=== PATIENT | male | born 1940 | race African-American/Black ===

== ENCOUNTER 2020-06-30 09:35 | Day surgery (SDC) | payer MEDICARE, OTHER, SELFPAY ==
[2020-06-30] VITALS (7 sets, daily range): BP systolic 107–125; BP diastolic 62–73; PULSE 72–76; RESP 12–20; TEMP 36.2–36.9; O2SAT 96–99; BMI 28.2
--- NOTE | 2020-06-30 | FL_ITS ---
PROCEDURE: FLUOROSCOPY-GUIDED LUMBAR PUNCTURE CLINICAL INFORMATION: Rule out encephalitis. COMPARISON: None TECHNIQUE: Procedure and risks and benefits including bleeding, infection and headache were discussed with the patient and informed consent was obtained. The patient was positioned in the prone/slight PEREIRA position. The left lower back was prepped and draped in the usual sterile fashion. The skin and soft tissues were anesthetized with 1% lidocaine plain. Using fluoroscopic guidance and a 22-gauge spinal needle, left interlaminar access to the spinal canal at the L4-L5 level was obtained. 8 mL of CSF fluid was removed. Fluid was initially slightly blood tinged. 1 PA and 2 lateral images were saved. Fluoroscopy time was 0.9 minutes. FINDINGS: Images demonstrate needle placement at the left interlaminar L4-L5 level. There is severe multilevel facet arthritis and degenerative disc disease. IMPRESSION: Fluoroscopy-guided lumbar puncture.
[2020-06-30 10:30] LABS: MANUAL DIFF FLAG NO
[2020-06-30 10:33] LABS: Basophils Absolute Auto 0.1 X10*3/uL (0.0-0.2); Basophils Percent Auto 1.4 % (0-2); Eosinophils Absolute Auto 0.1 X10*3/uL (0.0-0.4); Eosinophils Percent Auto 1.6 % (0-4); Hematocrit 38.5 % (42-52); Hemoglobin 12.7 g/dl (14.0-18.0); Imm Gran Abs Auto 0.01 X10*3/uL (0.00-0.03); Imm Gran Pct Auto 0.2 % (0.0-0.4); Lymphocytes Absolute Auto 1.3 X10*3/uL (1.2-4.9); Lymphocytes Percent Auto 24.4 % (20-40); Mean Corpuscular Hemoglobin 33.2 pg (27.0-33.0); Mean Corpuscular Volume 100.5 fL (80-98); Mean Platelet Volume 11.1 fL (9.4-12.4); Monocytes Absolute Auto 0.6 X10*3/uL (0.1-1.2); Monocytes Percent Auto 11.1 % (2-11); Neutrophils Absolute Auto 3.2 X10*3/uL (2.0-8.3); Neutrophils Percent Auto 61.3 % (45-73); Platelet Count 222 X10*3/uL (160-400); Red Blood Count 3.83 X10*6/uL (4.60-5.80); Red Cell Distribution Width 12.1 % (11.0-16.0); White Blood Count 5.1 X10*3/uL (4.8-10.8)
[2020-06-30 10:40] LABS: INTERNATIONAL NORM RATIO 1.1 (0.9-1.1); Prothrombin Time 13.3 SEC (10.8-13.0)
[2020-06-30 10:42] LABS: Partial Thromboplastin Time 26.4 SEC (24.1-38.0)
[2020-06-30 14:25] LABS: CSF Tube # 2
[2020-06-30 14:26] LABS: CSF Tube # 2
[2020-06-30 14:28] LABS: Glucose CSF 52 mg/dL
[2020-06-30 14:30] LABS: Appearance CSF BLOODY
[2020-06-30 14:31] LABS: Appearance CSF BLOODY
[2020-06-30 14:36] LABS: Appearance CSF HAZY; CSF Tube # 4
[2020-06-30 14:37] LABS: CSF Monos 0 %; CSF Other Cells % 0 %; Color CSF PINK; Lymphocytes CSF 100 %; Neutrophils CSF 0 %; Red Blood Cell CSF 1320 MM*3; White Blood Cell CSF 1 MM*3
== END 2020-06-30 23:59 | disposition home or self-care (01) ==
PROVIDERS: Radiology Diagnostic Radiology; PCP Internal Medicine; Visit Provider Psychiatry & Neurology Neurology
PROC: 009U3ZZ Drainage of Spinal Canal, Percutaneous Approach (ICD-10-PCS; CPT 62270; principal; 2020-06-30 11:00)
DX: G04.90 Encephalitis and encephalomyelitis, unspecified (principal)
CPT/HCPCS: 62328; 36415; 82945; 84157; 84166; 85025; 85610; 85730; 87015; 87070; 87205; 89051

== ENCOUNTER 2020-07-08 09:46 | Outpatient (REF) | payer MEDICARE, OTHER, SELFPAY ==
--- NOTE | 2020-07-08 09:52 | MR_ITS ---
EXAMINATION: MR BRAIN WITHOUT AND WITH CONTRAST CLINICAL INFORMATION: Encephalitis. COMPARISON: None available. TECHNIQUE: MRI of the brain was obtained using routine sequences without and with contrast following the administration of 10 mL of Gadavist intravenous contrast. FINDINGS: Exam is partially motion degraded. There is moderate expansile cortical edema involving centered on the right limbic system with extension into the anterior temporal lobe in the right insula. No associated restricted diffusion or susceptibility artifact. There is mild associated gyriform left meningeal enhancement in this distribution. Potential minimal faintly T2 FLAIR hyperintensity within the contralateral limbic and insular cortices. Otherwise, the contralateral side is relatively spared. Potential minimal symmetric T2 FLAIR hyperintensity within the posterior aspects of the bilateral occipital lobes. No focal restricted diffusion is demonstrated to suggest acute or subacute cerebral ischemia. No evidence of acute or chronic hemorrhagic products on heme-sensitive imaging. Mild scattered periventricular and deep white matter T2 FLAIR hyperintensities throughout suggestive of mild underlying microangiopathy. The ventricles are normal in morphology and size. No abnormal mass effect. No midline shift. Normal appearance of the pituitary gland. No abnormalities of the posterior fossa with normal appearance of the brainstem and cerebellum. Normal arterial and venous vascular flow voids are present. Normal, homogeneous marrow signal. No signal abnormalities within the paranasal sinuses or mastoids. IMPRESSION: Moderate parenchymal edema centered on the right limbic system with extension throughout the anterior right temporal lobe and into the right insula. There is no associated restricted diffusion or evidence of hemorrhagic transformation on this exam. There does appear to be mild associated leptomeningeal enhancement in this region. To a much lesser degree, there may be minimal parenchymal within the contralateral left lung apex system. There appears to be mild symmetric edema within the posterior occipital lobes. 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 Postictal changes or sequelae of a nonspecific vasculitis could have a similar appearance in the appropriate clinical settings.
== END 2020-07-08 09:47 | disposition home or self-care (01) ==
LOC: HO.MRI 09:46
PROVIDERS: Visit Provider Psychiatry & Neurology Neurology
DX: G04.90 Encephalitis and encephalomyelitis, unspecified (principal)
CPT/HCPCS: 70553

== ENCOUNTER 2021-06-12 13:46 | Outpatient (REF) | payer MEDICARE, OTHER, SELFPAY ==
[2021-06-12 14:50] LABS: Blood Urea Nitrogen 13 mg/dL (9-16); Estimated Glomerular Filt Rate > 60
== END 2021-06-12 13:47 | disposition home or self-care (01) ==
LOC: HO.LAB 13:46
PROVIDERS: PCP Physician Assistant Medical; Visit Provider Psychiatry & Neurology Neurology
DX: G04.90 Encephalitis and encephalomyelitis, unspecified (principal)
CPT/HCPCS: 36415; 82565; 84520

== ENCOUNTER 2021-06-26 09:51 | Outpatient (REF) | payer MEDICARE, OTHER, SELFPAY ==
--- NOTE | ~2021-06-26 | MR_ITS ---
MR BRAIN WITHOUT AND WITH CONTRAST CLINICAL INFORMATION: Encephalitis. Temporal lobe lesion. COMPARISON: Brain MRI 07/08/2020. TECHNIQUE: Multiplanar, multisequence MRI of the brain was obtained before and after the intravenous administration of 10 mL Gadavist. FINDINGS: T2 signal changes within the anterior right temporal pole and the right uncus associated with volume loss, most likely gliosis and encephalomalacia. There is right hippocampal atrophy with associated exvacuodilatation of the right temporal horn. No new parenchymal signal abnormality and no pathologic enhancement. There is no hydrocephalus, extra-axial surface collection, or herniation. The major flow voids at the skull base are preserved. There is no acute infarct on diffusion-weighted imaging. There is no intracranial hemorrhage on the gradient recalled echo acquisition. The midline structures are normal. The cerebellar tonsils are normally positioned. The cerebellum and brainstem are normal. The craniocervical junction is normal. Osseous marrow signal intensity is homogenous. The visualized soft tissues are unremarkable. MR/MR head/brain wo/w con IMPRESSION: T2 signal changes within the anterior right temporal pole and the right uncus associated with volume loss, most likely gliosis and encephalomalacia. There is right hippocampal atrophy with associated exvacuodilatation of the right temporal horn. No new parenchymal signal abnormality and no pathologic enhancement.
== END 2021-06-26 09:52 | disposition home or self-care (01) ==
LOC: HO.MRI 09:51
PROVIDERS: Visit Provider Psychiatry & Neurology Neurology
DX: Z13.89 Encounter for screening for other disorder (principal)
CPT/HCPCS: 70553; A9585

== ENCOUNTER 2021-06-26 11:15 | Inpatient (IN) | payer MEDICARE, OTHER, SELFPAY ==
[2021-06-26] VITALS (8 sets, daily range): BP systolic 103–121; BP diastolic 50–73; PULSE 59–76; RESP 15–18; TEMP 36.5–36.8; O2SAT 95–100; BMI 28.0; BMI 29.3
--- NOTE | ~2021-06-26 | XR_ITS ---
EXAMINATION: XR CHEST CLINICAL INFORMATION: Failure to try COMPARISON: 07/20/2008 chest x-ray. TECHNIQUE: Frontal view of the chest was obtained. FINDINGS: The lungs are hypoexpanded with elevated left hemidiaphragm. There is left lower lobe atelectasis or scarring. Rest lungs are clear. Heart size and pulmonary vascularity is normal. There is mild spondylosis dorsal spine. No lytic process. XR/XR chest 1V IMPRESSION: Hypoexpanded lungs with elevated left hemidiaphragm new since 2007. There is patchy opacity left lung base likely atelectasis or infiltrate.
--- NOTE | ~2021-06-26 | US_ITS ---
EXAMINATION: US EXTRACRANIAL CAROTID DUPLEX, BILATERAL CLINICAL INFORMATION: Dizziness COMPARISON: None TECHNIQUE: Real-time ultrasound and Doppler techniques (integrating B-mode 2-D vascular images, Doppler spectral analysis and color-flow Doppler imaging) were utilized to interrogate the extracranial carotid arteries, the vertebral arteries and proximal subclavian arteries bilaterally. The degree of stenosis is determined by criteria similar to NASCET. FINDINGS: Right Side: 1. There is mild/moderate heterogeneous atherosclerotic plaque seen in the bifurcation/proximal ICA region. 2. The common carotid artery PSV proximally is 103 cm/s and distally 109 cm/s. 3. The proximal internal carotid artery velocities are 84 cm/s systolic and 15.9 cm/s diastolic. 4. The proximal external carotid artery PSV is 84.5 cm/s. 5. The vertebral artery shows antegrade flow. 6. The subclavian artery waveforms are normal. Left Side: 1. There is [id number] heterogeneous atherosclerotic plaque seen in the bifurcation/proximal ICA region. 2. The common carotid artery PSV proximally is 1:30 cm/s and distally 76.8 cm/s. 3. The proximal internal carotid artery velocities are 62.8 cm/s systolic and 17.6 cm/s diastolic. 4. The proximal external carotid artery PSV is 87.3 cm/s. 5. The vertebral artery shows antegrade flow. 6. The subclavian artery waveforms are normal. Of note, on Doppler evaluation there is some irregularity of the heart rate. US/US carotid duplex BI IMPRESSION: 1. RIGHT: Minimal, non-hemodynamically significant stenosis of the proximal right internal carotid artery corresponding to a 0-49% stenosis by velocity criteria. 2. LEFT: Minimal, non-hemodynamically significant stenosis of the proximal left internal carotid artery corresponding to a 0-49% stenosis by velocity criteria. 3. Irregular heart rate. Correlate for arrhythmia.
--- NOTE | ~2021-06-26 | CT_ITS ---
EXAMINATION: CT HEAD WITHOUT CONTRAST CLINICAL INFORMATION: Memory deficit and failure to thrive COMPARISON: Previous brain MRI from earlier the same day TECHNIQUE: Contiguous axial imaging was performed from the skull base to vertex without intravenous administration of contrast. This CT examination was performed using dose optimization techniques as appropriate, variously including the following: *Automated exposure control *Adjustment of mA and/or kV according to patient size (this includes techniques or standardized protocols for targeted exams where dose is matched to indication/reason for exam; i.e. extremities or head) *Use of iterative reconstruction technique DLP: 675 mGy-cm FINDINGS: There is no evidence of an extra-axial collection. There is no evidence of intra or extra-axial hemorrhage. There is low-attenuation anterior left temporal lobe area there may be mild ex vacuo dilatation of the adjacent temporal horn of the right lateral ventricle. Ventricles and extra-axial CSF spaces are slightly prominent suggestive of mild generalized atrophy. There is mild nonspecific periventricular white matter disease and there is mild atherosclerotic disease. No skull fracture or bone lesion is seen. Visualized paranasal, mastoid air cells and middle ears are clear. CT/CT head/brain wo con IMPRESSION: Low-attenuation in the anterior right temporal lobe and adjacent mild ex vacuo dilatation of the temporal horn of the right lateral ventricle. This is better delineated on MRI performed earlier the same day. Mild generalized atrophy and nonspecific periventricular white matter disease.
--- NOTE | 2021-06-26 11:39 | ECG_ITS ---
Test Reason : ALTERED MENTAL Blood Pressure : / mmHG Vent. Rate : 068 BPM Atrial Rate : 055 BPM P-R Int : 000 ms QRS Dur : 096 ms QT Int : 428 ms P-R-T Axes : 000 -39 096 degrees QTc Int : 455 ms Normal sinus rhythm with 1st degree A-V block with Premature atrial complexes Left axis deviation Nonspecific T wave abnormality Abnormal ECG No previous ECGs available Referred By: Kaye Ross Electronically Signed By:WALTER BARTON
--- NOTE | 2021-06-26 11:40 | ED_ITS ---
HPI - Neuro Symptoms/Deficit General Chief Complaint: Neuro Symptoms/Deficit Stated Complaint: WEAKNESS Time Seen by Provider: 06/26/21 11:38 Source: patient and family (Sister) Mode of arrival: ambulatory Limitations: no limitations History of Present Illness HPI Narrative: 81-year-old male came in for evaluation of failure to thrive. Brought in with his sister for evaluation of failure to thrive, and increase his generalized weakness, worsening of forgetfulness, patient over the last year been having progressive memory loss, patient has been evaluated by neurologist who ordered MRI (was done today reamings none available). Sister brought him to the emergency department after having the MRI of the brain because concern of caring for himself at home patient lives home with his and patient is refusing help from others. Patient has been complaining of dizziness on and off for the past few months. Patient declined fever, chills, headache, chest pain, abdominal pain, nausea, or vomiting. Related Data Allergies Allergy/AdvReac Type Severity Reaction Status Date / Time sulfamethoxazole Allergy Unknown Verified 06/30/20 10:49 [From Bactrim] trimethoprim [From Bactrim] Allergy Unknown Verified 06/30/20 10:49 Review of Systems Review of Systems: All other systems are reviewed and are negative Constitutional: Reports as per HPI and Reports no additional constitutional complaints Eyes: Reports as per HPI and Reports no additional eye complaints Reports system reviewed and no additional complaints, except as documented Cardiovascular: Reports as per HPI and Reports no additional cardiovascular complaints Respiratory: Reports as per HPI and Reports no additional respiratory complaints Gastrointestinal: Reports as per HPI and Reports no additional gastrointestinal complaints Genitourinary: Reports no additional female genitourinary complaints Musculoskeletal: Reports no additional musculoskeletal complaints Skin/Breast: Reports system reviewed and no additional complaints, except as docu Psychiatric: Reports no additional psychiatric complaints Endocrine: Reports no additional endocrine complaints Hematologic/Lymphatic: Reports no additional hematologic/lymphatic complaints Allergic/Immunologic: Reports no additional allergic/immunologic complaints Reports system reviewed and no additional complaints, except as documented and Reports Abnormal speech present [facility] Past Medical History Medical History Arthritis Encephalitis Glaucoma Social History Social History Advance Directives: Yes Advance Directives Information Provided: No Advance Directives on File: No Advance Directives Date on File: 07/08/20 Physical Exam Vital Signs: Vital Signs: Last Vital Signs Temp 97.7 F 06/26/21 15:46 Pulse 59 06/26/21 15:46 Resp 16 06/26/21 15:46 BP 109/56 L 06/26/21 15:46 Pulse Ox 95 06/26/21 15:46 Body Mass Index 28.0 Vital signs have been reviewed as appeared to be correct. Blood pressure normal. Heart rate normal. Respiration rate normal. Temperature normal. O xygen saturation normal. Appearance: Alert. Oriented X1 (person), acute di stress. Head: Normal external exam. Normocephalic. Atraumatic. No Benton signs noted. No raccoon eyes noted Eyes: PERRLA. EOMI. Conjunctiva and sclera normal. Eyelids normal. ENT: TM's Normal. Pharynx normal. Uvula midline. Moist mucous membranes. No trismus noted. No drooling noted. No muffled voice noted. Neck: Normal inspection. Neck supple. FROM. No adenopathy. Thyroid Normal. No meningeal signs. No neck mass noted. CVS: Normal heart rate and rhythm. Heart sound normal. No murmurs noted. Pulses normal throughout. Respiratory: No respiratory distress. Painless inspiration. Breath sounds normal. No wheezes/rales/rhonchi noted. Chest nontender. No accessory muscle usage noted or decreased air movement noted. Abdomen: Soft and nontender. Bowel sounds normal in all 4 quadrants. No distention noted. No organomegaly noted. No visible injury noted. Back: No CVA tenderness. Full range of motion noted. Skin: Skin warm and dry. Normal skin color. Normal skin turgor. No chikis hes/lesions/lacerations noted. Extremities: No lower extremity edema. Extremities exhibit normal range of motion. Extremities nontender. Neuro: Oriented X 1. Cranial nerve exam: II-XII are grossly intact No motor deficit. No sensory deficit. Reflexes normal. Course Course Course Narrative: Assessment and plan. 81-year-old male came in for evaluation of memory loss and workup for dementia, patient also been complaining of dizziness and generalized weakness, patient found to have pneumonia but not meeting criteria for SIRS, elevated troponin. Start the patient on antibiotic, case discussed with cardiology Dr. Molina who recommended to admit the patient for further cardiac follow-up in the morning. MDM - Neuro Symptoms/Deficit Medical Records Attestation: I reviewed the patient's medical records. Lab Data Attestation: I reviewed the patient's lab results. Result diagrams: 06/26/21 12:19 06/26/21 12:19 Labs: Lab Results 06/26/21 06/26/21 06/26/21 Range/Units 12:19 12:19 12:19 WBC 6.5 (4.8-10.8) X10*3/uL RBC 4.56 L (4.60-5.80) X10*6/uL Hgb 14.9 (14.0-18.0) g/dl Hct 44.9 (42-52) % MCV 98.5 H (80-98) fL MCH 32.7 (27.0-33.0) pg MCHC 33.2 (31.0-36.0) g/dl RDW 11.9 (11.0-16.0) % Plt Count 184 (160-400) X10*3/uL MPV 11.2 (9.4-12.4) fL Immature Gran % (Auto) 0.6 H (0.0-0.4) % Neut % (Auto) 77.9 H (45-73) % Lymph % (Auto) 11.9 L (20-40) % [place] % (Auto) 8.8 (2-11) % Eos % (Auto) 0.3 (0-4) % Baso % (Auto) 0.5 (0-2) % Lymph # (Auto) 0.8 L (1.2-4.9) X10*3/uL [place] # (Auto) 0.6 (0.1-1.2) X10*3/uL Eos # (Auto) 0.0 (0.0-0.4) X10*3/uL Baso # (Auto) 0.0 (0.0-0.2) X10*3/uL Abs Immat Gran (auto) 0.04 H (0.00-0.03) X10*3/uL Absolute Neuts (auto) 5.0 (2.0-8.3) X10*3/uL Absolute Nucleated RBC 0.000 (0.0-0.012) X10*3/uL Nucleated RBC % (auto) 0.0 (0.0-0.2) /100WBC Sodium 140 (135-145) mmol/L Potassium 3.8 (3.3-5.1) mmol/L Chloride 104 (96-108) mmol/L Carbon Dioxide 26 (22-29) mmol/L Anion Gap 14 (12-20) BUN 12 (9-16) mg/dL Creatinine 0.87 (0.5-1.4) mg/dL Estim Creat Clear Calc 85.1 Estimated GFR > 60 Random Glucose 112 (60-115) mg/dL Calcium 9.3 (8.4-10.2) mg/dL Total Bilirubin 0.8 (0.0-1.0) mg/dL Direct Bilirubin 0.3 (0.0-0.5) mg/dL AST 13 (5-37) U/L ALT 21 (0-40) U/L Alkaline Phosphatase 96 (39-117) U/L Troponin I High Sens 66.4 H* (<3.5-35.0) ng/L B-Natriuretic Peptide 67 (<100) pg/mL Total Protein 8.1 H (6.5-8.0) g/dL Albumin 3.2 L (3.5-5.0) g/dL Lipase 16 (8-78) U/L Urine Color Urine Appearance Urine pH (5.0-8.0) Ur Specific [place] (1.005-1.025) Urine Protein (NEG-TRACE) MG/DL Urine Glucose (UA) (NEG) MG/DL Urine Ketones (NEG) MG/DL Urine Blood (NEG) Urine Nitrite (NEG) Ur Leukocyte Esterase (NEG) COVID-19 (ASHISH) (Negative) COVID-19 Clin Com 06/26/21 06/26/21 06/26/21 Range/Units 12:19 12:34 16:02 WBC (4.8-10.8) X10*3/uL RBC (4.60-5.80) X10*6/uL Hgb (14.0-18.0) g/dl Hct (42-52) % MCV (80-98) fL MCH (27.0-33.0) pg MCHC (31.0-36.0) g/dl RDW (11.0-16.0) % Plt Count (160-400) X10*3/uL MPV (9.4-12.4) fL Immature Gran % (Auto) (0.0-0.4) % Neut % (Auto) (45-73) % Lymph % (Auto) (20-40) % [place] % (Auto) (2-11) % Eos % (Auto) (0-4) % Baso % (Auto) (0-2) % Lymph # (Auto) (1.2-4.9) X10*3/uL [place] # (Auto) (0.1-1.2) X10*3/uL Eos # (Auto) (0.0-0.4) X10*3/uL Baso # (Auto) (0.0-0.2) X10*3/uL Abs Immat Gran (auto) (0.00-0.03) X10*3/uL Absolute Neuts (auto) (2.0-8.3) X10*3/uL Absolute Nucleated RBC (0.0-0.012) X10*3/uL Nucleated RBC % (auto) (0.0-0.2) /100WBC Sodium (135-145) mmol/L Potassium (3.3-5.1) mmol/L Chloride (96-108) mmol/L Carbon Dioxide (22-29) mmol/L Anion Gap (12-20) BUN (9-16) mg/dL Creatinine (0.5-1.4) mg/dL Estim Creat Clear Calc Estimated GFR Random Glucose (60-115) mg/dL Calcium (8.4-10.2) mg/dL Total Bilirubin (0.0-1.0) mg/dL Direct Bilirubin (0.0-0.5) mg/dL AST (5-37) U/L ALT (0-40) U/L Alkaline Phosphatase (39-117) U/L Troponin I High Sens 74.0 H* (<3.5-35.0) ng/L B-Natriuretic Peptide (<100) pg/mL Total Protein (6.5-8.0) g/dL Albumin (3.5-5.0) g/dL Lipase (8-78) U/L Urine Color YELLOW Urine Appearance HAZY Urine pH 5.5 (5.0-8.0) Ur Specific [place] >= 1.030 H (1.005-1.025) Urine Protein TRACE (NEG-TRACE) MG/DL Urine Glucose (UA) NEG (NEG) MG/DL Urine Ketones NEG (NEG) MG/DL Urine Blood NEG (NEG) Urine Nitrite NEG (NEG) Ur Leukocyte Esterase NEG (NEG) COVID-19 (ASHISH) Negative (Negative) COVID-19 Clin Com See Note Imaging Data MRI of the brain: Radiologist's impression: T2 signal changes within the anterior right temporal pole and the right uncus associated with volume loss, most likely gliosis and encephalomalacia. There is right hippocampal atrophy with associated exvacuodilatation of the right temporal horn. No new parenchymal signal abnormality and no pathologic enhancement. Chest x-ray: Radiologist's impression: Hypoexpanded lungs with elevated left hemidiap hragm new since 2007. There is patchy opacity left lung base likely atelectasis or infiltrate. CT scan - head: Radiologist's impression: Low-attenuation in the anterior right temporal lobe and adjacent mild ex vacuo dilatation of the temporal horn of the right lateral ventricle. This is better delineated on MRI performed earlier the same day. Mild generalized atrophy and nonspecific periventricular white matter disease. ECG Data Interpretation: Atrial fibrillation at 69 beats per minutes, left axis deviation, otherwise unremarkable intervals, diffuse nonspecific ST-T changes. Discharge Plan Discharge Clinical Impression: Pneumonia, Elevated troponin Patient Disposition: Admitted As Inpatient
[2021-06-26 12:24] LABS: MANUAL DIFF FLAG NO
[2021-06-26 12:30] LABS: Basophils Percent Auto 0.5 % (0-2); Eosinophils Percent Auto 0.3 % (0-4); Hematocrit 44.9 % (42-52); Hemoglobin 14.9 g/dl (14.0-18.0); Imm Gran Abs Auto 0.04 X10*3/uL (0.00-0.03); Imm Gran Pct Auto 0.6 % (0.0-0.4); Lymphocytes Absolute Auto 0.8 X10*3/uL (1.2-4.9); Lymphocytes Percent Auto 11.9 % (20-40); Mean Corpuscular HGB Conc 33.2 g/dl (31.0-36.0); Mean Corpuscular Hemoglobin 32.7 pg (27.0-33.0); Mean Corpuscular Volume 98.5 fL (80-98); Mean Platelet Volume 11.2 fL (9.4-12.4); Monocytes Absolute Auto 0.6 X10*3/uL (0.1-1.2); Monocytes Percent Auto 8.8 % (2-11); Neutrophils Percent Auto 77.9 % (45-73); Platelet Count 184 X10*3/uL (160-400); Red Blood Count 4.56 X10*6/uL (4.60-5.80); Red Cell Distribution Width 11.9 % (11.0-16.0); White Blood Count 6.5 X10*3/uL (4.8-10.8)
[2021-06-26 12:43] LABS: Appearance Urine HAZY; Color Urine YELLOW; Glucose Urine UA NEG (NEG); Leukocyte Esterase Urine NEG (NEG); Nitrite Urine NEG (NEG); PH 5.5 (5.0-8.0); Specific Gravity - Urine >= 1.030 (1.005-1.025); Urine Blood NEG (NEG); Urine Ketones NEG (NEG); Urine Protein TRACE MG/DL (NEG-TRACE)
[2021-06-26 12:45] LABS: Alanine Aminotransferase 21 U/L (0-40); Albumin Level 3.2 g/dL (3.5-5.0); Alkaline Phosphatase 96 U/L (39-117); Anion Gap 14 (12-20); Aspartate Amino Transferase 13 U/L (5-37); Bilirubin Direct 0.3 mg/dL (0.0-0.5); Bilirubin Total 0.8 mg/dL (0.0-1.0); Blood Urea Nitrogen 12 mg/dL (9-16); Calcium 9.3 mg/dL (8.4-10.2); Carbon Dioxide 26 mmol/L (22-29); Chloride 104 mmol/L (96-108); Creatinine Clr Calc Pharmacy 85.1; Estimated Glomerular Filt Rate > 60; Glucose Random 112 mg/dL (60-115); Lipase 16 U/L (8-78); Potassium 3.8 mmol/L (3.3-5.1); Sodium 140 mmol/L (135-145); Total Protein 8.1 g/dL (6.5-8.0)
[2021-06-26 12:49] LABS: COVID-19 Test Negative (Negative); IDNOW Serial# 08D9AD1C
[2021-06-26 12:56] LABS: B Type Natriuretic Peptide 67 pg/mL (<100); Troponin-I High Sensitivity 66.4 ng/L (<3.5-35.0)
--- NOTE | 2021-06-26 18:16 | MHC.CM.PN ---
CM met with admitted patient, with bed assignment pending, and his sister. Sister, Nikki Louis speaking for family and requested I speak with her and not pt. Gently explained that I would like to speak with patient, and then I could speak with her if pt agreeable. Pt is alert, but confused. Knows he is in the hospital, but thinks he was working recently for [employer] and that his is 44. Pt unsure of his age. Pt states he can care for himself and wants to go home. Pt unable to answer Covid vaccines questions. Pt lives with his , uses no DME or services. Pt states he doesn't need help. Pt does not want to go to STR. PT recommends Home PT with front wheeled walker at d/c. HCP reviewed, completed, and signed. HCP/ Gwen Louis ([phone]) and alternate HCP/sister Nikki Louis ([phone]). Uploaded into [employer] and [employer]. Nikki states pt's cannot care for him. Cannot shower him. States pt has MS and a fx leg, uses a walker and cannot help or care for him. CM spoke with Gwen, pt , who states she cannot care for him at home right now. Both want STR. Explained that PT recommends Home PT with Walker. Pt and sister unsure of Vet status, just saying pt was in the service.Pt cannot answer vet questions regarding VA pharmacy use, Medicare part B, or if vet connected. Will need to review VET status in am with VA Coordinator. Pt has Medicare and . Per pt , pt is fully vaccinated with Pfizer. CM to follow for d/c needs.
--- NOTE | 2021-06-26 19:00 | PC.NURSE ---
PT WAITING ON BED ASSIGNMENT, LABS, MEDS GIVEN ORDERED, MEDS GIVEN ORDERED. TOLERATING PO
--- NOTE | 2021-06-26 19:08 | PC.NURSE ---
RN assumed care at 1900. Pt alert but confused, oriented to self only. Pt calm and cooperative. Pt asking repeated questions and unsure why he came here. pt reoriented and reassured multiple times. Pt denies pain, chest pain, SOB, N/V. IV intact.Vitals stable. Pt remains on tele monitor, NSR. Pt resting in stretcher calmly, will continue to monitor.
[2021-06-26] MEDS: Azithromycin 500 MG in 0.9 % Sodium Chloride 250 ML 125 MG IV (19:13)
--- NOTE | 2021-06-26 19:22 | PM.IMHP ---
History of Present Illness Date of Service: 06/26/21 Chief Complaint: Dizziness 81-year-old male with a past medical history of forgetfulness, glaucoma, history of encephalitis presented to the hospital with a chief complaint of dizziness. Patient is a poor historian To the patient's healthcare proxy Gwen soni Reported that patient has been complaining of dizziness for the past 3 days and also mentioned that he has decreased appetite and not eating good. Denies any falls or loss of consciousness. Denies any cough or sputum production. Denies any urinary symptoms. Denies any nausea vomiting. Denies having any numbness tingling or focal weakness. Baseline patient is usually independent. Gwen also mentioned that he has history of encephalitis and since then he has been more forgetful and has been following with Dr godwin in the neurology clinic as outpatient and takes donepezil, prednisone, sertraline; and red trauma Steve for his glaucoma. Mentioned that had a follow-up visit last week with Dr. Godwin, and had an MRI of the brain done today. Review of all other systems is negative except mentioned above ER course: Per ER team patient exam was nonfocal; labs were essentially benign; on on chest x-ray noted to have possible pneumonia; given antibiotics. Also noted to elevated troponin, follow-up troponin almost flat reviewed. Discussed with Cardiology Dr Molina who suggested admission to [facility], did not heparin drip at this time. [facility] [place] Medical History Arthritis Encephalitis Glaucoma Pertinent family history: Mother had heart disease Father had cancer Social History Household Members: Spouse Housing: Unknown / Unable to assess Do you presently have visiting nurse or other home services: No (unable to assess) Alcohol intake: never Patient Tobacco Use Status: Never used Tobacco Use of substances other than those prescribed or required for medical reasons: No Have you been hit, kicked, punched, or otherwise hurt by someone within the past year? If so, by whom?: No Do you feel safe in your current relationship?: Yes Is there a partner from a previous relationship who is making you feel unsafe now?: No Are you made to feel afraid or neglected: No Advance Directives: Yes Advance Directives Information Provided: No Advance Directives on File: No Advance Directives Date on File: 06/26/21 Do you have thoughts of harming others: None Do you have a plan to hurt others: No Plan Recently lost weight without trying: No Nutrition Risks: No Nutritional Risk Poor oral hygiene: No service: Yes Current occupational status: retired Meds Allergies Allergy/AdvReac Type Severity Reaction Status Date / Time sulfamethoxazole Allergy Unknown Verified 06/30/20 10:49 [From Bactrim] trimethoprim [From Bactrim] Allergy Unknown Verified 06/30/20 10:49 Home Medications Medication Instructions Recorded Confirmed Last Taken Type donepezil 10 mg tablet 1 tab PO BEDTIME 06/26/21 06/26/21 06/25/21 History omeprazole 20 mg capsule,delayed 1 cap PO QAM 06/26/21 06/26/21 06/25/21 History release prednisone 10 mg tablet 1 tab PO DAILY 06/26/21 06/26/21 06/25/21 History sertraline 100 mg tablet 1 tab PO DAILY 06/26/21 06/26/21 06/25/21 History travoprost 0.004 % eye drops 1 drp OPHTHALMIC (EYE) BEDTIME 06/26/21 06/26/21 06/25/21 History (Travatan Z) Physical Exam Vital Signs and Narrative: Vital Signs: Last Vital Signs Temp 98.2 F 06/26/21 19:04 Pulse 63 06/26/21 19:04 Resp 18 06/26/21 19:04 BP 103/50 L 06/26/21 19:04 Pulse Ox 100 06/26/21 19:04 Body Mass Index 28.0 Gen: Appears be in no acute distress HEENT: NCAT, Moist mucosa. Pulmonary: Vesicular breath sounds, fair air entry CVS: Normal S1-S2 Abdomen: BS+, Soft, Nontender Extremities: Warm well perfused Neuro: Alert and awake. Grossly nonfocal Results Labs CBC and Chem 7: 06/26/21 12:19 06/26/21 12:19 Labs: Laboratory Results - last 24 hr 06/26/21 06/26/21 06/26/21 12:19 12:19 12:19 MCV 98.5 H MCH 32.7 MCHC 33.2 RDW 11.9 Plt Count 184 MPV 11.2 Immature Gran % (Auto) 0.6 H Neut % (Auto) 77.9 H Lymph % (Auto) 11.9 L [place] % (Auto) 8.8 Eos % (Auto) 0.3 Baso % (Auto) 0.5 Lymph # (Auto) 0.8 L [place] # (Auto) 0.6 Eos # (Auto) 0.0 Baso # (Auto) 0.0 Abs Immat Gran (auto) 0.04 H Absolute Neuts (auto) 5.0 Absolute Nucleated RBC 0.000 Nucleated RBC % (auto) 0.0 Anion Gap 14 Estim Creat Clear Calc 85.1 Estimated GFR > 60 Random Glucose 112 Lactic Acid Calcium 9.3 Total Bilirubin 0.8 Direct Bilirubin 0.3 AST 13 ALT 21 Alkaline Phosphatase 96 Troponin I High Sens 66.4 H* B-Natriuretic Peptide 67 Total Protein 8.1 H Albumin 3.2 L Lipase 16 Urine Color Urine Appearance Urine pH Ur Specific [place] Urine Protein Urine Glucose (UA) Urine Ketones Urine Blood Urine Nitrite Ur Leukocyte Esterase COVID-19 (ASHISH) COVID-ZUCHEM 06/26/21 06/26/21 06/26/21 12:19 12:34 16:02 MCV MCH MCHC RDW Plt Count MPV Immature Gran % (Auto) Neut % (Auto) Lymph % (Auto) [place] % (Auto) Eos % (Auto) Baso % (Auto) Lymph # (Auto) [place] # (Auto) Eos # (Auto) Baso # (Auto) Abs Immat Gran (auto) Absolute Neuts (auto) Absolute Nucleated RBC Nucleated RBC % (auto) Anion Gap Estim Creat Clear Calc Estimated GFR Random Glucose Lactic Acid Calcium Total Bilirubin Direct Bilirubin AST ALT Alkaline Phosphatase Troponin I High Sens 74.0 H* B-Natriuretic Peptide Total Protein Albumin Lipase Urine Color YELLOW Urine Appearance HAZY Urine pH 5.5 Ur Specific [place] >= 1.030 H Urine Protein TRACE Urine Glucose (UA) NEG Urine Ketones NEG Urine Blood NEG Urine Nitrite NEG Ur Leukocyte Esterase NEG COVID-19 (ASHISH) Negative COVID-[employer] Com See Note 06/26/21 17:38 MCV MCH MCHC RDW Plt Count MPV Immature Gran % (Auto) Neut % (Auto) Lymph % (Auto) [place] % (Auto) Eos % (Auto) Baso % (Auto) Lymph # (Auto) [place] # (Auto) Eos # (Auto) Baso # (Auto) Abs Immat Gran (auto) Absolute Neuts (auto) Absolute Nucleated RBC Nucleated RBC % (auto) Anion Gap Estim Creat Clear Calc Estimated GFR Random Glucose Lactic Acid 3.0 H* Calcium Total Bilirubin Direct Bilirubin AST ALT Alkaline Phosphatase Troponin I High Sens B-Natriuretic Peptide Total Protein Albumin Lipase Urine Color Urine Appearance Urine pH Ur Specific [place] Urine Protein Urine Glucose (UA) Urine Ketones Urine Blood Urine Nitrite Ur Leukocyte Esterase COVID-19 (ASHISH) COVID-19 Clin Com Imaging Radiologist's Impressions: Impressions Chest X-Ray 06/26/21 11:39 IMPRESSION: Hypoexpanded lungs with elevated left hemidiaphragm new since 2007. There is patchy opacity left lung base likely atelectasis or infiltrate. Head CT 06/26/21 11:39 IMPRESSION: Low-attenuation in the anterior right temporal lobe and adjacent mild ex vacuo dilatation of the temporal horn of the right lateral ventricle. This is better delineated on MRI performed earlier the same day. Mild generalized atrophy and nonspecific periventricular white matter disease. Assessment and Plan (1) Pneumonia: Qualifiers: Laterality: left Pneumonia type: due to unspecified organism Status: Acute (2) Dizziness: Status: Acute (3) Elevated troponin: Status: Acute 81-year-old male with a past medical history of forgetfulness, glaucoma, history of encephalitis presented to the hospital with a chief complaint of dizziness. Dizziness: Denies any falls or loss of consciousness. Exam grossly nonfocal. CT head showed no acute findings Fall precautions PT/OT Carotid duplex Pneumonia: Patient continued on ceftriaxone azithromycin empirically. Lactic acidosis: Gentle IV fluids open home Elevated troponins: Patient denies any chest pain; EKG nonischemic. Cardiology aware. Echocardiogram. had NSVT: s/w Lopressor 12.5mg; monitor electrolytes; History of encephalitis: Patient follow-up MRI done today. Which showed T2 signal changes within the anterior to have right temporal lobe/right uncus associated volume/mild gliosis/encephalomalacia. Will consult patient neurologist Dr godwin Patient chronically on prednisone History of glaucoma: Continue home trauma Steve History of forgetfulness: Continue home donepezil and sertraline GERD: Omeprazole DVT prophylaxis: Lovenox Code status: Full code Quality Stroke Does the patient have a stroke diagnosis?: No VTE Prior VTE?: No VTE Risk Level:: Medical - moderate - high VTE Device Contraindication: Treatment Not Indicated VTE Drug Contraindication: N/A - Med Ordered
[2021-06-26 19:41] LABS: Reflex Lactate? Lactic Acid Added
--- NOTE | 2021-06-26 20:06 | PHA.MEDREC ---
Pharmacy Consult ? Medication Reconciliation Pharmacy has completed the medication reconciliation. There are no remarkable issues for provider's attention. Verified medications with Gwen. Bee Chong, MunaD
--- NOTE | 2021-06-26 20:43 | PC.NURSE ---
call for report x1.
[2021-06-26 20:58] LABS: ~Lactic Acid-LAB USE ONLY 3.4 mmol/L (0.5-2.0)
[2021-06-26] MEDS: Donepezil HCl 10 MG TABLET PO (21:27)
[2021-06-26] MEDS: Enoxaparin Sodium 40 MG/0.4 ML SYRINGE SUBCUT (21:27)
[2021-06-26] MEDS: Dextrose 5 % and 0.45 % NaCl 1,000 ML 50 ML IVCONT (21:47)
[2021-06-26] MEDS: cefTRIAXone sodium 1 GM in 0.9 % Sodium Chloride 50 ML IV (21:47)
[2021-06-26] MEDS: Latanoprost 0.005 % Ophth Sol 2.5 ML DROPS 1 DROP EYE-BOTH (21:50)
[2021-06-26 22:37] LABS: Reflex Lactate? 2 Y
[2021-06-27] VITALS (9 sets, daily range): BP systolic 104–134; BP diastolic 60–72; PULSE 50–67; RESP 18–20; TEMP 36.1–36.6; O2SAT 90–99
[2021-06-27 00:05] LABS: ~Lactic Acid-LAB USE ONLY 2.3 mmol/L (0.5-2.0)
[2021-06-27] MEDS: Metoprolol Tartrate 12.5 MG HALFTAB PO ×3 (01:04→20:08)
[2021-06-27] MEDS: Omeprazole 20 MG CAPSULE.DR PO (05:41)
[2021-06-27 06:45] LABS: MANUAL DIFF FLAG NO
[2021-06-27 06:52] LABS: Basophils Absolute Auto 0.1 X10*3/uL (0.0-0.2); Basophils Percent Auto 0.7 % (0-2); Eosinophils Absolute Auto 0.1 X10*3/uL (0.0-0.4); Eosinophils Percent Auto 1.3 % (0-4); Hematocrit 41.6 % (42-52); Hemoglobin 13.4 g/dl (14.0-18.0); Imm Gran Abs Auto 0.05 X10*3/uL (0.00-0.03); Imm Gran Pct Auto 0.6 % (0.0-0.4); Lymphocytes Absolute Auto 2.1 X10*3/uL (1.2-4.9); Lymphocytes Percent Auto 24.7 % (20-40); Mean Corpuscular HGB Conc 32.2 g/dl (31.0-36.0); Mean Corpuscular Volume 99.3 fL (80-98); Mean Platelet Volume 12.4 fL (9.4-12.4); Monocytes Percent Auto 11.7 % (2-11); Neutrophils Absolute Auto 5.1 X10*3/uL (2.0-8.3); Platelet Count 191 X10*3/uL (160-400); Red Blood Count 4.19 X10*6/uL (4.60-5.80); Red Cell Distribution Width 11.9 % (11.0-16.0); White Blood Count 8.3 X10*3/uL (4.8-10.8)
[2021-06-27 07:22] LABS: Magnesium 1.8 mg/dL (1.6-2.6)
[2021-06-27 07:24] LABS: Anion Gap 11 (12-20); Blood Urea Nitrogen 13 mg/dL (9-16); Calcium 8.6 mg/dL (8.4-10.2); Carbon Dioxide 27 mmol/L (22-29); Chloride 105 mmol/L (96-108); Estimated Glomerular Filt Rate > 60; Glucose Random 97 mg/dL (60-115); Potassium 3.3 mmol/L (3.3-5.1); Sodium 140 mmol/L (135-145)
[2021-06-27 08:33] LABS: Troponin-I High Sensitivity 89.7 ng/L (<3.5-35.0)
--- NOTE | 2021-06-27 09:00 | CA_ITS ---
Transthoracic Echocardiogram Patient (Last, First, Middle): Mckayla Louis, Gender: Male Date of : 1940 Age: 81 Procedure Date: 06/27/2021 Procedure Type: Transthoracic Echocardiogram Location: [facility] [place] Height: 187.96 cm Weight: 84.82 kg BSA: 2.11 m2 Heart Rate: bpm BP: 106 / 61 mmHg Asset Management Analyst: Referring MD: Tee Couch MD Symptoms: elevated troponin Study Quality: Good ECG Rhythm: Sinus with PACs Conclusions: - The left ventricular systolic function is normal. The calculated ejection fraction is 66% by biplane method. - There is severely increased left ventricular wall thickness. - The basal inferior and mid inferolateral segments are akinetic. - No obvious valvular pathology seen on this study. Findings Left Ventricle Normal left ventricular cavity size. There is severely increased left ventricular wall thickness. The left ventricular systolic function is normal. The calculated ejection fraction is 66% by biplane method. There is no evidence of regional wall motion abnormalities. E/E prime ratio is >15, consistent with elevated filling pressures. Evidence suggests grade II (moderate) diastolic dysfunction. Wall Motion Rest Echo Findings The basal inferior and mid inferolateral segments are akinetic. Right Ventricle Normal right ventricular cavity size and systolic function. Atria The left atrium is mildly dilated. The right atrium is normal in size. Aortic Valve There is a normal trileaflet aortic valve. There is no aortic valve stenosis. There is no aortic valve regurgitation. Mitral Valve The mitral valve appears normal. There is trace mitral valve regurgitation. There is no mitral valve stenosis. Pulmonic Valve The pulmonic valve was not well visualized. There is mild pulmonic valve regurgitation. Tricuspid Valve Normal tricuspid valve structure. There is no tricuspid valve regurgitation. The pulmonary artery systolic pressure is normal. Great Vessels The asc aorta is normal in size. Venous The inferior vena cava is normal in size and collapses greater than 50% with inspiration. Pericardium/Pleural There is no evidence of pericardial effusion. Prior Study Comparison No prior study available for comparison. Recommendations, Care & Conclusions No obvious valvular pathology seen on this study. Measurements 2D Linear Measurements IVSd: 1.86 0.6-0.9/0.6-1.0 cm LVIDd: 4.31 3.9-5.3/4.2-5.9 cm LVIDd Index: 2.04 2.4-3.2/2.2-3.1 cm/m2 LVIDs: 3.12 2.0-3.6 cm LVPWd: 1.59 0.7-1.1 cm Ao Root: 3.70 2.1-3.5 cm LA Diam: 3.90 2.7-3.8/3.0-4.0 cm LAIDs Index: 1.85 1.5-2.3 cm/m2 LV Mass: 402.71 67-162/88-224 g LV Mass Index: 190.86 43-95/49-115 g/m2 LVOT Diam: 2.30 3.0+(-)1.3 cm 2D Systolic Function EF 4C: 66.00 >55% EF 2C: 65.90 >55% EF BiP: 66.10 >55% Mitral Valve MV Pk E: 0.72 MV PK A: 0.52 MV Decel Time: 208.00 E/A: 1.40 E'Lateral: 5.98 E'Medial: 3.81 E/E' Med: 19.00 E/E' Lat: 12.10 PHT: 61.00 MVA PHT: 3.61 Decel [place]: 3.48 Aortic Valve AoV Pk Travis: 1.06 AoV Mn Travis: 0.77 AoV VTI: 0.27 AoV Pk Grad: 4.00 Aov Mn Grad: 3.00 TWILA Cont.VTI: 3.31 LVOT LVOT Pk Travis: 0.93 LVOT Mn Travis: 0.57 LVOT VTI: 0.22 LVOT Pk Grad: 3.00 LVOT Mn Grad: 2.00 LVOT Diam: 2.30 LVOT Area: 4.15 Diastolic Function MV Pk E: 0.72 MV Pk A: 0.52 E/A: 1.40 E'Medial: 3.81 E/E' Med: 19.00 E' Laterial: 5.98 E/E' Lat: 12.10 Right Ventricle TAPSE (mm): 18.00 Tricuspid Valve TR Pk Travis: 1.61 TR Pk Grad: 10.00 Great Vessels Aorta Ao Root-2D: 3.70 2.0-3.7 cm Ao Asc: 3.20 2.1-3.4 cm Pulmonary Valve PV Pk Travis: 0.76 Peak PV Grad: 2.00 Updated in Other Vendor System with Status of Final Kamran Molina MD electronically signed on 06/27/2021 3:53:56 PM with status of Final
--- NOTE | 2021-06-27 09:08 | MHC.CM.PN ---
pt now recommends str spoke with referral;d made pt is vaccinated with pfitzer last dose in november pt is service connected
[2021-06-27] MEDS: Sertraline HCL 100 MG TABLET PO (09:31)
[2021-06-27] MEDS: predniSONE 10 MG TABLET PO (09:31)
--- NOTE | 2021-06-27 09:41 | P.CONCA_ITS ---
History of Present Illness History of Present Illness Date of Service: 06/27/21 Chief complaint: pneumonia Narrative: This is a cardiology consultation regarding elevated troponins. Patient does not have any known cardiac issues according to him. Denies any history of coronary disease or myocardial infarction or cardiomyopathy or in fact anything else cardiac related. He also does not know why he is here. Per H and P, it seems that he is admitted for complaints of dizziness. There is also been a mention of decreased appetite and not eating well. Otherwise, patient denies any complaints like anginal type symptoms or or shortness of breath or in fact anything else cardiac related. Elevated troponins were noted since arrival and hence we have been asked to see him. There is also mention of NSVT in the H&P. Review of Systems Review of Systems: Yes all other systems are reviewed and are negative Cardiovascular: Cardiovascular: Reports as per HPI, Reports no additional cardiovascular complaints, Denies acrocyanosis, Denies cool extremities, Denies painful fingertips, Denies chest pain, Denies chest pain at rest, Denies diaphoresis, Denies syncope, Denies irregular heart rhythm, Denies claudication, Denies leg edema, Denies lightheadedness, Denies palpitations and Denies dyspnea Respiratory: Respiratory: Denies dyspnea Neurologic: Denies syncope Endocrine: Endocrine: Denies palpitations PMFSH Past Medical History Medical History Arthritis Encephalitis Glaucoma Family History Pertinent family history: Patient unable to give this information. Social History Social History Household Members: Spouse Housing: Unknown / Unable to assess Do you presently have visiting nurse or other home services: No (unable to assess) Alcohol intake: never Patient Tobacco Use Status: Never used Tobacco Use of substances other than those prescribed or required for medical reasons: No Currently Displaying Signs/Symptoms of Drug Intoxication Withdrawal: No Have you been hit, kicked, punched, or otherwise hurt by someone within the past year? If so, by whom?: No Do you feel safe in your current relationship?: Yes Is there a partner from a previous relationship who is making you feel unsafe now?: No Are you made to feel afraid or neglected: No Advance Directives: Yes Advance Directives Information Provided: No Advance Directives on File: No Advance Directives Date on File: 06/26/21 Do you have thoughts of harming others: None Do you have a plan to hurt others: No Plan Recently lost weight without trying: No Nutrition Risks: No Nutritional Risk Poor oral hygiene: No service: Yes Current occupational status: retired Meds Allergies Allergy/AdvReac Type Severity Reaction Status Date / Time sulfamethoxazole Allergy Unknown Verified 06/30/20 10:49 [From Bactrim] trimethoprim [From Bactrim] Allergy Unknown Verified 06/30/20 10:49 Active Medications: Current Medications Acetaminophen (Acetaminophen 325 Mg Tablet) 650 mg PO Q6H PRN PRN Reason: Pain, Mild (Pain Scale 1-3) Azithromycin (Azithromycin 500 Mg Tablet) 500 mg PO Q24H [facility] Donepezil HCl (Donepezil Hcl 10 Mg Tablet) 10 mg PO BEDTIME [facility] Last Admin: 06/26/21 21:27 Dose: 10 mg Documented by: Enoxaparin Sodium (Enoxaparin Sodium 40 Mg/0.4 Ml Syringe) 40 mg SUBCUT Q24H [facility] Last Admin: 06/26/21 21:27 Dose: 40 mg Documented by: Dextrose/Sodium Chloride (D51/2ns) 1,000 mls @ 50 mls/hr IVCONT .Q20H [facility] Last Admin: 06/26/21 21:47 Dose: 50 mls/hr Documented by: Ceftriaxone Sodium 1 gm/ (Sodium Chloride) 50 mls @ 100 mls/hr IV Q24H [facility] Last Infusion: 06/26/21 22:18 Dose: Infused Documented by: Latanoprost (Latanoprost 0.005 % Ophth [place] 2.5 Ml Drops) 1 drop EYE-BOTH BEDTIME [facility] Last Admin: 06/26/21 21:50 Dose: 1 drop Documented by: Melatonin (Melatonin 3 Mg Tablet) 6 mg PO BEDTIME PRN PRN Reason: Insomnia Metoprolol Tartrate (Metoprolol Tartrate 12.5 Mg Halftab) 12.5 mg PO BID [facility]; Protocol Last Admin: 06/27/21 09:31 Dose: 12.5 mg Documented by: Omeprazole (Omeprazole 20 Mg Capsule.) 20 mg PO DAILY@0630 [facility] Last Admin: 06/27/21 05:41 Dose: 20 mg Documented by: Pharmacy Consult (Consult Rx Perform Med Rec) 1 each MISCELLANE ONCE PRN PRN Reason: Consult order Prednisone (Prednisone 10 Mg Tablet) 10 mg PO DAILY [facility] Last Admin: 06/27/21 09:31 Dose: 10 mg Documented by: Senna (Sennosides 8.6 Mg Tablet) 17.2 mg PO BEDTIME PRN PRN Reason: Constipation Sertraline HCl (Sertraline Hcl 100 Mg Tablet) 100 mg PO DAILY [facility] Last Admin: 06/27/21 09:31 Dose: 100 mg Documented by: Sodium Chloride (0.9 % Sodium Chloride Flush 3 Ml Syringe) 3 ml IVFLUSH QSHIFT [facility] Last Admin: 06/27/21 00:02 Dose: Not Given Documented by: Home Medications Medication Instructions Recorded Confirmed Last Taken Type donepezil 10 mg tablet 1 tab PO BEDTIME 06/26/21 06/26/21 06/25/21 History omeprazole 20 mg capsule,delayed 1 cap PO QAM 06/26/21 06/26/21 06/25/21 History release prednisone 10 mg tablet 1 tab PO DAILY 06/26/21 06/26/21 06/25/21 History sertraline 100 mg tablet 1 tab PO DAILY 06/26/21 06/26/21 06/25/21 History travoprost 0.004 % eye drops 1 drp OPHTHALMIC (EYE) BEDTIME 06/26/21 06/26/21 06/25/21 History (Travatan Z) Physical Exam Vital Signs: Vital Signs: Last Vital Signs Temp 97.9 F 06/27/21 07:08 Pulse 50 06/27/21 09:31 Resp 18 06/27/21 07:08 BP 106/61 06/27/21 09:31 Pulse Ox 99 06/27/21 07:59 Body Mass Index 29.3 Const: General: cooperative and no acute distress HENMT: Other: Unremarkable Neck: Neck: Yes normal visual inspection Chest: Chest palpation & inspection: normal inspection of the chest Resp: Auscultation: clear to auscultation bilaterally, no crackles and no wheezes Cardio: Jugular venous distension: no JVD Palpation: normal PMI Heart sounds: S1 normal heart sound present, S2 normal heart sound present, no gallops, no murmurs and no rubs GI: Palpation (GI): Soft to palpation Back/Spine/Pelvis: Other: unremarkable Skin: General skin exam: no rashes or lesions noted Neuro: Cranial nerves: Yes Other cranial nerve findings present Extrem: General: Yes no clubbing, cyanosis or edema Psych: Mental Status: other Results Labs and Meds Result diagrams: 06/27/21 05:39 06/27/21 05:39 Lab results: Laboratory Results - last 24 hr 06/26/21 06/26/21 06/26/21 12:19 12:19 12:19 WBC 6.5 RBC 4.56 L Hgb 14.9 Hct 44.9 MCV 98.5 H MCH 32.7 MCHC 33.2 RDW 11.9 Plt Count 184 MPV 11.2 Immature Gran % (Auto) 0.6 H Neut % (Auto) 77.9 H Lymph % (Auto) 11.9 L [place] % (Auto) 8.8 Eos % (Auto) 0.3 Baso % (Auto) 0.5 Lymph # (Auto) 0.8 L [place] # (Auto) 0.6 Eos # (Auto) 0.0 Baso # (Auto) 0.0 Abs Immat Gran (auto) 0.04 H Absolute Neuts (auto) 5.0 Absolute Nucleated RBC 0.000 Nucleated RBC % (auto) 0.0 Sodium 140 Potassium 3.8 Chloride 104 Carbon Dioxide 26 Anion Gap 14 BUN 12 Creatinine 0.87 Estim Creat Clear Calc 85.1 Estimated GFR > 60 Random Glucose 112 Lactic Acid Lactic Acid Fup @ 2Hr Lactic Acid Fup @ 4Hr Calcium 9.3 Magnesium Total Bilirubin 0.8 Direct Bilirubin 0.3 AST 13 ALT 21 Alkaline Phosphatase 96 Troponin I High Sens 66.4 H* B-Natriuretic Peptide 67 Total Protein 8.1 H Albumin 3.2 L Lipase 16 Urine Color Urine Appearance Urine pH Ur Specific [place] Urine Protein Urine Glucose (UA) Urine Ketones Urine Blood Urine Nitrite Ur Leukocyte Esterase COVID-19 (ASHISH) COVID-19 Clin Com 06/26/21 06/26/21 06/26/21 12:19 12:34 16:02 WBC RBC Hgb Hct MCV MCH MCHC RDW Plt Count MPV Immature Gran % (Auto) Neut % (Auto) Lymph % (Auto) [place] % (Auto) Eos % (Auto) Baso % (Auto) Lymph # (Auto) [place] # (Auto) Eos # (Auto) Baso # (Auto) Abs Immat Gran (auto) Absolute Neuts (auto) Absolute Nucleated RBC Nucleated RBC % (auto) Sodium Potassium Chloride Carbon Dioxide Anion Gap BUN Creatinine Estim Creat Clear Calc Estimated GFR Random Glucose Lactic Acid Lactic Acid Fup @ 2Hr Lactic Acid Fup @ 4Hr Calcium Magnesium Total Bilirubin Direct Bilirubin AST ALT Alkaline Phosphatase Troponin I High Sens 74.0 H* B-Natriuretic Peptide Total Protein Albumin Lipase Urine Color YELLOW Urine Appearance HAZY Urine pH 5.5 Ur Specific [place] >= 1.030 H Urine Protein TRACE Urine Glucose (UA) NEG Urine Ketones NEG Urine Blood NEG Urine Nitrite NEG Ur Leukocyte Esterase NEG COVID-19 (ASHISH) Negative COVID-19 Clin Com See Note 06/26/21 06/26/21 06/26/21 17:38 20:31 23:41 WBC RBC Hgb Hct MCV MCH MCHC RDW Plt Count MPV Immature Gran % (Auto) Neut % (Auto) Lymph % (Auto) [place] % (Auto) Eos % (Auto) Baso % (Auto) Lymph # (Auto) [place] # (Auto) Eos # (Auto) Baso # (Auto) Abs Immat Gran (auto) Absolute Neuts (auto) Absolute Nucleated RBC Nucleated RBC % (auto) Sodium Potassium Chloride Carbon Dioxide Anion Gap BUN Creatinine Estim Creat Clear Calc Estimated GFR Random Glucose Lactic Acid 3.0 H* Lactic Acid Fup @ 2Hr 3.4 H* Lactic Acid Fup @ 4Hr 2.3 H* Calcium Magnesium Total Bilirubin Direct Bilirubin AST ALT Alkaline Phosphatase Troponin I High Sens B-Natriuretic Peptide Total Protein Albumin Lipase Urine Color Urine Appearance Urine pH Ur Specific [place] Urine Protein Urine Glucose (UA) Urine Ketones Urine Blood Urine Nitrite Ur Leukocyte Esterase COVID-19 (ASHISH) COVID-19 Clin Com 06/27/21 06/27/21 06/27/21 05:39 05:39 05:39 WBC 8.3 RBC 4.19 L Hgb 13.4 L Hct 41.6 L MCV 99.3 H MCH 32.0 MCHC 32.2 RDW 11.9 Plt Count 191 MPV 12.4 Immature Gran % (Auto) 0.6 H Neut % (Auto) 61.0 Lymph % (Auto) 24.7 [place] % (Auto) 11.7 H Eos % (Auto) 1.3 Baso % (Auto) 0.7 Lymph # (Auto) 2.1 [place] # (Auto) 1.0 Eos # (Auto) 0.1 Baso # (Auto) 0.1 Abs Immat Gran (auto) 0.05 H Absolute Neuts (auto) 5.1 Absolute Nucleated RBC 0.000 Nucleated RBC % (auto) 0.0 Sodium 140 Potassium 3.3 Chloride 105 Carbon Dioxide 27 Anion Gap 11 L BUN 13 Creatinine 0.84 Estim Creat Clear Calc 90.0 Estimated GFR > 60 Random Glucose 97 Lactic Acid Lactic Acid Fup @ 2Hr Lactic Acid Fup @ 4Hr Calcium 8.6 D Magnesium 1.8 Total Bilirubin Direct Bilirubin AST ALT Alkaline Phosphatase Troponin I High Sens B-Natriuretic Peptide Total Protein Albumin Lipase Urine Color Urine Appearance Urine pH Ur Specific [place] Urine Protein Urine Glucose (UA) Urine Ketones Urine Blood Urine Nitrite Ur Leukocyte Esterase COVID-19 (ASHISH) COVID-19 [place]inn[place] 06/27/21 05:39 WBC RBC Hgb Hct MCV MCH MCHC RDW Plt Count MPV Immature Gran % (Auto) Neut % (Auto) Lymph % (Auto) [place] % (Auto) Eos % (Auto) Baso % (Auto) Lymph # (Auto) [place] # (Auto) Eos # (Auto) Baso # (Auto) Abs Immat Gran (auto) Absolute Neuts (auto) Absolute Nucleated RBC Nucleated RBC % (auto) Sodium Potassium Chloride Carbon Dioxide Anion Gap BUN Creatinine Estim Creat Clear Calc Estimated GFR Random Glucose Lactic Acid Lactic Acid Fup @ 2Hr Lactic Acid Fup @ 4Hr Calcium Magnesium Total Bilirubin Direct Bilirubin AST ALT Alkaline Phosphatase Troponin I High Sens 89.7 H* B-Natriuretic Peptide Total Protein Albumin Lipase Urine Color Urine Appearance Urine pH Ur Specific [place] Urine Protein Urine Glucose (UA) Urine Ketones Urine Blood Urine Nitrite Ur Leukocyte Esterase COVID-19 (ASHISH) COVID-19 Clin Com ECG Interpretation: EKG with sinus rhythm at 68/Min; CO prolongation noted- about 240-250ms; PACs. Nonspecific ST-T changes. Imaging Radiologist's impression: Impressions Chest X-Ray 06/26/21 11:39 IMPRESSION: Hypoexpanded lungs with elevated left hemidiaphragm new since 2007. There is patchy opacity left lung base likely atelectasis or infiltrate. Head CT 06/26/21 11:39 IMPRESSION: Low-attenuation in the anterior right temporal lobe and adjacent mild ex vacuo dilatation of the temporal horn of the right lateral ventricle. This is better delineated on MRI performed earlier the same day. Mild generalized atrophy and nonspecific periventricular white matter disease. Assessment and Plan (1) Elevated troponin: Status: Acute (2) PVC (premature ventricular contraction): Status: Acute (3) NSVT (nonsustained ventricular tachycardia): Status: Acute Pertinent data reviewed. High sensitive troponins are 66, 74 and 89. Creatinine is 0.84. Cardiac BNP 67. Hemoglobin 13.4. EKG without any clear ischemic changes. Telemetry shows sinus rhythm, PVCs and 1 short 5 beat run of NSVT, monomorphic. Clinically, he has no symptoms. At his age, probable u nderlying CAD but he is not a good candidate for ischemia workup. We can start with an echocardiogram for cardiac function assessment and wall motion assessment. We will follow up with you. Procedures Date of Service Date of Service: 06/27/21
--- NOTE | 2021-06-27 10:22 | HO.PM.IMPN ---
Subjective Subjective Date of Service: 06/27/21 Interval History: No acute issues overnight. Tele demonstrates sinus rhythm. When questioned patient does not recall why he is admitted. Review of Systems Denies chest pain Denies shortness of breath Denies nausea vomiting Physical Exam Vital Signs: Vital Signs: Last Vital Signs Temp 97.9 F 06/27/21 07:08 Pulse 50 06/27/21 09:31 Resp 18 06/27/21 07:08 BP 106/61 06/27/21 09:31 Pulse Ox 99 06/27/21 07:59 Body Mass Index 29.3 Const: Other: Mildly confused but easily reoriented General: no acute distress HENMT: Other: Membranes moist; oropharynx clear Neck: Other: No JVD/bruits Resp: Auscultation: clear to auscultation bilaterally, no rales, no rhonchi and no wheezes Cardio: Rate: regular rate Rhythm: regular rhythm Heart sounds: S1 normal heart sound present, S2 normal heart sound present and no murmurs GI: Other: Soft nontender nondistended with normoactive bowel sounds. No peritoneal signs Neuro: Other: Cranial nerves 2-12 grossly intact as tested. Motor is 5 out 5 all extremities sensation intact. Mild confusion easily reoriented Extrem: General: Yes normal to inspection Objective Data Active Medications Acetaminophen (Acetaminophen 325 Mg Tablet) 650 mg PO Q6H PRN PRN Reason: Pain, Mild (Pain Scale 1-3) Azithromycin (Azithromycin 500 Mg Tablet) 500 mg PO Q24H [facility] Donepezil HCl (Donepezil Hcl 10 Mg Tablet) 10 mg PO BEDTIME [facility] Last Admin: 06/26/21 21:27 Dose: 10 mg Documented by: JONATHAN Enoxaparin Sodium (Enoxaparin Sodium 40 Mg/0.4 Ml Syringe) 40 mg SUBCUT Q24H [facility] Last Admin: 06/26/21 21:27 Dose: 40 mg Documented by: JONATHAN Dextrose/Sodium Chloride (D51/2ns) 1,000 mls @ 50 mls/hr IVCONT .Q20H [facility] Last Admin: 06/26/21 21:47 Dose: 50 mls/hr Documented by: JONATHAN Ceftriaxone Sodium 1 gm/ (Sodium Chloride) 50 mls @ 100 mls/hr IV Q24H [facility] Last Infusion: 06/26/21 22:18 Dose: 0 mls/hr Documented by: JONATHAN Latanoprost (Latanoprost 0.005 % Ophth [place] 2.5 Ml Drops) 1 drop EYE-BOTH BEDTIME [facility] Last Admin: 06/26/21 21:50 Dose: 1 drop Documented by: JONATHAN Melatonin (Melatonin 3 Mg Tablet) 6 mg PO BEDTIME PRN PRN Reason: Insomnia Metoprolol Tartrate (Metoprolol Tartrate 12.5 Mg Halftab) 12.5 mg PO BID [facility]; Protocol Last Admin: 06/27/21 09:31 Dose: 12.5 mg Documented by: LUKAS Omeprazole (Omeprazole 20 Mg Capsule.Dr) 20 mg PO DAILY@0630 [facility] Last Admin: 06/27/21 05:41 Dose: 20 mg Documented by: JONATHAN Pharmacy Consult (Consult Rx Perform Med Rec) 1 each MISCELLANE ONCE PRN PRN Reason: Consult order Prednisone (Prednisone 10 Mg Tablet) 10 mg PO DAILY [facility] Last Admin: 06/27/21 09:31 Dose: 10 mg Documented by: LUKAS Senna (Sennosides 8.6 Mg Tablet) 17.2 mg PO BEDTIME PRN PRN Reason: Constipation Sertraline HCl (Sertraline Hcl 100 Mg Tablet) 100 mg PO DAILY [facility] Last Admin: 06/27/21 09:31 Dose: 100 mg Documented by: LUKAS Sodium Chloride (0.9 % Sodium Chloride Flush 3 Ml Syringe) 3 ml IVFLUSH QSHIFT [facility] Last Admin: 06/27/21 09:36 Dose: Not Given Documented by: LUKAS Non-Admin Reason: IV Running Labs CBC & Chem 7: 06/27/21 05:39 06/27/21 05:39 Labs: Laboratory Results - last 24 hr 06/26/21 06/26/21 06/26/21 12:19 12:19 12:19 MCV 98.5 H MCH 32.7 MCHC 33.2 RDW 11.9 Plt Count 184 MPV 11.2 Immature Gran % (Auto) 0.6 H Neut % (Auto) 77.9 H Lymph % (Auto) 11.9 L [place] % (Auto) 8.8 Eos % (Auto) 0.3 Baso % (Auto) 0.5 Lymph # (Auto) 0.8 L [place] # (Auto) 0.6 Eos # (Auto) 0.0 Baso # (Auto) 0.0 Abs Immat Gran (auto) 0.04 H Absolute Neuts (auto) 5.0 Absolute Nucleated RBC 0.000 Nucleated RBC % (auto) 0.0 Anion Gap 14 Estim Creat Clear Calc 85.1 Estimated GFR > 60 Random Glucose 112 Lactic Acid Lactic Acid Fup @ 2Hr Lactic Acid Fup @ 4Hr Calcium 9.3 Magnesium Total Bilirubin 0.8 Direct Bilirubin 0.3 AST 13 ALT 21 Alkaline Phosphatase 96 Troponin I High Sens 66.4 H* B-Natriuretic Peptide 67 Total Protein 8.1 H Albumin 3.2 L Lipase 16 Urine Color Urine Appearance Urine pH Ur Specific [place] Urine Protein Urine Glucose (UA) Urine Ketones Urine Blood Urine Nitrite Ur Leukocyte Esterase COVID-19 (ASHISH) COVID-91 [employer] 06/26/21 06/26/21 06/26/21 12:19 12:34 16:02 MCV MCH MCHC RDW Plt Count MPV Immature Gran % (Auto) Neut % (Auto) Lymph % (Auto) [place] % (Auto) Eos % (Auto) Baso % (Auto) Lymph # (Auto) [place] # (Auto) Eos # (Auto) Baso # (Auto) Abs Immat Gran (auto) Absolute Neuts (auto) Absolute Nucleated RBC Nucleated RBC % (auto) Anion Gap Estim Creat Clear Calc Estimated GFR Random Glucose Lactic Acid Lactic Acid Fup @ 2Hr Lactic Acid Fup @ 4Hr Calcium Magnesium Total Bilirubin Direct Bilirubin AST ALT Alkaline Phosphatase Troponin I High Sens 74.0 H* B-Natriuretic Peptide Total Protein Albumin Lipase Urine Color YELLOW Urine Appearance HAZY Urine pH 5.5 Ur Specific [place] >= 1.030 H Urine Protein TRACE Urine Glucose (UA) NEG Urine Ketones NEG Urine Blood NEG Urine Nitrite NEG Ur Leukocyte Esterase NEG COVID-19 (ASHISH) Negative COVID-[place] Com See Note 06/26/21 06/26/21 06/26/21 17:38 20:31 23:41 MCV MCH MCHC RDW Plt Count MPV Immature Gran % (Auto) Neut % (Auto) Lymph % (Auto) [place] % (Auto) Eos % (Auto) Baso % (Auto) Lymph # (Auto) [place] # (Auto) Eos # (Auto) Baso # (Auto) Abs Immat Gran (auto) Absolute Neuts (auto) Absolute Nucleated RBC Nucleated RBC % (auto) Anion Gap Estim Creat Clear Calc Estimated GFR Random Glucose Lactic Acid 3.0 H* Lactic Acid Fup @ 2Hr 3.4 H* Lactic Acid Fup @ 4Hr 2.3 H* Calcium Magnesium Total Bilirubin Direct Bilirubin AST ALT Alkaline Phosphatase Troponin I High Sens B-Natriuretic Peptide Total Protein Albumin Lipase Urine Color Urine Appearance Urine pH Ur Specific [place] Urine Protein Urine Glucose (UA) Urine Ketones Urine Blood Urine Nitrite Ur Leukocyte Esterase COVID-19 (ASHISH) COVID-19 [employer] 06/27/21 06/27/21 06/27/21 05:39 05:39 05:39 MCV 99.3 H MCH 32.0 MCHC 32.2 RDW 11.9 Plt Count 191 MPV 12.4 Immature Gran % (Auto) 0.6 H Neut % (Auto) 61.0 Lymph % (Auto) 24.7 [place] % (Auto) 11.7 H Eos % (Auto) 1.3 Baso % (Auto) 0.7 Lymph # (Auto) 2.1 [place] # (Auto) 1.0 Eos # (Auto) 0.1 Baso # (Auto) 0.1 Abs Immat Gran (auto) 0.05 H Absolute Neuts (auto) 5.1 Absolute Nucleated RBC 0.000 Nucleated RBC % (auto) 0.0 Anion Gap 11 L Estim Creat Clear Calc 90.0 Estimated GFR > 60 Random Glucose 97 Lactic Acid Lactic Acid Fup @ 2Hr Lactic Acid Fup @ 4Hr Calcium 8.6 D Magnesium 1.8 Total Bilirubin Direct Bilirubin AST ALT Alkaline Phosphatase Troponin I High Sens B-Natriuretic Peptide Total Protein Albumin Lipase Urine Color Urine Appearance Urine pH Ur Specific [place] Urine Protein Urine Glucose (UA) Urine Ketones Urine Blood Urine Nitrite Ur Leukocyte Esterase COVID-19 (ASHISH) COVID-19 [employer] 06/27/21 05:39 MCV MCH MCHC RDW Plt Count MPV Immature Gran % (Auto) Neut % (Auto) Lymph % (Auto) [place] % (Auto) Eos % (Auto) Baso % (Auto) Lymph # (Auto) [place] # (Auto) Eos # (Auto) Baso # (Auto) Abs Immat Gran (auto) Absolute Neuts (auto) Absolute Nucleated RBC Nucleated RBC % (auto) Anion Gap Estim Creat Clear Calc Estimated GFR Random Glucose Lactic Acid Lactic Acid Fup @ 2Hr Lactic Acid Fup @ 4Hr Calcium Magnesium Total Bilirubin Direct Bilirubin AST ALT Alkaline Phosphatase Troponin I High Sens 89.7 H* B-Natriuretic Peptide Total Protein Albumin Lipase Urine Color Urine Appearance Urine pH Ur Specific [place] Urine Protein Urine Glucose (UA) Urine Ketones Urine Blood Urine Nitrite Ur Leukocyte Esterase COVID-19 (ASHISH) COVID-19 Clin Com Assessment and Plan (1) Left lower lobe pulmonary infiltrate: Status: Acute (2) Dizziness: Status: Acute (3) Elevated troponin: Status: Acute Assessment and Plan: 81-year-old male with history of mild dementia history of encephalitis presents today with worsening confusion and dizziness. This a.m., his no focal complaints; still mildly confused but reoriented 1. Left lower lobe infiltrate Question cause of confusion and dizziness; continue IV ceftriaxone and p.o. azithromycin. Sats stable. Follow clinically 2. Elevated high sensitivity troponin Mild increased since admission. Appreciate Cardiology input. Will continue to monitor and await echo. No need to fully anticoagulate based on troponins per car 3. Dizziness Bilateral carotid ultrasound done demonstrating non hemodynamically significant lesions bilaterally. Monitor remains sinus rhythm with short burst of nonsustained VT. Will continue to monitor and await echo. Question event monitor as outpatient Disposition PT recommends short-term rehab. Quality Stroke Does the patient have a stroke diagnosis?: No VTE Prior VTE?: No VTE Risk Level:: Medical - moderate - high VTE Device Contraindication: Treatment Not Indicated VTE Drug Contraindication: N/A - Med Ordered
--- NOTE | 2021-06-27 10:30 | PC.NURSE ---
Patient's troponin trending up 66.4, 74.6 this am 89.7 cardiology aware, no new orders
--- NOTE | 2021-06-27 11:48 | MHC.CLN ---
RE: CONSULT RECOMMEND ADDING ENSURE BID R/T POOR PO
[2021-06-27] MEDS: Magnesium Sulfate/H2O 2 GM/50 ML PIGGYBACK IV (11:53)
[2021-06-27] MEDS: Potassium Chloride Packet 20 MEQ PACKET 40 MEQ PO (11:53)
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
[2021-06-27 15:19] LABS: Alanine Aminotransferase 18 U/L (0-40); Albumin Level 3.2 g/dL (3.5-5.0); Alkaline Phosphatase 91 U/L (39-117); Anion Gap 13 (12-20); Aspartate Amino Transferase 15 U/L (5-37); Bilirubin Total 0.6 mg/dL (0.0-1.0); Blood Urea Nitrogen 12 mg/dL (9-16); Carbon Dioxide 25 mmol/L (22-29); Chloride 106 mmol/L (96-108); Creatinine Clr Calc Pharmacy 82.2; Estimated Glomerular Filt Rate > 60; Glucose Fasting 137 mg/dL (60-99); Magnesium 2.2 mg/dL (1.6-2.6); Potassium 4.1 mmol/L (3.3-5.1); Sodium 140 mmol/L (135-145); Total Protein 7.8 g/dL (6.5-8.0)
[2021-06-27 15:39] LABS: Troponin-I High Sensitivity 83.6 ng/L (<3.5-35.0)
[2021-06-27] MEDS: Dextrose 5 % and 0.45 % NaCl 1,000 ML 50 ML IVCONT (17:49)
[2021-06-27] MEDS: cefTRIAXone sodium 1 GM in 0.9 % Sodium Chloride 50 ML IV (20:07)
[2021-06-27] MEDS: Enoxaparin Sodium 40 MG/0.4 ML SYRINGE SUBCUT (20:07)
[2021-06-27] MEDS: Donepezil HCl 10 MG TABLET PO (20:08)
[2021-06-27] MEDS: Latanoprost 0.005 % Ophth Sol 2.5 ML DROPS 1 DROP EYE-BOTH (20:13)
[2021-06-28] VITALS (7 sets, daily range): BP systolic 108–153; BP diastolic 57–75; PULSE 53–58; RESP 16–20; TEMP 36.4–36.8; O2SAT 95–100
[2021-06-28 06:04] LABS: MANUAL DIFF FLAG NO
[2021-06-28 06:13] LABS: Basophils Absolute Auto 0.1 X10*3/uL (0.0-0.2); Basophils Percent Auto 0.6 % (0-2); Eosinophils Absolute Auto 0.1 X10*3/uL (0.0-0.4); Eosinophils Percent Auto 1.5 % (0-4); Hematocrit 37.7 % (42-52); Hemoglobin 12.2 g/dl (14.0-18.0); Imm Gran Abs Auto 0.06 X10*3/uL (0.00-0.03); Imm Gran Pct Auto 0.7 % (0.0-0.4); Lymphocytes Absolute Auto 2.3 X10*3/uL (1.2-4.9); Mean Corpuscular HGB Conc 32.4 g/dl (31.0-36.0); Mean Corpuscular Hemoglobin 32.8 pg (27.0-33.0); Mean Corpuscular Volume 101.3 fL (80-98); Mean Platelet Volume 11.5 fL (9.4-12.4); Monocytes Percent Auto 11.3 % (2-11); Neutrophils Absolute Auto 5.3 X10*3/uL (2.0-8.3); Neutrophils Percent Auto 59.9 % (45-73); Platelet Count 181 X10*3/uL (160-400); Red Blood Count 3.72 X10*6/uL (4.60-5.80); White Blood Count 8.9 X10*3/uL (4.8-10.8)
[2021-06-28] MEDS: Omeprazole 20 MG CAPSULE.DR PO (06:16)
[2021-06-28] MEDS: predniSONE 10 MG TABLET PO (07:57)
[2021-06-28] MEDS: Metoprolol Tartrate 12.5 MG HALFTAB PO ×2 (07:57→20:02)
[2021-06-28] MEDS: Sertraline HCL 100 MG TABLET PO (07:57)
--- NOTE | 2021-06-28 09:30 | P.CDIC_ITS ---
CDI Concurrent Query Documentation Clarification: PHYSICIAN'S DOCUMENTATION REQUEST Date of Query: 06/28/21929 Patient Name: Mckayla Louis Admit Date: 06/26/21 Dear Doctor, A review of the medical record indicates additional documentation may be needed. Please review below and update the documentation accordingly. Risk Factors/Clinical Indicators/Treatments Mild Dementia, worsening confusion and dizziness. FTT Progressive memory loss, worsening forgetfulness over last year. 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 If possible, please further clarify type of Alzheimer's and any associated manifestations: Dementia Associated Manifestations: * Dementia without behavioral disturbance * Dementia with confusion Dementia, vascular, fronto-temporal, senile or other etc. * No associated manifestations * Other ? please specify * Unable to determine Use of terms such as suspected, likely, concern for, or probable (associated with a specific diagnosis that is being evaluated, monitored, or treated as if it exists) are acceptable and can be coded in the inpatient setting, when documented at the time of discharge. Thank you, Eva Rivera [facility], CDIS Extension: [phone] Please use your independent medical judgment in providing your response. THIS QUERY IS PART OF THE PERMANENT MEDICAL RECORD Provider Response: Other Other Diagnosis: Dementia without behavioral disturbance
--- NOTE | 2021-06-28 10:29 | PM.PNCARD ---
Subjective Subjective Date of Service: 06/28/21 Interval history: Feels ok. Does not know why he is here. Review of Systems Review of Systems Yes all other systems are reviewed and are negative Cardiovascular: Reports as per HPI, Reports no additional cardiovascular complaints, Denies acrocyanosis, Denies cool extremities, Denies painful fingertips, Denies chest pain, Denies chest pain at rest, Denies diaphoresis, Denies syncope, Denies irregular heart rhythm, Denies claudication, Denies leg edema, Denies lightheadedness, Denies palpitations and Denies dyspnea Respiratory: Denies dyspnea Denies syncope Endocrine: Denies palpitations Physical Exam Vital Signs: Last Vital Signs Temp 97.7 F 06/28/21 07:29 Pulse 54 06/28/21 09:50 Resp 20 06/28/21 07:29 BP 143/63 H 06/28/21 09:50 Pulse Ox 97 06/28/21 09:50 Body Mass Index 29.3 Const General: cooperative and no acute distress [facility] Other: Unremarkable Neck Neck: Yes normal visual inspection Chest Chest palpation & inspection: normal inspection of the chest Resp Auscultation: clear to auscultation bilaterally, no crackles and no wheezes Cardio Jugular venous distension: no JVD Palpation: normal PMI Heart sounds: S1 normal heart sound present, S2 normal heart sound present, no gallops, no murmurs and no rubs GI Palpation (GI): Soft to palpation Back/Spine/Pelvis Other: unremarkable Skin General skin exam: no rashes or lesions noted Neuro Cranial nerves: Yes Other cranial nerve findings present Extrem General: Yes no clubbing, cyanosis or edema Psych Mental Status: other Results Labs and Meds Result diagrams: 06/28/21 05:45 06/27/21 14:42 Lab results: Laboratory Results - last 24 hr 06/27/21 06/27/21 06/28/21 14:42 14:42 05:45 WBC 8.9 RBC 3.72 L Hgb 12.2 L Hct 37.7 L MCV 101.3 H MCH 32.8 MCHC 32.4 RDW 12.0 Plt Count 181 MPV 11.5 Immature Gran % (Auto) 0.7 H Neut % (Auto) 59.9 Lymph % (Auto) 26.0 [place] % (Auto) 11.3 H Eos % (Auto) 1.5 Baso % (Auto) 0.6 Lymph # (Auto) 2.3 [place] # (Auto) 1.0 Eos # (Auto) 0.1 Baso # (Auto) 0.1 Abs Immat Gran (auto) 0.06 H Absolute Neuts (auto) 5.3 Absolute Nucleated RBC 0.000 Nucleated RBC % (auto) 0.0 Sodium 140 Potassium 4.1 D Chloride 106 Carbon Dioxide 25 Anion Gap 13 BUN 12 Creatinine 0.92 Estim Creat Clear Calc 82.2 Estimated GFR > 60 Fasting Glucose 137 H Calcium 9.0 Magnesium 2.2 Total Bilirubin 0.6 AST 15 ALT 18 Alkaline Phosphatase 91 Troponin I High Sens 83.6 H* Total Protein 7.8 Albumin 3.2 L Progress Note: A&P Assessment and plan (1) Elevated troponin: Status: Acute (2) PVC (premature ventricular contraction): Status: Acute (3) NSVT (nonsustained ventricular tachycardia): Status: Acute Assessment and Plan: Pertinent data reviewed. High sensitive troponins are 66, 74 and 89. Creatinine is 0.84. Cardiac BNP 67. Hemoglobin 13.4. EKG without any clear ischemic changes. Telemetry shows sinus rhythm, PVCs and 21 beat monomorphic NSVT. Echocardiogram with preserved LVEF at 66%; severe left ventricular hypertrophy and inferior/ inferolateral wall motion abnormality. At his age, probable underlying CAD. With encephalitis history/forgetfulness, not a good candidate for ischemia work up, but can pursue if family wish the same. In that case, will require outpatient stress testing. For now, OK for beta blockers. Fall Risk Details Current Medications: Current Medications Acetaminophen (Acetaminophen 325 Mg Tablet) 650 mg PO Q6H PRN PRN Reason: Pain, Mild (Pain Scale 1-3) Donepezil HCl (Donepezil Hcl 10 Mg Tablet) 10 mg PO BEDTIME FIONA Last Admin: 06/27/21 20:08 Dose: 10 mg Documented by: Enoxaparin Sodium (Enoxaparin Sodium 40 Mg/0.4 Ml Syringe) 40 mg SUBCUT Q24H FIONA Last Admin: 06/27/21 20:07 Dose: 40 mg Documented by: Dextrose/Sodium Chloride (D51/2ns) 1,000 mls @ 50 mls/hr IVCONT .Q20H FIONA Last Admin: 06/27/21 17:49 Dose: 50 mls/hr Documented by: Ceftriaxone Sodium 1 gm/ (Sodium Chloride) 50 mls @ 100 mls/hr IV Q24H [facility] Last Infusion: 06/27/21 20:42 Dose: Infused Documented by: Latanoprost (Latanoprost 0.005 % Ophth [place] 2.5 Ml Drops) 1 drop EYE-BOTH BEDTIME [facility] Last Admin: 06/27/21 20:13 Dose: 1 drop Documented by: Melatonin (Melatonin 3 Mg Tablet) 6 mg PO BEDTIME PRN PRN Reason: Insomnia Metoprolol Tartrate (Metoprolol Tartrate 12.5 Mg Halftab) 12.5 mg PO BID [facility]; Protocol Last Admin: 06/28/21 07:57 Dose: 12.5 mg Documented by: Omeprazole (Omeprazole 20 Mg Capsule.Dr) 20 mg PO DAILY@0630 [facility] Last Admin: 06/28/21 06:16 Dose: 20 mg Documented by: Pharmacy Consult (Consult Rx Perform Med Rec) 1 each MISCELLANE ONCE PRN PRN Reason: Consult order Prednisone (Prednisone 10 Mg Tablet) 10 mg PO DAILY [facility] Last Admin: 06/28/21 07:57 Dose: 10 mg Documented by: Senna (Sennosides 8.6 Mg Tablet) 17.2 mg PO BEDTIME PRN PRN Reason: Constipation Sertraline HCl (Sertraline Hcl 100 Mg Tablet) 100 mg PO DAILY [facility] Last Admin: 06/28/21 07:57 Dose: 100 mg Documented by: Sodium Chloride (0.9 % Sodium Chloride Flush 3 Ml Syringe) 3 ml IVFLUSH QSHIFT [facility] Last Admin: 06/28/21 07:57 Dose: Not Given Documented by: Time Spent With Patient Time: Total time spent is greater than 50% in coordination of care (as documented) at patient's floor/unit and/or counseling patient: Time with patient: less than 15 minutes Progress Note: Quality Stroke Does the patient have a stroke diagnosis?: No Procedures Date of Service Date of Service: 06/28/21
--- NOTE | 2021-06-28 11:37 | MHC.CM.PN ---
spoke with possible dc today pt has a bed at [facility] waiting md dc order
[2021-06-28] MEDS: Dextrose 5 % and 0.45 % NaCl 1,000 ML 50 ML IVCONT (13:11)
--- NOTE | 2021-06-28 15:04 | MHC.CM.PN ---
met with requesting to [facility] ..did explin to the that [facility] bed is in a [facility] unit which is approbriate for pt s needs
[2021-06-28] MEDS: Latanoprost 0.005 % Ophth Sol 2.5 ML DROPS 1 DROP EYE-BOTH (20:03)
[2021-06-28] MEDS: Donepezil HCl 10 MG TABLET PO (20:03)
[2021-06-28] MEDS: Enoxaparin Sodium 40 MG/0.4 ML SYRINGE SUBCUT (20:03)
[2021-06-28] MEDS: cefTRIAXone sodium 1 GM in 0.9 % Sodium Chloride 50 ML IV (20:03)
[2021-06-28] MEDS: 0.9 % Sodium Chloride Flush 3 ML SYRINGE IVFLUSH (23:48)
[2021-06-29 03:12] VITALS: BP 103/60; PULSE 58; RESP 18; TEMP 36.6; O2SAT 98
[2021-06-29] MEDS: Omeprazole 20 MG CAPSULE.DR PO (05:40)
[2021-06-29 07:31] VITALS: BP 120/62; PULSE 67; RESP 19; TEMP 36.1; O2SAT 96
[2021-06-29] MEDS: Dextrose 5 % and 0.45 % NaCl 1,000 ML 50 ML IVCONT (09:50)
[2021-06-29 09:53] VITALS: PULSE 72
[2021-06-29] MEDS: Sertraline HCL 100 MG TABLET PO (09:53)
[2021-06-29] MEDS: Metoprolol Tartrate 12.5 MG HALFTAB PO (09:53)
[2021-06-29] MEDS: predniSONE 10 MG TABLET PO (09:54)
[2021-06-29 11:33] VITALS: BP 118/58; PULSE 58; RESP 17; TEMP 36.8; O2SAT 96
--- NOTE | 2021-06-29 12:02 | P.DS_ITS ---
DS: Providers Provider Date of Service: 06/29/21 Date of admission: 06/26/21 19:17 Primary care physician: KP Lopez Consults: 06/26/21 19:21 Consult to Cardiology Routine Consulting Provider: Kamran Molina Reason for consultation: elevTED troponins 06/26/21 20:37 Consult to Neurology Routine Consulting Provider: [facility] Reason for consultation: dizziness DS: Diagnosis Discharge Diagnosis (1) Elevated troponin: Status: Acute (2) PVC (premature ventricular contraction): Status: Acute (3) NSVT (nonsustained ventricular tachycardia): Status: Acute DS: Summary Hospital Course Hospital Course: Chief Complaint: Dizziness 81-year-old male with a past medical history of forgetfulness, glaucoma, history of encephalitis? presented to the hospital with a chief complaint of dizziness. Patient is a poor historian To the patient's healthcare proxy Gwen gilliamEros Reported that patient has been complaining of dizziness for the past 3 days and also mentioned that he has decreased appetite and not eating good. Denies any falls or loss of consciousness. Denies any cough or sputum production. Denies any urinary symptoms. Denies any nausea vomiting. Denies having any numbness tingling or focal weakness. Baseline patient is usually independent. Gwen also mentioned that he has history of encephalitis and since then he has been more forgetful and has been following with Dr godwin in the neurology clinic as outpatient and takes donepezil, prednisone, sertraline; and red trauma [place] for his glaucoma. Mentioned that had a follow-up visit last week with Dr. Godwin, and had an MRI of the brain done today. Review of all other systems is negative except mentioned above ER course: Per ER team patient exam was nonfocal; labs were essentially benign; on on chest x-ray noted to have possible pneumonia; given antibiotics. Also noted to elevated troponin, follow-up troponin almost flat reviewed.? Discussed with Cardiology Dr Molina who suggested admission to [facility], did not heparin drip at this time. Hospital course: 1. Left lower lobe infiltrate--Treated with Azithromycin and Cefrtiaxone , has no fever, normal WBC and no hypxoxia. Will change to oral Ceftin for 5 more days. 2. Confusion on top of dementia possible metabolic encephalopathy from pneumonia, he remains confused but appears to be at baseline 2. Elevated high sensitivity troponin--Mild increase, Echo shows LVH, EF is 65%-- presently without symptoms, cardiology will look into further outpatient work up ? ? ? Dizziness: ? Bilateral carotid ultrasound done demonstrating non hemodynamically significant lesions bilaterally.? Monitor remains sinus rhythm with short burst of nonsustained VT, given Metoprolol for control ventricular arrythmia Time Spent with Patient Time attestation: Total time spent providing and/or coordinating discharge services: Discharge coordination time: Greater than 30 minutes Quality: Stroke Does the patient have a stroke diagnosis?: No Physical Exam Vital Signs: Vital Signs: Last Vital Signs Temp 98.2 F 06/29/21 11:33 Pulse 58 06/29/21 11:33 Resp 17 06/29/21 11:33 BP 118/58 L 06/29/21 11:33 Pulse Ox 96 06/29/21 11:33 Body Mass Index 29.3 General: AO X 2, no acute distress Resp: CTA bilateral CVS: S1,S2,RRR GI: +BS, NT, no distention Skin: No rash Neuro: motor grossly intact Psych: appropriate affect DS: Data Data Completed and Pending Labs on day of discharge: Preliminary micro results at discharge 06/26/21 18:27 Blood Culture - Preliminary Blood - Venous No growth after 48 hours. 06/26/21 17:38 Blood Culture - Preliminary Blood - Venous No growth after 48 hours. Discharge Plan Discharge Anticipated Discharge Date/Time: 06/29/21 11:34 Patient Disposition: Xfer SNF Discharge Diagnosis: Pneumonia, abnormal troponin Referrals: Hosea Sky PA [Primary Care Provider] - 1 Week Discharge Medications: New metoprolol tartrate 25 mg tablet 12.5 mg PO BID Qty: 30 RF: 0 cefuroxime axetil 500 mg tablet 500 mg PO BID 7 Days Qty: 10 RF: 0 aspirin 81 mg capsule 81 mg PO DAILY Qty: 30 RF: 0 Continued prednisone 10 mg tablet 1 tab PO DAILY RF: 0 donepezil 10 mg tablet 1 tab PO BEDTIME RF: 0 sertraline 100 mg tablet 1 tab PO DAILY RF: 0 omeprazole 20 mg capsule,delayed release(DR/EC) 1 cap PO QAM RF: 0 travoprost [Travatan Z] 0.004 % drops 1 drp ophthalmic (eye) BEDTIME RF: 0 Discharge Orders: Discharge Order (Routine); Ordered 06/29/21 Ordered By: Jordin Mahmood Diet: advance to usual diet Activity on Discharge: As tolerated Stand Alone Forms: Patient Portal Discharge page Care Plan Goals: full recovery from pneumonia and furter work up into heard disease Health Concerns: Pneumonia, possible heart disease Plan of Treatment: As above Assessment: As above Discharge Date/Time: 06/29/21 17:02
[2021-06-29 12:41] LABS: COVID-19 Test Negative (Negative)
[2021-06-29] MEDS: Acetaminophen 325 MG TABLET 650 MG PO (15:13)
== END 2021-06-29 17:02 | disposition skilled nursing facility (03) | DRG 193 ==
LOC: HO.ED 18:28 → HO.EDOVER 19:29 → HO.IMC 19:35
PROVIDERS: Hospitalist; Admitting Provider Hospitalist; Emergency Provider Emergency Medicine; PCP Physician Assistant Medical; Visit Provider Internal Medicine
DX: J18.9 Pneumonia, unspecified organism (principal); G93.41 Metabolic encephalopathy; I47.1 Supraventricular tachycardia; F03.90 Unspecified dementia, unspecified severity, without behavioral disturbance, psychotic disturbance, mood disturbance, and anxiety; I49.3 Ventricular premature depolarization; R79.89 Other specified abnormal findings of blood chemistry; I48.91 Unspecified atrial fibrillation; K21.9 Gastro-esophageal reflux disease without esophagitis; Z20.822 Contact with and (suspected) exposure to COVID-19; Z88.2 Allergy status to sulfonamides; Z79.82 Long term (current) use of aspirin; Z79.52 Long term (current) use of systemic steroids; Z79.899 Other long term (current) drug therapy
CPT/HCPCS: 36415; 70450; 70553; 71045; 80048; 80053; 80076; 81003; 83605; 83690; 83735; 83880; 84484; 85025; 87040; 87635; 93005; 93306; 93880; 97110; 97116; 97162; 99285; A9585; J0456; J0696; J1650; J3475

== ENCOUNTER 2022-11-02 18:43 | Observation (INO) | payer MEDICARE, OTHER, SELFPAY ==
--- NOTE | ~2022-11-02 | XR_ITS ---
EXAMINATION: XR CHEST, 2 VIEWS CLINICAL INFORMATION: Hypotension. COMPARISON: 06/26/2021 TECHNIQUE: PA and lateral views of the chest were obtained. FINDINGS: Chronic elevation of the left hemidiaphragm is unchanged. There is associated airspace opacity in the posterior basilar segments of the left lower lobe which may correspond atelectasis or pleural parenchymal scarring. Chronic consolidation is possible. Right lung is clear. Pulmonary vasculature is normal. Cardiac silhouette is at the upper limits of normal in size. No pneumothorax. No effusion. No acute osseous findings. XR/XR chest 2V IMPRESSION: Chronic elevation of the left hemidiaphragm with associated airspace opacity in the posterior basilar segments of the left lower lobe. This may correspond to atelectasis, pleural parenchymal scarring, or chronic consolidation.
--- NOTE | ~2022-11-02 | CT_ITS ---
EXAMINATION: CT CHEST WITHOUT CONTRAST CLINICAL INFORMATION: Cough. Post Covid. COMPARISON: Chest x-ray 11/02/2022, 06/26/2021 TECHNIQUE: Multidetector volumetric CT imaging of the chest was done. Axial MIP volume rendering provided. Sagittal and coronal reformatted images were obtained. This CT examination was performed using dose optimization techniques as appropriate, variously including the following: *Automated exposure control *Adjustment of mA and/or kV according to patient size (this includes techniques or standardized protocols for targeted exams where dose is matched to indication/reason for exam; i.e. extremities or head) *Use of iterative reconstruction technique DLP: 417 mGy-cm FINDINGS: LUNGS: Dense consolidation at the posterior left lower lobe. Right lung is normally aerated. MEDIASTINUM: No mediastinal mass or significant lymphadenopathy. Vascular calcification of aorta without aneurysm. Heart size is normal. No pericardial effusion. Thyroid unremarkable. CORONARY ARTERY CALCIFICATION: Small volume of coronary calcification. PLEURA: There is a moderate volume left pleural effusion. No right pleural effusion. AXILLA: No lymphadenopathy. UPPER ABDOMEN: Small hepatic cyst. Degenerative glands are normal. OSSEOUS STRUCTURES: Unremarkable. CT/CT chest wo IV con IMPRESSION: 1. Dense consolidation at the posterior left lower lobe. 2. Moderate volume left pleural effusion. Fleischner guidelines were followed.
--- NOTE | 2022-11-02 18:49 | ECG_ITS ---
Test Reason : Hypotension Blood Pressure : / mmHG Vent. Rate : 049 BPM Atrial Rate : 000 BPM P-R Int : 000 ms QRS Dur : 102 ms QT Int : 480 ms P-R-T Axes : 000 -40 085 degrees QTc Int : 433 ms Junctional rhythm alternating with sinus bradycardia Left axis deviation Abnormal ECG When compared with ECG of 26-JUN-2021 12:04, Juntional rhythm present Referred By: Leatha Neville Electronically Signed By:Hector Jnuior
[2022-11-02 18:50] VITALS: BP 110/52; BP 118/58; PULSE 52; PULSE 67; RESP 18; TEMP 36.6; O2SAT 100; O2SAT 94; BMI 25.7
--- NOTE | 2022-11-02 18:58 | ED_ITS ---
HPI - General Adult General Chief complaint: General Medical Stated complaint: hypotensive Time Seen by Provider: 11/02/22 18:58 Source: EMS Mode of arrival: EMS Limitations: altered mental status History of Present Illness HPI narrative: Patient 82 years old with history of encephalitis dementia came by EMS for low blood pressure 80/50 noticed by the [facility] on arrival patient's blood pressure was 118/58 pulse rate of 67 patient had COVID in 10/12/22 since then he has been coughing. No fever no chills patient alert oriented x2 per patient has been coughing a lot Related Data Home Medications Medication Instructions Recorded Confirmed donepezil 10 mg tablet 1 tab PO BEDTIME 06/26/21 06/26/21 omeprazole 20 mg capsule,delayed 1 cap PO QAM 06/26/21 06/26/21 release prednisone 10 mg tablet 1 tab PO DAILY 06/26/21 06/26/21 sertraline 100 mg tablet 1 tab PO DAILY 06/26/21 06/26/21 travoprost 0.004 % eye drops 1 drp ophthalmic (eye) BEDTIME 06/26/21 06/26/21 (Travatan Z) Previous Rx's Medication Instructions Recorded aspirin 81 mg capsule 81 mg PO DAILY #30 caps 06/29/21 cefuroxime axetil 500 mg tablet 500 mg PO BID 7 days #10 tabs 06/29/21 metoprolol tartrate 25 mg tablet 12.5 mg PO BID #30 tabs 06/29/21 Allergies Allergy/AdvReac Type Severity Reaction Status Date / Time sulfamethoxazole Allergy Unknown Verified 06/30/20 10:49 [From Bactrim] trimethoprim [From Bactrim] Allergy Unknown Verified 06/30/20 10:49 Review of Systems Review of Systems: Yes all other systems are reviewed and are negative [facility] Past Medical History Medical History Arthritis Dementia Encephalitis Glaucoma Social History Social History Household Members: Spouse Housing: Unknown / Unable to assess Do you presently have visiting nurse or other home services: No (unable to assess) Alcohol intake: never Patient Tobacco Use Status: Never used Tobacco Advance Directives: No Advance Directives Information Provided: No Advance Directives Date on File: 06/26/21 service: Yes Current occupational status: retired Physical Exam ED Vital Signs: Vital Signs - 24 hr 11/02/22 18:50 11/02/22 20:17 11/02/22 23:24 Temperature 97.9 F 97.8 F 98.6 F Pulse Rate 67 47 L 50 Respiratory Rate 18 21 H 15 Blood Pressure 118/58 L 99/42 L 110/59 L Pulse Oximetry 94 95 97 Oxygen Delivery Method Room Air Room Air Room Air BMI result Body Mass Index 25.7 Appearance: Alert. Oriented X2. No acute distress. Eyes: PERRLA, No Nystagmus ENT: Pharynx normal. Oral Mucosa moist Neck: Normal inspection. Neck supple. CVS: Bradycardia with PACs no murmur rub or gallop Pulses normal. Respiratory: No respiratory distress. Equal air entry bilateral, no wheezing/rales/rhonchi Abdomen: Soft and nontender. Bowel sounds are present, no mass palpable, no CVA tenderness Skin: Skin warm and dry. Normal skin color. Normal skin turgor. Extremities: No lower extremity edema. No calf tenderness Neuro: Oriented X 2. No motor deficit. No sensory deficit.No cerebellar signs , Medications Administered Discontinued Medications Generic Name Dose Route Start Last Admin Trade Name Freq PRN Reason Stop Dose Admin Piperacillin Sod/Tazobactam 50 mls @ 100 mls/hr 11/02/22 23:35 11/03/22 00:03 Sod 3.375 gm/ Sodium Chloride IV 11/03/22 00:04 100 mls/hr ONCE ONE Administration Medical Decision Making Medical Decision Making [facility] Narrative: Patient with transient hypertension COVID positive workup showed left lower lobe consolidation with pleural effusion patient WBC counts are normal saturating 97% at room air blood pressure been stable will check for lactic acid and do the blood cultures meanwhile will give IV Zosyn patient with high while morbidity with pneumonia COVID and bradycardia pleural effusion will admit patient for IV antibiotics Consult Healthcare Provider Management of the patient was discussed with: Hospitalist Lab Data [facility] Lab Attestation statement: I reviewed the patient's lab results. 11/02/22 19:22 11/02/22 19:22 Labs: Lab Results 11/02/22 11/02/22 11/02/22 Range/Units 19:22 19:22 19:22 WBC 4.3 L (4.8-10.8) X10*3/uL RBC 3.68 L (4.60-5.80) X10*6/uL Hgb 11.9 L (14.0-18.0) g/dl Hct 37.2 L (42.0-52.0) % MCV 101.1 H (80.0-98.0) fL MCH 32.3 (27.0-33.0) pg MCHC 32.0 (31.0-36.0) g/dl RDW 11.9 (11.0-16.0) % Plt Count 186 (160-400) X10*3/uL MPV 11.4 (9.4-12.4) fL Immature Gran % (Auto) 0.5 H (0.0-0.4) % Neut % (Auto) 52.7 (45-73) % Lymph % (Auto) 27.1 (20-40) % [place] % (Auto) 14.5 H (2-11) % Eos % (Auto) 4.0 (0-4) % Baso % (Auto) 1.2 (0-2) % Lymph # (Auto) 1.2 (1.2-4.9) X10*3/uL [place] # (Auto) 0.6 (0.1-1.2) X10*3/uL Eos # (Auto) 0.2 (0.0-0.4) X10*3/uL Baso # (Auto) 0.1 (0.0-0.2) X10*3/uL Abs Immat Gran (auto) 0.02 (0.00-0.03) X10*3/uL Absolute Neuts (auto) 2.3 (2.0-8.3) x10*3/uL Absolute Nucleated RBC 0.000 (0.0-0.012) X10*3/uL Nucleated RBC % (auto) 0.0 (0.0-0.2) /100WBC PT (10.0-13.1) SEC INR (0.9-1.1) APTT (26.0-36.4) SEC Sodium 139 (135-145) mmol/L Potassium 4.1 (3.3-5.1) mmol/L Chloride 103 (96-108) mmol/L Carbon Dioxide 24 (22-29) mmol/L Anion Gap 16 (12-20) BUN 12 (9-16) mg/dL Creatinine 0.97 (0.5-1.4) mg/dL Estim Creat Clear Calc 69.4 Estimated GFR > 60 Random Glucose 91 (60-115) mg/dL Lactic Acid (0.5-2.0) mmol/L Calcium 9.0 (8.4-10.2) mg/dL Magnesium 2.1 (1.6-2.6) mg/dL Total Bilirubin 0.8 (0.0-1.0) mg/dL AST 12 (5-37) U/L ALT 8 (0-40) U/L Alkaline Phosphatase 117 (39-117) U/L Troponin I High Sens (<3.5-35.0) ng/L Total Protein 7.8 (6.5-8.0) g/dL Albumin 3.2 L (3.5-5.0) g/dL Influenza Type A (PCR) NEGATIVE (Negative) Influenza Type B (PCR) NEGATIVE (Negative) RSV RNA Qual (PCR) NEGATIVE (Negative) SARS-CoV-2 RNA (RT-PCR) POSITIVE A (Negative) 11/02/22 11/02/22 11/03/22 Range/Units 21:04 21:04 00:02 WBC (4.8-10.8) X10*3/uL RBC (4.60-5.80) X10*6/uL Hgb (14.0-18.0) g/dl Hct (42.0-52.0) % MCV (80.0-98.0) fL MCH (27.0-33.0) pg MCHC (31.0-36.0) g/dl RDW (11.0-16.0) % Plt Count (160-400) X10*3/uL MPV (9.4-12.4) fL Immature Gran % (Auto) (0.0-0.4) % Neut % (Auto) (45-73) % Lymph % (Auto) (20-40) % [place] % (Auto) (2-11) % Eos % (Auto) (0-4) % Baso % (Auto) (0-2) % Lymph # (Auto) (1.2-4.9) X10*3/uL [place] # (Auto) (0.1-1.2) X10*3/uL Eos # (Auto) (0.0-0.4) X10*3/uL Baso # (Auto) (0.0-0.2) X10*3/uL Abs Immat Gran (auto) (0.00-0.03) X10*3/uL Absolute Neuts (auto) (2.0-8.3) x10*3/uL Absolute Nucleated RBC (0.0-0.012) X10*3/uL Nucleated RBC % (auto) (0.0-0.2) /100WBC PT 13.8 H (10.0-13.1) SEC INR 1.2 H (0.9-1.1) APTT 33.3 (26.0-36.4) SEC Sodium (135-145) mmol/L Potassium (3.3-5.1) mmol/L Chloride (96-108) mmol/L Carbon Dioxide (22-29) mmol/L Anion Gap (12-20) BUN (9-16) mg/dL Creatinine (0.5-1.4) mg/dL Estim Creat Clear Calc Estimated GFR Random Glucose (60-115) mg/dL Lactic Acid 0.9 (0.5-2.0) mmol/L Calcium (8.4-10.2) mg/dL Magnesium (1.6-2.6) mg/dL Total Bilirubin (0.0-1.0) mg/dL AST (5-37) U/L ALT (0-40) U/L Alkaline Phosphatase (39-117) U/L Troponin I High Sens 26.6 (<3.5-35.0) ng/L Total Protein (6.5-8.0) g/dL Albumin (3.5-5.0) g/dL Influenza Type A (PCR) (Negative) Influenza Type B (PCR) (Negative) RSV RNA Qual (PCR) (Negative) SARS-CoV-2 RNA (RT-PCR) (Negative) Independent Interpretation I performed an independent interpretation of an: EKG Interpretation: Junctional rhythm with ventricular rate of [address]-T changes no acute ischemia Discharge Plan Discharge Clinical Impression: COVID-19, Pneumonia Patient Disposition: Admitted As Inpatient
--- NOTE | 2022-11-02 19:28 | PC.NURSE ---
Pt ao to self. Breaths even and unlabored. Reports no pain or concerns at this time. Labs drawn. 20G IV on L FA. Pt tolerated well. Pending EKG, lab results, and CXR. at bedside.
[2022-11-02 19:29] LABS: MANUAL DIFF FLAG NO
[2022-11-02 19:30] LABS: Basophils Absolute Auto 0.1 X10*3/uL (0.0-0.2); Basophils Percent Auto 1.2 % (0-2); Eosinophils Absolute Auto 0.2 X10*3/uL (0.0-0.4); Hematocrit 37.2 % (42.0-52.0); Hemoglobin 11.9 g/dl (14.0-18.0); Imm Gran Abs Auto 0.02 X10*3/uL (0.00-0.03); Imm Gran Pct Auto 0.5 % (0.0-0.4); Lymphocytes Absolute Auto 1.2 X10*3/uL (1.2-4.9); Lymphocytes Percent Auto 27.1 % (20-40); Mean Corpuscular Hemoglobin 32.3 pg (27.0-33.0); Mean Corpuscular Volume 101.1 fL (80.0-98.0); Mean Platelet Volume 11.4 fL (9.4-12.4); Monocytes Absolute Auto 0.6 X10*3/uL (0.1-1.2); Monocytes Percent Auto 14.5 % (2-11); Neutrophils Absolute Auto 2.3 x10*3/uL (2.0-8.3); Neutrophils Percent Auto 52.7 % (45-73); Platelet Count 186 X10*3/uL (160-400); Red Blood Count 3.68 X10*6/uL (4.60-5.80); Red Cell Distribution Width 11.9 % (11.0-16.0); White Blood Count 4.3 X10*3/uL (4.8-10.8)
[2022-11-02 20:06] LABS: Alanine Aminotransferase 8 U/L (0-40); Albumin Level 3.2 g/dL (3.5-5.0); Alkaline Phosphatase 117 U/L (39-117); Anion Gap 16 (12-20); Aspartate Amino Transferase 12 U/L (5-37); Bilirubin Total 0.8 mg/dL (0.0-1.0); Blood Urea Nitrogen 12 mg/dL (9-16); Carbon Dioxide 24 mmol/L (22-29); Chloride 103 mmol/L (96-108); Creatinine Clr Calc Pharmacy 69.4; Estimated Glomerular Filt Rate > 60; Glucose Random 91 mg/dL (60-115); Influenza A PCR NEGATIVE (Negative); Influenza B PCR NEGATIVE (Negative); Magnesium 2.1 mg/dL (1.6-2.6); Potassium 4.1 mmol/L (3.3-5.1); Resp Syncy Virus RNA Qual PCR NEGATIVE (Negative); SARS COV2 PCR INHOUSE POSITIVE (Negative); Sodium 139 mmol/L (135-145); Total Protein 7.8 g/dL (6.5-8.0)
[2022-11-02 20:17] VITALS: BP 99/42; PULSE 47; RESP 21; TEMP 36.6; O2SAT 95
--- OUTSIDE RECORDS SUMMARY | 2022-11-02 21:10 | XMS_ITS | Encounter Summary ---
:1940 Author Organization [facility] rs Address [address] [place] [id number] Support Name Relationship Address Phone PURNIMA CANNON Unavailable [address] [place] [address] PURNIMA CANNON Unavailable [address] [place] [address] Insurance Providers: All historical and current Section Date Range: From patient's date of to the date document was created.This section includes the names of all active insurance providers for the patient. Insurance Type of Plan Start of End of Group Member Insurance Policy P atient's Provider Coverage Name Policy Policy Number ID Provider's Augustine's Relationship Coverage Coverage Telephone Name to Policy Number Augustine [facility] [place] Nov 28, [id number] [phone] AMIE CANNON [employer] [facility] RE 2018 [id number] [place] OPTIONS EXPRESS PRESCRIPT [facility] Mar 30, [id number] AMIE PINEDA SPOUSE SCRIPTS ION 2017 30 7 [place] ([id number]) MEDICARE MEDICARE PART Jul 31, PART B [id number] [place], [place] PATIENT (WNR) (M) B 2015 DE02 4 [place]MOND MEDICARE MEDICARE PART Apr 30, PART A [id number] [phone] [place] PATIENT (WNR) (M) A 2005 [id number] 4 [place] [facility] [place] Mar 30, [id number] [phone] AMIE CANNON SPOUSE EXPENSE RE 2010 [id number] [place] (OPT/PROF STATE ) IND Selected Encounter This section includes the information on record at [place] for the Encounter. Date/Time Encounter Type Encounter Reason Provider Source Description May 29, 2022 ADM [id number] PRIMARY ICD-10-CM Z23 INOCENTE ROWELL 01:45 PM 50MCG/0.25MLBST CARE/MEDICINE Encounter for HELLE immunization with Provider Comments: Encounter for Immunization IHE Encounter Template Text not used by [place] Assessments - Encounter Diagnoses This section includes the primary and secondary diagnoses documented for the Encounter. Date/Time Primary/Secondary Diagnosis Name Provider Source Diagnosis May 29, 2022 PRIMARY Encounter for LACY ROWELL 02:24 PM immunization COCO Plan of Treatment: Future Appointments (+ 6 months) and Future Tests (+/- 45 days) The Plan of Treatment section includes future care activities for the patient from all [place] treatmentfacilities. This section includes future appointments and future orders which are active, pending orscheduled.Future Appointments This section includes appointments that were scheduled to occur 6 months from the date of the Encounter, up to a maximum of 20 appointments. The data comes from all [place] treatment facilities. Appointment Date/Time Appointment Type Appointment Facili ty Name Sep 19, 2022 03:15 PM [facility] Nov 05, 2022 02:00 PM [facility] Nov 06, 2022 01:30 PM [facility] Immunizations: All administered on the encounter date This section contains immunizations associated to the Encounter. Immunization Series Date Issued Reaction Comments COVID-19 (MODERNA), MRNA, 3 May 29, 2022 MO D; [id number]; 08/10/2022 LNP-S, PF, 100 MCG/0.5ML DOSE OR 50 MCG/0.25ML DOSE Encounter Notes: All associated encounter notes This section contains the clinical notes associated to the Encounter. Date/Time Encounter Note(s) Provider Source May 29, 2022 02:23 PM PREVENTIVE MEDICINE NURSING NOTE: LOREN VILA LOCAL TITLE: CLINICAL REMINDERS/NURSING STANDARD TITLE: PREVENTIVE MEDICINE NURSING NOTE DATE OF NOTE: MAY 29, 2022@14:23 ENTRY DATE: MAY 29, 2022@14:23:25 AUTHOR: LOREN ROWELL EXP COSIGNER: URGENCY: STATUS: COMPLETED COVID-19 Immunization: The patient was given the vaccine information f act sheet for this vaccine which lists the benefits and side effects of th e vaccine and which reviews the risks of the vaccine. The fact sheet was re viewed with the patient and they were given an opportunity to ask questions . The patient denied any prior severe reaction to this vaccine or its co mponents or a severe allergic reaction such as anaphylaxis to any va ccine or to any injectable therapy. The patient gave verbal consent to rec eive the vaccine. Booster Dose (half-dose): The patient received Moderna COVID-19 Vaccine 0 .25 ml IM. Series: Series 3 MVX (Manuf); Lot#; Exp Date: MOD; [id number]; 07/31 Administration Anatomic site: Left Deltoid Vaccine administered without complications. The patient was advised to remain in the facility for 15 minutes post vacc ination. The patient was given a completed COVID-19 vaccination record c jeremiah, a copy of the [facility] Side Effects and Adverse Events Reporting Fact Sheet and instructed on how to report any adverse reactions. /yarely/ LOREN ROWELL RN REGISTERED NURSE Signed: 05/29/2022 14:24
--- OUTSIDE RECORDS SUMMARY | 2022-11-02 21:10 | XMS_ITS | Continuity of Care Document ---
:1940 Author Organization [facility] Care Team Providers Name Role Phone DOD-MO Unavailable Unavailable Problems Combined list of problems from Department of Defense and Veterans Affairs facilities. It does not include entries that were removed or entered in error. 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 Medications provided include 1) outpatient medications from the last 15 months, and 2) patient-reported medications. Medication Details Route Status Patient Prescription Prescription Last Ordering Order Source Instructions Expires Number Dispense Provider Date Date CEPHALEXIN Active [id number] , 03/20/ P harmac (CEPHALEXIN 2 2021 y Data MONOHYDRATE Transac ), 500MG, tion CAPSULE, Service ORAL, TEVA Facilit USA, 500 y ea. BOTTLE CICLOPIROX Active [id number] WEN, 04/01/ P harmac (CICLOPIROX 2 2021 y Data OLAMINE), Transac 0.77%, tion CREAM (G), Service TOPICAL, G Facilit & W LABS., y 15 g TUBE DONEPEZIL Active [id number] ADOLFO,KELVIN 12/30 / Pharmac HCL 2 IFER 2021 y Data (DONEPEZIL Transac HCL), 10 tion MG, TABLET, Service ORAL, Tego, [employer] 1000 y ea. BOTTLE DONEPEZIL Active [id number] ADOLFO,KELVIN 05/08 / Pharmac HCL 2 IFER 2021 y Data (DONEPEZIL Transac HCL), 10 tion MG, TABLET, Service ORAL, GSMS, [employer] 1000 y ea. BOTTLE FLUTICASONE Active [id number] STAROPOLI / Pharmac PROPIONATE 2 , 2021 y Data (FLUTICASON Transac E tion PROPIONATE) Service , 50MCG, Facilit SPRAY SUSP, y NASAL, APOTEX RAJAN, 16 g AER W/ADAP FUROSEMIDE Active [id number] TANYA, 03/01 / Pharmac (FUROSEMIDE 2 2021 y Data ), 20MG, Transac TABLET, tion ORAL, Service IRAM [employer] 1000 y ea. BOTTLE LORAZEPAM Active [id number] VALANIA, 04/21/ Pharmac (lorazepam) 2 2021 y Data , 0.5 MG, Transac TABLET, tion ORAL, TEVA Prosetta, 500 Facilit ea. BOTTLE y METOPROLOL Active [id number] ADOLFO,KELVIN 2/ Pharmac TARTRATE 2 IF2021 y Data (metoprolol Transac tartrate), tion 25 MG, Service TABLET, Facilit ORAL, GSMS, y INC., 1000 ea. BOTTLE MIRTAZAPINE Active [id number] STAROPOLI / Pharmac (MIRTAZAPIN 1 , 2020 y Data E), 15 MG, Transac TABLET, tion ORAL, Service AUROBINDO Facilit PHARM, 30 y ea. BOTTLE MIRTAZAPINE Active [id number] STAROPOLI / Pharmac (MIRTAZAPIN 2 , 2021 y Data E), 15 MG, Transac TABLET, tion ORAL, Service AUROBINDO Facilit PHARM, 30 y ea. BOTTLE MIRTAZAPINE Active [id number] ADOLFO,KELVIN / Pharmac (mirtazapin 2 IFER 2021 y Data e), 15 MG, Transac TABLET, tion ORAL, GSMS, Service INC., 1000 Facilit ea. BOTTLE y MIRTAZAPINE Active [id number] ADOLFO,KELVIN / Pharmac (mirtazapin 2 IF2021 y Data e), 15 MG, Transac TABLET, tion ORAL, Tego, [employer] 1000 Facilit ea. BOTTLE y OMEPRAZOLE Active [id number] HAZRATJI, 03/01 Pharmac (omeprazole 2 MOHAMMAD 2021 y Riki a ), 20 MG, Transac CAPSULE , tion ORAL, Tego, [employer] 1000 Facilit ea. BOTTLE y OMEPRAZOLE Active [id number] HAZRATJI, 05/03 Pharmac (omeprazole 2 MOHAMMAD 2021 y Riki a ), 20 MG, Transac CAPSULE , tion ORAL, Tego, [employer] 1000 Facilit ea. BOTTLE y SERTRALINE Active [id number] ADOLFO,KELVIN 2/ Pharmac HCL 2 IF2021 y Data (SERTRALINE Transac HCL), 100 tion MG, TABLET, Service ORAL, Facilit EXELAN y PHARMACE, 500 ea. BOTTLE SERTRALINE Active [id number] ADOLFO,KELVIN 12/29 6/ Pharmac HCL 2 IF2021 y Data (SERTRALINE Transac HCL), 100 tion MG, TABLET, Service ORAL, Facilit EXELAN y PHARMACE, 500 ea. BOTTLE SERTRALINE Active [id number] ADOLFO,KELVIN 07 6/ Pharmac HCL 2 IF2021 y Data (sertraline Transac HCl), 100 tion MG, TABLET, Service ORAL, Facilit EXELAN y PHARMACE, 90 ea. BOTTLE TRAVOPROST Active [id number] HULSEBERG 07/0 4/ Pharmac (travoprost 2 ,GINNA 2021 y Data ), 0.004 %, Transac DROPS, tion OPHTHALMIC, Service APOTEX Facilit RAJAN, 2.5 y ml DROP BTL TRAVOPROST Active [id number] HULSEBERG 07/0 2/ Pharmac (travoprost 2 ,GINNA 2021 y Data ), 0.004 %, Transac DROPS, tion OPHTHALMIC, Service APOTEX Facilit RAJAN, 2.5 y ml DROP BTL TRAVOPROST Active [id number] HULSEBERG 03/0 5/ Pharmac (travoprost 2 , 2021 y Data ), 0.004 %, Transac DROPS, tion OPHTHALMIC, Service SANDOZ, 2.5 Facilit ml DROP BTL y TRAVOPROST Active [id number] HULSEBERG 03/0 6/ Pharmac (travoprost 2 , 2021 y Data ), 0.004 %, Transac DROPS, tion OPHTHALMIC, Service SANDOZ, 2.5 Facilit ml DROP BTL y VYNDAMAX Active [id number] VALANIA,G 05/02/ Pharmac (tafamidis) 2 REGORY 2021 y Data , 61 MG, Transac CAPSULE, tion ORAL, Service PFIZER US Facilit PHARM, 30 y ea. BLIST PACK VYNDAMAX Active [id number] VALANIA,G 05/23/ Pharmac (tafamidis) 2 REGORY 2021 y Data , 61 MG, Transac CAPSULE, tion ORAL, Service PFIZER US Facilit PHARM, 30 y ea. BLIST PACK Allergies, Adverse Reactions, Alerts Combined list of allergies from Department of Defense and Veterans Affairs facilities. It does not include entries that were removed or entered in error. Substance Category Reaction Severity Reaction Status Date Comments S ource type Reported BACTRIM Propensity active [facility] to adverse 2 [facility] reactions [place] [facility] (finding) SULFA Propensity active [facility] DRUGS to adverse 2 [facility] reactions [place] to drug [facility] (finding) Immunizations Combined list of available immunizations from the Department of Defense and Veterans Affairs facilities. 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 INFLUENZA 09/19/ JENNIE HOWELL [id number] comple t [place] VACCINE, 2021 A H DELTO ed IELD QUADRIVALENT, ID ADJUVANTED COVID-19 3 complet MOD; SP RINGF (MODERNA), 2021 ed [id number]; IELD MRNA, LNP-S, 02 PF, 100 2 MCG/0.5ML DOSE OR 50 MCG/0.25ML DOSE COVID-19 3 complet MOD; SP RINGF (MODERNA), 2021 ed [id number]; IELD MRNA, LNP-S, 02 PF, 100 2 MCG/0.5ML DOSE OR 50 MCG/0.25ML DOSE COVID-19 2 complet [facility] (PFIZER), 2020 ed CNTR L MRNA, LNP-S, W STRN PF, 30 [place] MCG/0.3 ML SET S DOSE HCS COVID-19 1 complet [facility] (PFIZER), 2020 ed CNTR L MRNA, LNP-S, W STRN PF, 30 [place] MCG/0.3 ML SET S DOSE HCS influenza 1 07/23/ Unknown, 16 () complet infl uenza DoD virus 1999 Provider ed virus vaccine, vaccine, whole virus whole virus tuberculin 1 , [id number] [place] compl et tuberculi DoD skin test; 1999 Provider (CON) ed n skin purified test; protein purified derivative protein solution, derivativ intradermal e solution, intraderm al typhoid 1 , [id number] [place] complet ty phoid DoD vaccine, 1999 Provider (CON) ed vaccine, parenteral, parenter a other than l, other acetone-kille than d, dried acetone-k illed, dried TYPHOID, complet JLV [facility] VICPS 1999 ed [facility] [place] [facility] tuberculin 1 , [id number] [place] compl et tuberculi DoD skin test; 1999 Provider (CON) ed n skin purified test; protein purified derivative protein solution, derivativ intradermal e solution, intraderm al influenza 1 , [id number] 16 [facility] plet influenza DoD virus 1998 Provider (WAL) ed virus vaccine, vaccine, whole virus whole virus tuberculin 1 , 2496-11 96 Sanofi complet tuberculi DoD skin test; 1998 Provider Pasteur (PMC) ed n skin purified test; protein purified derivative protein solution, derivativ intradermal e solution, intraderm al measles, 1 , 22757 03 Ledezma (AB) complet measles, DoD mumps and 1997 Provider ed mumps a nd rubella virus rubell a vaccine virus vaccine MMR complet JLV [facility] 1997 ed [facility] [place] [facility] influenza 1 , [id number] 16 [place] comple t influenza DoD virus 1997 Provider (CON) ed virus vaccine, vaccine, whole virus whole virus tuberculin 1 03/05/ Unknown, 2455-11 96 [place] compl et tuberculi DoD skin test; 1997 Provider (CON) ed n skin purified test; protein purified derivative protein solution, derivativ intradermal e solution, intraderm al tuberculin 1 Unknown, 2455-11 96 [place] compl et tuberculi DoD skin test; 1997 Provider (CON) ed n skin purified test; protein purified derivative protein solution, derivativ intradermal e solution, intraderm al meningococcal 1 , [id number] 32 [place] co mplet meningoco DoD polysaccharid 1997 Provider (BRITTANI) ed cca l e vaccine polysacch (MPSV4) aride vaccine (MPSV4) typhoid 2 , [id number] 53 Wyeth-Ayerst compl et typhoid DoD vaccine, 1997 Provider (MATTY) ed vaccine, parenteral, parenter a acetone-diallo l d, dried acetone-k (U.S. illed, ) dried (U.S. ) hepatitis A 2 , [id number] 52 Merck (MSD) comp let hepatitis DoD vaccine, 1997 Provider ed A adult dosage vaccine , adult dosage HEP A, ADULT 2 complet [facility] 1997 ed [facility] [place] [facility] MENINGOCOCCAL complet JLV VA POLYSACCHARID 1997 ed CNTRL E VACCINE [facility]STR N (HISTORICAL) [facility] [place] hepatitis A 1 , [id number] [facility] plet hepatitis DoD vaccine, 1996 Provider 6 (SKTrevin) ed A adult dosage vaccine , adult dosage HEP A, ADULT 1 complet [facility] 1996 ed [facility] [place] [facility] tuberculin 1 , 2451-11 96 [place] compl et tuberculi DoD skin test; 1996 Provider (CON) ed n skin purified test; protein purified derivative protein solution, derivativ intradermal e solution, intraderm al influenza 1 , [id number] 16 [place] comple t influenza DoD virus 1996 Provider (CON) ed virus vaccine, vaccine, whole virus whole virus influenza 1 07/24/ Unknown, 16 () complet infl uenza DoD virus 1995 Provider ed virus vaccine, vaccine, whole virus whole virus typhoid 1 12/29/ Unknown, [id number] 53 Merck (MSD) complet typhoid DoD vaccine, 1994 Provider ed vaccine, parenteral, parenter a acetone-tristen gonzalez, dried acetone-k (U.S. illed, ) dried (U.S. ) yellow fever 1 11/28/ Unknown, [id number] 37 [place] com plet yellow DoD vaccine 1992 Provider (CON) ed fever vaccine tetanus and 1 11/28/ Unknown, 09 () complet te tanus DoD diphtheria 1992 Provider ed and toxoids, diphtheri adsorbed, a preservative toxoids , free, for adsorbed, adult use (2 preserv at Lf of tetanus ivonne fr ee, toxoid and 2 for holly lt Lf of use (2 Lf diphtheria of toxoid) tetanus toxoid and 2 Lf of diphtheri a toxoid) trivalent 1 05/31/ Unknown, 02 () complet triv alent DoD poliovirus 1983 Provider ed poliov iru vaccine, s live, oral vaccine, live, oral cholera 1 10/02/ Unknown, [id number] [place] complet cholera DoD vaccine, 1982 Provider (CON) ed vaccine, unspecified unspecif i formulation ed formulati on Encounters Combined list of: 1) Encounters from 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 Location Location Encounter Encounter Reason Attending ADM CA Stat Disposition Source Details Type Number For Provider Date Date Visit Outpatient [id number] 11/14 [place] Encounter [id number] [facility] OFFICE O/P [id number] Diagnos CORNELIO DEAN 12/12 [facility] EST [id number] is: IELD MINIMAL 99 ICD-10- PROB CM Z23 Encount er for immuniz ation<b r/>with Provide r Comment s: Encount er for Immuniz ation Outpatient [id number] 03/29 [place] Encounter [id number] [facility] ADM [id number] Diagnos LELIA, 05/29 SP RINGF SARSCOV2 [id number] is: LOREN /2021 IEL D 50MCG/0.25 31 ICD-10- MLBST CM Z23 Encount er for immuniz ation<b r/>with Provide r Comment s: Encount er for Immuniz ation Outpatient [id number] 08/08 [id number] [facility] [place] [address] [facility] Outpatient [id number] 08/16 [facility] [id number] [place] [facility] [place] [place] [facility] Outpatient [id number] 08/24 [facility] En[facility] [id number] /[address] [place] [facility] OFFICE O/P [id number] Diagnos LYNDA,L 09/19 [place] EST [id number] is: DOLLY H IELD MINIMAL 06 ICD-10- PROB CM Z23 Encount er for immuniz ation<b r/>with Provide r Comment s: Encount er for Immuniz ation Social History Combined list of available smoking, tobacco, and other social history from Department of Defense 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 Social History Type Response Date Comment Source Tobacco smoking MO-TOBACCO NEVER USED 08/24/2022 [place] [facility] W[facility] status [facility] This section is an [facility] empty social history section. Plan of Care List of future care activities from Department of Veterans Affairs facilities. Additional future care activities may be listed in the Assessment and Plan section. Date/Time Care Activity Care Activity Detail Facility 11/05/2022 AMBULATORY - MEDICINE [facility] [place] [facility]
--- OUTSIDE RECORDS SUMMARY | 2022-11-02 21:10 | XMS_ITS | Encounter Summary ---
:1940 Author Organization [facility] rs Address [address] [place] [address] Support Name Relationship Address Phone GWEN CANNON Unavailable [address] [place] [address] GWEN CANNON Unavailable [address] [place] [address] Insurance Providers: All historical and current Section [...] Augustine BEACON MENTAL [place] Nov [birth year], EH65 [id number] [phone] AMIE CANNON [facility] RE 2018 [id number] 8 [place] OPTIONS EXPRESS PRESCRIPT GI Mar 30, [id number] [phone] AMIE PINEDA SPOUSE SCRIPTS ION 2017 30 7 [place] ([id number]) MEDICARE MEDICARE PART Jul 31, PART B [id number] [place] PATIENT (WNR) (M) B 2015 DE02 4 [place] MEDICARE MEDICARE PART Apr 30, PART A [id number] [phone] [place] PATIENT (WNR) (M) A 2005 DE02 4 [place] [facility] MEDICAL [place] Mar 30, [id number] [phone] AMIE CANNON SPOUSE EXPENSE RE 2011 [id number] [place] (OPT/PROF STATE ) IND Selected Encounter This section includes the information on record at [place] for the Encounter. Date/Time Encounter Type Encounter Description Reason Provider Source Mar 29, 2022 01:42 Outpatient Encounter TELEPHONE TRIAGE PM IHE Encounter Template Text not used by [place] Plan of Treatment: Future Appointments (+ 6 months) and Future Tests (+/- 45 days) The Plan of Treatment section includes future care activities for the patient from all [place] treatmentfacilities. This section includes future appointments and future orders which are active, pending orscheduled.Future Appointments This section includes appointments that were scheduled to occur 6 months from the date of the Encounter, up to a maximum of 20 appointments. The data comes from all [place] treatment facilities. Appointment Date/Time Appointment Type Appointment Facili ty Name May 29, 2022 01:45 PM [facility] [place] [facility] Sep 19, 2022 03:15 PM [facility] Encounter Notes: All associated encounter notes This section contains the clinical notes associated to the Encounter. Date/Time Encounter Note(s) Provider Source Mar 29, 2022 01:42 PM TELEPHONE ENCOUNTER NOTE: RUPALI LEDESMA [facility] LOCAL TITLE: VISN 1 CCC ACTION REQUIRED [facility] STANDARD TITLE: TELEPHONE ENCOUNTER NOTE DATE OF NOTE: MAR 29, 2022@13:42:30 ENTRY DATE: MAR 29, 2022@13:44:34 AUTHOR: RUPALI LEDESMA EXP COSIGNER: URGENCY: STATUS: COMPLETED VISN 1 CCC ACTION REQUIRED Has ADDENDA SPOUSE called in for KASSANDRAGAEFFIE ([id number]) . The following identifiers were used to verify th is patient: . SSN. Contact Type of call: SCHEDULING. Caller Response: ADM CALL RESOLVED Caller Area: [facility] PCMM Provider Info: No Local PACT assigned, however a remote assignm ent may exist. Please contact local PCMM Coordinator to review. Author: RUPALI LEDESMA Comments: CallerGwen vets , , requests to schedule vet a #2 booster vaccine. Please assist. Evaluation/Management Code: HC PRO PHONE CALL 5- 10 MIN ([phone]). Starting at: 03/29/2022 @ 1:42:30 PM Ending at: 03/29/2022 @ 1:43:41 PM Length: 1 minutes. Chief Complaint: Not applicable to call. Class Code: Other specified counseling. Patient's Email Address: /yarely/ RUPALI LEDESMA ADVANCED ELECTRONICS MECHANIC APPRENTICE Signed: 03/29/2022 13:44 Receipt Acknowledged By: 03/30/2022 16:34 /yarely/ DOE BRIGGS ADVANCED ELECTRONICS MECHANIC APPRENTICE 03/30/2022 ADDENDUM STATUS: COMPLETED booked appt for 05/29/2022 at 145pm letter mailed /mariel BRIGGS ADVANCED ELECTRONICS MECHANIC APPRENTICE Signed: 03/30/2022 16:34
--- OUTSIDE RECORDS SUMMARY | 2022-11-02 21:10 | XMS_ITS | Encounter Summary ---
:1940 Author Organization [facility] rs Address [address] [place] [address] Support Name Relationship Address Phone PURNIMA CANNON Unavailable [address] [place] [address] PURNIMA CANNON Unavailable [address] [place] [address] Insurance Providers: All historical and current Section [...] Augustine BEACON MENTAL [place] Nov 28, EH65 [id number] [phone] AMIE CANNON [facility] HE[facility] HEALTH RE 2018 3830 8 [place] OPTIONS EXPRESS PRESCRIPT GI Mar 30, [id number] [phone] AMIE PINEDA SPOUSE SCRIPTS ION 2017 30 7 [place] ([id number]) MEDICARE MEDICARE PART Jul 31, PART B [id number] [place] PATIENT (WNR) (M) B 2015 DE02 4 [place] MEDICARE MEDICARE PART Apr 30, PART A [id number] [id number] [place] PATIENT (WNR) (M) A 2005 DE02 4 [place] [facility] MEDICAL [place] Mar 30, [id number] [phone] AMIE CANNON SPOUSE EXPENSE RE 2010 201 [id number] [phone] [place] (OPT/PROF STATE ) IND Selected Encounter This section includes the information on [place] at [place] for the Encounter. Date/Time Encounter Type Encounter Description Reason Provider Source Nov 14, 2021 02:49 Outpatient Encounter TELEPHONE TRIAGE PM IHE Encounter Template Text not used by [facility] Plan of Treatment: Future Appointments (+ 6 months) and Future Tests (+/- 45 days) The Plan of Treatment section includes future care activities for the patient from all [place] treatmentfacilities. This section includes future appointments and future orders which are active, pending orscheduled.Future Appointments This section includes appointments that were scheduled to occur 6 months from the date of the Encounter, up to a maximum of 20 appointments. The data comes from all [place] treatment facilities. Appointment Date/Time Appointment Type Appointment Facili ty Name Dec 12, 2021 01:30 PM [facility] Encounter Notes: All associated encounter notes This section contains the clinical notes associated to the Encounter. Date/Time Encounter Note(s) Provider Source Nov 14, 2021 02:49 PM TELEPHONE ENCOUNTER NOTE: [facility]ES [facility] TITLE: VISN 1 CCC ACTION REQUIRED [facility] STANDARD TITLE: TELEPHONE ENCOUNTER NOTE DATE OF NOTE: NOV 14, 2021@14:49:27 ENTRY DATE: NOV 14, 2021@14:53:26 AUTHOR: RACHEL CACERES EXP COSIGNER: URGENCY: STATUS: COMPLETED VISN 1 CCC ACTION REQUIRED Has ADDENDA The patient, JACLYN CANNON ([id number]) Phone: called the call center. Contact Type of call: ADMINISTRATIVE. Caller Response: ADM CALL RESOLVED Caller Area: [facility] PCMM Provider Info: No Local PACT assigned, however a remote assignm ent may exist. Please contact local PCMM Coordinator to review. Author: RACHEL CACERES Comments: Veterans (no comm auth) calls in response t o a letter she received from the [place]. He does have care in the community. She wants him to get a covid booster. Evaluation/Management Code: HC PRO PHONE CALL 5- 10 MIN ([phone]). Starting at: 11/14/2021 @ 2:49:27 PM Ending at: 11/14/2021 @ 2:51:51 PM Length: 2 minutes. Chief Complaint: Not applicable to call. Class Code: Other specified counseling. Patient's Email Address: /yarely/ RACHEL CACERES Signed: 11/14/2021 14:53 Receipt Acknowledged By: 11/14/2021 15:14 /yarely/ VINH LANDIS DOCUMENT CONTROL CLERK 4TH GRADE TEACHER * AWAITING SIGNATURE * DARLING DENIS * AWAITING SIGNATURE * COLE OBRIEN 11/14/2021 ADDENDUM STATUS: COMPLETED AMSA please call to schedule COVID BOOSTER at th e [place] /yarely/ VINH LANDIS DOCUMENT CONTROL CLERK 4TH GRADE TEACHER Signed: 11/14/2021 15:15 Receipt Acknowledged By: * AWAITING SIGNATURE * JEREMIAH MELGOZA
--- OUTSIDE RECORDS SUMMARY | 2022-11-02 21:10 | XMS_ITS ---
:1940 Author Organization [facility] Address [address] [place] [address] Support Name Relationship Address Phone GWEN CANNON Unavailable [address] [place] [address] GWEN CANNON Unavailable [address] [place] [address] Insurance Providers: All historical and current Section [...] Augustine BEACON MENT[facility] [place] Nov [birth year], [id number] [phone] AMIE CANNON [facility] HEALTH RE 2018 [id number] [place] OPTIONS EXPRESS PRESCRIPT [facility] Mar 30, [id number] [phone] AMIE PINEDA SPOUSE SCRIPTS ION 2018 30 7 [place] ([id number]) MEDICARE MEDICARE PART Jul 31, PART B [id number] [place] PATIENT (WNR) (M) B 2015 DE02 4 OND MEDICARE MEDICARE PART Apr 30, PART A [id number] [phone] [place] PATIENT (WNR) (M) A 2005 DE02 4 OND [facility] [place] Mar 30, [id number] [phone] AMIE CANNON SPOUSE EXPENSE RE 2010 [id number] [place] (OPT/PROF STATE ) IND Selected Encounter This section includes the information on record at [place] for the Encounter. Date/Time Encounter Type Encounter Description Reason Provider Source Aug 08, 2022 11:33 Outpatient Encounter ADMIN PAT ACTIVTIES (MASNONCT) E Encounter Template Text not used by [place] Plan of Treatment: Future Appointments (+ 6 months) and Future Tests (+/- 45 days) The Plan of Treatment section includes future care activities for the patient from all [place] treatmentfacilities. This section includes future appointments and future orders which are active, pending orscheduled.Future Appointments This section includes appointments that were scheduled to occur 6 months from the date of the Encounter, up to a maximum of 20 appointments. The data comes from all [place] treatment facilities. Appointment Date/Time Appointment Type Appointment Facili ty Name Sep 19, 2022 03:15 PM AMBULATORY - [place]ICINE [place] [facility] [place] [facility] Nov 05, 2022 02:00 PM AMBULATORY MEDICINE [place] [facility] [place] [facility] Nov 06, 2022 01:30 [facility] Encounter Notes: All associated encounter notes This section contains the clinical notes associated to the Encounter. Date/Time Encounter Note(s) Provider Source Aug 08, 2022 11:33 AM ADMINISTRATIVE NOTE: FRIDA SULLIVAN [facility] LOCAL TITLE: CCC: SCHEDULING ADMINISTRATION [facility] STANDARD TITLE: ADMINISTRATIVE NOTE DATE OF NOTE: AUG 08, 2022@11:33:45 ENTRY DATE: AUG 08, 2022@11:36:40 AUTHOR: FRIDA SULLIVAN EXP COSIGNER: URGENCY: STATUS: COMPLETED CCC: SCHEDULING ADMINISTRATION Has ADDENDA Type of call: SCHEDULING. PCMM Provider Info: No Local PACT assigned, however a remote assignm ent may exist. Please contact local PCMM Coordinator to review. SPOUSE called in for JACLYN CANNON ([phone]) . The following identifiers were used to verify th is patient: . SSN. Contact Caller Response: ADM CALL RESOLVED Caller Area: [facility] Comments: CallerGwen vets , , request s to schedule vet a booster, flu and Shingrix vaccine. Author: FRIDA SULLIVAN Evaluation/Management Code: HC PRO PHONE CALL 5- 10 MIN ([phone]). Starting at: 08/08/2022 @ 11:33:45 AM Ending at: 08/08/2022 @ 11:36:23 AM Length: 2 minutes. Chief Complaint: Not applicable to call. Class Code: Other specified counseling. /es/ FRIDA SULLIVAN ADVANCED TITLE INSURANCE EXAMINER Signed: 08/08/2022 11:36 Receipt Acknowledged By: 08/09/2022 15:00 /yarely/ LOREN ROWELL RN REGISTERED NURSE 08/09/2022 16:14 /es/ DOE BRIGGS ADVANCED TITLE INSURANCE EXAMINER 08/09/2022 ADDENDUM STATUS: COMPLETED patient called again. he would like a call back /es/ SWATI KIRK 1 [facility] AMSA Signed: 08/09/2022 14:23 Receipt Acknowledged By: 08/09/2022 15:00 /yarely/ LOREN ROWELL RN REGISTERED NURSE 08/09/2022 16:14 /yarely/ DOE BRIGGS ADVANCED TITLE INSURANCE EXAMINER 08/09/2022 ADDENDUM STATUS: COMPLETED Adding Supervisors for the AMSAs. 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 He is not enrolled at this time. /yarely/ DOE BRIGGS ADVANCED TITLE INSURANCE EXAMINER Signed: 08/09/2022 16:14 08/22/2022 ADDENDUM STATUS: COMPLETED F: Update D: Vet is an 8G and so needs his case reviewed t o determine if he is eligible for care at the [place] /es/ RADHA MANCERA MSN Ed., BSN RESEARCH NURSE PRACTITIONER NURSE Signed: 08/22/2022 17:04 Receipt Acknowledged By: * AWAITING SIGNATURE * ALEJANDRO ESCOBAR * AWAITING SIGNATURE * VINH LANDIS
--- OUTSIDE RECORDS SUMMARY | 2022-11-02 21:10 | XMS_ITS | Encounter Summary ---
:1940 Author Organization [facility] Address [address] [place] [address] Support Name Relationship Address Phone PURNIMA CANNON Unavailable [address] [place] [address] PURNIMA CANNON Unavailable [address] [place] [phone] Insurance Providers: All historical and current Section [...] Augustine BEACON MENTAL [place] Nov [birth year], EH65 [id number] [phone] AMIE CANNON SPOUSE HEALTH HEALTH RE 2018 [id number] 8 [place] OPTIONS EXPRESS PRESCRIPT [facility] Mar 30, [id number] [phone] AMIE PINEDA SPOUSE SCRIPTS ION 2017 30 7 [place] ([id number]) MEDICARE MEDICARE PART Jul 31, PART B [id number] [place] PATIENT (WNR) (M) B 2015 DE02 4 [place] MEDICARE MEDICARE PART Apr 30, PART A [id number] [phone] [place] PATIENT (WNR) (M) A 2005 DE02 4 [place] [facility]ICAL [place] Mar 30, [id number] [phone] AMIE CANNON SPOUSE EXPENSE RE 2010 [id number] [place] (OPT/PROF STATE ) IND Selected Encounter This section includes the information on record at [place] for the Encounter. Date/Time Encounter Type Encounter Reason Provider Source Description Dec 12, 2021 OFFICE O/P EST PRIMARY ICD-10-CM Z23 CORNELIO DEAN 01:30 PM MINIMAL PROB CARE/MEDICINE Encounter for immunization with Provider Comments: Encounter for Immunization IHE Encounter Template Text not used by [facility] Assessments - Encounter Diagnoses This section includes the primary and secondary diagnoses documented for the Encounter. Date/Time Primary/Secondary Diagnosis Name Provider Source Diagnosis Dec 12, 2021 PRIMARY Encounter for DIANNECORNELIO RIDDLE 02:54 PM immunization Plan of Treatment: Future Appointments (+ 6 months) and Future Tests (+/- 45 days) The Plan of Treatment section includes future care activities for the patient from all [place] treatmentfacilities. This section includes future appointments and future orders which are active, pending orscheduled.Future Appointments This section includes appointments that were scheduled to occur 6 months from the date of the Encounter, up to a maximum of 20 appointments. The data comes from all [place] treatment facilities. Appointment Date/Time Appointment Type Appointment Facili ty Name May 29, 2022 01:45 PM AMBULATORY - MEDICINE [place] [facility] Immunizations: All administered on the encounter date This section contains immunizations associated to the Encounter. Immunization Series Date Issued Reaction Comments COVID-19 (MODERNA), MRNA, 3 Dec 12, 2021 MO D; [id number]; 04/03/2022 LNP-S, PF, 100 MCG/0.5ML DOSE OR 50 MCG/0.25ML DOSE Encounter Notes: All associated encounter notes This section contains the clinical notes associated to the Encounter. Date/Time Encounter Note(s) Provider Source Dec 12, 2021 02:52 PM PREVENTIVE MEDICINE NURSING NOTE: KP DEAN VENKATESH LOCAL TITLE: CLINICAL REMINDERS/NURSING STANDARD TITLE: PREVENTIVE MEDICINE NURSING NOTE DATE OF NOTE: DEC 12, 2021@14:52 ENTRY DATE: DEC 12, 2021@14:52:29 AUTHOR: CORNELIO DEAN EXP COSIGNER: URGENCY: STATUS: COMPLETED COVID-19 Immunization: [...] 3 MVX (Manuf); Lot#; Exp Date: MOD; [id number]; 01/2022 Administration Anatomic site: Left Deltoid Vaccine administered without complications. The patient was advised to remain in the facility for 15 minutes post vacc ination. The patient was given a completed COVID-19 vaccination record c jeremiah, a copy of the [facility] Side Effects and Adverse Events Reporting Fact Sheet and instructed on how to report any adverse reactions. Pfizer COVID-19 Vaccine given previously Patient received a prior dose of the Interactive TKO COV ID-19 Vaccine. Date: November 11, 2020 Location: Outside Healthcare Provider Patient received a prior dose of the Pfizer COV ID-19 Vaccine. Date: December 02, 2020 Location: Outside Healthcare Provider /yarely/ CORNELIO DEAN RN REGISTERED NURSE Signed: 12/12/2021 14:54
--- OUTSIDE RECORDS SUMMARY | 2022-11-02 21:11 | XMS_ITS | Encounter Summary ---
:1940 Author Organization [facility] Address [address] [place] [address] Support Name Relationship Address Phone PURNIMA CANNON Unavailable [address] [place] [address] PURNIMA CANNON Unavailable [address] [place] [address] Insurance Providers: All historical and current Section [...] Augustine BEACON MENTAL [place] Nov [birth year], EH65 [id number] [phone] AMIE CANNON SPOUSE HEALTH HEALTH RE 2018 [id number] 8 [place] OPTIONS EXPRESS PRESCRIPT GI Mar 30, [id number] [phone] AMIE PINEDA SPOUSE SCRIPTS ION 2017 30 7 [place] ([id number]) MEDICARE MEDICARE PART Jul 31, PART B [id number] [phone] [place] PATIENT (WNR) (M) B 2015 DE02 4 [place] MEDICARE MEDICARE PART Apr 30, PART A [id number] [phone] [place] PATIENT (WNR) (M) A 2005 DE02 4 [place] [facility] [place] Mar 30, [id number] [phone] AMIE CANNON SPOUSE EXPENSE RE 2010 201 [id number] [place] (OPT/PROF STATE ) IND Selected Encounter This section includes the information on record at [place] for the Encounter. Date/Time Encounter Type Encounter Description Reason Provider Source Aug 24, 2022 06:18 Outpatient Encounter PRIMARY CARE/MEDICINE PM IHE Encounter Template Text not used by [place] Plan of Treatment: Future Appointments (+ 6 months) and Future Tests (+/- 45 days) The Plan of Treatment section includes future care activities for the patient from all [place] [facility]. This section includes future appointments and future orders which are active, pending orscheduled.Future Appointments This section includes appointments that were scheduled to occur 6 months from the date of the Encounter, up to a maximum of 20 appointments. The data comes from all [place] treatment facilities. Appointment Date/Time Appointment Type Appointment Facili ty Name Sep 19, 2022 03:15 PM [facility] [place] [facility] Nov 05, 2022 02:00 PM [facility] Nov 06, 2022 01:30 PM [facility]BULATORY MEDICINE [facility] Social History: Smoking Status (Most current) and Tobacco Use (All prior to encounter date) This section includes the most current, and the historical, smoking and tobacco-related health factors from the [place] facility where the Encounter took place.Current Smoking Status This section includes the most current smoking, or tobacco-related health factor, from the [place] facility where the Encounter took place. Date/Time Current Smoking Status Comment Facility Aug 24, 2022 06:18 PM VA-TOBACCO NEVER USED [facility] Encounter Notes: All associated encounter notes This section contains the clinical notes associated to the Encounter. Date/Time Encounter Note(s) Provider Source Aug 24, 2022 07:10 NURSING IMMUNIZATION NOTE: RADHA MANCERA [facility] LOCAL TITLE: IMMUNIZATION OUTPATIENT [facility] STANDARD TITLE: NURSING IMMUNIZATION NOTE DATE OF NOTE: AUG 24, 2022@19:10 ENTRY DATE: AUG 24, 2022@19:10:17 AUTHOR: RADHA MANCERA EXP COSIGNER: URGENCY: STATUS: COMPLETED O: 82 y.o. MALE referred to Nurse Clinic The patient has the following allergies: SULFA DRUGS, BACTRIM Reason for referral: MENINGOCOCCAL POLYSACCHARIDE VACCINE: Patient indicated Meningococcal Polysaccharide Vaccine was received at another facility. Date: January 29, 1998 Location: Outside Healthcare Provider Comment: JLV MMR VACCINE: Patient indicated MMR vaccine was received at a [facility] facility. Date: August 23, 1998 Location: Outside Healthcare Provider Comment: JLV TYPHOID VACCINE: Patient indicated Typhoid Vaccine was received at another facility. Date: March 23, 2000 Location: Outside Healthcare Provider Comment: JLV /yarely/ RADHA MANCERA MSN Ed., BSN YOUTH AGENT NURSE Signed: 08/24/2022 19:14 Aug 24, 2022 07:08 NURSING IMMUNIZATION NOTE: RADHA MANCERA CNTL [facility] PM LOCAL TITLE: IMMUNIZATION OUTPATIENT [facility] STANDARD TITLE: NURSING IMMUNIZATION NOTE DATE OF NOTE: AUG 24, 2022@19:08 ENTRY DATE: AUG 24, 2022@19:08:11 AUTHOR: RADHA MANCERA EXP COSIGNER: URGENCY: STATUS: COMPLETED O: 82 y.o. MALE referred to Nurse Clinic The patient has the following allergies: SULFA DRUGS, BACTRIM Reason for referral: HEPATITIS VACCINE: Hepatitis A Vaccine Hepatitis A vaccine dose #1 Date: August 21, 1997 Location: Outside Healthcare Provider Hepatitis A vaccine dose #2 Date: January 29, 1998 Location: Outside Healthcare Provider /yraely/ RADHA MANCERA MSN Ed., BSN YOUTH AGENT NURSE Signed: 08/24/2022 19:10 Aug 24, 2022 06:21 LETTERS: RADHA MANCERA [place] [facility] [place] TRN PM LOCAL TITLE: PATIENT LETTER (B) [facility] STANDARD TITLE: LETTERS DATE OF NOTE: AUG 24, 2022@18:21 ENTRY DATE: AUG 24, 2022@18:21:32 AUTHOR: RADHA MANCERA EXP COSIGNER: URGENCY: STATUS: COMPLETED PATIENT LETTER (B) Has ADDENDA == [place] [address] [phone] * [phone] * Fax [phone] == Date: 08/24/22 Dear [place]: Jaclyn Thank you for choosing [facility] [place]. Please be a few claudia toribio early to this appt- about 15 mins. We would like to update your demographic information. To schedule or if you would like more informatio n regarding [place] health care benefits, please call toll free at [phone]), visit the [place] website at [email or web address], or contact your local [place] Medical Center. Welcome to patient aligned care team (Pact Team 9) with (Dr. Hernandez). Prior to meeting you at your new patient appointment we are requesting some of your past medical history so that we may provide you with the exceptional care you deserve. Please note that it is very helpful to have thes e documents prior to your appointment date as the more information we have the better we will be able to meet your needs: * Last History & Physical * Immunization records * Medication list * Diagnosis list * Most recent labs * Diagnostic screens (Colonoscopy, Abdominal Aor tic Aneurysm screen, Mammograms, PAPS, etc.) We have scheduled the following appt with you to see your new PCP: Your appt is scheduled for (10/23/22@1400)- This appt will be about an hour long appt which will give you and your Provid er a chance to get to know each other. We have noticed that you are due to receive the following Immunizations: 1. Zoster vaccine- 2 shot series 2. TD/TDAP immunization 3. Covid 19 vaccine 4. Pneumococcal PCR 15, & 20 5. Influenza Vaccine You may either bring your records with you to yo ur scheduled appointment, or drop them off ahead of your appointment or you may have them faxed to [phone] ATTN: CWM/SO/[id number] If you have any questions, please do not hesitate to contact the Department of 's Affairs call center at Ext [phone]. Sincerely. [facility] [address] [place] [address] Phone: Ext [phone] Upcoming Appointments: 10/23/22@1400- CWM/SO/QUZF-4-LhkapgbfMary Mancera MSN Ed., BSN, RN [facility] [address] [facility] [address] [place] [address] [place] [address] - Ext [phone] [facility] [place] [facility] [address] [place] [address] [phone] [place] [address] 08/27/2022 ADDENDUM STATUS: COMPLETED New pt appt scheduled for 10/23/22@1400- CWM/SO/P ACT-9 New pt packet mailed /es/ VINH LANDIS INSPECTOR WIRE [employer]ODUCTS EXECUTIVE ADMINISTRATIVE ASST Signed: 08/27/2022 12:05 Receipt Acknowledged By: * AWAITING SIGNATURE * DIANA HERNANDEZ * AWAITING SIGNATURE * DOE BRIGGS * AWAITING SIGNATURE * CINDA CHRIS 08/27/2022 12:06 /es/ OMID SALAZAR,RN-B C REGISTERED NURSE (RN) Aug 24, 2022 06:18 PREVENTIVE MEDICINE NURSING NOTE: CHADD MANCERA [place] [facility] PM LOCAL TITLE: CLINICAL REMINDERS/NURSING [place] [facility] STANDARD TITLE: PREVENTIVE MEDICINE NURSING NOTE DATE OF NOTE: AUG 24, 2022@18:18 ENTRY DATE: AUG 24, 2022@18:18:48 AUTHOR: RADHA MANCERA EXP COSIGNER: URGENCY: STATUS: COMPLETED Advance Directive Screen: Patient does not have an Advance Directive comp leted and is requesting more information. The patient received education about Advance Di rectives and written notification of his/her rights. Vet was sent an advanced directive and asked to fill out and bring in for PCP appt. Depression Screening: Perform PHQ-2 A PHQ-2 screen was performed. The score was 0 w hich is a negative screen for depression. Over the past two weeks, how often have you bee n bothered by the following problems? 1. Little interest or pleasure in doing things Not at all 2. Feeling down, depressed, or hopeless Not at all Suicide Screen: C-SSRS Screening [place] Suicide Severity Rating Scale (C-SSRS) screener 1. Over the past month, have you wished you wer e or wished you could go to sleep and not wake up? No 2. Over the past month, have you had any actual thoughts of killing yourself? No 3. Over the past month, have you been thinking about how you might do this? Response not required due to responses to other questions. 4. Over the past month, have you had these thou ghts and had some intention of acting on them? Response not required due to responses to other questions. 5. Over the past month, have you started to wor k out or worked out the details of how to kill yourself? Response not required due to responses to other questions. 6. If yes, at any time in the past month did yo u intend to carry out this plan? Response not required due to responses to other questions. 7. In your lifetime, have you ever done anythin g, started to do anything, or prepared to do anything to end you r life (for example, collected pills, obtained a gun, gave away valu maddy, went to the roof but didn't jump)? No 8. If YES, was this within the past 3 months? Response not required due to responses to other questions. Falls & Incontinence Screen: Falls Screen: During the past 12 months, did the patient repo rt any falls? 4. No falls within the past year. Incontinence Screen: During the past 12 months, has the patient has any characteristics of incontinence (ability, voiding, leakage, etc.)? No incontinence. Homelessness/Food Insecurity Screen: In the past 2 months, have you been living in s table housing that you own, rent, or stay in as part of a household? Y es - Living in stable housing. Are you worried or concerned that in the next 2 months you may NOT have stable housing that you own, rent, or stay in a s part of a household? No - Not worried about housing near future The [facility] reports the following: Within the past 12 months, you worried whether your food would run out before you got money to buy more. Never true Within the past 12 months, the food you bought just didn't last and you didn't have money to get more. Never true Preferred Language: What is your, or your caregiver's preferred carol guage for healthcare? Preferred Language: Martiniquais MST Screening: Patient denies experiencing sexual tra jhony (MST). PTSD Screening: PC-PTSD-5 A PTSD screening test (PC-PTSD-5) was negative (score=0). Have you ever had any experience that was so fr ightening, horrible or upsetting that, IN THE PAST MONTH, you: Have you ever experienced this kind of event? NO 1. Had nightmares about the event(s) or thought about the event(s) when you did not want to? Response not required due to responses to other questions. 2. Tried hard not to think about the event(s) o r went out of your way to avoid situations that reminded you of the ev ent(s)? Response not required due to responses to other questions. 3. Been constantly on guard, watchful, or easil y startled? Response not required due to responses to other questions. 4. [place] numb or detached from people, activitie s, or your surroundings? Response not required due to responses to other questions. 5. [place] guilty or unable to stop blaming yourse lf or others for the event(s) or any problems the event(s) may have caused? Response not required due to responses to other questions. Relationship Health & Safety Screen: Environment is safe to proceed INFORMED CONSENT TO SCREEN & DOCUMENT: Individual consents to documentation? Yes Individual consents to proceed with screening? Yes PRIMARY SCREEN: In the past 12 months, how often did a current or former intimate partner (e.g., boyfriend, girlfriend, , , se xual partner): Scream or curse at you: Never Insult or talk down to you: Never Threaten you with harm: Never Physically hurt you: Never In the past 12 months, how often did a current or former intimate partner force or pressure you to have sexual co ntact against your will, or when you were unable to say no? Never PRIMARY SCREEN RESULTS: The individual denied all forms of IPV above (i .e., answered never to all 5 items above). ??The HITS tool is US copyright protected by David Trevizo MD, and the user has full rights to use it throughout the [employer] system. DISPOSITION: Provided general IPV education. Tobacco Use Screening: The patient has never used tobacco. Alcohol Use Screen (AUDIT-C): Alcohol Screen: SCREEN FOR ALCOHOL (AUDIT-C) An alcohol screening test (AUDIT-C) was negativ e (score=0). 1. How often did you have a drink containing al cohol in the past year? Never 2. How many drinks containing alcohol did you h ave on a typical day when you were drinking in the past year? Response not required due to responses to other questions. 3. How often did you have six or more drinks on one occasion in the past year? Response not required due to responses to other questions. /yarely/ RADHA MANCERA MSN Ed., BSN YOUTH AGENT NURSE Signed: 08/24/2022 19:14
--- OUTSIDE RECORDS SUMMARY | 2022-11-02 21:11 | XMS_ITS ---
:1940 Author Organization [facility] Address [address] [place] [address] Support Name Relationship Address Phone GWEN CANNON Unavailable [address] [place] [address] GWEN CANNON Unavailable [address] [place] [address] Insurance Providers: All historical and current Section [...] Augustine BEACON MENTAL [place] Nov [birth year], EH65 [id number] [phone] AMIE CANNON [facility] RE 2018 [id number] [place] [employer] EXPRESS PRESCRIPT [facility] Mar 30, [id number] [phone] AMIE PINEDA SPOUSE SCRIPTS ION 2017 30 7 [place] ([id number]) MEDICARE MEDICARE PART Jul 31, PART B [id number] [place], [place] PATIENT (WNR) (M) B 2015 DE02 4 OND MEDICARE MEDICARE PART Apr 30, PART A [id number] [id number] [place] PATIENT (WNR) (M) A 2005 DE02 4 [facility] MEDICAL [place] Mar 30, [id number] [phone] AMIE CANNON SPOUSE EXPENSE RE 2010 [id number] [place] (OPT/PROF STATE ) IND Selected Encounter This section includes the information on record at [place] for the Encounter. Date/Time Encounter Type Encounter Description Reason Provider Source Aug 16, 2022 12:23 Outpatient Encounter ADMIN PAT ACTIVTIES PM (MASNONCT) IHE Encounter Template Text not used by [facility] Plan of Treatment: Future Appointments (+ 6 months) and Future Tests (+/- 45 days) The Plan of Treatment section includes future care activities for the patient from all [place] treatmentfacilities. This section includes future appointments and future orders which are active, pending orscheduled.Future Appointments This section includes appointments that were scheduled to occur 6 months from the date of the Encounter, up to a maximum of 20 appointments. The data comes from all [place] treatment facilities. Appointment Date/Time Appointment Type Appointment Facili ty Name Sep 19, 2022 03:15 PM [facility] [place] [facility] Nov 05, 2022 02:00 PM AM[facility]ULATORY MEDIC[facility] [place] [facility] Nov 06, 2022 01:30 PM [facility] Encounter Notes: All associated encounter notes This section contains the clinical notes associated to the Encounter. Date/Time Encounter Note(s) Provider Source Aug 16, 2022 12:23 PM TELEPHONE ENCOUNTER NOTE: RUPALI LEDESMA [facility] LOCAL TITLE: VISN 1 CCC [facility] STAND[facility] TITLE: TELEPHONE ENCOUNTER NOTE DATE OF NOTE: AUG 16, 2022@12:23:10 ENTRY DATE: AUG 16, 2022@12:30:22 AUTHOR: RUPALI LEDESMA EXP COSIGNER: URGENCY: STATUS: COMPLETED VISN 1 CCC ACTION REQUIRED Has ADDENDA Type of call: SCHEDULING. PCMM Provider Info: No Local PACT assigned, however a remote assignm ent may exist. Please contact local PCMM Coordinator to review. SPOUSE called in for JACLYN CANNON ([phone]) . The following identifiers were used to verify th is patient: . SSN. Contact Caller Response: ADM CALL RESOLVED Caller Area: [facility] Comments: Spouse Gwen, , requests to schedul e vet a new pt appt at the [facility]. [facility] Author: RUPALI LEDESMA Evaluation/Management Code: HC PRO PHONE CALL 5- 10 MIN ([phone]). Starting at: 08/16/2022 @ 12:23:10 PM Ending at: 08/16/2022 @ 12:29:58 PM Length: 6 minutes. Chief Complaint: Not applicable to call. Class Code: Other specified counseling. /yarely/ RUPALI LEDESMA ADVANCED G[employer] PLANT DISPATCHER Signed: 08/16/2022 12:30 Receipt Acknowledged By: 08/16/2022 12:33 /es/ DARLING DENIS MSA TITLE INSURANCE EXAMINER, [facility] 08/16/2022 16:00 /es/ COLE OBRIEN TITLE INSURANCE EXAMINER [facility] 08/17/2022 15:46 /es/ VINH LANDIS TITLE INSURANCE EXAMINER GAS PLANT DISPATCHER 08/17/2022 ADDENDUM STATUS: COMPLETED AMSA please call to schedule for a new patient appointment with PACT 2 or 9 within 20 days, virtual or face to face to meet new pt scheduling guidelines. Appointment needs to be scheduled on or before Aug PATIENT PHONE - No data available /yarely/ VINH LANDIS TITLE INSURANCE EXAMINER GAS PLANT DISPATCHER Signed: 08/17/2022 15:47 Receipt Acknowledged By: * AWAITING SIGNATURE * RADHA MANCERA
--- OUTSIDE RECORDS SUMMARY | 2022-11-02 21:12 | XMS_ITS | Encounter Summary ---
:1940 Author Organization [facility] Address [address] [place] [address] Support Name Relationship Address Phone PURNIMA CANNON Unavailable [address] [place] [address] PURNIMA CANNON Unavailable [address] [place] [address] Insurance Providers: All historical and current Section [...] Augustine BEACON MENTAL [place] Nov [birth year], [id number] [phone] AMIE CANNON [facility] RE 2018 [id number] 8 [place] [employer] [facility] Mar 30, [id number] [phone] AMIE PINEDA SPOUSE SCRIPTS ION 2017 30 7 [place] ([id number]) MEDICARE MEDICARE PART Jul 31, PART B [id number] [place], [place] PATIENT (WNR) (M) B 2015 DE02 4 [facility] MEDICARE MEDICARE PART Apr 30, PART A [id number] [phone] [place] PATIENT (WNR) (M) A 2005 DE02 4 [facility] MEDICAL [place] Mar 30, [id number] [phone] AMIE CANNON SPOUSE EXPENSE RE 2010 201 [id number] [place] (OPT/PROF STATE ) IND Selected Encounter This section includes the information on record at [place] for the Encounter. Date/Time Encounter Type Encounter Reason Provider Source Description Sep 19, 2022 OFFICE O/P EST PRIMARY ICD-10-CM Z23 JENNIE HOWELL 03:15 PM MINIMAL PROB CARE/MEDICINE Encounter for A H immunization with Provider Comments: Encounter for Immunization IHE Encounter Template Text not used by [place] Assessments - Encounter Diagnoses This section includes the primary and secondary diagnoses documented for the Encounter. Date/Time Primary/Secondary Diagnosis Name Provider Source Diagnosis Sep 19, 2022 PRIMARY Encounter for RENETTA HOWELL 04:04 PM immunization H Plan of Treatment: Future Appointments (+ 6 months) and Future Tests (+/- 45 days) The Plan of Treatment section includes future care activities for the patient from all [place] treatmentfacilities. This section includes future appointments and future orders which are active, pending orscheduled.Future Appointments This section includes appointments that were scheduled to occur 6 months from the date of the Encounter, up to a maximum of 20 appointments. The data comes from all [place] treatment facilities. Appointment Date/Time Appointment Type Appointment Facili ty Name Nov 05, 2022 02:00 PM AMBULATORY - MEDICINE [facility] Nov 06, 2022 01:30 PM AMBULATORY MEDICINE [facility] Immunizations: All administered on the encounter date This section contains immunizations associated to the Encounter. Immunization Series Date Issued Reaction Comments INFLUENZA VACCINE, QUADRIVALENT, ADJUVANTED Sep 19 Encounter Notes: All associated encounter notes This section contains the clinical notes associated to the Encounter. Date/Time Encounter Note(s) Provider Source Sep 19, 2022 03:39 PM PRIMARY CARE NURSING OUTPATIENT NOTE: RENETTA HOOD LOCAL TITLE: NURSING/PRIMARY CARE/AMB-OPT.CARE NOTE STANDARD TITLE: PRIMARY CARE NURSING OUTPATIENT NOTE DATE OF NOTE: SEP 19, 2022@15:39 ENTRY DATE: SEP 19, 2022@15:39:37 AUTHOR: RENETTA HOWELL EXP COSIGNER: URGENCY: STATUS: COMPLETED [place] has short term memory all other clinical reminders will be completed next providers visit when present. Influenza Immunization: The patient was given the influenza VIS which l ists the benefits and side effects of the vaccine and which reviews the ri sks of not receiving the flu vaccine. The VIS was reviewed with the patient, and they were given an opportunity to ask questions. The patient was p rovided education on how to decrease the risk of influenza infection inc luding social distancing and use of good hand hygiene. The patient denied an y prior severe reaction to the flu vaccine or its components. The patient gave verbal consent to receive the vaccine. Influenza, Quadrivalent, Adjuvanted (Fluad - sy ringe) Administered: INFLUENZA VACCINE, QUADRIVALENT, ADJUVANTED Date Administered: Sep 19, 2022, 15:15 Series: (None selected) Manager Of Planning: MARTHA Lot: [id number] Exp Date: Mar 13, 2023 [facility]: [phone] Admin Route/Site: INTRAMUSCULAR/RIGHT DELTOID Dosage: 0.5mL Vaccine Information Statement(s): INFLUENZA(FLU) VACC(INACTIVATED OR RECOMBINANT) VIS May 05, 2021 ([place]) Order By: Angela Hernandez Administered By: Renetta Howell MSA, please request immuniza tion list from [facility]. Thank you. /yarely/ OMID SALAZAR,RN-BC REGISTERED NURSE (RN) Signed: 09/19/2022 16:04
--- OUTSIDE RECORDS SUMMARY | 2022-11-02 21:12 | XMS_ITS | Continuity of Care Document ---
:1940 Author Organization [facility] Care Team Providers Name Role Phone DOD-SC Unavailable Unavailable Problems Combined list of problems [...] [place] [facility] Diagnosis: ICD-10-CM Active Diagnosis [place] Z23 Encounter for immunizationwith Provider Comments: Encounter for Immunization Allergies, Adverse Reactions, Alerts Combined list of [...] Date Administered Site Reaction Lot [facility] atus Comments Source Given By Number Code International Student Advisor INFLUENZA 09/19/ JENNIE HOWELL [id number] comple t [place] VACCINE, 2021 A H DELTO ed IELD QUADRIVALENT, ID ADJUVANTED COVID-19 3 complet MOD; SP RINGF (MODERNA), 2021 ed [id number]; IELD MRNA, LNP-S, 02 PF, 100 2 MCG/0.5ML DOSE OR 50 MCG/0.25ML DOSE COVID-19 3 complet MOD; SP RINGF (MODERNA), 2021 ed [id number]; IELD MRNA, LNP-S, 02 PF, 100 2 MCG/0.5ML DOSE OR 50 MCG/0.25ML DOSE COVID-19 2 complet [facility] (PFIZER), 2020 ed CNTR L MRNA, LNP-S, W STRN PF, 30 [place] MCG/0.3 ML SET S DOSE HCS COVID-19 1 complet [facility] (PFIZER), 2020 ed CNTR L MRNA, LNP-S, W STRN PF, 30 [place] MCG/0.3 ML SET S DOSE HCS TYPHOID, complet JLV [facility] VICPS 1999 ed [facility] [place] [facility] MMR complet JLV [facility] 1997 ed [facility] [place] [facility] HEP A, ADULT 2 complet [facility] 1997 ed [facility] [place] [facility] MENINGOCOCCAL complet JLV [facility] POLYSACCHARID 1997 ed [facility] E VACCINE [facility]HISTORICAL) [facility] HEP A, ADULT 1 complet [facility] 1996 ed [facility] [place] [facility] Encounters Combined list of: 1) Encounters from 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 Location Location Encounter Encounter Reason Attending ADM DC Stat us Disposition Source Details Type Number For Provider Date Date Visit Outpatient [id number] 11/14 [facility] [id number] [facility] [place] [facility] OFFICE O/P [id number] Diagnos CORNELIO DEAN 12/12 [facility] EST [id number] is: IELD MINIMAL 99 ICD-10- PROB CM Z23 Encount er for immuniz ation<b r/>with Provide r Comment s: Encount er for Immuniz ation Outpatient 66777-303/29 [place] Encounter [id number] [facility] [place] [facility] ADM [id number] Diagnos LELIA, 05/29 SP RINGF SARSCOV2 [id number] is: LOREN /2021 IEL D 50MCG/0.25 31 ICD-10- MLBST CM Z23 Encount er for immuniz ation<b r/>with Provide r Comment s: Encount er for Immuniz ation Outpatient [id number] 08/08 [facility] En[facility] [id number] /2022 [facility] [place] [facility] Outpatient [id number] 08/16 [facility] Encounter [id number] /2022 [facility] [place] [facility] Outpatient [id number] 08/24 [facility] Encounter [id number] /2022 [facility] [place] [facility] OFFICE O/P [id number] Diagnos LYNDA,L 09/19 [facility] EST [id number] is: DOLLY H /2021 IELD MINIMAL 06 ICD-10- PROB CM Z23 Encount er for immuniz ation<b r/>with Provide r Comment s: Encount er for Immuniz ation Social History Combined list of available smoking, tobacco, and other social history from Department of Defense 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 Social History Type Response Date Comment Source Tobacco smoking VA-TOBACCO NEVER USED 08/24/2022 [place] [facility] status [facility] Plan of Care List of future care activities from Department of Veterans Affairs facilities. Additional future care activities may be listed in the Assessment and Plan section. Date/Time Care Activity Care Activity Detail Facility 11/05/2022 AMBULATORY - MEDICINE [facility]
--- OUTSIDE RECORDS SUMMARY | 2022-11-02 21:13 | XMS_ITS | Continuity of Care Document ---
:1940 Author Organization [facility] Address [address] [place] [address]- Care Team Providers Name Role Phone Kenneth DALE, Artie Soriano Primary Care Physician Encounter [facility] Date(s): 03/29/21 - 05/04/[address] [address] Attending Physician: Artie Cooper MD Admitting Physician: Artie Cooper MD Allergies, Adverse Reactions, Alerts Substance Reaction Severity Status Bactrim1 Active 1 I forgot, I'm allergic Immunizations Given and Recorded Vaccine Date Status Refusal Reason SARS-CoV-2 (COVID-19) mRNA BNT-162b2 vac 12/02/20 Given SARS-CoV-2 (COVID-19) mRNA BNT-162b2 vac 11/11/20 Given Medications omeprazole 20 mg oral enteric coated capsule TK 1 C PO QD 30 MIN B JN Start Date: 09/05/20 Status: OrderedpredniSONE 20 mg oral tablet 1 tablet = 20 mg, TK 3 TS PO QD Start Date: 09/05/20 Status: OrderedTravatan Z 0.004% ophthalmic solution 1 drops, Eyes, Both, Daily in PM, # 5 mL, 0 Refills, Maintenance, 09/05/20 18:18:00 EST, Solution, Partial fill upon patient request if the prescription is for a schedule II opioid drug. Start Date: 09/05/20 Status: Ordered Problem List Condition Effective Dates Status Health Status Informant Mixed hyperlipidaemia(Confirmed) Active Social History Social History Type Response Smoking Status Former smoker, quit more joycelyn n 30 days ago; Other: Briefly during teens; entered on: 09/05/20 Sex
--- OUTSIDE RECORDS SUMMARY | 2022-11-02 21:13 | XMS_ITS | Continuity of Care Document ---
:1940 Author Organization [facility] Address [address] [place] [address]- Care Team Providers Name Role Phone Artie Cooper MD Primary Care Physician Encounter [facility] Date(s): 09/05/20 - 09/06/[address] [address]- Encounter Diagnosis Shortness of breath (Final) - 09/06/20 Discharge Disposition: A-D/C Home Attending Physician: Samira Zhao MD Admitting Physician: John Rodriguez MD Referring Physician: Not on Staff, Referring MD Allergies, Adverse Reactions, Alerts Substance Reaction Severity Status Bactrim1 Active 1 I forgot, I'm allergic Medications omeprazole 20 mg oral enteric coated [...] Status Health Status Informant Mixed hyperlipidaemia(Confirmed) Active Procedures Procedure Date Related Diagnosis Body Site Status Cardioversion Completed Colonoscopy Completed History of bilateral knee replacement Completed surgery Results Radiology Reports Exam Date Time Procedure Performing Provider Status 09/05/20 6:04 PM Chest Portable Opal Burton; Royce (Verified) Notes:(Chest Portable) Reason For Exam: Chest Pain;Other:RESULT: Chest Portable Chest Portable CLINICAL INDICATION: Hx of Present Illness: Patient reports shortness of breath that has been intermittent for the last month, worse with exertion. Pt denies c o chest discomfort. Pt had blood work Echo done today was instructed to go to the ED for abnormal cardiac enzymes Echo.; Reason: Other:; ChestPain; Clinical Question(s): CHF COMPARISON: Chest x-ray, 05/13/2020. FINDINGS: The cardiac silhouette is within normal limits. Hilar and mediastinal contours are normal.There is severe elevation of the left hemidiaphragm with splenic flexure noted under the diaphragm. Adjacent band of atelectasis is again seen. There is questionable patchy right basilar airspace disease. There is no pleural effusion, pneumothorax, or evidence of CHF. No acute osseous abnormality is noted. IMPRESSION: Questionable patchy right basilar airspace disease, which may represent atelectasis or pneumonia. Chronic elevation of the left hemidiaphragm from adjacent atelectasis. WSN: [id number] Ordering Physician: Hosea Conner Dictated By: Rae Carrillo MD Dictated Date/Time: 09/05/20 6:14 pm Reviewed By: Rae Carrillo MD Signed By: Rae Carrillo MD Signed Date/Time: 09/05/20 6:14 pm Transcribed By: JANNETTE Transcribed Date/Time: 09/05/20 6:13 pm Vital Signs Most recent to oldest 1 2 3 [Reference Range]: Weight 94.4 kg (09/06/20 3:25 AM) Oxygen Saturation [94-100 %] 95 % 95 % 99 % (09/06/20 2:28 PM) (09/06/20 8:43 AM) (09/06/20 3:2 5 AM) Pulse Rate [55-90 bpm] 75 bpm 65 bpm 96 bpm (09/06/20 2:28 PM) (09/06/20 8:43 AM) *H* (09/06/20 3:25 AM ) Blood Pressure [90-138/55-84 mm 101/60 mm Hg 127/69 mm Hg 130/76 mm Hg Hg] (09/06/20 2:28 PM) (09/06/20 8:43 AM) (09/06/20 3:2 5 AM) Respiratory Rate [16-30 br/min] 20 br/min 20 br/min 20 br/min (09/06/20 2:28 PM) (09/06/20 8:43 AM) (09/06/20 3:2 5 AM) Temperature [96.8-100.4 DegF] 97.7 DegF 97.4 DegF 97 .8 DegF (09/06/20 2:28 PM) (09/06/20 8:43 AM) (09/06/20 3:2 5 AM) Mode of Delivery (Oxygen) Room air Room air Room a ir (09/06/20 2:28 PM) (09/06/20 8:43 AM) (09/06/20 3:2 5 AM) Blood pressure sites Arm, left Arm, left Arm, right (09/06/20 2:28 PM) (09/06/20 8:43 AM) (09/06/20 3:2 5 AM) Temperature Route Temporal Temporal Temporal (09/06/20 2:28 PM) (09/06/20 8:43 AM) (09/06/20 3:2 5 AM) Weight Obtained Via Bed scale (09/06/20 3:25 AM) Social History Social History Type Response Smoking Status Former smoker, quit more joycelyn n 30 days ago; Other: Briefly during teens; entered on: 09/05/20 Sex
--- OUTSIDE RECORDS SUMMARY | 2022-11-02 21:13 | XMS_ITS | Continuity of Care Document ---
:1940 Author Organization [facility] Address [address] [place] [address]- Care Team Providers Name Role Phone Artie Cooper MD Primary Care Physician Encounter [facility] Date(s): 07/10/22 - 08/09/22 [facility] [address] [place] [address]- [place] Allergies, Adverse Reactions, Alerts Substance Reaction Severity Status Bactrim1 Active 1 I forgot, I'm allergic Immunizations Given and Recorded Vaccine Date Status Refusal Reason SARS-CoV-2 (COVID-19) mRNA BNT-162b2 vac 12/02/20 Given SARS-CoV-2 (COVID-19) mRNA BNT-162b2 vac 11/11/20 Given Medications aspirin (OP) 0 Refills, Maintenance, 2 Start Date: 02/19/22 Status: OrderedAtivan 0.5 mg oral tablet 1 tablet = 0.5 mg, By Mouth, Once, 30min- 1hr prior to cardiac MRI should not drive after taking this medication, # 1 tablet, 0 Refills, Soft Stop, 04/17/22 10:41:00 EDT, [id number], 188, cm, 02/19/22 9:32:00 EDT, Height, 100, kg, 08... Start Date: 04/17/22 Status: Ordereddonepezil 10 mg oral tablet 10 mg, 1, tablet, By Mouth, Daily at bedtime, Refills 0, Maintenance, 02/19/22 9:34:00 EDT, Partial fill upon patient request if the prescription is for a schedule II opioid drug. Start Date: 02/19/22 Status: OrderedMirtazapine By Mouth, Daily at bedtime, 0 Refills, Maintenance, 02/19/22 9:34:00 EDT, Partial fill upon patient request if the prescription is for a schedule II opioid drug. Start Date: 02/19/22 Status: Orderedomeprazole 20 mg oral enteric coated capsule TK 1 C PO QD 30 MIN B JN Start Date: 09/05/20 Status: OrderedpredniSONE 20 mg oral tablet 1 tablet = 20 mg, TK 3 TS PO QD Start Date: 09/05/20 Status: Orderedsertraline 100 mg oral tablet 1 tablet = 100 mg, By Mouth, Daily, 0 Refills, Maintenance, 02/19/22 9:33:00 EDT, Partial fill upon patient request if the prescription is for a schedule II opioid drug. Start Date: 02/19/22 Status: Orderedtafamidis 61 mg oral capsule 1 capsule = 61 mg, By Mouth, Daily, for 90 days, swallow whole, # 90 capsule, 3 Refills, Hard Stop 04/22/23 13:20:00 EDT, 04/27/22 13:20:00 EDT, Capsule, [facility], Partial fill upon patient request if the prescription is for a sched... Start Date: 04/27/22 Stop Date: 04/22/23 Status: Orderedtafamidis 61 mg oral capsule 1 capsule = 61 mg, By Mouth, Daily, swallow whole, # 90 capsule, 3 Refills, Maintenance, 04/22/23 13:20:00 EDT, Capsule, [facility], Partial fill upon patient request if the prescription is for a scheduleII opioid drug., 188, cm, 02/19/22 9:32:00 EDT, H... Start Date: 04/22/23 Stop Date: 04/16/24 Status: OrderedTravatan Z 0.004% ophthalmic solution 1 drops, Eyes, Both, Daily in PM, # 5 mL, 0 Refills, Maintenance, 09/05/20 18:18:00 EST, Solution, Partial fill upon patient request if the prescription is for a schedule II opioid drug. Start Date: 09/05/20 Status: Ordered Problem List Condition Confirmation Course Effective Dates Status Health I nformant Status Mixed hyperlipidaemia Confirmed Active Obese class I Confirmed Active Social History Social History Type Response Smoking Status Former smoker, quit more joycelyn n 30 days ago; Other: Briefly during teens; entered on: 09/05/20 Sex Patient Care team information Care Team PersonnelName: Artie Cooper MD Position: [facility] Physician (General Medicine) Member Role: PCP Address: Address: [address] [place] [address]- Name: Kirti Trevino RN Position: S RN Member Role: Primary Care Nurse Name: Clare Velez RN Position: S RN Member Role: Primary Care Nurse Name: Randall Ramirez RN Position: S RN Member Role: Primary Care Nurse Address: Address: [address] [place] [address]- Care Team Related PersonsName: RENO CANNON Address: home [address] [place] [address] Name: PURNIMA CANNON Address: home [address] [place] [address]
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
--- OUTSIDE RECORDS SUMMARY | 2022-11-02 21:13 | XMS_ITS | Continuity of Care Document ---
:1940 Author Organization [facility] Address [address] [place] [address]- Care Team Providers Name Role Phone Artie Cooper MD Primary Care Physician [place] [facility] [place] 06/16/[address] [address]- [facility] Attending Physician: Not on Staff, Attending MD Admitting Physician: Not on Staff, Admitting MD Referring Physician: Not on Staff, Referring MD Allergies, Adverse Reactions, Alerts Substance Reaction Severity Status Bactrim1 Active 1 I forgot, I'm allergic
--- OUTSIDE RECORDS SUMMARY | 2022-11-02 21:13 | XMS_ITS | Continuity of Care Document ---
:1940 Author Organization [facility] Address [address] [place] [address]- Care Team Providers Name Role Phone Kenneth DALE, Artie Soriano Primary Care Physician En[place] [facility] [place] Date(s): 04/06/21 - 05/06/[address] [address] Attending Physician: Claudette Bell Admitting Physician: AdmtrClaudette Referring Physician: Admtr, Claudette Allergies, Adverse Reactions, Alerts Substance Reaction Severity [...]
--- OUTSIDE RECORDS SUMMARY | 2022-11-02 21:13 | XMS_ITS | Continuity of Care Document ---
:1940 Author Organization [facility] Address [address] [place] [address]- Care Team Providers Name Role Phone Kenneth DALE, Artie Soriano Primary Care Physician [place] [facility] [place] 10[place]03[place] - 12/19/[address] [address] Discharge Disposition: A-D/C Home Attending Physician: Artie Cooper MD Admitting Physician: Artie Cooper MD Referring Physician: Artie Cooper MD Allergies, Adverse Reactions, [...]
--- OUTSIDE RECORDS SUMMARY | 2022-11-02 21:13 | XMS_ITS | Continuity of Care Document ---
:1940 Author Organization [facility] Address [address] [place] [address]- Care Team Providers Name Role Phone Artie Cooper MD Primary Care Physician Encounter [facility] [place] Date(s): 04/16/22 - 05/16/22 [facility] [address] [place] [address]- [place] Allergies, Adverse Reactions, Alerts Substance Reaction [...] 0 Refills, Soft Stop, 04/17/22 10:41:00 EDT, [id number], 188, cm, 02/19/22 9:32:00 EDT, Height, 100, [...] whole, # 90 capsule, 3 Refills, Maintenance, 04/27/22 13:20:00 EDT, Capsule, [facility], Partial fill upon patient request if the prescription is for a schedule II opioid drug., 188, cm, ... Start Date: 04/27/22 Stop Date: 04/22/23 Status: OrderedTravatan Z 0.004% ophthalmic solution 1 drops, Eyes, Both, Daily in PM, # 5 mL, 0 Refills, Maintenance, 09/05/20 18:18:00 EST, Solution, Partial fill upon patient request if the prescription is for a schedule II opioid drug. 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
--- OUTSIDE RECORDS SUMMARY | 2022-11-02 21:13 | XMS_ITS | Continuity of Care Document ---
:1940 Author Organization [facility] Address [address] [place] [address]- Care Team Providers Name Role Phone Artie Cooper MD [id number] - 11/18/[address] [address]- Attending Physician: AdmClaudette lyle Admitting Physician: Admtr, Ar8 Referring Physician: Admtr, Ar8 Allergies, Adverse Reactions, Alerts Substance Reaction Severity Status Bactrim1 Active 1 I forgot, I'm allergic Immunizations Given and Recorded Vaccine Date Status Refusal Reason SARS-CoV-2 (COVID-19) mRNA BNT-162b2 vac 11/11/20 Given [...] Response Smoking Status Former smoker, quit more jocyelyn n 30 days ago; Other: Briefly during teens; entered on: 09/05/20 Sex
--- OUTSIDE RECORDS SUMMARY | 2022-11-02 21:13 | XMS_ITS | Continuity of Care Document ---
:1940 Author Organization [facility] Address [address] [place] [address]- Care Team Providers Name Role Phone Kenneth DALE, Artie Soriano Primary Care Physician Encounter [facility] [place] Date(s): 03/15/21 - 04/20/[address] [address] Attending Physician: Artie Cooper MD Admitting Physician: [...]
--- OUTSIDE RECORDS SUMMARY | 2022-11-02 21:13 | XMS_ITS | Continuity of Care Document ---
:1940 Author Organization [facility] Address [address] [place] [address]- Care Team Providers Name Role Phone Artie Cooper MD Primary Care Physician Encounter [facility] [place] Date(s): 02/19/22 - 03/21/22 [facility] [address] [place] [address]- Attending Physician: Claudette Bell Admitting Physician: Claudette Bell Referring Physician: Claudette Bell Allergies, Adverse Reactions, Alerts Substance Reaction Severity Status Bactrim1 Active 1 I forgot, I'm allergic Immunizations Given and Recorded Vaccine Date Status Refusal Reason SARS-CoV-2 (COVID-19) mRNA BNT-162b2 vac 12/02/20 Given SARS-CoV-2 (COVID-19) mRNA BNT-162b2 vac 11/11/20 Given Medications aspirin (OP) 0 Refills, Maintenance, 2 Start Date: 02/19/22 Status: Ordereddonepezil 10 mg oral tablet 10 [...] II opioid drug. Start Date: 02/19/22 Status: OrderedTravatan Z 0.004% ophthalmic solution 1 [...]
--- OUTSIDE RECORDS SUMMARY | 2022-11-02 21:13 | XMS_ITS | Continuity of Care Document ---
:[address] [facility] Address [address] [place] [address]- Care Team Providers Name Role Phone Kenneth DALE, Artie Soriano Primary Care Physician Encounter [facility] [place] Date(s): 03/22/21 - 04/27/[address] [address] Attending Physician: Artie Cooper MD Admitting [...]
--- OUTSIDE RECORDS SUMMARY | 2022-11-02 21:13 | XMS_ITS | Continuity of Care Document ---
:1940 Author Organization [facility] Address [address] [place] [address]- Care Team Providers Name Role Phone Kenneth DALE, Artie Soriano Primary Care Physician Encounter [facility] [place] Date(s): 02/22/21 - 06/06/[address] [address]- Discharge Disposition: A-D/C Home Attending Physician: Victoriano Godwin MD Admitting Physician: Victoriano Godwin MD Referring Physician: Victoriano Godwin MD Allergies, Adverse Reactions, Alerts Substance Reaction [...]
[2022-11-02 21:19] LABS: INTERNATIONAL NORM RATIO 1.2 (0.9-1.1); Prothrombin Time 13.8 SEC (10.0-13.1)
[2022-11-02 21:21] LABS: Partial Thromboplastin Time 33.3 SEC (26.0-36.4)
[2022-11-02 21:34] LABS: Troponin-I High Sensitivity 26.6 ng/L (<3.5-35.0)
--- NOTE | 2022-11-02 22:33 | ECG_ITS ---
Test Reason : Repeat Blood Pressure : / mmHG Vent. Rate : 053 BPM Atrial Rate : 000 BPM P-R Int : 000 ms QRS Dur : 106 ms QT Int : 478 ms P-R-T Axes : 000 -37 115 degrees QTc Int : 448 ms Junctional rhythm with Premature supraventricular complexes in a pattern of bigeminy Left axis deviation Abnormal QRS-T angle, consider primary T wave abnormality Abnormal ECG When compared with ECG of 02-NOV-2022 19:31, Junctional rhythm Present Referred By: Timmy Guzman Electronically Signed By:Hector Junior
[2022-11-02 23:24] VITALS: BP 110/59; PULSE 50; RESP 15; TEMP 37; O2SAT 97
[2022-11-03] VITALS (11 sets, daily range): BP systolic 99–119; BP diastolic 54–70; PULSE 40–61; RESP 12–24; TEMP 36.7–37.2; O2SAT 92–99; BMI 31.1
[2022-11-03] MEDS: Piperacillin Sodium/Tazobactam 3.375 GM in 0.9 % Sodium Chloride 50 ML IV (00:03)
[2022-11-03 00:25] LABS: Lactic Acid 0.9 mmol/L (0.5-2.0)
--- NOTE | 2022-11-03 00:48 | MHC.EDTECH ---
PT changed over into hospital gown.PT given warm blankets and call santamaria placed in reach. PT requested food and liquids. LALY Avila made aware.
--- NOTE | 2022-11-03 01:34 | P.HPHOSP_ITS ---
History of Present Illness Date of Service: 11/03/22 Chief Complaint: Dyspnea This is a 82-year-old male with pertinent history of dementia, essential hypertension, gastroesophageal reflux disease, mood disorder who was brought to the emergency department for low blood pressure. Patient is a poor historian and does not know why he is here. Patient admits cough with sputum production. History obtained from EMR and ER provider. Patient was brought in for evaluation of hypotension as VNA noticed blood pressure with systolic in the 80s. Upon arrival blood pressure in the ER was 118/58. Imaging revealed left- sided dense consolidation with pleural effusion. He was noted to have bradycardia with EKG revealing junctional rhythm. Unable to obtain review of systems. Patient also tested positive for COVID-19. Review of Systems Review of Systems: Yes Unobtainable due [facility] mental condition [facility] Medical History Arthritis Dementia Encephalitis Glaucoma Pertinent family history: Not significant Social History Household Members: Spouse Housing: Unknown / Unable to assess Do you presently have visiting nurse or other home services: No (unable to assess) Alcohol intake: never Patient Tobacco Use Status: Never used Tobacco Smoked in Last 30 Days: No Use of substances other than those prescribed or required for medical reasons: No Advance Directives: No Advance Directives Information Provided: No Advance Directives Date on File: 06/26/21 Nutrition Risks: No Nutritional Risk service: Yes Current occupational status: retired Meds Allergies Allergy/AdvReac Type Severity Reaction Status Date / Time sulfamethoxazole Allergy Unknown Verified 06/30/20 10:49 [From Bactrim] trimethoprim [From Bactrim] Allergy Unknown Verified 06/30/20 10:49 Active Medications: Current Medications Acetaminophen (Acetaminophen 325 Mg Tablet) 650 mg PO Q6H PRN PRN Reason: Pain, Mild (Pain Scale 1-3) Benzonatate (Benzonatate 100 Mg Capsule) 200 mg PO TID PRN PRN Reason: cough Enoxaparin Sodium (Enoxaparin Sodium 40 Mg/0.4 Ml Syringe) 40 mg SUBCUT Q24H FIONA Vancomycin HCl 1,000 mg/Vancomycin HCl 750 mg/ Sodium Chloride 535 mls @ 267.5 mls/hr IV ONCE ONE Stop: 11/03/22 03:25 Ceftriaxone Sodium 1 gm/ (Sodium Chloride) 50 mls @ 100 mls/hr IV Q24H FIONA Sodium Chloride (Ns) 250 mls @ 999 mls/hr IV .Q16M ONE Stop: 11/03/22 01:44 Melatonin (Melatonin 3 Mg Tablet) 6 mg PO BEDTIME PRN PRN Reason: Insomnia Ondansetron HCl (Ondansetron Hcl 4 Mg/2 Ml Vial) 4 mg IVPUSH Q8H PRN PRN Reason: Nausea and Vomiting Pharmacy Consult (Consult Rx Perform Med Rec) 1 each MISCELLANE ONCE PRN PRN Reason: Consult order Pharmacy Consult (Consult Rx Vancomycin Dosing) 1 each MISCELLANE DAILY PRN PRN Reason: Consult order Sodium Chloride (0.9 % Sodium Chloride Flush 3 Ml Syringe) 3 ml IVFLUSH QSHIFT [facility] Home Medications Medication Instructions Recorded Confirmed Last Taken Type donepezil 10 mg tablet 1 tab PO BEDTIME 06/26/21 06/26/21 06/25/21 History omeprazole 20 mg capsule,delayed 1 cap PO QAM 06/26/21 06/26/21 06/25/21 History release prednisone 10 mg tablet 1 tab PO DAILY 06/26/21 06/26/21 06/25/21 History sertraline 100 mg tablet 1 tab PO DAILY 06/26/21 06/26/21 06/25/21 History travoprost 0.004 % eye drops 1 drp ophthalmic (eye) BEDTIME 06/26/21 06/26/21 06/25/21 History (Travatan Z) Physical Exam Vital Signs and Narrative: Vital Signs: Last Vital Signs Temp 98.6 F 11/02/22 23:24 Pulse 50 11/02/22 23:24 Resp 15 11/02/22 23:24 BP 110/59 L 11/02/22 23:24 Pulse Ox 97 11/02/22 23:24 O2 Del Method 11/02/22 23:24 BMI result Body Mass Index 25.7 Middle-aged male lying in bed in no distress Neck supple, no JVD Regular rate and rhythm, S1-S2 heard Left-sided crackles Abdomen soft nontender, no guarding, no rigidity Patient is awake, alert and oriented to self, disoriented to place, time and person ; no focal motor deficit Psych: Normal mood No pedal edema Results Labs 11/02/22 19:22 11/02/22 19:22 Labs: Laboratory Results - last 24 hr 11/02/22 11/02/22 11/02/22 19:22 19:22 19:22 MCV 101.1 H MCH 32.3 MCHC 32.0 RDW 11.9 Plt Count 186 MPV 11.4 Immature Gran % (Auto) 0.5 H Neut % (Auto) 52.7 Lymph % (Auto) 27.1 [place] % (Auto) 14.5 H Eos % (Auto) 4.0 Baso % (Auto) 1.2 Lymph # (Auto) 1.2 [place] # (Auto) 0.6 Eos # (Auto) 0.2 Baso # (Auto) 0.1 Abs Immat Gran (auto) 0.02 Absolute Neuts (auto) 2.3 Absolute Nucleated RBC 0.000 Nucleated RBC % (auto) 0.0 PT INR APTT Anion Gap 16 Estim Creat Clear Calc 69.4 Estimated GFR > 60 Random Glucose 91 Lactic Acid Calcium 9.0 Magnesium 2.1 Total Bilirubin 0.8 AST 12 ALT 8 Alkaline Phosphatase 117 Troponin I High Sens Total Protein 7.8 Albumin 3.2 L Influenza Type A (PCR) NEGATIVE Influenza Type B (PCR) NEGATIVE RSV RNA Qual (PCR) NEGATIVE SARS-CoV-2 RNA (RT-PCR) POSITIVE A 11/02/22 11/02/22 11/03/22 21:04 21:04 00:02 MCV MCH MCHC RDW Plt Count MPV Immature Gran % (Auto) Neut % (Auto) Lymph % (Auto) [place] % (Auto) Eos % (Auto) Baso % (Auto) Lymph # (Auto) [place] # (Auto) Eos # (Auto) Baso # (Auto) Abs Immat Gran (auto) Absolute Neuts (auto) Absolute Nucleated RBC Nucleated RBC % (auto) PT 13.8 H INR 1.2 H APTT 33.3 Anion Gap Estim Creat Clear Calc Estimated GFR Random Glucose Lactic Acid 0.9 Calcium Magnesium Total Bilirubin AST ALT Alkaline Phosphatase Troponin I High Sens 26.6 Total Protein Albumin Influenza Type A (PCR) Influenza Type B (PCR) RSV RNA Qual (PCR) SARS-CoV-2 RNA (RT-PCR) Imaging Radiologist's Impressions: Impressions Chest X-Ray 11/02/22 19:00 IMPRESSION: Chronic elevation of the left hemidiaphragm with associated airspace opacity in the posterior basilar segments of the left lower lobe. This may correspond to atelectasis, pleural parenchymal scarring, or chronic consolidation. Chest CT 11/02/22 22:38 IMPRESSION: 1. Dense consolidation at the posterior left lower lobe. 2. Moderate volume left pleural effusion. Fleischner guidelines were followed. Assessment and Plan (1) COVID-19: Status: Acute (2) Pneumonia: Status: Acute (3) Left lower lobe pulmonary infiltrate: Status: Acute Plan This is a 82-year-old male with pertinent history of dementia, essential hypertension, gastroesophageal reflux disease, mood disorder who was brought to the emergency department for low blood pressure and found to have pneumonia. #. Left-sided pneumonia in a patient with COVID-19 infection: Due to bacterial superinfection. Will cover with broad-spectrum empiric IV antibiotics. No hypoxemia and no indication for Decadron. Obtaining sputum culture and MRSA nasal screen. #. ?Hypotension: Noted by VNA at home. Patient has been normotensive in the ER. Patient was found to be bradycardic with EKG revealing junctional rhythm in the ER, unclear if this is baseline and if this was causing hypotension. Will monitor on telemetry. Consider cardiology consult if symptomatic. #. Essential hypertension: Hold metoprolol #. Dementia, unspecified: On donepezil. Maintain sleep-wake cycle #. Mood disorder: Continue home mood stabilizers Med rec pending DVT prophylaxis: Lovenox 40 mg daily Full code Cardiac diet Time Spent With Patient Time: Total time managing care of this patient today ____ minutes. Quality Stroke Does the patient have a stroke diagnosis?: No VTE Prior VTE?: No VTE Risk Level:: Medical - moderate - high VTE Device Contraindication: Treatment Not Indicated VTE Drug Contraindication: N/A - Med Ordered
--- OUTSIDE RECORDS SUMMARY | 2022-11-03 01:34 | XMS_ITS | Continuity of Care Document ---
:1940 Author Organization [facility] Care Team Providers Name Role Phone DOD-NE Unavailable Unavailable Problems Combined list of problems [...] [place] [facility] Diagnosis: ICD-10-CM Active Diagnosis [facility] Z23 Encounter for immunizationwith Provider Comments: Encounter for Immunization Medications Combined list of outpatient medications from Department of Defense and Veterans Affairs facilities. Medications provided include 1) outpatient medications from the last 15 months, and 2) patient-reported medications. Medication Details Route Status Patient Prescription Prescription Last Ordering Order Source Instructions Expires Number Dispense Provider Date Date CEPHALEXIN Active [id number] , 03/20/ P harmac (CEPHALEXIN 2 2021 y Data MONOHYDRATE Transac ), 500MG, tion CAPSULE, Service ORAL, TEVA Facilit [place], 500 y ea. BOTTLE CICLOPIROX Active [id number] WEN, 04/01/ P harmac (CICLOPIROX 2 2021 y Data OLAMINE), Transac 0.77%, tion CREAM (G), Service TOPICAL, G Facilit & W LABS., y 15 g TUBE DONEPEZIL Active [id number] ADOLFO,KELVIN 12/30 / Pharmac HCL 2 IFER 2021 y Data (DONEPEZIL Transac HCL), 10 tion MG, TABLET, Service ORAL, Evi, [employer] 1000 y ea. BOTTLE DONEPEZIL Active [id number] ADOLFO,KELVIN 05/08 / Pharmac HCL 2 IFER 2021 y Data (DONEPEZIL Transac HCL), 10 tion MG, TABLET, Service ORAL, GSMS, [employer] 1000 y ea. BOTTLE FLUTICASONE Active [id number] STAROPOLI / Pharmac PROPIONATE 2 , 2021 y Data (FLUTICASON Transac E tion PROPIONATE) Service , 50MCG, Facilit SPRAY SUSP, y NASAL, APOTEX RAJAN, 16 g AER W/ADAP FUROSEMIDE Active [id number] TANYA, 03/01 / Pharmac (FUROSEMIDE 2 2021 y Data ), 20MG, Transac TABLET, tion ORAL, Service IRAM [facility] 1000 y ea. BOTTLE LORAZEPAM Active [id number] VALANIA, 04/21/ Pharmac (lorazepam) 2 2021 y Data , 0.5 MG, Transac TABLET, tion ORAL, TEVA Colibrí, 500 Facilit ea. BOTTLE y METOPROLOL Active [id number] ADOLFO,KELVIN 2/ Pharmac TARTRATE 2 IF2021 y Data (metoprolol Transac tartrate), tion 25 MG, Service TABLET, Facilit ORAL, GSMS, y INC., 1000 ea. BOTTLE MIRTAZAPINE Active [id number] STAROPOLI / Pharmac (MIRTAZAPIN 1 , 2020 y Data E), 15 MG, Transac TABLET, tion ORAL, Service AUROBINDO Facilit PHARM, 30 y ea. BOTTLE MIRTAZAPINE Active [id number] STAROPOLI / Pharmac (MIRTAZAPIN 2 , 2021 y Data E), 15 MG, Transac TABLET, tion ORAL, Service AUROBINDO Facilit PHARM, 30 y ea. BOTTLE MIRTAZAPINE Active [id number] ADOLFO,KELVIN / Pharmac (mirtazapin 2 IFER 2021 y Data e), 15 MG, Transac TABLET, tion ORAL, GSMS, Service INC., 1000 Facilit ea. BOTTLE y MIRTAZAPINE Active [id number] ADOLFO,KELVIN / Pharmac (mirtazapin 2 IF2021 y Data e), 15 MG, Transac TABLET, tion ORAL, Evi, [facility] [employer] 1000 Facilit ea. BOTTLE y OMEPRAZOLE Active [id number] HAZRATJI, 03/01 Pharmac (omeprazole 2 MOHAMMAD 2021 y Riik a ), 20 MG, Transac CAPSULE , tion ORAL, Evi, [facility] 1000 Facilit ea. BOTTLE y OMEPRAZOLE Active [id number] HAZRATJI, 05/03 Pharmac (omeprazole 2 MOHAMMAD 2021 y Riki a ), 20 MG, Transac CAPSULE , tion ORAL, Evi, [facility] [employer] 1000 Facilit ea. BOTTLE y SERTRALINE Active [id number] ADOLFO,KELVIN 2/ Pharmac HCL 2 IF2021 y Data (SERTRALINE Transac HCL), 100 tion MG, TABLET, Service ORAL, Facilit EXELAN y PHARMACE, 500 ea. BOTTLE SERTRALINE Active [id number] ADOLFO,KELVIN 12/29 6/ Pharmac HCL 2 IF2021 y Data (SERTRALINE Transac HCL), 100 tion MG, TABLET, Service ORAL, Facilit EXELAN y PHARMACE, 500 ea. BOTTLE SERTRALINE Active [id number] ADOLFO,KELVIN 07 6/ Pharmac HCL 2 IF2021 y Data (sertraline Transac HCl), 100 tion MG, TABLET, Service ORAL, Facilit EXELAN y PHARMACE, 90 ea. BOTTLE TRAVOPROST Active [id number] HULSEBERG 07/0 4/ Pharmac (travoprost 2 ,GINNA 2021 y Data ), 0.004 %, Transac DROPS, tion OPHTHALMIC, Service APOTEX Facilit RAJAN, 2.5 y ml DROP BTL TRAVOPROST Active [id number] HULSEBERG 07/0 2/ Pharmac (travoprost 2 ,GINNA 2021 y Data ), 0.004 %, Transac DROPS, tion OPHTHALMIC, Service APOTEX Facilit RAJAN, 2.5 y ml DROP BTL TRAVOPROST Active [id number] HULSEBERG 03/0 5/ Pharmac (travoprost 2 , 2021 y Data ), 0.004 %, Transac DROPS, tion OPHTHALMIC, Service SANDOZ, 2.5 Facilit ml DROP BTL y TRAVOPROST Active [id number] HULSEBERG 03/0 6/ Pharmac (travoprost 2 , 2021 y Data ), 0.004 %, Transac DROPS, tion OPHTHALMIC, Service SANDOZ, 2.5 Facilit ml DROP BTL y VYNDAMAX Active [id number] VALANIA,G 05/02/ Pharmac (tafamidis) 2 REGORY 2021 y Data , 61 MG, Transac CAPSULE, tion ORAL, Service PFIZER US Facilit PHARM, 30 y ea. BLIST PACK VYNDAMAX Active [id number] VALANIA,G 05/23/ Pharmac (tafamidis) 2 REGORY 2021 [...] Date Administered Site Reaction Lot CVX Drug [facility] Comments Source Given By Number Code Service Center Technician INFLUENZA 09/19/ JENNIE HOWELL [id number] comple t [place] VACCINE, 2021 A H DELTO ed IELD QUADRIVALENT, ID ADJUVANTED COVID-19 3 complet MOD; SP RINGF (MODERNA), 2021 ed [id number]; IELD MRNA, LNP-S, 02 PF, 100 2 MCG/0.5ML DOSE OR 50 MCG/0.25ML DOSE COVID-19 3 complet MOD; SP RINGF (MODERNA), 2021 ed [id number]; IELD MRNA, LNP-S, 02 PF, 100 2 MCG/0.5ML DOSE OR 50 MCG/0.25ML DOSE COVID-19 2 complet [facility] (PFIZER), 2020 ed CN[facility] L MRNA, LNP-S, W STRN PF, 30 [place] MCG/0.3 ML SET S DOSE HCS COVID-19 1 complet [facility] (PFIZER), 2020 ed CNTR L MRNA, LNP-S, W STRN PF, 30 [place] MCG/0.3 ML SET S DOSE HCS influenza 1 07/23/ , 16 () complet infl uenza DoD virus 1999 Provider ed virus vaccine, vaccine, whole virus whole virus tuberculin 1 , [id number] [place] compl et tuberculi DoD skin test; 1999 Provider (CON) ed n skin purified test; protein purified derivative protein solution, derivativ intradermal e solution, intraderm al TYPHOID, complet JLV [facility] VICPS 1999 ed [facility] [place] [facility] typhoid 1 , [id number] 41 [place] complet ty phoid DoD vaccine, 1999 Provider (CON) ed vaccine, parenteral, parenter a other than l, other acetone-kille than d, dried acetone-k illed, dried tuberculin 1 , [id number] 96 [place] compl et tuberculi DoD skin test; 1999 Provider (CON) ed n skin purified test; protein purified derivative protein solution, derivativ intradermal e solution, intraderm al influenza 1 , [id number] 16 [facility] plet influenza DoD virus 1998 Provider (WAL) ed virus vaccine, vaccine, whole virus whole virus tuberculin 1 , 2496-11 96 Sanofi complet tuberculi DoD skin test; 1998 Provider Pasteur (PMC) ed n skin purified test; protein purified derivative protein solution, derivativ intradermal e solution, intraderm al MMR complet JLV [facility] 1997 ed [facility] [place] [facility] measles, 1 , 98160 03 Ledezma (AB) complet measles, DoD mumps and 1997 Provider ed mumps a nd rubella virus rubell a vaccine virus vaccine influenza 1 , [id number] 16 [place] comple t influenza DoD virus 1997 Provider (CON) ed virus vaccine, vaccine, whole virus whole virus tuberculin 1 Unknown, 2455-11 96 [place] compl et tuberculi DoD skin test; 1997 Provider (CON) ed n skin purified test; protein purified derivative protein solution, derivativ intradermal e solution, intraderm al tuberculin 1 Unknown, 2455-11 96 [place] compl et tuberculi DoD skin test; 1997 Provider (CON) ed n skin purified test; protein purified derivative protein solution, derivativ intradermal e solution, intraderm al HEP A, ADULT 2 complet [facility] 1997 ed [facility] [place] [facility] [facility] MENINGOCOCCAL complet JLV [facility] POLYSACCHARID 1997 ed [facility] E VACCINE [facility] (HISTORICAL) [facility] [place] meningococcal 1 , [id number] 32 [place] co mplet meningoco DoD polysaccharid 1997 Provider (CON) ed cca l e vaccine polysacch (MPSV4) aride vaccine (MPSV4) typhoid 2 , [id number] 53 Wyeth-Ayerst compl et typhoid DoD vaccine, 1997 Provider (WAL) ed vaccine, parenteral, parenter a james-tristen gonzalez, dried acetone-k (U.S. illed, ) dried (U.S. ) hepatitis A 2 , 0122E 52 Merck (MSD) comp let hepatitis DoD vaccine, 1997 Provider ed A adult dosage vaccine , adult dosage HEP A, ADULT 1 complet [place] 1996 ed [facility] [place] [facility] hepatitis A 1 , [id number] [facility] plet hepatitis DoD vaccine, 1996 Provider 6 (SKB) ed A adult dosage vaccine , adult dosage tuberculin 1 , 2451-11 96 [place] compl et tuberculi DoD skin test; 1996 Provider (CON) ed n skin purified test; protein purified derivative protein solution, derivativ intradermal e solution, intraderm al influenza 1 Unknown, [id number] 16 [place] comple t influenza DoD virus [...] (U.S. ) yellow fever 1 11/28/ Unknown, [id number] 37 [place] com plet yellow DoD vaccine [...] vaccine, live, oral cholera 1 10/02/ Unknown, [id number] 26 [place] complet cholera DoD vaccine, 1982 Provider (CON) ed vaccine, unspecified unspecif i formulation ed formulati on Encounters Combined list of: 1) Encounters from 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 Location Location Encounter Encounter Reason Attending ADM MT Stat Disposition Source Details Type Number For Provider Date Date Visit Outpatient [id number] 11/14 [place] Encounter [id number] [facility] OFFICE O/P [id number] Diagnos CORNELIO DEAN 12/12 [facility] EST [id number] is: IELD MINIMAL 99 ICD-10- PROB CM Z23 Encount er for immuniz ation<b r/>with Provide r Comment s: Encount er for Immuniz ation Outpatient [id number] 03/29 [place] Encounter [id number] [facility] ADM [id number] Diagnos LELIA, 05/29 SP RINGF SARSCOV2 [id number] is: LOREN /2021 IEL D 50MCG/0.25 31 ICD-10- MLBST CM Z23 Encount er for immuniz ation<b r/>with Provide r Comment s: Encount er for Immuniz ation Outpatient [id number] 08/08 [place] [facility] [id number] /2022 [facility] [place] [facility] Outpatient [id number] 08/16 [place] [id number] /2022 [facility] [place] [facility] Outpatient [id number] 08/24 [place] [id number] /2022 [facility] [place] [facility] OFFICE O/P [id number] Diagnos LYNDA,L 09/19 [place] EST [id number] is: DOLLY H IELD MINIMAL 06 ICD-10- PROB CM Z23 Encount er for immuniz ation<b r/>with Provide r Comment s: Encount er for Immuniz ation Social History Combined list of available smoking, tobacco, and other social history from Department of Defense 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 Social History Type Response Date Comment Source Tobacco smoking NE-TOBACCO NEVER USED 08/24/2022 [place] [facility] status [facility] This section is an [facility] empty social history section. Plan of Care List of future care activities from Department of Veterans Affairs facilities. Additional future care activities may be listed in the Assessment and Plan section. Date/Time Care Activity Care Activity Detail Facility 11/05/2022 AMBULATORY - MEDICINE AM[facility]ULAT[facility]
--- OUTSIDE RECORDS SUMMARY | 2022-11-03 01:35 | XMS_ITS | Continuity of Care Document ---
:1940 Author Organization [facility] Care Team Providers Name Role Phone DOD-MD Unavailable Unavailable Problems Combined list of problems [...] [place] [facility] Diagnosis: ICD-10-CM Active Diagnosis [place] Z23 Encounter for immunizationwith Provider Comments: Encounter [...] atus Comments Source Given By Number Code Gusset Edger INFLUENZA 09/19/ JENNIE HOWELL [id number] comple t [place] VACCINE, 2021 A H DELTO ed IELD QUADRIVALENT, ID ADJUVANTED COVID-19 3 complet MOD; SP RINGF (MODERNA), 2021 ed [id number]; IELD MRNA, LNP-S, 02 PF, 100 2 MCG/0.5ML DOSE OR 50 MCG/0.25ML DOSE COVID-19 3 complet MOD; SP RINGF (MODERNA), 2021 ed [id number]; IELD MRNA, LNP-S, 02 PF, 100 2 [...] Number For Provider Date Date Visit Outpatient [id number] 11/14 [place] [id number] [facility] [place] [facility] O/P [id number] Diagnos CORNELIO DEAN 12/12 [facility] EST [id number] is: IELD MINIMAL 99 ICD-10- PROB CM Z23 Encount er for immuniz ation<b r/>with Provide r Comment s: Encount er for Immuniz ation Outpatient 52459-603/29 [place] Encounter [id number] [facility] [place] [facility] ADM 17897-0.63 Diagnos LELIA, 05/29 SP RINGF SARSCOV2 [id number] is: LOREN /2021 IEL D 50MCG/0.25 31 ICD-10- MLBST CM Z23 Encount er for immuniz ation<b r/>with Provide r Comment s: Encount er for Immuniz ation Outpatient [id number] 08/08 [place] [id number] /2022 [facility] [place] [facility] Outpatient [id number] 08/16 [place] [id number] /2022 [facility] [place] [facility] Outpatient [id number] 08/24 [place] [id number] /2022 [facility] [place] [facility] OFFICE O/P 17015-7.63 Diagnos LYNDA,L 09/19 [place] EST [id number] is: DOLLY H /2021 IELD MINIMAL 06 ICD-10- PROB CM Z23 Encount er for immuniz ation<b r/>with Provide r Comment s: Encount er for Immuniz ation Social History Combined list of available smoking, tobacco, and other social history from Department of Defense 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 Social History Type Response Date Comment Source Tobacco smoking [facility]-TOBACCO NEVER USED 08/24/2022 [place] [facility] status [facility] Plan of Care List of future care activities from Department of Veterans Affairs facilities. Additional future care activities may be listed in the Assessment and Plan section. Date/Time Care Activity Care Activity Detail Facility 11/05/2022 AMBULATORY - MEDICINE [facility]
--- OUTSIDE RECORDS SUMMARY | 2022-11-03 01:37 | XMS_ITS ---
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203 and Subu ngual hematoma of toen ail of left foot, initial en counter S90.222A [facility] [address] Feb, 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 ; Pain David Hernandez, MA in right toe(s) M79.674 ; [address] Pain in left toe (s) M79.675 ; Skin disease L 98.9 ; Ingrowing nail L 60.0 ; Unspecified athe rosclerosis of [place] arteri es of extremities, kristyn ateral legs I70.203 and Non- pressure chronic ulcer of other part of right foot li mited to breakdown of ski n L97.511 [facility] [address] Feb, [place] [address] [facility] [address] Feb, 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 ; Pain David Hernandez MA in right toe(s) M79.674 ; [address] Pain in left toe (s) M79.675 ; Skin disease L 98.9 ; Ingrowing nail L 60.0 and Unspecified athe rosclerosis of [place] arteri es of extremities, kristyn ateral legs I70.203 IMMUNIZATIONS Vaccine Route Administration Date Status COVID-19 Pfizer BioNTech Vaccine Unknown December 07, 2021 Administered SOCIAL HISTORY Qualifiers Date Never Smoker REASON FOR REFERRAL FUNCTIONAL STATUS PLAN OF CARE Activity Details Follow Up prn Reason: Future/Pending Procedure 02397-PEFD SKIN LESIONS, 2 T O 4 Future/Pending Procedure 74573-[id number] OF HEMATOMA/F LUID Future/Pending Procedure [id number] SKIN LESIONS, OVE R 4 VITAL SIGNS [...] SKIN LESIONS, OVER 4 March 15, 2022 TRIM SKIN LESIONS, 2 TO 4 Sept 29, 2022 BIOPSY, NAIL UNIT March 15, 2022 Avulsion Plate March 15, 2022 DRAINAGE OF HEMATOMA/FLUID Jun 28, 2022 DEBRIDE NAIL, 6 OR MORE March 15, 2022 DEBRIDE NAIL, 6 OR MORE Jun 28, 2022 ACTIVE WOUND CARE/20 CM OR < March 29, 2022 RESULTS No Results REASON FOR VISIT Insurance Providers [facility] Member Patient Patient Patient Patient Patient Subscriber Subscriber Subscriber Group Insurance Plan Plan Plan Plan ID Relationship Address Phone Name Date of ID Name Date of No Type Insurance Insurance Insurance Coverage to Subscriber Address Phone Name Dates Medicare National [id number] Medicare self [place] 1940 [id number] Govt [address] [place] [address] [phone] [facility] [id number] for Life [id number] for Life [facility] [address] MEDICAL (GENERAL) HISTORY Type Description Date Medical History Arthritis Medical History Broken bones Medical History Cholesterol Medical History Cataracts Medical History Chicken pox Medical History Glaucoma Medical History Heart disease Medical History Measles Medical History Mumps Medical History Reflux ( GERD) Surgical History No know Surgical history
[2022-11-03] MEDS: Enoxaparin Sodium 40 MG/0.4 ML SYRINGE SUBCUT ×2 (02:18→23:32)
[2022-11-03] MEDS: 0.9 % Sodium Chloride 250 ML 999 ML IV (02:19)
--- NOTE | 2022-11-03 02:28 | PC.NURSE ---
Pt ao to self, resting at the bedside in no apparent distress. Breaths are even and unlabored. Sinus liliana on monitor with HR of 56. Report no pain or discomfort at this time. Pt medicated as ordered. Tolerated well.Will continue to monitor.
[2022-11-03 05:11] LABS: Appearance Urine Clear; Color Urine Dark Yellow; Glucose Urine UA Negative (Negative); Leukocyte Esterase Urine Trace (Negative); Nitrite Urine Negative (Negative); PH 5.5 (5.0-9.0); Specific Gravity - Urine 1.025 (1.005-1.025); UMIC TRIGGER UACC YES; Urine Blood Negative (Negative); Urine Ketones Trace mg/dL (Negative); Urine Protein Trace mg/dL (Neg-Trace)
[2022-11-03 05:16] LABS: Bacteria Urine None Seen (None Seen); Hyaline Casts Urine 0-2 /LPF (0-2); RBC Urine 0-2 /HPF (0-2); Squamous Epithelial Cell Urine 0-2 /HPF (0-2); WBC Urine 0-5 /HPF (0-5)
--- NOTE | 2022-11-03 05:30 | MHC.EDTECH ---
Pt 1X assisted standing to use urinal. Pt 1x assisted back to bed . Pt given warm blankets and call santamaria in reach
[2022-11-03] MEDS: cefTRIAXone sodium 1 GM in 0.9 % Sodium Chloride 50 ML IV (05:35)
[2022-11-03 06:18] LABS: MANUAL DIFF FLAG NO
[2022-11-03 06:19] LABS: Basophils Absolute Auto 0.1 X10*3/uL (0.0-0.2); Basophils Percent Auto 1.2 % (0-2); Eosinophils Absolute Auto 0.2 X10*3/uL (0.0-0.4); Eosinophils Percent Auto 3.8 % (0-4); Hematocrit 32.8 % (42.0-52.0); Hemoglobin 10.5 g/dl (14.0-18.0); Imm Gran Abs Auto 0.02 X10*3/uL (0.00-0.03); Imm Gran Pct Auto 0.5 % (0.0-0.4); Lymphocytes Absolute Auto 1.3 X10*3/uL (1.2-4.9); Lymphocytes Percent Auto 29.6 % (20-40); Mean Corpuscular Hemoglobin 32.4 pg (27.0-33.0); Mean Corpuscular Volume 101.2 fL (80.0-98.0); Mean Platelet Volume 11.4 fL (9.4-12.4); Monocytes Absolute Auto 0.7 X10*3/uL (0.1-1.2); Monocytes Percent Auto 16.5 % (2-11); Neutrophils Absolute Auto 2.1 x10*3/uL (2.0-8.3); Neutrophils Percent Auto 48.4 % (45-73); Platelet Count 171 X10*3/uL (160-400); Red Blood Count 3.24 X10*6/uL (4.60-5.80); Red Cell Distribution Width 11.9 % (11.0-16.0); White Blood Count 4.2 X10*3/uL (4.8-10.8)
[2022-11-03 06:33] LABS: Anion Gap 12 (12-20); Blood Urea Nitrogen 11 mg/dL (9-16); Calcium 8.5 mg/dL (8.4-10.2); Carbon Dioxide 25 mmol/L (22-29); Chloride 106 mmol/L (96-108); Creatinine Clr Calc Pharmacy 72.4; Estimated Glomerular Filt Rate > 60; Glucose Random 115 mg/dL (60-115); Potassium 3.8 mmol/L (3.3-5.1); Sodium 139 mmol/L (135-145)
[2022-11-03] MEDS: 0.9 % Sodium Chloride Flush 3 ML SYRINGE IVFLUSH ×3 (09:07→23:34)
[2022-11-03 09:23] LABS: MRSA Nasal PCR NEGATIVE (Negative); SA Nasal PCR NEGATIVE (Negative)
--- NOTE | 2022-11-03 09:41 | PHA.MEDREC ---
Pharmacy Consult ? Medication Reconciliation Pharmacy has completed the medication reconciliation.
--- NOTE | 2022-11-03 09:48 | MHC.CM.PN ---
Lives at home with . drives him where he needs to go (appts., etc.). Owns walker. believes previous services delivered by [facility], she will look for paperwork and call CM back if not accurate. Gwen () states there is a HCP and that she will look for it at home and will bring it in should she find it. Plan is home via with return to [facility] services (with [facility]) when confirms this VNA is accurate VNA). CM to follow.
--- NOTE | 2022-11-03 10:44 | PC.NURSE ---
pt awake and alert to self, NAD. pt resting in bed. HR ranges from 38bpm to mid 60s. Jo GOODRICH made aware, considering consult to cardiology. pt asymptomatic for HR. spoke with this morning, per , pt has multiple cardiologists. pt admitted at this time awaiting inpatient bed placement
--- NOTE | 2022-11-03 13:25 | P.PNIM_ITS ---
Subjective Subjective Date of Service: 11/03/22 Interval History: Seen in follow-up for COVID-19, left lower lobe pneumonia Interval history: Continues with productive cough. Denies shortness of breath, chest pain, lightheadedness, palpitations. Continues with sinus bradycardia with HR down to 37, but asymptomatic. Blood pressure stable. Review of Systems Review of Systems: Yes all other systems are reviewed and are negative Physical Exam Vital Signs: Vital Signs: Last Vital Signs Temp 98.1 F 11/03/22 12:44 Pulse 58 11/03/22 12:44 Resp 12 11/03/22 12:44 BP 103/58 L 11/03/22 12:44 Pulse Ox 98 11/03/22 12:44 O2 Del Method 11/03/22 12:44 BMI result Body Mass Index 25.7 Constitutional - Awake and Alert, No apparent distress Eyes - PERRLA, EOMI Cardiovascular - S1S2, RRR, No edema Respiratory - Normal lung expansion, Normal respiratory effort, No respiratory distress, rhonchi lll Gastrointestinal - NT / ND; +BS; No rebound or guarding Extremities - no calf tenderness bilaterally, no swelling Skin - Warm/Dry Neurological - Alert & oriented x3 Psychological - Appropriate affect Objective Data Active Medications Acetaminophen (Acetaminophen 325 Mg Tablet) 650 mg PO Q6H PRN PRN Reason: Pain, Mild (Pain Scale 1-3) Aspirin (Aspirin Enteric Coated 81 Mg Tablet.Dr) 81 mg PO DAILY [facility] Benzonatate (Benzonatate 100 Mg Capsule) 200 mg PO TID PRN PRN Reason: cough Donepezil HCl (Donepezil Hcl 10 Mg Tablet) 10 mg PO BEDTIME [facility] Enoxaparin Sodium (Enoxaparin Sodium 40 Mg/0.4 Ml Syringe) 40 mg SUBCUT Q24H [facility] Last Admin: 11/03/22 02:18 Dose: 40 mg Documented By: HERMELINDA Furosemide (Furosemide 20 Mg Tablet) 20 mg PO DAILY [facility]; Protocol Ceftriaxone Sodium 1 gm/ (Sodium Chloride) 50 mls @ 100 mls/hr IV Q24H [facility] Last Infusion: 11/03/22 06:02 Dose: 0 mls/hr Documented By: HERMELINDA Melatonin (Melatonin 3 Mg Tablet) 6 mg PO BEDTIME PRN PRN Reason: Insomnia Mirtazapine (Mirtazapine 7.5 Mg Tablet) 7.5 mg PO BEDTIME [facility] Non-Formulary Medication (Tafamidis [Vyndamax]) 1 cap PO DAILY [facility] Non-Formulary Medication (Travoprost [Travatan Z]) 1 drop EYE-BOTH BEDTIME [facility] Omeprazole (Omeprazole 20 Mg Capsule.Dr) 20 mg PO DAILY@0630 [facility] Ondansetron HCl (Ondansetron Hcl 4 Mg/2 Ml Vial) 4 mg IVPUSH Q8H PRN PRN Reason: Nausea and Vomiting Pharmacy Consult (Consult Rx Perform Med Rec) 1 each MISCELLANE ONCE PRN PRN Reason: Consult order Pharmacy Consult (Consult Rx Vancomycin Dosing) 1 each MISCELLANE DAILY PRN PRN Reason: Consult order Sertraline HCl (Sertraline Hcl 50 Mg Tablet) 50 mg PO DAILY [facility] Sodium Chloride (0.9 % Sodium Chloride Flush 3 Ml Syringe) 3 ml IVFLUSH QSHIFT [facility] Last Admin: 11/03/22 09:07 Dose: 3 ml Documented By: HENRIETTA Labs 11/03/22 06:06 11/03/22 06:06 Labs: Laboratory Results - last 24 hr 11/02/22 11/02/22 11/02/22 19:22 19:22 19:22 MCV 101.1 H MCH 32.3 MCHC 32.0 RDW 11.9 Plt Count 186 MPV 11.4 Immature Gran % (Auto) 0.5 H Neut % (Auto) 52.7 Lymph % (Auto) 27.1 Arthur % (Auto) 14.5 H Eos % (Auto) 4.0 Baso % (Auto) 1.2 Lymph # (Auto) 1.2 Arthur # (Auto) 0.6 Eos # (Auto) 0.2 Baso # (Auto) 0.1 Abs Immat Gran (auto) 0.02 Absolute Neuts (auto) 2.3 Absolute Nucleated RBC 0.000 Nucleated RBC % (auto) 0.0 PT INR APTT Anion Gap 16 Estim Creat Clear Calc 69.4 Estimated GFR > 60 Random Glucose 91 Lactic Acid Calcium 9.0 Magnesium 2.1 Total Bilirubin 0.8 AST 12 ALT 8 Alkaline Phosphatase 117 Troponin I High Sens Total Protein 7.8 Albumin 3.2 L Urine Color Urine Appearance Urine pH Ur Specific [place] Urine Protein Urine Glucose (UA) Urine Ketones Urine Blood Urine Nitrite Ur Leukocyte Esterase Urine RBC Urine WBC Ur Squamous Epith Cells Urine Bacteria Hyaline Casts Nasal Screen MRSA (PCR) Nasal S. aureus Screen Nasal MRSA/S.aureus Interp Influenza Type A (PCR) NEGATIVE Influenza Type B (PCR) NEGATIVE RSV RNA Qual (PCR) NEGATIVE SARS-CoV-2 RNA (RT-PCR) POSITIVE A 11/02/22 11/02/22 11/03/22 21:04 21:04 00:02 MCV MCH MCHC RDW Plt Count MPV Immature Gran % (Auto) Neut % (Auto) Lymph % (Auto) Arthur % (Auto) Eos % (Auto) Baso % (Auto) Lymph # (Auto) Arthur # (Auto) Eos # (Auto) Baso # (Auto) Abs Immat Gran (auto) Absolute Neuts (auto) Absolute Nucleated RBC Nucleated RBC % (auto) PT 13.8 H INR 1.2 H APTT 33.3 Anion Gap Estim Creat Clear Calc Estimated GFR Random Glucose Lactic Acid 0.9 Calcium Magnesium Total Bilirubin AST ALT Alkaline Phosphatase Troponin I High Sens 26.6 Total Protein Albumin Urine Color Urine Appearance Urine pH Ur Specific [place] Urine Protein Urine Glucose (UA) Urine Ketones Urine Blood Urine Nitrite Ur Leukocyte Esterase Urine RBC Urine WBC Ur Squamous Epith Cells Urine Bacteria Hyaline Casts Nasal Screen MRSA (PCR) Nasal S. aureus Screen Nasal MRSA/S.aureus Interp Influenza Type A (PCR) Influenza Type B (PCR) RSV RNA Qual (PCR) SARS-CoV-2 RNA (RT-PCR) 11/03/22 11/03/22 11/03/22 04:52 04:58 06:06 MCV 101.2 H MCH 32.4 MCHC 32.0 RDW 11.9 Plt Count 171 MPV 11.4 Immature Gran % (Auto) 0.5 H Neut % (Auto) 48.4 Lymph % (Auto) 29.6 Arthur % (Auto) 16.5 H Eos % (Auto) 3.8 Baso % (Auto) 1.2 Lymph # (Auto) 1.3 Arthur # (Auto) 0.7 Eos # (Auto) 0.2 Baso # (Auto) 0.1 Abs Immat Gran (auto) 0.02 Absolute Neuts (auto) 2.1 Absolute Nucleated RBC 0.000 Nucleated RBC % (auto) 0.0 PT INR APTT Anion Gap Estim Creat Clear Calc Estimated GFR Random Glucose Lactic Acid Calcium Magnesium Total Bilirubin AST ALT Alkaline Phosphatase Troponin I High Sens Total Protein Albumin Urine Color Dark Yellow Urine Appearance Clear Urine pH 5.5 Ur Specific [place] 1.025 Urine Protein Trace Urine Glucose (UA) Negative Urine Ketones Trace Urine Blood Negative Urine Nitrite Negative Ur Leukocyte Esterase Trace H Urine RBC 0-2 Urine WBC 0-5 Ur Squamous Epith Cells 0-2 Urine Bacteria None Seen Hyaline Casts 0-2 Nasal Screen MRSA (PCR) NEGATIVE Nasal S. aureus Screen NEGATIVE Nasal MRSA/S.aureus Interp SEE NOTE Influenza Type A (PCR) Influenza Type B (PCR) RSV RNA Qual (PCR) SARS-CoV-2 RNA (RT-PCR) 11/03/22 06:06 MCV MCH MCHC RDW Plt Count MPV Immature Gran % (Auto) Neut % (Auto) Lymph % (Auto) Arthur % (Auto) Eos % (Auto) Baso % (Auto) Lymph # (Auto) Arthur # (Auto) Eos # (Auto) Baso # (Auto) Abs Immat Gran (auto) Absolute Neuts (auto) Absolute Nucleated RBC Nucleated RBC % (auto) PT INR APTT Anion Gap 12 Estim Creat Clear Calc 72.4 Estimated GFR > 60 Random Glucose 115 Lactic Acid Calcium 8.5 Magnesium Total Bilirubin AST ALT Alkaline Phosphatase Troponin I High Sens Total Protein Albumin Urine Color Urine Appearance Urine pH Ur Specific [place] Urine Protein Urine Glucose (UA) Urine Ketones Urine Blood Urine Nitrite Ur Leukocyte Esterase Urine RBC Urine WBC Ur Squamous Epith Cells Urine Bacteria Hyaline Casts Nasal Screen MRSA (PCR) Nasal S. aureus Screen Nasal MRSA/S.aureus Interp Influenza Type A (PCR) Influenza Type B (PCR) RSV RNA Qual (PCR) SARS-CoV-2 RNA (RT-PCR) Assessment and Plan (1) COVID-19: Status: Acute (2) Pneumonia: Status: Acute (3) Bradycardia: Status: Acute Plan This is a 82-year-old male with pertinent history of dementia, essential hypertension, gastroesophageal reflux disease, mood disorder who was brought to the emergency department for low blood pressure and found to have pneumonia. #.? Left-sided pneumonia in a patient with COVID-19 infection -? Due to bacterial superinfection. Continue vanco and ceftriaxone - No hypoxemia and no indication for Decadron or remdesivil - Symptomatic management - sputum culture and MRSA nasal screen pending #.?Sinus bradycardia- stable, asymptomatic -No true hypotension. EKG showign sinus liliana with junctional rhythm -No intervention indicated at this time -Continue monitoring bp and symptoms -Consider cardiology consult if symptomatic # ?Hypotension: Noted by [facility]NA at home.? -BPs soft, but no hypotension -Monitor VS # Essential hypertension -Hold metoprolol #Dementia, unspecified -On donepezil.? Maintain sleep-wake cycle #Mood disorder -Continue home mood stabilizers DVT prophylaxis:? Lovenox 40 mg daily Full code Cardiac diet Discussed with Dr. Mary Time Spent With Patient Time: Total time managing care of this patient today ____ minutes. Quality Stroke Does the patient have a stroke diagnosis?: No VTE Prior VTE?: No VTE Risk Level:: Medical - moderate - high VTE Device Contraindication: Treatment Not Indicated VTE Drug Contraindication: N/A - Med Ordered
--- NOTE | 2022-11-03 14:05 | PHA.PROG ---
Admission Date/Time: November 03, 2022 01:26 Indication: Weight in k.718 kg Adjusted body weight in K KG [place] body weight in Kg: Obesity Dosing Indication % IBW: Serum Creatinine - Last 168 Hours 11/02/22 11/03/22 19:22 06:06 Creatinine 0.97 0.93 Estimated CrCl and GFR - Last 168 Hours 11/02/22 11/03/22 19:22 06:06 Estim Creat Clear Calc 69.4 72.4 Estimated GFR > 60 > 60 Vancomycin Loading Dose: 2000 MG Current Vancomycin Dosing Regimen: 1500 MG Q24 Vancomycin Monitoring using AUC goal of 400 - 600 range with trough as surrogate marker: Date and Time for next Vancomycin Level to be drawn: 11/04 @0 Pharmacist Comments on Vancomycin Plan: PREDICTED AUC 485, TROUGH 14.1 EARLY TROUGH DUE TO AGE Vancomycin dosing will take advantage of [employer],SL as a clinical decision support tool that uses Bayesian modeling to calculate individual patient's pharmacokinetic parameters and forecast the patient's drug concentration time course with the target goal AUC 24 range of 400 - 600 mg/L/hr.
[2022-11-03] MEDS: vancomycin HCL 1,500 MG in 0.9 % Sodium Chloride 500 ML 333.33 MG IV (23:32)
[2022-11-03] MEDS: Donepezil HCl 10 MG TABLET PO (23:33)
[2022-11-03] MEDS: Mirtazapine 7.5 MG TABLET PO (23:33)
--- NOTE | 2022-11-03 23:40 | PC.NURSE ---
Addendum entered by Jazz Patel RN 11/03/22 23:41: no new orders at this time. Original Note: Mckayla Louis 41 rm 475-1 blood culture collected 11/03/22 one bottle/one set gram positive cocci in clusters noted on gram stain. notified.
[2022-11-04 03:07] VITALS: BP 124/76; PULSE 66; RESP 20; TEMP 37.3; O2SAT 97
[2022-11-04] MEDS: cefTRIAXone sodium 1 GM in 0.9 % Sodium Chloride 50 ML IV (06:07)
[2022-11-04] MEDS: Omeprazole 20 MG CAPSULE.DR PO (06:08)
[2022-11-04 07:11] VITALS: BP 128/86; PULSE 75; RESP 20; TEMP 37.2; O2SAT 97
[2022-11-04 07:26] LABS: MANUAL DIFF FLAG NO
[2022-11-04 07:46] LABS: Basophils Absolute Auto 0.1 X10*3/uL (0.0-0.2); Basophils Percent Auto 1.3 % (0-2); Eosinophils Absolute Auto 0.2 X10*3/uL (0.0-0.4); Eosinophils Percent Auto 3.6 % (0-4); Hemoglobin 10.2 g/dl (14.0-18.0); Imm Gran Abs Auto 0.04 X10*3/uL (0.00-0.03); Imm Gran Pct Auto 0.8 % (0.0-0.4); Lymphocytes Absolute Auto 0.9 X10*3/uL (1.2-4.9); Lymphocytes Percent Auto 19.6 % (20-40); Mean Corpuscular HGB Conc 31.9 g/dl (31.0-36.0); Mean Corpuscular Volume 100.3 fL (80.0-98.0); Mean Platelet Volume 11.3 fL (9.4-12.4); Monocytes Absolute Auto 0.4 X10*3/uL (0.1-1.2); Monocytes Percent Auto 8.8 % (2-11); Neutrophils Absolute Auto 3.1 x10*3/uL (2.0-8.3); Neutrophils Percent Auto 65.9 % (45-73); Platelet Count 192 X10*3/uL (160-400); Red Blood Count 3.19 X10*6/uL (4.60-5.80); Red Cell Distribution Width 11.9 % (11.0-16.0); White Blood Count 4.8 X10*3/uL (4.8-10.8)
[2022-11-04 08:34] LABS: Anion Gap 16 (12-20); Blood Urea Nitrogen 10 mg/dL (9-16); Calcium 8.5 mg/dL (8.4-10.2); Carbon Dioxide 20 mmol/L (22-29); Chloride 107 mmol/L (96-108); Creatinine Clr Calc Pharmacy 87.8; Estimated Glomerular Filt Rate > 60; Glucose Random 99 mg/dL (60-115); Potassium 3.8 mmol/L (3.3-5.1); Sodium 139 mmol/L (135-145)
[2022-11-04] MEDS: Sertraline HCL 50 MG TABLET PO (08:40)
[2022-11-04] MEDS: Furosemide 20 MG TABLET PO (08:40)
[2022-11-04] MEDS: Aspirin Enteric Coated 81 MG TABLET.DR PO (08:40)
[2022-11-04] MEDS: 0.9 % Sodium Chloride Flush 3 ML SYRINGE IVFLUSH ×3 (08:40→20:33)
[2022-11-04 10:57] VITALS: BP 125/75; PULSE 68; RESP 20; TEMP 37.1; O2SAT 98
--- NOTE | 2022-11-04 12:46 | PM.CNCAR ---
History of Present Illness History of Present Illness Date of Service: 11/04/22 Requesting physician: Jo Gambino Chief complaint: Cough, bradycardia Narrative: 82-year-old gentleman who has background history of encephalitis, dementia, glaucoma and arthritis who is presenting for low blood pressure and has been diagnosed with COVID-19 infection. He was also noticed to be bradycardic on admission which junctional bradycardia. He is completely asymptomatic. He is denying any chest pain or shortness of breath. No dizziness or syncope. Telemetry currently is showing junctional rhythm versus sinus with very long first-degree AV block. No pauses or symptomatic bradycardia is noted. [facility] Past Medical History Medical History Arthritis Dementia Encephalitis Glaucoma Social History Social History Household Members: Spouse Housing: House Do you presently have visiting nurse or other home services: No Alcohol intake: never Patient Tobacco Use Status: Never used Tobacco Advance Directives Date on File: 06/26/21 service: Yes Current occupational status: retired [employer] Allergies Allergy/AdvReac Type Severity Reaction Status Date / Time sulfamethoxazole Allergy Unknown Verified 06/30/20 10:49 [From Bactrim] trimethoprim [From Bactrim] Allergy Unknown Verified 06/30/20 10:49 Active Medications: Current Medications Acetaminophen (Acetaminophen 325 Mg Tablet) 650 mg PO Q6H PRN PRN Reason: Pain, Mild (Pain Scale 1-3) Aspirin (Aspirin Enteric Coated 81 Mg Tablet.) 81 mg PO DAILY [facility] Last Admin: 11/04/22 08:40 Dose: 81 mg Benzonatate (Benzonatate 100 Mg Capsule) 200 mg PO TID PRN PRN Reason: cough Enoxaparin Sodium (Enoxaparin Sodium 40 Mg/0.4 Ml Syringe) 40 mg SUBCUT Q24H [facility] Last Admin: 11/03/22 23:32 Dose: 40 mg Fluticasone Propionate (Fluticasone Propionate Nasal 16 Gm Udell) 1 spray NOSTRIL-B DAILY [facility] Furosemide (Furosemide 20 Mg Tablet) 20 mg PO DAILY [facility]; Protocol Last Admin: 11/04/22 08:40 Dose: 20 mg Ceftriaxone Sodium 1 gm/ (Sodium Chloride) 50 mls @ 100 mls/hr IV Q24H [facility] Last Infusion: 11/04/22 06:42 Dose: Infused Vancomycin HCl 1,500 mg/ (Sodium Chloride) 500 mls @ 333.333 mls/hr IV Q24H [facility] Last Infusion: 11/04/22 03:23 Dose: Infused Melatonin (Melatonin 3 Mg Tablet) 6 mg PO BEDTIME PRN PRN Reason: Insomnia Mirtazapine (Mirtazapine 7.5 Mg Tablet) 7.5 mg PO BEDTIME [facility] Last Admin: 11/03/22 23:33 Dose: 7.5 mg Pt Own (Tafamidis [ Vyndamax] 61 Mg Capsule) 1 cap PO DAILY [facility] Last Admin: 11/04/22 08:40 Dose: 1 cap Pt Own (Travoprost [ Travatan Z] 0.004% Drops) 1 each EYE-BOTH BEDTIME [facility] Last Admin: 11/03/22 23:33 Dose: 1 each Omeprazole (Omeprazole 20 Mg Capsule.Dr) 20 mg PO DAILY@0630 [facility] Last Admin: 11/04/22 06:08 Dose: 20 mg Ondansetron HCl (Ondansetron Hcl 4 Mg/2 Ml Vial) 4 mg IVPUSH Q8H PRN PRN Reason: Nausea and Vomiting Pharmacy Consult (Consult Rx Perform Med Rec) 1 each MISCELLANE ONCE PRN PRN Reason: Consult order Pharmacy Consult (Consult Rx Vancomycin Dosing) 1 each MISCELLANE DAILY PRN PRN Reason: Consult order Sertraline HCl (Sertraline Hcl 50 Mg Tablet) 50 mg PO DAILY [facility] Last Admin: 11/04/22 08:40 Dose: 50 mg Sodium Chloride (0.9 % Sodium Chloride Flush 3 Ml Syringe) [facility] Last Admin: 11/04/22 08:40 Dose: 3 ml Home Medications Medication Instructions Recorded Confirmed Last Taken Type donepezil 10 mg tablet 1 tab PO BEDTIME 06/26/21 11/03/22 06/25/21 History omeprazole 20 mg capsule,delayed 1 cap PO QAM 06/26/21 11/03/22 06/25/21 History release sertraline 100 mg tablet 0.5 tab PO DAILY 06/26/21 11/03/22 06/25/21 History travoprost 0.004 % eye drops 1 drp ophthalmic (eye) BEDTIME 06/26/21 11/03/22 06/25/21 History (Travatan Z) furosemide 20 mg tablet 1 tab PO DAILY PRN 11/03/22 11/03/22 Unknown History mirtazapine 7.5 mg tablet 1 tab PO BEDTIME 11/03/22 11/03/22 Unknown History tafamidis 61 mg capsule (Vyndamax) 1 cap PO DAILY 11/03/22 11/03/22 Unknown History Physical Exam Vital Signs: Vital Signs: Last Vital Signs Temp 98.7 F 11/04/22 10:57 Pulse 68 11/04/22 10:57 Resp 20 11/04/22 10:57 BP 125/75 11/04/22 10:57 Pulse Ox 98 11/04/22 10:57 O2 Del Method 11/04/22 10:57 BMI result Body Mass Index 31.1 GENERAL APPEARANCE: in no acute distress, pleasant. NECK: no carotid bruit, no jugular venous distention. SKIN: no suspicious lesions, warm and dry. HEART: no murmurs, bradycardic. LUNGS: clear to auscultation bilaterally. ABDOMEN: soft, nontender. EXTREMITIES: no edema. PERIPHERAL PULSES: equal. NEUROLOGIC: No gross deficits, AAO X 3 Objective Labs and Meds 11/04/22 07:19 11/04/22 07:19 Lab results: Laboratory Results - last 24 hr 11/04/22 11/04/22 07:19 07:19 WBC 4.8 RBC 3.19 L Hgb 10.2 L Hct 32.0 L MCV 100.3 H MCH 32.0 MCHC 31.9 RDW 11.9 Plt Count 192 MPV 11.3 Immature Gran % (Auto) 0.8 H Neut % (Auto) 65.9 Lymph % (Auto) 19.6 L [place] % (Auto) 8.8 Eos % (Auto) 3.6 Baso % (Auto) 1.3 Lymph # (Auto) 0.9 L [place] # (Auto) 0.4 Eos # (Auto) 0.2 Baso # (Auto) 0.1 Abs Immat Gran (auto) 0.04 H Absolute Neuts (auto) 3.1 Absolute Nucleated RBC 0.000 Nucleated RBC % (auto) 0.0 Sodium 139 Potassium 3.8 Chloride 107 Carbon Dioxide 20 L Anion Gap 16 BUN 10 Creatinine 0.87 Estim Creat Clear Calc 87.8 Estimated GFR > 60 Random Glucose 99 Calcium 8.5 Assessment and Plan (1) COVID-19: Status: Acute (2) Bradycardia: Status: Acute Plan 82-year-old gentleman presenting with bradycardia in the setting of COVID-19 infection. He is on antibiotics for pneumonia right now. Denying any chest pain or shortness of breath. No dizziness or syncope. Heart rate is fluctuating between 40s to 60s but mostly he is in junctional rhythm versus sinus with long [place] interval. He is on donepezil which has some reports of bradycardia and I think this should be stopped. Otherwise overall stable and does not have clear indication for pacemaker. We will follow along and see if things evolve and he may require permanent pacemaker placement. 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 He is probably following with different cardiology group. Please get records. Right now no obvious indication for pacemaker. Stop the donepezil. Thank you for allowing me to participate in the care of your patient. Please feel free to contact me if you have any questions. Time Spent With Patient Time: Total time managing care of this patient today ____ minutes. Procedures Date of Service Date of Service: 11/04/22
--- NOTE | 2022-11-04 13:43 | HO.PM.IMPN ---
Subjective Subjective Date of Service: 11/04/22 Interval History: Seen in follow up for COVID-19, LLL pneumonia Interval history: Reports sinus pressure, headache, altered taste/smell, anorexia. Occassional cough. NO fevers, chills, sore throat, n/v/d, lightheadedness, palps, sob, chest pain. Review of Systems Review of Systems: Yes all other systems are reviewed and are negative Physical Exam Vital Signs: Vital Signs: Last Vital Signs Temp 98.7 F 11/04/22 10:57 Pulse 68 11/04/22 10:57 Resp 20 11/04/22 10:57 BP 125/75 11/04/22 10:57 Pulse Ox 98 11/04/22 10:57 O2 Del Method 11/04/22 10:57 BMI result Body Mass Index 31.1 Constitutional - Awake and Alert, No apparent distress Eyes - PERRLA, EOMI Cardiovascular - S1S2, RRR, No edema Respiratory - Normal lung expansion, Normal respiratory effort, No respiratory distress, CTA bilaterally Gastrointestinal - NT / ND; +BS; No rebound or guarding - No CVA tenderness Extremities - no calf tenderness bilaterally, no swelling Skin - Warm/Dry Neurological - Alert & oriented x3, poor short term memory recall- repetative at times Psychological - Appropriate affect Objective Data Active Medications Acetaminophen (Acetaminophen 325 Mg Tablet) 650 mg PO Q6H PRN PRN Reason: Pain, Mild (Pain Scale 1-3) Aspirin (Aspirin Enteric Coated 81 Mg Tablet.) 81 mg PO DAILY [facility] Last Admin: 11/04/22 08:40 Dose: 81 mg Documented By: EFREN Benzonatate (Benzonatate 100 Mg Capsule) 200 mg PO TID PRN PRN Reason: cough Enoxaparin Sodium (Enoxaparin Sodium 40 Mg/0.4 Ml Syringe) 40 mg SUBCUT Q24H [facility] Last Admin: 11/03/22 23:32 Dose: 40 mg Documented By: CASSI Fluticasone Propionate (Fluticasone Propionate Nasal 16 Gm [place]) 1 spray NOSTRIL-B DAILY [facility] Furosemide (Furosemide 20 Mg Tablet) 20 mg PO DAILY [facility]; Protocol Last Admin: 11/04/22 08:40 Dose: 20 mg Documented By: EFREN Ceftriaxone Sodium 1 gm/ (Sodium Chloride) 50 mls @ 100 mls/hr IV Q24H [facility] Last Infusion: 11/04/22 06:42 Dose: 0 mls/hr Documented By: CASSI Vancomycin HCl 1,500 mg/ (Sodium Chloride) 500 mls @ 333.333 mls/hr IV Q24H [facility] Last Infusion: 11/04/22 03:23 Dose: 0 mls/hr Documented By: CASSI Melatonin (Melatonin 3 Mg Tablet) 6 mg PO BEDTIME PRN PRN Reason: Insomnia Mirtazapine (Mirtazapine 7.5 Mg Tablet) 7.5 mg PO BEDTIME [facility] Last Admin: 11/03/22 23:33 Dose: 7.5 mg Documented By: CASSI Pt Own (Tafamidis [ Vyndamax] 61 Mg Capsule) 1 cap PO DAILY [facility] Last Admin: 11/04/22 08:40 Dose: 1 cap Documented By: EFREN Pt Own (Travoprost [ Travatan Z] 0.004% Drops) 1 each EYE-BOTH BEDTIME [facility] Last Admin: 11/03/22 23:33 Dose: 1 each Documented By: CASSI Omeprazole (Omeprazole 20 Mg Capsule.Dr) 20 mg PO DAILY@0630 [facility] Last Admin: 11/04/22 06:08 Dose: 20 mg Documented By: CASSI Ondansetron HCl (Ondansetron Hcl 4 Mg/2 Ml Vial) 4 mg IVPUSH Q8H PRN PRN Reason: Nausea and Vomiting Pharmacy Consult (Consult Rx Perform Med Rec) 1 each MISCELLANE ONCE PRN PRN Reason: Consult order Pharmacy Consult (Consult Rx Vancomycin Dosing) 1 each MISCELLANE DAILY PRN PRN Reason: Consult order Sertraline HCl (Sertraline Hcl 50 Mg Tablet) 50 mg PO DAILY [facility] Last Admin: 11/04/22 08:40 Dose: 50 mg Documented By: EFREN Sodium Chloride (0.9 % Sodium Chloride Flush 3 Ml Syringe) 3 ml IVFLUSH QSHIFT [facility] Last Admin: 11/04/22 08:40 Dose: 3 ml Documented By: EFREN Labs 11/04/22 07:19 11/04/22 07:19 Labs: Laboratory Results - last 24 hr 11/04/22 11/04/22 07:19 07:19 MCV 100.3 H MCH 32.0 MCHC 31.9 RDW 11.9 Plt Count 192 MPV 11.3 Immature Gran % (Auto) 0.8 H Neut % (Auto) 65.9 Lymph % (Auto) 19.6 L [place] % (Auto) 8.8 Eos % (Auto) 3.6 Baso % (Auto) 1.3 Lymph # (Auto) 0.9 L [place] # (Auto) 0.4 Eos # (Auto) 0.2 Baso # (Auto) 0.1 Abs Immat Gran (auto) 0.04 H Absolute Neuts (auto) 3.1 Absolute Nucleated RBC 0.000 Nucleated RBC % (auto) 0.0 Anion Gap 16 Estim Creat Clear Calc 87.8 Estimated GFR > 60 Random Glucose 99 Calcium 8.5 Microbiology Microbiology Results: Microbiology 11/03/22 05:08 Gram Stain - Final Sputum - Expectorated Sputum Culture - Preliminary Culture in progress. 11/03/22 00:02 Blood Culture - Preliminary Blood - Venous Prelim: GPC Gram Stain only 11/03/22 00:02 Blood Culture - Preliminary Blood - Venous Prelim: GPC Gram Stain only Assessment and Plan (1) COVID-19: Status: Acute (2) Pneumonia: Status: Acute (3) Bradycardia: Status: Acute Plan This is a 82-year-old male with pertinent history of dementia, essential hypertension, gastroesophageal reflux disease, mood disorder who was brought to the emergency department for low blood pressure and found to have pneumonia. #.? Left-sided pneumonia in a patient with COVID-19 infection -?Due to bacterial superinfection. 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 -No records available after 02/18 from [facility] cardiology -Call placed to patient's , Gwen, for addl information as patient denies other cardiology- states he has only been seen here and [facility] -Continue Tafamidis # Essential hypertension -BPs normal. -Hypotension noted by [facility] at home, no recurrent episodes since arrival #Dementia, unspecified without behavioral disturbance -Hold donezepil -Maintain sleep-wake cycle #Mood disorder -Continue home mood stabilizers DVT prophylaxis:? Lovenox 40 mg daily Full code Cardiac diet Discussed with Dr. Mahmood Pt requires ongoing inpt stay for additional cardiac monitoring wtih bradycardia and junctional rhythm, now with gram stain positive blood cultures, requiring expert consultation and IV abx. Time Spent With Patient Time: Total time managing care of this patient today ____ minutes. Quality Stroke Does the patient have a stroke diagnosis?: No VTE Prior VTE?: No VTE Risk Level:: Medical - moderate - high VTE Device Contraindication: Treatment Not Indicated VTE Drug Contraindication: N/A - Med Ordered
[2022-11-04] MEDS: Fluticasone Propionate Nasal 16 GM SPRAY 1 SPRAY NOSTRIL-B (13:45)
[2022-11-04 15:24] VITALS: BP 120/76; PULSE 67; RESP 20; TEMP 36.9; O2SAT 98
[2022-11-04 20:00] VITALS: BP 119/61; PULSE 45; RESP 18; TEMP 37.6; O2SAT 99
[2022-11-04] MEDS: Mirtazapine 7.5 MG TABLET PO (20:32)
[2022-11-04 22:01] LABS: Vancomycin Random 9.5 mcg/mL (15-20)
--- NOTE | 2022-11-04 22:05 | HE.PHANOTE ---
Vancomycin Dosing Patient level 9.5 today. Patient received loading dose and one maitenance dose therefore is not at steady state yet. Will continue current regimen. Next level scheduled for 11/06 @ 2129. [place] will continue to monitor renal function daily. Bee Chong, PharmD
[2022-11-04] MEDS: vancomycin HCL 1,500 MG in 0.9 % Sodium Chloride 500 ML 333.33 MG IV (23:25)
[2022-11-04] MEDS: Enoxaparin Sodium 40 MG/0.4 ML SYRINGE SUBCUT (23:25)
[2022-11-04 23:43] VITALS: BP 123/60; PULSE 44; RESP 18; TEMP 37.1; O2SAT 100
[2022-11-05 04:00] VITALS: BP 156/77; PULSE 66; RESP 20; TEMP 36.4; O2SAT 96
[2022-11-05] MEDS: cefTRIAXone sodium 1 GM in 0.9 % Sodium Chloride 50 ML IV (05:52)
[2022-11-05] MEDS: Omeprazole 20 MG CAPSULE.DR PO (05:53)
[2022-11-05 07:46] VITALS: BP 124/59; PULSE 62; RESP 16; TEMP 36.6; O2SAT 97
[2022-11-05] MEDS: Aspirin Enteric Coated 81 MG TABLET.DR PO (08:34)
[2022-11-05] MEDS: 0.9 % Sodium Chloride Flush 3 ML SYRINGE IVFLUSH ×2 (08:34→16:58)
[2022-11-05] MEDS: Sertraline HCL 50 MG TABLET PO (08:35)
[2022-11-05] MEDS: Fluticasone Propionate Nasal 16 GM SPRAY 1 SPRAY NOSTRIL-B (08:35)
[2022-11-05] MEDS: Furosemide 20 MG TABLET PO (08:35)
[2022-11-05 09:24] LABS: Creatinine Clr Calc Pharmacy 82.2; Estimated Glomerular Filt Rate > 60
[2022-11-05 11:28] VITALS: BP 110/70; PULSE 51; RESP 16; TEMP 36.6; O2SAT 99
--- NOTE | 2022-11-05 11:50 | PM.PNCARD ---
Subjective Subjective Date of Service: 11/05/22 Principal diagnosis: Bradycardia Interval history: No symptoms reported from cardiac perspective. Noted to have AV Wenckebach as well as occasional junctional beats and first-degree AV block. No obvious symptoms or hypotension. Review of Systems Review of Systems Yes all other systems are reviewed and are negative Physical Exam Vital Signs: Last Vital Signs Temp 97.9 F 11/05/22 11:28 Pulse 51 11/05/22 11:28 Resp 16 11/05/22 11:28 BP 124/59 L 11/05/22 07:46 Pulse Ox 99 11/05/22 11:28 O2 Del Method 11/05/22 11:28 BMI result Body Mass Index 31.1 GENERAL APPEARANCE: in no acute distress, pleasant. NECK: no carotid bruit, no jugular venous distention. SKIN: no suspicious lesions, warm and dry. HEART: no murmurs, bradycardic. LUNGS: clear to auscultation bilaterally. ABDOMEN: soft, nontender. EXTREMITIES: no edema. PERIPHERAL PULSES: equal. NEUROLOGIC: No gross deficits, AAO X 3 Objective Labs and Meds 11/04/22 07:19 11/05/22 08:55 Lab results: Laboratory Results - last 24 hr 11/04/22 11/05/22 21:38 08:55 Creatinine 0.93 Estim Creat Clear Calc 82.2 Estimated GFR > 60 Random Vancomycin 9.5 L Progress Note: A&P Assessment and plan (1) Bradycardia: Status: Acute Assessment and Plan: Sinus bradycardia with Mobitz type 1 second-degree AV block with first-degree AV block. Overall consistent conduction system disease but does not qualify for pacemaker. Would avoid rate lowering medications the future. The monitor if needed. Once clinically better can be discharged home and will follow up with outpatient Holter monitor. Will sign of the case at this point time. Thank you for allowing us to partake in his care Time Spent With Patient Time: Total time managing care of this patient today ____ minutes. Progress Note: Quality Stroke Does the patient have a stroke diagnosis?: No Procedures Date of Service Date of Service: 11/05/22
--- NOTE | 2022-11-05 12:53 | HO.PM.IMPN ---
Subjective Subjective Date of Service: 11/05/22 Interval History: Seen in follow up for COVID-19, LLL pneumonia Interval history: Reports sinus pressure, headache. No cough, sob, chest pain, lightheadedness, palpitations. Review of Systems Review of Systems: Yes all other systems are reviewed and are negative Physical Exam Vital Signs: Vital Signs: Last Vital Signs Temp 97.9 F 11/05/22 11:28 Pulse 51 11/05/22 11:28 Resp 16 11/05/22 11:28 BP 110/70 11/05/22 11:28 Pulse Ox 99 11/05/22 11:28 O2 Del Method 11/05/22 11:28 BMI result Body Mass Index 31.1 Constitutional - Awake and Alert, No apparent distress Eyes - PERRLA, EOMI Cardiovascular - S1S2, RRR, No edema Respiratory - Normal lung expansion, Normal respiratory effort, No respiratory distress, CTA bilaterally Gastrointestinal - NT / ND; +BS; No rebound or guarding Extremities - no calf tenderness bilaterally, no swelling Skin - Warm/Dry Neurological - Alert & oriented x3 Psychological - Appropriate affect Objective Data Active Medications Acetaminophen (Acetaminophen 325 Mg Tablet) 650 mg PO Q6H PRN PRN Reason: Pain, Mild (Pain Scale 1-3) Aspirin (Aspirin Enteric Coated 81 Mg Tablet.) 81 mg PO DAILY [facility] Last Admin: 11/05/22 08:34 Dose: 81 mg Documented By: EFREN Benzonatate (Benzonatate 100 Mg Capsule) 200 mg PO TID PRN PRN Reason: cough Enoxaparin Sodium (Enoxaparin Sodium 40 Mg/0.4 Ml Syringe) 40 mg SUBCUT Q24H [facility] Last Admin: 11/04/22 23:25 Dose: 40 mg Documented By: ANTMING Fluticasone Propionate (Fluticasone Propionate Nasal 16 Gm [place]) 1 spray NOSTRIL-B DAILY [facility] Last Admin: 11/05/22 08:35 Dose: 1 spray Documented By: CASSIEORRFaiza Furosemide (Furosemide 20 Mg Tablet) 20 mg PO DAILY [facility]; Protocol Last Admin: 11/05/22 08:35 Dose: 20 mg Documented By: CASSIEORRFaiza Ceftriaxone Sodium 1 gm/ (Sodium Chloride) 50 mls @ 100 mls/hr IV Q24H [facility] Last Infusion: 11/05/22 06:25 Dose: 0 mls/hr Documented By: ОЛЕГ Vancomycin HCl 1,500 mg/ (Sodium Chloride) 500 mls @ 333.333 mls/hr IV Q24H [facility] Last Infusion: 11/05/22 01:32 Dose: 0 mls/hr Documented By: ОЛЕГ Melatonin (Melatonin 3 Mg Tablet) 6 mg PO BEDTIME PRN PRN Reason: Insomnia Mirtazapine (Mirtazapine 7.5 Mg Tablet) 7.5 mg PO BEDTIME [facility] Last Admin: 11/04/22 20:32 Dose: 7.5 mg Documented By: ОЛЕГ Pt Own (Tafamidis [ Vyndamax] 61 Mg Capsule) 1 cap PO DAILY [facility] Last Admin: 11/05/22 08:35 Dose: 1 cap Documented By: EFREN Pt Own (Travoprost [ Travatan Z] 0.004% Drops) 1 each EYE-BOTH BEDTIME [facility] Last Admin: 11/04/22 20:33 Dose: 1 each Documented By: ОЛЕГ Omeprazole (Omeprazole 20 Mg Capsule.Dr) 20 mg PO DAILY@0630 [facility] Last Admin: 11/05/22 05:53 Dose: 20 mg Documented By: ОЛЕГ Ondansetron HCl (Ondansetron Hcl 4 Mg/2 Ml Vial) 4 mg IVPUSH Q8H PRN PRN Reason: Nausea and Vomiting Pharmacy Consult (Consult Rx Perform Med Rec) 1 each MISCELLANE ONCE PRN PRN Reason: Consult order Pharmacy Consult (Consult Rx Vancomycin Dosing) 1 each MISCELLANE DAILY PRN PRN Reason: Consult order Sertraline HCl (Sertraline Hcl 50 Mg Tablet) 50 mg PO DAILY [facility] Last Admin: 11/05/22 08:35 Dose: 50 mg Documented By: EFREN Sodium Chloride (0.9 % Sodium Chloride Flush 3 Ml Syringe) 3 ml IVFLUSH QSHIFT [facility] Last Admin: 11/05/22 08:34 Dose: 3 ml Documented By: EFREN Labs 11/04/22 07:19 11/05/22 08:55 Labs: Laboratory Results - last 24 hr 11/04/22 11/05/22 21:38 08:55 Estim Creat Clear Calc 82.2 Estimated GFR > 60 Random Vancomycin 9.5 L Microbiology Microbiology Results: Microbiology 11/03/22 00:02 Blood Culture - Preliminary Blood - Venous Coag negative Staphylococcus 11/03/22 00:02 Blood Culture - Preliminary Blood - Venous Coag negative Staphylococcus 11/03/22 05:08 Gram Stain - Final Sputum - Expectorated Sputum Culture - Final Assessment and Plan (1) COVID-19: Status: Acute (2) Pneumonia: Status: Acute (3) Bradycardia: Status: Acute Plan This is a 82-year-old male with pertinent history of dementia, essential hypertension, gastroesophageal reflux disease, mood disorder who was brought to the emergency department for low blood pressure and found to have pneumonia. #.? Left-sided pneumonia in a patient with COVID-19 infection- improving -?Due to bacterial superinfection. Continue vanco and ceftriaxone - No hypoxemia and no indication for Decadron or remdesivil - Symptomatic management - sputum culture and MRSA nasal screens negative #.?Sinus bradycardia with junctional rhythm and AV wenkebach -Continue monitoring on telemetry -Hold donezepil per cardiology. Avoid any rate lowering medications -Seen by cardiology. Consistent conduction system disease, but does not qualify for pacermaker. 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 Awaiting call back from pt regarding other cardiologists pt is following with -Will follow up with cardiology outpt -Continue Tafamidis #Essential hypertension -BPs normal -Hypotension noted by VNA at home, no recurrent episodes since arrival #Dementia, unspecified without behavioral disturbance -Hold donezepil -Maintain sleep-wake cycle #Mood disorder -Continue home mood stabilizers DVT prophylaxis:? Lovenox 40 mg daily Full code Cardiac diet Discussed with Dr. Alejandra Pt requires ongoing inpt stay for additional cardiac monitoring wtih bradycardia and junctional rhythm, awaiting final blood cultures, requiring expert consultation and IV abx. Time Spent With Patient Time: Total time managing care of this patient today ____ minutes. Quality Stroke Does the patient have a stroke diagnosis?: No VTE Prior VTE?: No VTE Risk Level:: Medical - moderate - high VTE Device Contraindication: Treatment Not Indicated VTE Drug Contraindication: N/A - Med Ordered
--- NOTE | 2022-11-05 13:28 | MHC.CM.PN ---
Per MD rounds no discharge today. Infectious Disease, Blood cutures, and PT eval are pending. Patient will follow up with cardiology Out Patient. A Holter Monitor is planned. DP home with resumption of VNA services. Patients to report back with agency name. She will assist with transport.
[2022-11-05 15:38] VITALS: BP 102/52; PULSE 54; RESP 19; TEMP 36; O2SAT 99
--- NOTE | 2022-11-05 16:14 | W.PM.IDCN ---
History of Present Illness Data of Consult Service Date: 11/05/22 Requesting physician: Jo Gambino Primary Care Provider: Nonstaff Physician HPI Reason for consult: pneumonia,?COVID status He presents from home after seen by [facility] and found to have blood pressure 80/50. He has cough productive of sputum and received piperacillin/tazobactam in ER. He was reported to have COVID October 12 but no test seen. He was started on the floor on Ceftriaxone and Vancomycin. Review of Systems Review of Systems: Yes all other systems are reviewed and are negative [facility] Past Medical History Medical History Arthritis Cardiac amyloidosis Dementia Encephalitis due to human herpes simplex virus (HSV) Glaucoma History of atrial flutter History of supraventricular tachycardia Family History Family history: reviewed and not pertinent Surgical History Surgical History History of cardiac radiofrequency ablation Social History Social History Household Members: Spouse Housing: House Do you presently have visiting nurse or other home services: No Alcohol intake: never Patient Tobacco Use Status: Never used Tobacco Advance Directives Date on File: 06/26/21 service: Yes Current occupational status: retired Meds Allergies Allergy/AdvReac Type Severity Reaction Status Date / Time sulfamethoxazole Allergy Unknown Verified 06/30/20 10:49 [From Bactrim] trimethoprim [From Bactrim] Allergy Unknown Verified 06/30/20 10:49 Active Medications: Current Medications Acetaminophen (Acetaminophen 325 Mg Tablet) 650 mg PO Q6H PRN PRN Reason: Pain, Mild (Pain Scale 1-3) Aspirin (Aspirin Enteric Coated 81 Mg Tablet.) 81 mg PO DAILY [facility] Last Admin: 11/05/22 08:34 Dose: 81 mg Benzonatate (Benzonatate 100 Mg Capsule) 200 mg PO TID PRN PRN Reason: cough Enoxaparin Sodium (Enoxaparin Sodium 40 Mg/0.4 Ml Syringe) 40 mg SUBCUT Q24H [facility] Last Admin: 11/04/22 23:25 Dose: 40 mg Fluticasone Propionate (Fluticasone Propionate Nasal 16 Gm [place]) 1 spray NOSTRIL-B DAILY [facility] Last Admin: 11/05/22 08:35 Dose: 1 spray Furosemide (Furosemide 20 Mg Tablet) 20 mg PO DAILY [facility]; Protocol Last Admin: 11/05/22 08:35 Dose: 20 mg Ceftriaxone Sodium 1 gm/ (Sodium Chloride) 50 mls @ 100 mls/hr IV Q24H [facility] Last Infusion: 11/05/22 06:25 Dose: Infused Vancomycin HCl 1,500 mg/ (Sodium Chloride) 500 mls @ 333.333 mls/hr IV Q24H [facility] Last Infusion: 11/05/22 01:32 Dose: Infused Melatonin (Melatonin 3 Mg Tablet) 6 mg PO BEDTIME PRN PRN Reason: Insomnia Mirtazapine (Mirtazapine 7.5 Mg Tablet) 7.5 mg PO BEDTIME [facility] Last Admin: 11/04/22 20:32 Dose: 7.5 mg Pt Own (Tafamidis [ Vyndamax] 61 Mg Capsule) 1 cap PO DAILY [facility] Last Admin: 11/05/22 08:35 Dose: 1 cap Pt Own (Travoprost [ Travatan Z] 0.004% Drops) 1 each EYE-BOTH BEDTIME [facility] Last Admin: 11/04/22 20:33 Dose: 1 each Omeprazole (Omeprazole 20 Mg Capsule.Dr) 20 mg PO DAILY@0630 [facility] Last Admin: 11/05/22 05:53 Dose: 20 mg Ondansetron HCl (Ondansetron Hcl 4 Mg/2 Ml Vial) 4 mg IVPUSH Q8H PRN PRN Reason: Nausea and Vomiting Pharmacy Consult (Consult Rx Perform Med Rec) 1 each MISCELLANE ONCE PRN PRN Reason: Consult order Pharmacy Consult (Consult Rx Vancomycin Dosing) 1 each MISCELLANE DAILY PRN PRN Reason: Consult order Sertraline HCl (Sertraline Hcl 50 Mg Tablet) 50 mg PO DAILY [facility] Last Admin: 11/05/22 08:35 Dose: 50 mg Sodium Chloride (0.9 % Sodium Chloride Flush 3 Ml Syringe) 3 ml IVFLUSH QSHIFT [facility] Last Admin: 11/05/22 08:34 Dose: 3 ml Home Medications Medication Instructions Recorded Confirmed Last Taken Type donepezil 10 mg tablet 1 tab PO BEDTIME 06/26/21 11/03/22 06/25/21 History omeprazole 20 mg capsule,delayed 1 cap PO QAM 06/26/21 11/03/22 06/25/21 History release sertraline 100 mg tablet 0.5 tab PO DAILY 06/26/21 11/03/22 06/25/21 History travoprost 0.004 % eye drops 1 drp ophthalmic (eye) BEDTIME 06/26/21 11/03/22 06/25/21 History (Travatan Z) furosemide 20 mg tablet 1 tab PO DAILY PRN 11/03/22 11/03/22 Unknown History mirtazapine 7.5 mg tablet 1 tab PO BEDTIME 11/03/22 11/03/22 Unknown History tafamidis 61 mg capsule (Vyndamax) 1 cap PO DAILY 11/03/22 11/03/22 Unknown History Physical Exam Vital Signs: Vital Signs: Last Vital Signs Temp 96.8 F 11/05/22 15:38 Pulse 54 11/05/22 15:38 Resp 19 11/05/22 15:38 BP 102/52 L 11/05/22 15:38 Pulse Ox 99 11/05/22 15:38 O2 Del Method 11/05/22 15:38 BMI result Body Mass Index 31.1 Const: General: cooperative HEENT: Head: Yes normal to inspection Face and sinus: Yes normal facial exam Mouth: Normal oral and palatal mucosa present Teeth and gingiva: dentition normal Eyes: General: appearance normal, both eyes and all related structures Pupils: Equal, round and reactive pupils present Resp: Other: no oxygen need Effort & Inspection: normal respiratory effort Cardio: Rate: regular rate Rhythm: regular rhythm GI: Palpation (GI): Soft to palpation and nontender : General: Yes no CVA tenderness Back/Spine/Pelvis: Back: no CVA tenderness Skin: General skin exam: no rashes or lesions noted Neuro: General: moves all extremities Cranial nerves: Yes Equal, round and reactive pupils present Extrem: General: Yes normal to inspection Psych: Appearance: grossly normal Results Labs 11/04/22 07:19 11/05/22 08:55 Labs: BMP 11/05/22 08:55 Creatinine 0.93 Microbiology Microbiology Results: Microbiology 11/03/22 00:02 Blood - Venous Blood Culture - Preliminary Coag negative Staphylococcus 11/03/22 00:02 Blood - Venous Blood Culture - Preliminary Coag negative Staphylococcus 11/03/22 05:08 Sputum - Expectorated Gram Stain - Final 11/03/22 05:08 Sputum - Expectorated Sputum Culture - Final Assessment and Plan (1) Pneumonia: Status: Acute He likely has community acquired pneumonia such as strep pneumonia,atypical or even tram negative. (2) Pleural effusion: Status: Acute (3) Left lower lobe pulmonary infiltrate: Status: Acute (4) COVID-19: Status: Acute I am not sure of COVID status as if he had COVID on October 12 he would be clear by now although DNA may persist in testing and wouldnt need respiratory isolation Plan Ceftriaxone and Vancomycin may continue for now. If MRSA nasal swab (ordered) is negative stop Vancomycin and add Doxycycline Assess COVID status as may not need isolation ?prior testing. Time Spent With Patient Time: Total time managing care of this patient today ____ minutes.
[2022-11-05 18:18] LABS: MRSA Nasal PCR NEGATIVE (Negative); SA Nasal PCR NEGATIVE (Negative)
[2022-11-05] MEDS: Mirtazapine 7.5 MG TABLET PO (19:50)
[2022-11-05] MEDS: Melatonin 3 MG TABLET 6 MG PO (19:50)
[2022-11-05 20:00] VITALS: BP 111/59; PULSE 62; RESP 18; TEMP 37.1; O2SAT 99
[2022-11-05 23:44] VITALS: BP 116/60; PULSE 53; RESP 18; TEMP 36.4; O2SAT 100
[2022-11-06] MEDS: 0.9 % Sodium Chloride Flush 3 ML SYRINGE IVFLUSH ×3 (00:44→14:09)
[2022-11-06] MEDS: vancomycin HCL 1,500 MG in 0.9 % Sodium Chloride 500 ML 333.33 MG IV (00:44)
[2022-11-06] MEDS: Enoxaparin Sodium 40 MG/0.4 ML SYRINGE SUBCUT (00:45)
[2022-11-06 03:47] VITALS: BP 110/59; PULSE 52; RESP 20; TEMP 36.8; O2SAT 98
[2022-11-06] MEDS: cefTRIAXone sodium 1 GM in 0.9 % Sodium Chloride 50 ML IV (05:18)
[2022-11-06] MEDS: Omeprazole 20 MG CAPSULE.DR PO (05:18)
[2022-11-06 07:18] LABS: MANUAL DIFF FLAG NO
[2022-11-06 07:23] LABS: Basophils Absolute Auto 0.1 X10*3/uL (0.0-0.2); Basophils Percent Auto 1.8 % (0-2); Eosinophils Absolute Auto 0.3 X10*3/uL (0.0-0.4); Eosinophils Percent Auto 6.5 % (0-4); Hematocrit 32.6 % (42.0-52.0); Hemoglobin 10.4 g/dl (14.0-18.0); Imm Gran Abs Auto 0.02 X10*3/uL (0.00-0.03); Imm Gran Pct Auto 0.5 % (0.0-0.4); Lymphocytes Percent Auto 24.6 % (20-40); Mean Corpuscular HGB Conc 31.9 g/dl (31.0-36.0); Mean Corpuscular Volume 100.3 fL (80.0-98.0); Mean Platelet Volume 10.8 fL (9.4-12.4); Monocytes Absolute Auto 0.5 X10*3/uL (0.1-1.2); Monocytes Percent Auto 11.5 % (2-11); Neutrophils Absolute Auto 2.2 x10*3/uL (2.0-8.3); Neutrophils Percent Auto 55.1 % (45-73); Platelet Count 179 X10*3/uL (160-400); Red Blood Count 3.25 X10*6/uL (4.60-5.80)
[2022-11-06 07:46] LABS: Anion Gap 16 (12-20); Blood Urea Nitrogen 13 mg/dL (9-16); Calcium 8.6 mg/dL (8.4-10.2); Carbon Dioxide 19 mmol/L (22-29); Chloride 109 mmol/L (96-108); Creatinine Clr Calc Pharmacy 88.9; Estimated Glomerular Filt Rate > 60; Glucose Random 113 mg/dL (60-115); Potassium 3.8 mmol/L (3.3-5.1); Sodium 140 mmol/L (135-145)
[2022-11-06 08:00] VITALS: BP 106/57; PULSE 47; RESP 18; TEMP 36.7; O2SAT 100
[2022-11-06] MEDS: Aspirin Enteric Coated 81 MG TABLET.DR PO (09:35)
[2022-11-06] MEDS: Fluticasone Propionate Nasal 16 GM SPRAY 1 SPRAY NOSTRIL-B (09:35)
[2022-11-06] MEDS: Sertraline HCL 50 MG TABLET PO (09:36)
[2022-11-06] MEDS: Furosemide 20 MG TABLET PO (10:40)
[2022-11-06 10:54] LABS: C Reactive Protein 2.26 mg/dL (< or = 0.50)
[2022-11-06 11:10] LABS: Procalcitonin 0.58 ng/mL
[2022-11-06 12:00] VITALS: BP 98/48; PULSE 43; RESP 18; TEMP 36.5; O2SAT 98
[2022-11-06] MEDS: Doxycycline Hyclate 100 MG in 0.9 % Sodium Chloride 250 ML 166.67 MG IV (14:08)
--- NOTE | 2022-11-06 14:30 | P.DS_ITS ---
DS: Providers Provider Date of Service: 11/06/22 Date of admission: 11/03/22 01:26 Date of discharge: 11/06/22 Primary care physician: KP Lopez Consults: 11/04/22 07:38 Consult to Cardiology Routine Consulting Provider: Hector Junior Reason for consultation: junctional rhythm, asymptomatic liliana to 38 11/05/22 09:43 Consult to Infectious Diseases Routine Consulting Provider: Loyda Kramer Reason for consultation: positive BC x2 DS: Diagnosis Discharge Diagnosis (1) Pneumonia: Status: Acute (2) Pleural effusion: Status: Acute (3) COVID-19: Status: Acute (4) Bradycardia: Status: Acute DS: Summary Hospital Course Hospital Course: from admission H+P by hospitalist Balbina Valadez MD, 11/03/22: This is a 82-year-old male with pertinent history of dementia, essential hypertension, gastroesophageal reflux disease, mood disorder who was brought to the emergency department for low blood pressure.? Patient is a poor historian and does not know why he is here. Patient admits cough with sputum production. History obtained from EMR and ER provider.? Patient was brought in for evaluation of hypotension as VNA noticed blood pressure with systolic in the 80s.? Upon arrival blood pressure in the ER was 118/58.? Imaging revealed left- sided dense consolidation with pleural effusion.? He was noted to have bradycardia with EKG revealing junctional rhythm.? Unable to obtain review of systems.? Patient also tested positive for COVID-19.? 82-year-old male with pertinent history of dementia, essential hypertension, gastroesophageal reflux disease, mood disorder, and cardiac amyloidosis who was brought to the emergency department for low blood pressure and found to have pneumonia. He had recently recovered from Covid-19 that was diagnosed on 10/10/22 and had taken a course of Paxlovid. He was admitted to the [facility]. Hosp ital course by problem: # left lower lobar pneumonia in a patient with recent Covid-19 infection - Not hypoxic during the course of admission. - Treated with ceftriaxone, vancomycin, and doxycycline. ID consulted. Blood cultures returned with coagulase-negative staphylococcus. MRSA swab negative. He was discharged on 4 more days of cefuroxime plus doxycycline. 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 Donepezil discontinued. Cardiology consulted: Sinus bradycardia with Mobitz type 1 second-degree AV block with first-degree AV block.? Overall consistent conduction system disease but does not qualify for pacemaker.? Would avoid rate lowering medications the future... ...?Once clinically better can be discharged home and will follow up with outpatient Holter monitor.? This should be arranged through his outpatient nut chopper office. 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 To continue tafamidis and follow-up with his outpatient nut chopper. Time Spent with Patient Time attestation: Total time managing care of this patient today __45__ minutes. Discharge coordination time: Greater than 30 minutes Quality: Safe Use of Opioids Does Pt have an Active Cancer Diagnosis on the Problem List?: No Quality: Stroke Does the patient have a stroke diagnosis?: No Physical Exam Vital Signs: Vital Signs: Last Vital Signs Temp 97.7 F 11/06/22 12:00 Pulse 43 L 11/06/22 12:00 Resp 18 11/06/22 12:00 BP 98/48 L 11/06/22 12:00 Pulse Ox 98 11/06/22 12:00 O2 Del Method 11/06/22 12:00 BMI result Body Mass Index 31.1 Const: Other: Gen: in no acute distress HEENT: sclera anicteric, moist mucus membranes Neck: supple Lungs: decreased at L base Heart: regular, bradycardic @ 52, no murmurs Abd: soft, non-tender, non-distended Ext: no edema Skin: warm/well-perfused Neuro: alert and oriented x3, no focal findings Psych: appropriate affect DS: Data Data Completed and Pending Completed studies during hospitalization [Text1]: Laboratory Results WBC 4.0 X10*3/uL (4.8-10.8) L 11/06/22 07:14 RBC 3.25 X10*6/uL (4.60-5.80) L 11/06/22 07:14 Hgb 10.4 g/dl (14.0-18.0) L 11/06/22 07:14 Hct 32.6 % (42.0-52.0) L 11/06/22 07:14 MCV 100.3 fL (80.0-98.0) H 11/06/22 07:14 MCH 32.0 pg (27.0-33.0) 11/06/22 07:14 MCHC 31.9 g/dl (31.0-36.0) 11/06/22 07:14 RDW 12.0 % (11.0-16.0) 11/06/22 07:14 Plt Count 179 X10*3/uL (160-400) 11/06/22 07:14 MPV 10.8 fL (9.4-12.4) 11/06/22 07:14 Immature Gran % (Auto) 0.5 % (0.0-0.4) H 11/06/22 07:14 Neut % (Auto) 55.1 % (45-73) 11/06/22 07:14 Lymph % (Auto) 24.6 % (20-40) 11/06/22 07:14 [place] % (Auto) 11.5 % (2-11) H 11/06/22 07:14 Eos % (Auto) 6.5 % (0-4) H 11/06/22 07:14 Baso % (Auto) 1.8 % (0-2) 11/06/22 07:14 Lymph # (Auto) 1.0 X10*3/uL (1.2-4.9) L 11/06/22 07:14 [place] # (Auto) 0.5 X10*3/uL (0.1-1.2) 11/06/22 07:14 Eos # (Auto) 0.3 X10*3/uL (0.0-0.4) 11/06/22 07:14 Baso # (Auto) 0.1 X10*3/uL (0.0-0.2) 11/06/22 07:14 Abs Immat Gran (auto) 0.02 X10*3/uL (0.00-0.03) 11/06/22 07:14 Absolute Neuts (auto) 2.2 x10*3/uL (2.0-8.3) 11/06/22 07:14 Absolute Nucleated RBC 0.000 X10*3/uL (0.0-0.012) 11/06/22 07:14 Nucleated RBC % (auto) 0.0 /100WBC (0.0-0.2) 11/06/22 07:14 PT 13.8 SEC (10.0-13.1) H 11/02/22 21:04 INR 1.2 (0.9-1.1) H 11/02/22 21:04 APTT 33.3 SEC (26.0-36.4) 11/02/22 21:04 Sodium 140 mmol/L (135-145) 11/06/22 07:14 Potassium 3.8 mmol/L (3.3-5.1) 11/06/22 07:14 Chloride 109 mmol/L (96-108) H 11/06/22 07:14 Carbon Dioxide 19 mmol/L (22-29) L 11/06/22 07:14 Anion Gap 16 (12-20) 11/06/22 07:14 BUN 13 mg/dL (9-16) 11/06/22 07:14 Creatinine 0.86 mg/dL (0.5-1.4) 11/06/22 07:14 Estim Creat Clear Calc 88.9 11/06/22 07:14 Estimated GFR > 60 11/06/22 07:14 Random Glucose 113 mg/dL (60-115) 11/06/22 07:14 Lactic Acid 0.9 mmol/L (0.5-2.0) 11/03/22 00:02 Calcium 8.6 mg/dL (8.4-10.2) 11/06/22 07:14 Magnesium 2.1 mg/dL (1.6-2.6) 11/02/22 19:22 Total Bilirubin 0.8 mg/dL (0.0-1.0) 11/02/22 19:22 AST 12 U/L (5-37) 11/02/22 19:22 ALT 8 U/L (0-40) 11/02/22 19:22 Alkaline Phosphatase 117 U/L (39-117) 11/02/22 19:22 Troponin I High Sens 26.6 ng/L (<3.5-35.0) 11/02/22 21:04 C-Reactive Protein 2.26 mg/dL (< or = 0.50) H 11/06/22 07:14 Total Protein 7.8 g/dL (6.5-8.0) 11/02/22 19:22 Albumin 3.2 g/dL (3.5-5.0) L 11/02/22 19:22 Procalcitonin 0.58 ng/mL 11/06/22 07:14 Urine Color Dark Yellow 11/03/22 04:58 Urine Appearance Clear 11/03/22 04:58 Urine pH 5.5 (5.0-9.0) 11/03/22 04:58 Ur Specific [place] 1.025 (1.005-1.025) 11/03/22 04:58 Urine Protein Trace mg/dL (Neg-Trace) 11/03/22 04:58 Urine Glucose (UA) Negative mg/dL (Negative) 11/03/22 04:58 Urine Ketones Trace mg/dL (Negative) 11/03/22 04:58 Urine Blood Negative (Negative) 11/03/22 04:58 Urine Nitrite Negative (Negative) 11/03/22 04:58 Ur Leukocyte Esterase Trace (Negative) H 11/03/22 04:58 Urine RBC 0-2 /HPF (0-2) 11/03/22 04:58 Urine WBC 0-5 /HPF (0-5) 11/03/22 04:58 Ur Squamous Epith Cells 0-2 /HPF (0-2) 11/03/22 04:58 Urine Bacteria None Seen (None Seen) 11/03/22 04:58 Hyaline Casts 0-2 /LPF (0-2) 11/03/22 04:58 Nasal Screen MRSA (PCR) NEGATIVE (Negative) 11/05/22 17:00 Nasal S. aureus Screen NEGATIVE (Negative) 11/05/22 17:00 Nasal MRSA/S.aureus Interp SEE NOTE 11/05/22 17:00 Random Vancomycin 9.5 mcg/mL (15-20) L 11/04/22 21:38 Influenza Type A (PCR) NEGATIVE (Negative) 11/02/22 19:22 Influenza Type B (PCR) NEGATIVE (Negative) 11/02/22 19:22 RSV RNA Qual (PCR) NEGATIVE (Negative) 11/02/22 19:22 SARS-CoV-2 RNA (RT-PCR) POSITIVE (Negative) A 11/02/22 19:22 Impressions Chest X-Ray 11/02/22 19:00 IMPRESSION: Chronic elevation of the left hemidiaphragm with associated airspace opacity in the posterior basilar segments of the left lower lobe. This may correspond to atelectasis, pleural parenchymal scarring, or chronic consolidation. Chest CT 11/02/22 22:38 IMPRESSION: 1. Dense consolidation at the posterior left lower lobe. 2. Moderate volume left pleural effusion. Fleischner guidelines were followed. Discharge Plan Discharge Patient Disposition: Home, Self-Care Discharge Diagnosis: pneumonia, bradycardia Referrals: Hosea Sky PA [Primary Care Provider] - 1 Week Grady Fritz MD [Physician] - 1 Week Discharge Medications: New doxycycline monohydrate 100 mg tablet 100 mg PO BID Qty: 8 0RF cefuroxime axetil 500 mg tablet 500 mg PO BID Qty: 8 0RF Continued sertraline 100 mg tablet 0.5 tab PO DAILY omeprazole 20 mg capsule,delayed release(DR/EC) 1 cap PO QAM travoprost [Travatan Z] 0.004 % drops 1 drp ophthalmic (eye) BEDTIME aspirin 81 mg capsule 81 mg PO DAILY Qty: 30 0RF furosemide 20 mg tablet 1 tab PO DAILY MDD FLUID OVERLOAD mirtazapine 7.5 mg tablet 1 tab PO BEDTIME Vyndamax 61 mg capsule 1 cap PO DAILY Discontinued donepezil 10 mg tablet 1 tab PO BEDTIME Discharge Orders: Discharge Order (Routine); Ordered 11/06/22 Ordered By: Misa Dumont Diet: Advance to usual diet Activity on Discharge: As tolerated Stand Alone Forms: Patient Portal Discharge page Care Plan Goals: recovery from pneumonia Health Concerns: pneumonia - take doxycycline and cefuroxime for 4 more days bradycardia - stop donepezil - follow up with your nut chopper for Holter monitoring Please follow up with your primary care doctor within 1 week. Return to the hospital if you experience recurrent or worsening symptoms. Plan of Treatment: see above Assessment: See Discharge Summary.
--- NOTE | 2022-11-06 14:45 | MHC.CM.PN ---
GURWINDER 11/03/22 Patient is discharged to home self care. Patient will transport home with family.
[2022-11-06 16:00] VITALS: BP 100/55; PULSE 57; RESP 19; TEMP 36.4; O2SAT 97
--- NOTE | 2022-11-06 16:15 | P.PNID_ITS ---
Subjective Subjective Date of Service: 11/06/22 Critical Care Time (minutes): 15 Comment: patient no complaints Objective Data Labs 11/06/22 07:14 11/06/22 07:14 Labs: Laboratory Results - last 24 hr 11/05/22 11/06/22 11/06/22 17:00 07:14 07:14 WBC 4.0 L RBC 3.25 L Hgb 10.4 L Hct 32.6 L MCV 100.3 H MCH 32.0 MCHC 31.9 RDW 12.0 Plt Count 179 MPV 10.8 Immature Gran % (Auto) 0.5 H Neut % (Auto) 55.1 Lymph % (Auto) 24.6 [place] % (Auto) 11.5 H Eos % (Auto) 6.5 H Baso % (Auto) 1.8 Lymph # (Auto) 1.0 L [place] # (Auto) 0.5 Eos # (Auto) 0.3 Baso # (Auto) 0.1 Abs Immat Gran (auto) 0.02 Absolute Neuts (auto) 2.2 Absolute Nucleated RBC 0.000 Nucleated RBC % (auto) 0.0 Sodium 140 Potassium 3.8 Chloride 109 H Carbon Dioxide 19 L Anion Gap 16 BUN 13 Creatinine 0.86 Estim Creat Clear Calc 88.9 Estimated GFR > 60 Random Glucose 113 Calcium 8.6 C-Reactive Protein 2.26 H Procalcitonin 0.58 Nasal Screen MRSA (PCR) NEGATIVE Nasal S. aureus Screen NEGATIVE Nasal MRSA/S.aureus Interp SEE NOTE Microbiology Microbiology Results: Microbiology 11/03/22 00:02 Blood - Venous Blood Culture - Final Coag negative Staphylococcus 11/03/22 00:02 Blood - Venous Blood Culture - Final Coag negative Staphylococcus 11/03/22 05:08 Sputum - Expectorated Gram Stain - Final 11/03/22 05:08 Sputum - Expectorated Sputum Culture - Final Physical Exam Vital Signs: Vital Signs: Last Vital Signs Temp 97.5 F 11/06/22 16:00 Pulse 57 11/06/22 16:00 Resp 19 11/06/22 16:00 BP 100/55 L 11/06/22 16:00 Pulse Ox 97 11/06/22 16:00 O2 Del Method 11/06/22 16:00 BMI result Body Mass Index 31.1 Const: General: cooperative Resp: Effort & Inspection: normal respiratory effort Cardio: Rate: regular rate Rhythm: regular rhythm GI: Palpation (GI): nontender Assessment and Plan Assessment and plan (1) Pneumonia: Problem details: no MRSA seen nares Blood culture coagulase negative staph contaminant Status: Acute Assessment and Plan: Increased CSF protein check for syphilis (2) Elevated CSF protein: Status: Acute Plan Continue Ceftriaxone and Doxycycline possibly 3-5 days and then po Ceftin and Doxycycline another five days Stop Vancomycin Check CXR again Check RPR with elevated CSF protein. Time Spent With Patient Time: Total time managing care of this patient today ____ minutes.
[2022-11-07 08:07] LABS: Syphilis Screen Nonreactive (Nonreactive)
[2022-11-10 18:54] LABS: Legionella Ag Urine Not Detected (Not Detected)
== END 2022-11-06 18:38 | disposition home or self-care (01) ==
LOC: HO.ED 11-03 01:25 → HO.EDOVER 11-03 01:33 → HO.IMC 11-03 16:23
PROVIDERS: Internal Medicine; Physician Assistant; Physician Assistant Medical; Admitting Provider Student in an Organized Health Care Education/Training Program; Emergency Provider Internal Medicine; PCP Physician Assistant Medical; Visit Provider Family Medicine
DX: U07.1 COVID-19 (principal); J12.82 Pneumonia due to coronavirus disease 2019; J91.8 Pleural effusion in other conditions classified elsewhere; R00.1 Bradycardia, unspecified; E85.4 Organ-limited amyloidosis; I10 Essential (primary) hypertension; K21.9 Gastro-esophageal reflux disease without esophagitis; F39 Unspecified mood [affective] disorder; F03.90 Unspecified dementia, unspecified severity, without behavioral disturbance, psychotic disturbance, mood disturbance, and anxiety; G93.40 Encephalopathy, unspecified; H40.9 Unspecified glaucoma; Z79.899 Other long term (current) drug therapy
CPT/HCPCS: 0241U; 36415; 71046; 71250; 80048; 80053; 80202; 81001; 82565; 83605; 83735; 84145; 84484; 85025; 85610; 85730; 86140; 86780; 87040; 87070; 87147; 87205; 87449; 87640; 87641; 93005; 96365; 96366; 96367; 96372; 96375; 99222; 99285; J0696; J1650; J2543; J3370; J3371

== ENCOUNTER → 2022-11-13 15:08 | Outpatient (REF) | payer MEDICARE, OTHER, SELFPAY ==
--- NOTE | 2022-11-13 15:12 | HM_ITS ---
* Total monitoring time about 3 days. * Underlying rhythm is sinus with first-degree block. Average ventricular rate 52/Min. Range 47 to 83/Min. * Occasional supraventricular ectopy. [place] of 1.1%. * Occasional ventricular ectopy. [place] of 1.2%. Rare couplets, triplets. Some bigeminy, trigeminy also noted. Longest run 3 beats. * Computer read of Mobitz 2 second-degree heart block during sleep hours and again at 09:30. Upon review of strips, appears to be rather Mobitz 1, Wenckebach type. No evidence of high-grade heart blocks. * No patient markers or diary. MTDD
== END ==
LOC: HO.CARD 15:08
PROVIDERS: Visit Provider Internal Medicine Cardiovascular Disease
DX: R00.1 Bradycardia, unspecified (principal)
CPT/HCPCS: 93242

== ENCOUNTER 2023-11-11 08:41 | Day surgery (SDC) | payer MEDICARE, OTHER, SELFPAY ==
[2023-11-06 10:18] VITALS: BMI 29.0
--- NOTE | 2023-11-08 12:00 | HO.ANESPROP2 ---
Documented by User: Liz Soliman NP 11/08/23 12:01 HPI - Anesthesia Eval Consult details Narrative: 83yo M for Left Cataract Extraction IOL Insertion PCP cleared No previous cataract on record Eliquis for afib PMFSH Active Problems Active Problems: All Active Problems (Updated 11/06/23 @ 10:24 by Sridevi Bradford RN) Elevated CSF protein (Acute) Past Medical History Medical History Anesthesia complication Atrial fibrillation Elevated cholesterol Osteoarthritis Internal carotid artery stenosis Elevated hemidiaphragm History of cardioversion 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) History of supraventricular tachycardia History of atrial flutter Cardiac amyloidosis Pleural effusion Bradycardia Pneumonia COVID-19 Dementia Left lower lobe pulmonary infiltrate Glaucoma Arthritis Surgical History Surgical History Hx of vasectomy Hx of Achilles tendon repair History of surgery on arm H/O colonoscopy History of surgery on lower extremity History of cardiac radiofrequency ablation Social History Social History Household Members: Spouse Housing: House Are you a primary career based intervention coordinator to a significant other at home: No Do you presently have visiting nurse or other home services: Yes (home health aid) Alcohol intake: never Patient Tobacco Use Status: Never used Tobacco Use of substances other than those prescribed or required for medical reasons: No Have you been hit, kicked, punched, or otherwise hurt by someone within the past year? If so, by whom?: No Are you DNR?: No Advance Directives: No Advance Directives Information Provided: Yes Advance Directives on File: Yes Advance Directives Date on File: 06/26/21 Recently lost weight without trying: No Eating poorly because of decreased appetite: No Nutrition Risks: Surgical patient >75years Poor oral hygiene: No service: Yes Current occupational status: retired Meds Allergies Allergy/AdvReac Type Severity Reaction Status Date / Time sulfamethoxazole Allergy Intermediate jaundice Verified 11/06/23 10:20 [From Bactrim] trimethoprim [From Bactrim] Allergy Intermediate jaundice Verified 11/06/23 10:20 Home Medications Medication Instructions Recorded Confirmed Last Taken Type sertraline 100 mg tablet 1 tab PO DAILY 06/26/21 11/06/23 06/25/21 History travoprost 0.004 % eye drops 1 drp ophthalmic (eye) BEDTIME 06/26/21 11/06/23 06/25/21 History (Travatan Z) furosemide 20 mg tablet 1 tab PO DAILY PRN 11/03/22 11/06/23 Unknown History mirtazapine 7.5 mg tablet 1 tab PO BEDTIME 11/03/22 11/06/23 Unknown History tafamidis 61 mg capsule (Vyndamax) 1 cap PO DAILY 11/03/22 11/06/23 11/11/23 History apixaban 5 mg tablet (Eliquis) 5 mg PO BID 11/06/23 11/06/23 11/11/23 History cholecalciferol (vitamin D3) 25 25 mcg PO DAILY 11/06/23 11/06/23 Unknown History mcg (1,000 unit) capsule (Vitamin D3) Exam Height,Weight and Vital Signs: Height 6 ft 2 in Weight 102.512 kg Assessment and Plan Assessment Anesthesia Assessment: Chart Reviewed Documented by User: Marta Luis MD 11/11/23 10:16 [facility] Past Medical History Medical History Anesthesia complication Atrial fibrillation Elevated cholesterol Osteoarthritis Internal carotid artery stenosis Elevated hemidiaphragm History of cardioversion 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) History of supraventricular tachycardia History of atrial flutter Cardiac amyloidosis Pleural effusion Bradycardia Pneumonia COVID-19 Dementia Left lower lobe pulmonary infiltrate Glaucoma Arthritis Surgical History Surgical History Hx of vasectomy Hx of Achilles tendon repair History of surgery on arm H/O colonoscopy History of surgery on lower extremity History of cardiac radiofrequency ablation History of Problems with Anesthesia: No Social History Social History Household Members: Spouse Housing: House Are you a primary career based intervention coordinator to a significant other at home: No Do you presently have visiting nurse or other home services: Yes (home health aid) Alcohol intake: never Patient Tobacco Use Status: Never used Tobacco Use of substances other than those prescribed or required for medical reasons: No Have you been hit, kicked, punched, or otherwise hurt by someone within the past year? If so, by whom?: No Are you DNR?: No Advance Directives: No Advance Directives Information Provided: Yes Advance Directives on File: Yes Advance Directives Date on File: 06/26/21 Recently lost weight without trying: No Eating poorly because of decreased appetite: No Nutrition Risks: Surgical patient >75years Poor oral hygiene: No service: Yes Current occupational status: retired Meds Allergies Allergy/AdvReac Type Severity Reaction Status Date / Time sulfamethoxazole Allergy Intermediate jaundice Verified 11/06/23 10:20 [From Bactrim] trimethoprim [From Bactrim] Allergy Intermediate jaundice Verified 11/06/23 10:20 Home Medications Medication Instructions Recorded Confirmed Last Taken Type sertraline 100 mg tablet 1 tab PO DAILY 06/26/21 11/06/23 06/25/21 History travoprost 0.004 % eye drops 1 drp ophthalmic (eye) BEDTIME 06/26/21 11/06/23 06/25/21 History (Travatan Z) furosemide 20 mg tablet 1 tab PO DAILY PRN 11/03/22 11/06/23 Unknown History mirtazapine 7.5 mg tablet 1 tab PO BEDTIME 11/03/22 11/06/23 Unknown History tafamidis 61 mg capsule (Vyndamax) 1 cap PO DAILY 11/03/22 11/06/23 11/11/23 History apixaban 5 mg tablet (Eliquis) 5 mg PO BID 11/06/23 11/06/23 11/11/23 History cholecalciferol (vitamin D3) 25 25 mcg PO DAILY 11/06/23 11/06/23 Unknown History mcg (1,000 unit) capsule (Vitamin D3) Exam Airway Mallampati Class: II TM Dist: >3cm Neck ROM: Limited Loose/Missing/Broken Teeth: No Heart: RRR Lungs: CTA Assessment and Plan Assessment Anesthesia Assessment: Anesthesia Plan Discussed Final Anesthetic Review History of Problems with Anesthesia: No NPO: Yes ASA Class: III Final Preanesthetic Review: Meds/Allgs Chart Reviewed, Consent Obtained/Reviewed and Anes Risks/Benef Reviewed Patient Risk: Intermediate Procedure Risk: Low Anesthetic Plan Anesthetic Plan: MAC: Disposition: Standard PACU
[2023-11-11] VITALS (10 sets, daily range): BP systolic 113–125; BP diastolic 56–67; PULSE 52–61; RESP 16–20; TEMP 36.1–36.4; O2SAT 98–100
[2023-11-11] MEDS: Lactated Ringers 500 ML 50 ML IV (09:37)
[2023-11-11] MEDS: Tetracaine HCl/PF 0.5% Oph Sol 4 ML DROPS 1 DROP EYE-LEFT (09:37)
[2023-11-11] MEDS: Cyclopentolate 1 % Ophth Sol 2 ML DRPBTL 1 DROP EYE-LEFT ×3 (09:39→09:41)
[2023-11-11] MEDS: Phenylephrine HCL 2.5% Oph SoL 2 ML BOTTLE 1 DROP EYE-LEFT ×3 (09:39→09:42)
[2023-11-11] MEDS: Tropicamide 1 % Ophth Sol 3 ML BTL 1 DROP EYE-LEFT ×3 (09:39→09:41)
[2023-11-11] MEDS: Ketorolac Tromethamine 0.5% Op 5 ML DROPS 1 DROP EYE-LEFT ×3 (09:39→09:41)
--- NOTE | 2023-11-11 10:51 | P.HPSUR_ITS ---
Pre-Procedural Eval Section A - 24 Hr Update-Section A only Date of Service: 11/11/23 The patient is an INPATIENT: No Changes since office visit: No Cold of Flu in the past 2 weeks, No New Medical Problems, No Changes in Medication and No Patient answered all questions The patient has been examined within 24 hours of the surgical procedure. The History & Physical has been completed within 30 days and I have reviewed it.: Yes Section B - Complete if H&P > 30 days Chief Complaint: Age-related nuclear cataract, left eye Allergies: Allergies Allergy/AdvReac Type Severity Reaction Status Date / Time sulfamethoxazole Allergy Intermediate jaundice Verified 11/06/23 10:20 [From Bactrim] trimethoprim [From Bactrim] Allergy Intermediate jaundice Verified 11/06/23 1 0:20 Plan Diagnosis/Plan: Unchanged I have reviewed the history and physical and performed a pertinent physical examination on my patient. No changes have occurred unless specified. Time Spent With Patient Time: Total time managing care of this patient today ____ minutes.
--- NOTE | 2023-11-11 10:52 | HO.PNOPHT ---
Ophthalmology Procedure Procedure Date of Service: 11/11/23 Ophthalmology Viscoelastic: Healon Duet Dual Pack Pro Ophthalmology Lenses: Other (MA60 20) Procedure Notes: PREOPERATIVE DIAGNOSIS: Decreased visual acuity left eye secondary to cataract POSTOPERATIVE DIAGNOSIS: Same PROCEDURE: Left cataract extraction with intraocular lens insertion SURGEON: Britton Browne M.D. ANESTHESIA: Topical/MAC, changed to General ESTIMATED BLOOD LOSS: None COMPLICATIONS:Capsular hole After obtaining informed consent, the patient was brought to the operation room suite and placed in the supine position. After adequate sedation per anesthesia, topical drops of Tetracaine were given to the left eye. The eye was then prepped and draped in the usual sterile fashion. The operating room microscope was then positioned over the operative eye and a lid speculum placed. The patient became anxious and agitated requiring him to be placed under General Anesthesia. A paracentesis was created. Viscoelastic was then instilled into the anterior chamber. A three plane incision was then created temporally, utilizing a 2.85 mm keratome. Capsulotomy forceps were then utilized to create a circular tear capsulotomy. Hydrodissection and hydrodelineation were carried out until adequate mobilization of the nucleus occurred. Phacoemulsification was then utilized to remove the dense central nucleus, a small hole occured through the capsule requiring an anterior vitrectomy . Viscoat elastic was instilled and the lens was placed in the sulcus The residual. Viscoat elastic was then removed utilizing the vitrector . The wound was check and found to be watertight. The patient tolerated the procedure well and the lid speculum was removed. Intracameral injection of Vigamox 0.1 mL followed by a subtenon injection of Kenalog-40 0.2 mL were administered. The patient will be seen in the a.m.
== END 2023-11-11 14:10 | disposition home or self-care (01) ==
PROVIDERS: PCP Physician Assistant Medical; Visit Provider Ophthalmology
PROC: (CPT 66985; principal; 2023-11-11 10:20)
DX: H25.12 Age-related nuclear cataract, left eye (principal); H54.7 Unspecified visual loss; H59.212 Accidental puncture and laceration of left eye and adnexa during an ophthalmic procedure; Y65.8 Other specified misadventures during surgical and medical care; Y92.234 Operating room of hospital as the place of occurrence of the external cause; H40.1131 Primary open-angle glaucoma, bilateral, mild stage; H18.413 Arcus senilis, bilateral; H11.133 Conjunctival pigmentations, bilateral; I48.91 Unspecified atrial fibrillation; E78.00 Pure hypercholesterolemia, unspecified; F03.90 Unspecified dementia, unspecified severity, without behavioral disturbance, psychotic disturbance, mood disturbance, and anxiety; R83.5 Abnormal microbiological findings in cerebrospinal fluid; Z79.01 Long term (current) use of anticoagulants; Z79.899 Other long term (current) drug therapy; Z88.1 Allergy status to other antibiotic agents; Z98.890 Other specified postprocedural states
CPT/HCPCS: 66984; 67005; J2250; J2405; J2704; J3010; J3301; V2630

== ENCOUNTER 2023-12-02 10:39 | Day surgery (SDC) | payer MEDICARE, OTHER, SELFPAY ==
[2023-11-06 10:22] VITALS: BMI 29.0
--- NOTE | 2023-11-29 10:52 | P.CONAN_ITS ---
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) History of supraventricular tachycardia History of atrial flutter Cardiac amyloidosis Pleural effusion Bradycardia Pneumonia COVID-19 Dementia Left lower lobe pulmonary infiltrate Glaucoma Arthritis Surgical History Surgical History Hx of vasectomy Hx of Achilles tendon repair History of surgery on arm H/O colonoscopy History of surgery on lower extremity History of cardiac radiofrequency ablation History of Problems with Anesthesia: No Social History Social History Household Members: Spouse Housing: House Are you a primary healthcare business analyst to a significant other at home: No Do you presently have visiting nurse or other home services: Yes (home health aid) Alcohol intake: never Patient Tobacco Use Status: Never used Tobacco Use of substances other than those prescribed or required for medical reasons: No Have you been hit, kicked, punched, or otherwise hurt by someone within the past year? If so, by whom?: No Are you DNR?: No Advance Directives: No Advance Directives Information Provided: Yes Advance Directives on File: Yes Advance Directives Date on File: 06/26/21 Recently lost weight without trying: No Eating poorly because of decreased appetite: No Nutrition Risks: Surgical patient >75years Poor oral hygiene: No service: Yes Current occupational status: retired Meds Allergies Allergy/AdvReac Type Severity Reaction Status Date / Time sulfamethoxazole Allergy Intermediate jaundice Verified 12/02/23 15:00 [From Bactrim] trimethoprim [From Bactrim] Allergy Intermediate jaundice Verified 12/02/23 15:00 Home Medications Medication Instructions Recorded Confirmed Last Taken Type sertraline 100 mg tablet 1 tab PO DAILY 06/26/21 11/06/23 06/25/21 History travoprost 0.004 % eye drops 1 drp ophthalmic (eye) BEDTIME 06/26/21 11/06/23 06/25/21 History (Travatan Z) furosemide 20 mg tablet 1 tab PO DAILY PRN 11/03/22 11/06/23 Unknown History mirtazapine 7.5 mg tablet 1 tab PO BEDTIME 11/03/22 11/06/23 Unknown History tafamidis 61 mg capsule (Vyndamax) 1 cap PO DAILY 11/03/22 11/06/23 11/11/23 History apixaban 5 mg tablet (Eliquis) 5 mg PO BID 11/06/23 11/06/23 11/11/23 History cholecalciferol (vitamin D3) 25 25 mcg PO DAILY 11/06/23 11/06/23 Unknown History mcg (1,000 unit) capsule (Vitamin D3) Exam Height,Weight and Vital Signs: Height 6 ft 2 in Weight 102.512 kg Assessment and Plan Assessment Anesthesia Assessment: Chart Reviewed Final Anesthetic Review History of Problems with Anesthesia: No Documented by User: Cecy Mcfarland MD 12/02/23 15:00 [facility]LY [facility] Past Medical History Medical History Anesthesia complication Atrial fibrillation Elevated cholesterol Osteoarthritis Internal carotid artery stenosis Elevated hemidiaphragm History of cardioversion 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) History of supraventricular tachycardia History of atrial flutter Cardiac amyloidosis Pleural effusion Bradycardia Pneumonia COVID-19 Dementia Left lower lobe pulmonary infiltrate Glaucoma Arthritis Family History Family history of problems with anesthesia: No Surgical History Surgical History Hx of vasectomy Hx of Achilles tendon repair History of surgery on arm H/O colonoscopy History of surgery on lower extremity History of cardiac radiofrequency ablation Social History Social History Household Members: Spouse Housing: House Are you a primary healthcare business analyst to a significant other at home: No Do you presently have visiting nurse or other home services: Yes (home health aid) Alcohol intake: never Patient Tobacco Use Status: Never used Tobacco Use of substances other than those prescribed or required for medical reasons: No Have you been hit, kicked, punched, or otherwise hurt by someone within the past year? If so, by whom?: No Are you DNR?: No Advance Directives: No Advance Directives Information Provided: Yes Advance Directives on File: Yes Advance Directives Date on File: 06/26/21 Recently lost weight without trying: No Eating poorly because of decreased appetite: No Nutrition Risks: Surgical patient >75years Poor oral hygiene: No service: Yes Current occupational status: retired [employer] Allergies Allergy/AdvReac Type Severity Reaction Status Date / Time sulfamethoxazole Allergy Intermediate jaundice Verified 12/02/23 15:00 [From Bactrim] trimethoprim [From Bactrim] Allergy Intermediate jaundice Verified 12/02/23 15:00 Home Medications Medication Instructions Recorded Confirmed Last Taken Type sertraline 100 mg tablet 1 tab PO DAILY 06/26/21 11/06/23 06/25/21 History travoprost 0.004 % eye drops 1 drp ophthalmic (eye) BEDTIME 06/26/21 11/06/23 06/25/21 History (Travatan Z) furosemide 20 mg tablet 1 tab PO DAILY PRN 11/03/22 11/06/23 Unknown History mirtazapine 7.5 mg tablet 1 tab PO BEDTIME 11/03/22 11/06/23 Unknown History tafamidis 61 mg capsule (Vyndamax) 1 cap PO DAILY 11/03/22 11/06/23 11/11/23 History apixaban 5 mg tablet (Eliquis) 5 mg PO BID 11/06/23 11/06/23 11/11/23 History cholecalciferol (vitamin D3) 25 25 mcg PO DAILY 11/06/23 11/06/23 Unknown History mcg (1,000 unit) capsule (Vitamin D3) Exam Airway Mallampati Class: II TM Dist: >3cm Neck ROM: Full Assessment and Plan Assessment Anesthesia Assessment: Anesthesia Plan Discussed Final Anesthetic Review Family History of Problems with Anesthesia: No NPO: Yes ASA Class: III Final Preanesthetic Review: No Changes in Pt Med Stat, Meds/Allgs Chart Reviewed, Consent Obtained/Reviewed and Anes Risks/Benef Reviewed Patient Risk: Intermediate Procedure Risk: Low Anesthetic Plan Anesthetic Plan: MAC: Disposition: Standard PACU
[2023-12-02] MEDS: Tetracaine HCl/PF 0.5% Oph Sol 4 ML DROPS 1 DROP EYE-RIGHT (14:41)
[2023-12-02] MEDS: Cyclopentolate 1 % Ophth Sol 2 ML DRPBTL 1 DROP EYE-RIGHT ×3 (14:42→14:54)
[2023-12-02] MEDS: Tropicamide 1 % Ophth Sol 3 ML BTL 1 DROP EYE-RIGHT ×3 (14:42→14:54)
[2023-12-02] MEDS: Lactated Ringers 500 ML 50 ML IV (14:42)
[2023-12-02] MEDS: Phenylephrine HCL 2.5% Oph SoL 2 ML BOTTLE 1 DROP EYE-RIGHT ×3 (14:42→14:54)
[2023-12-02] MEDS: Ketorolac Tromethamine 0.5% Op 5 ML DROPS 1 DROP EYE-RIGHT ×3 (14:47→14:54)
[2023-12-02 14:58] VITALS: BP 111/54; PULSE 49; RESP 18; TEMP 36.6; O2SAT 99
--- NOTE | 2023-12-02 15:24 | PC.NURSE ---
Dr. Mcfarland aware of patient bradycardia. Assessed patient and review past medical history. okay to proceed. no changes.
--- NOTE | 2023-12-02 15:46 | MHC.SHP ---
Pre-Procedural Eval Section A - 24 Hr Update-Section A only Date of Service: 12/02/23 The patient is an INPATIENT: No Changes since office visit: No Cold of Flu in the past 2 weeks, No New Medical Problems, No Changes in Medication and No Patient answered all questions The patient has been examined within 24 hours of the surgical procedure. The History & Physical has been completed within 30 days and I have reviewed it.: Yes Section B - Complete if H&P > 30 days Chief Complaint: Age-related nuclear cataract, right eye Allergies: Allergies Allergy/AdvReac Type Severity Reaction Status Date / Time sulfamethoxazole Allergy Intermediate jaundice Verified 12/02/23 15:00 [From Bactrim] trimethoprim [From Bactrim] Allergy Intermediate jaundice Verified 12/02/23 15:00 Plan Diagnosis/Plan: Unchanged I have reviewed the history and physical and performed a pertinent physical examination on my patient. No changes have occurred unless specified. Time Spent With Patient Time: Total time managing care of this patient today ____ minutes.
--- NOTE | 2023-12-02 15:47 | HO.PNOPHT ---
Ophthalmology Procedure Procedure Date of Service: 12/02/23 Ophthalmology Viscoelastic: Healon Duet Dual Pack Pro Ophthalmology Lenses: IOL Acrysof MP (20) Procedure Notes: PREOPERATIVE DIAGNOSIS: Decreased visual acuity right eye secondary to cataract POSTOPERATIVE DIAGNOSIS: Same PROCEDURE: Right cataract extraction with intraocular lens insertion SURGEON: Britton Browne M.D. ANESTHESIA: Topical/MAC ESTIMATED BLOOD LOSS: None COMPLICATIONS: None After obtaining informed consent, the patient was brought to the operating room suite and placed in the supine position. After adequate sedation per anesthesia, topical drops of Tetracaine were given to the right eye. The eye was then prepped and draped in the usual sterile fashion. The operating room microscope was then positioned over the operative eye and a lid speculum placed. A paracentesis was created. Viscoelastic was then instilled into the anterior chamber. A three plane incision was then created temporally, utilizing a 2.85 mm keratome. Capsulotomy forceps were then utilized to create a circular tear capsulotomy. Hydrodissection and hydrodelineation were carried out until adequate mobilization of the nucleus occurred. Phacoemulsification was then utilized to remove the dense central nucleus followed by removal of the cortical material utilizing the automated aspiration irrigation unit. Viscoelastic was instilled into the posterior capsular bag followed by placement of a posterior chamber intraocular lens without difficulty. The residual Viscoelastic was then removed utilizing the automated IA machine. The wound was checked and found to be watertight. The patient tolerated the procedure well and the lid speculum was removed. Intracameral injection of Vigamox 0.1 mL followed by a subtenon injection of Kenalog-40 0.2 mL were administered. The patient will be seen in the a.m.
[2023-12-02 17:12] VITALS: BP 106/46; PULSE 61; RESP 16; TEMP 36.1; O2SAT 100
[2023-12-02 17:17] VITALS: BP 115/57; PULSE 64; RESP 16; O2SAT 100
[2023-12-02 17:22] VITALS: BP 116/53; PULSE 69; RESP 16; O2SAT 98
[2023-12-02 17:27] VITALS: BP 125/57; PULSE 69; RESP 16; O2SAT 100
[2023-12-02 17:54] VITALS: BP 122/64; PULSE 61; RESP 18; TEMP 36.4; O2SAT 100
== END 2023-12-02 18:05 | disposition home or self-care (01) ==
PROVIDERS: PCP Physician Assistant Medical; Visit Provider Ophthalmology
PROC: (CPT 66985; principal; 2023-12-02 13:00)
DX: H25.11 Age-related nuclear cataract, right eye (principal); H54.7 Unspecified visual loss; H40.1131 Primary open-angle glaucoma, bilateral, mild stage; H18.413 Arcus senilis, bilateral; H11.133 Conjunctival pigmentations, bilateral; M19.90 Unspecified osteoarthritis, unspecified site; E78.2 Mixed hyperlipidemia; I48.91 Unspecified atrial fibrillation; F03.90 Unspecified dementia, unspecified severity, without behavioral disturbance, psychotic disturbance, mood disturbance, and anxiety; Z79.01 Long term (current) use of anticoagulants; Z79.82 Long term (current) use of aspirin; Z79.899 Other long term (current) drug therapy; Z88.1 Allergy status to other antibiotic agents
CPT/HCPCS: 66984; J1596; J2704; J3301; V2630

== ENCOUNTER 2024-11-02 15:34 | Outpatient (REF) | payer MEDICARE, OTHER, SELFPAY ==
[2024-11-02 16:07] LABS: MANUAL DIFF FLAG NO
[2024-11-02 16:23] LABS: Basophils Absolute Auto 0.1 X10*3/uL (0.0-0.2); Basophils Percent Auto 1.2 % (0-2); Eosinophils Absolute Auto 0.1 X10*3/uL (0.0-0.4); Eosinophils Percent Auto 2.2 % (0-4); Hematocrit 33.6 % (42.0-52.0); Hemoglobin 11.2 g/dl (14.0-18.0); Imm Gran Abs Auto 0.01 X10*3/uL (0.00-0.03); Imm Gran Pct Auto 0.2 % (0.0-0.4); Lymphocytes Absolute Auto 1.3 X10*3/uL (1.2-4.9); Lymphocytes Percent Auto 31.8 % (20-40); Mean Corpuscular HGB Conc 33.3 g/dl (31.0-36.0); Mean Corpuscular Hemoglobin 34.8 pg (27.0-33.0); Mean Corpuscular Volume 104.3 fL (80.0-98.0); Mean Platelet Volume 12.6 fL (9.4-12.4); Monocytes Absolute Auto 0.4 X10*3/uL (0.1-1.2); Monocytes Percent Auto 10.5 % (2-11); Neutrophils Absolute Auto 2.2 x10*3/uL (2.0-8.3); Neutrophils Percent Auto 54.1 % (45-73); Platelet Count 112 X10*3/uL (160-400); Red Blood Count 3.22 X10*6/uL (4.60-5.80); Red Cell Distribution Width 12.7 % (11.0-16.0); White Blood Count 4.1 X10*3/uL (4.8-10.8)
--- OUTSIDE RECORDS SUMMARY | 2024-11-02 17:03 | XMS_ITS | Encounter Summary ---
Author Organization [facility] [place] [address] Care Team Providers Care Linking Machine Operator Name Role Phone Hosea Sky Primary Care Provider [phone] [phone] Encounter Details Date Type Department Care Team (Late st Contact Info) Description 06/30/2024 2:42 PM EDT Hospital Encounter TH HISTORIC ENCOUNTERS EASTERN CONVERSION ONLY Nereida Dooley PA [address] [place] [id number] Social History Tobacco Use Types Packs/Day Years Used Date Smoking Tobacco: Never Smokeless Tobacco: Never Alcohol Use Standard Drinks/Week Comments No 0 (1 standard drink = 0.6 oz pur e alcohol) Sex and Gender Information Value Date Recorded Sex Assigned at Male 08/14/2024 1:57 PM EST Gender Identity Male 08/14/2024 1:57 PM EST Sexual Orientation Not on file Job Start Date Occupation Industry Not on file Not on file Not on file documented as of this encounter Last Filed [...] 11:21 AM EDT documented in this encounter Progress Notes * KP Gutierrez [...] directed. He is followed by Pavan Jarquin, gas meter repairer in [place]. 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 He is . He has 1 [...] ordered (last imaging studies were in September). Luance sent in. Stay hydrated. Dietary recommendations reviewed with patient and his . Data Integration Developer consult with Sylwia can. Advised to contact his gas meter repairer office today for an appt KIMBERLY. If symptoms worsen, he shouldgo to the ER. I notified our nurse navigator, Kamar, and she will call the tomorrow to seeif they were able to book appt and to check on him. FOV in 3-4 weeks or sooner prn Case discussed with MD. documented in this encounter Plan of Treatment Upcoming Encounters Date Type Department Care Team (Late st Contact Info) Description 11/06/2024 12:45 PM EST Office Visit Adult [facility] [address] [place] [address] Hosea Sky PA [address] [place] [address] 03/18/2025 2:30 PM EDT Office Visit [facility] Hematology Oncology [address] [place] [phone] Alex Be MD [address] [place] [phone] documented as of this encounter Visit Diagnoses Not on filedocumented in this encounter Care Teams Linking Machine Operator Relationship Specialty Start Date End Date Hosea Sky PA PCP - General Internal Medicine 11/28/20 07/30/24 documented as of this encounter
--- OUTSIDE RECORDS SUMMARY | 2024-11-02 17:03 | XMS_ITS | Encounter Summary ---
Author Organization [facility] Address [address] [place] [address] Care Team Providers Care Stock Car Driver Name Role Phone Hosea Sky Primary Care Provider [phone] Encounter Details Date Type Department Care Team (Late Contact Info) Description 06/30/2024 2:30 PM EDT Hospital Encounter TH HISTORIC ENCOUNTERS EASTERN CONVERSION ONLY Nereida Dooley PA [address] [place] [address] Social History Tobacco Use Types Packs/Day Years [...] on file documented as of this encounter Plan of Treatment Upcoming Encounters Date Type Department Care Team (Late st Contact Info) Description 11/06/2024 12:45 PM EST Office Visit Adult Medicine [facility] [address] [place] [address] Hosea Sky PA [address] [place] [address] 03/18/2025 2:30 PM EDT Office Visit [facility] Hematology Oncology [address] [place] [phone] Alex Be MD [address] [place] [phone] documented as of this encounter Visit Diagnoses Not on filedocumented in this encounter Care Teams Stock Car Driver Relationship Specialty Start Date End Date Hosea Sky PA PCP - General Internal Medicine 11/28/20 07/30/24 documented as of this encounter
--- OUTSIDE RECORDS SUMMARY | 2024-11-02 17:03 | XMS_ITS | Clinical Summary ---
Author Organization [facility] Address [address] [place] [phone] Phone Care Team Providers Care Travel Registered Nurse Oncology Name Role Phone Hosea Sky Primary Care Provider [phone] Allergies Active Allergy Reactions Criticality Noted Date Comments Sulfa (Sulfonamide Antibiotics) Nausea And Vomiting 10/14/2020 Medications Medication Sig Dispensed Refills Start Date End Date Status ALPRAZolam (XANAX) 0.5 mg tablet Take 1 tablet (0.5 mg total) by mouth 2 (two) times a day. Max Daily Amount: 1 mg Active apixaban (ELIQUIS) 2.5 mg tablet Take 1 tablet (2.5 mg total) by mouth every 12 (twelve) hours. Active fluticasone propionate (FLONASE) 50 mcg/actuation nasal spray spray/apply 1 spray in each nostril daily. Active furosemide (LASIX) 40 mg tablet Take 1 tablet (40 mg total) by mouth 1 (one) time each day. Active omeprazole (PriLOSEC) [address] capsule Take 20 mg by mouth daily. Active predniSONE (DELTASONE) 20 mg tablet Take 1 tablet (20 mg total) by mouth 1 (one) time each day. Active sertraline (ZOLOFT) 50 mg tablet Take 1 tablet (50 mg total) by mouth 1 (one) time each day. 06/11/2023 Active tafamidis (Vyndamax) 61 mg capsule Active travoprost (TRAVATAN Z) 0.004 % drops apply to the eye. A ctive cholecalciferol (VITAMIN D-3) 25 mcg (1,000 unit) tablet INSTILL 2 SPRAYS IN EACH NOSTRIL ONCE A DAY Active cyanocobalamin (VITAMIN B-12) 1,000 mcg tablet Take 1 tablet (1,000 mcg total) by mouth 1 (one) time each day. 90 each 1 10/09/2024 10/09/2025 Active Active Problems Problem Noted Date Diagnosed Date Waldenstrom's macroglobulinemia 10/12/2023 Short-term memory loss 10/19/2020 Diastolic dysfunction with heart failure 020 Internal carotid artery stenosis, bilateral 07/01 Overview (05/30/2024): Mild bilateral plaque on carotid duplex. Vitamin B12 deficiency 11/18/2019 Osteoarthritis, knee 01/29/2013 Overview (05/30/2024): Hx bilateral tibial osteotomies 1990- Erectile dysfunction 01/21/2012 Mixed hyperlipidemia 01/17/2010 Overview (05/30/2024): Last Assessment & Plan: Last lipid panel 07/20 total cholesterol 160, HDL 66, LDL 82. Encounters Date Type Department Care Team Description 09/17/2024 2:30 PM EST Office Visit [facility] Hematology Oncology [address] [place] [address] Alex Be MD Waldenstrom's macroglobulinemia (Primary Dx) 08/14/2024 1:59 PM EST - 08/14/2024 11:59 PM EST Hospital Encounter [facility] CT Scan [address] [place] [phone] Abnormal weight loss Discharge Disposition: Home or Self Care from Last 3 Months Surgical History Surgery Date Site/Laterality Comments COLONOSCOPY PROCEDURE:COLONOSCOPY VASECTOMY PROCEDURE:VASECTOMY ACHILLES TENDON SURGERY 1970 PROCEDURE:ACHILLES TENDON SURGERY ELBOW SURGERY Bilateral PROCEDURE:ELBOW SURGERY KNEE SURGERY Bilateral PROCEDURE:KNEE SURGERY Medical History Medical History Date Comments Unspecified glaucoma DX:Unspecif ied glaucoma Atrial fibrillation (CMS/HCC) DX :Atrial fibrillation (HCC) HLD (hyperlipidemia) DX:HLD (hyp erlipidemia) Osteoarthritis of both knees DX: Osteoarthritis of both knees Bilateral inguinal hernia DX:Timoteo ateral inguinal hernia Vitamin B12 deficiency DX:Vitami n B12 deficiency Internal carotid artery sten osis, bilateral DX:Internal carotid artery s tenosis, bilateral Family History Medical History Relation Name Comments Cancer Brother Cancer Father Relation Name Status Comments Brother Father Social History Tobacco Use Types Packs/Day Years [...] file Not on file Not on file Obstetrics History Last Filed Vital Signs Vital Sign Reading Time Taken Comments Blood Pressure 125/49 09/17/2024 2:26 PM EST Pulse 41 09/17/2024 2:26 PM EST Temperature 36.6 ??C (97.9 ??F) 09/17/2024 2:26 PM ES T Respiratory Rate - - Oxygen Saturation 100% 09/17/2024 2:26 PM EST Inhaled Oxygen Concentration - - Weight 97.1 kg (214 lb) 09/17/2024 2:26 PM EST Height 188 cm (6' 2 ) 05/04/2024 11:21 AM EDT Body Mass Index 27.48 05/04/2024 11:21 AM EDT Plan of Treatment Upcoming Encounters Date Type Department Care Team (Late st Contact Info) Description 11/06/2024 12:45 PM EST Office Visit Adult Medicine [facility] [address] [place] [address] Hosea Sky PA [address] [place], [place] 03/18/2025 2:30 PM EDT Office Visit [facility] Hematology Oncology [address] [place] [phone] Alex Be MD [address] [place] [phone] Health Maintenance Due Date Last Done Comments DTaP,Tdap,and Td Vaccines (3 - Td or Tdap) 10/26/2020 10/26/2010, 11/04/2001 Depression Screening 09/08/2022 Falls Risk Assessment 09/08/2022 Medicare Annual Wellness Visit 09/08/2022 Social Influencers of Health Screening 09/08/2022 COVID-19 Vaccine ( season) 2024 12/12/2021, 12/02/2020, 11/11/2020 Influenza Vaccine (#1) 2024 , 09/19/2022, 07/27/2021, Additional history exists Zoster Vaccines (2 of 2) 07/17/2024 05/22/2024, 0403/2010 Hypertension/CHF/CAD Annual BMP Blood Test 05/18/2025 05/18/2024 Cholesterol Screening (Lipid Panel) 05/18/2029 05/18/2024 Pneumococcal Vaccine: 65+ Years Completed 01/17/2015, 03/09/2008 RSV Immunization Patients 60+ Years Old Completed 05/22/2024 HIB Vaccines Aged Out No longer eligi ble based on patient's age to complete this topic HPV Vaccines Aged Out No longer eligi ble based on patient's age to complete this topic Hepatitis A Vaccines Aged Out No long er eligible based on patient's age to complete this topic Hepatitis B Vaccines Aged Out No long er eligible based on patient's age to complete this topic IPV Vaccines Aged Out No longer eligi ble based on patient's age to complete this topic MMR Vaccines Aged Out No longer eligi ble based on patient's age to complete this topic Meningococcal ACWY Vaccine Aged Out N o longer eligible based on patient's age to complete this topic RSV Immunization Patients Under 20 months Aged Out No longer eligible based on patient's age to complete this topic Varicella Vaccines Aged Out No longer eligible based on patient's age to complete this topic Procedures Procedure Name Priority Date/Time Associated Diagnosis Comments CT CHEST/ABDOMEN/PELVI S W CONTRAST Routine 08/14/2024 2:34 PM EST Abnormal weight loss from Last 3 Months Results * CT Chest/Abdomen/Pelvis w Contrast (08/14/2024 2:34 PM EST) Anatomical Region Laterality Modality Body Computed Tomogra phy 08/18/2024 10:3 7 AM EST Impressions 08/18/2024 10:47 AM EST New small right pleural effusion. Otherwise unchanged appearance of the chest, abdomen, and pelvis compared with 10/30/2023. -------- FINAL REPORT -------- Dictated By: Andrzej Rahman Dictated Date: 08/18/2024 10:37 ET Assigned Physician: Andrzej Rahman Reviewed and Electronically Signed By: Andrzej Rahman Signed Date: 08/18/2024 10:47 ET Workstation ID: [id number] Transcribed By: Self Edit Transcribed Date: 08/18/2024 10:37 ET Narrative 08/18/2024 10:[address] chest, abdomen, and pelvis, 08/18/2024. HISTORY: Unintentional weight loss. COMPARISON: 10/30/2023. TECHNIQUE: Contrast-enhanced CT of the chest, abdomen, and pelvis with coronal and sagittal reformats. IV contrast dose: 90 mL ISOVUE-370. Dose length product: ??1173 mGy-cm. FINDINGS: Lungs/pleura: The central airways are normal in caliber. ??Elevated left hemidiaphragm with compressive atelectasis at the left base. ??New small left pleural effusion with a few small pleural calcifications at the posterior left base. ??No pneumothorax. ??No suspicious pulmonary nodule or mass. Mediastinum/erich: No mass or adenopathy. Thoracic vasculature: Normal caliber pulmonary arteries with no central pulmonary embolism. ??Mild atherosclerotic calcification of the aorta. Cardiac:. ??Mild coronary artery calcification. Chest wall: No mass or adenopathy. Liver: Scattered small low-attenuation lesions, likely cysts. ??Portal veins are patent. Biliary: Normal gallbladder and biliary tree. Pancreas: Normal. Spleen: Normal. Adrenal glands: Normal. Kidneys: Normal. ??Normal appearance of the ureters. Retroperitoneum: No mass or adenopathy. Abdominal vasculature: Mild atherosclerotic calcification. Bowel/mesentery: No obstruction or adenopathy. ??No mass or ascites. ??Redundant sigmoid. ??Normal appendix. Abdominal wall: Small fat-containing paraumbilical hernia. Pelvic nodes: No adenopathy. Pelvic organs: Normal. Bones: Degenerative changes of the hips, shoulders, and spine. Procedure Note Andrzej Rahman MD - 08/18/2024 CT chest, abdomen, and pelvis, 08/18/2024. HISTORY: Unintentional weight loss. COMPARISON: 10/30/2023. TECHNIQUE: Contrast-enhanced CT of the chest, abdomen, and pelvis withcoronal and sagittal reformats. IV contrast dose: 90 mL ISOVUE-370. Dose length product: 1173 mGy-cm. FINDINGS: Lungs/pleura: The central airways are normal in caliber. Elevated lefthemidiaphragm with compressive atelectasis at the left base. New smallleft pleural effusion with a few small pleural calcifications at theposterior left base. No pneumothorax. No suspicious pulmonary nodule ormass. Mediastinum/erich: No mass or adenopathy. Thoracic vasculature: Normal caliber pulmonary arteries with no centralpulmonary embolism. Mild atherosclerotic calcification of the aorta. Cardiac:. Mild coronary artery calcification. Chest wall: No mass or adenopathy. Liver: Scattered small low-attenuation lesions, likely cysts. Portalveins are patent. Biliary: Normal gallbladder and biliary tree. Pancreas: Normal. Spleen: Normal. Adrenal glands: Normal. Kidneys: Normal. Normal appearance of the ureters. Retroperitoneum: No mass or adenopathy. Abdominal vasculature: Mild atherosclerotic calcification. Bowel/mesentery: No obstruction or adenopathy. No mass or ascites.Redundant sigmoid. Normal appendix. Abdominal wall: Small fat-containing paraumbilical hernia. Pelvic nodes: No adenopathy. Pelvic organs: Normal. Bones: Degenerative changes of the hips, shoulders, and spine. IMPRESSION: New small right pleural effusion. Otherwise unchanged appearance of the chest, abdomen, and pelvis comparedwith 10/30/2023. -------- FINAL REPORT -------- Dictated By: Andrzej Rahman Dictated Date: 08/18/2024 10:37 ET Assigned Physician: Andrzej Rahman Reviewed and Electronically Signed By: Andrzej Rahman Signed Date: 08/18/2024 10:47 ET Workstation ID: [id number] Transcribed By: Self Edit Transcribed Date: 08/18/2024 10:37 ET Nereida GOODRICH IMG CT PROCEDURES from Last 3 Months Care Teams Travel Registered Nurse Oncology Relationship Specialty Start Date End Date Hosea Sky PA [address] [place] [address] PCP - General Internal Medicine 07/31/24
--- OUTSIDE RECORDS SUMMARY | 2024-11-02 17:03 | XMS_ITS | Clinical Summary ---
Author Organization [facility] Address [address] [place] [address] Care Team Providers Care Supervisor Logging Name Role Phone Hosea Sky PA-C Primary Care Provider Allergies Active Allergy Reactions Criticality Noted Date Comments Sulfa Antibiotics Nausea And Vomiting 1 Medications Medication Sig Dispensed Refills Start Date End Date Status ALPRAZolam (XANAX) 0.5 MG tablet Take 1 tablet (0.5 mg total) by mouth 2 (two) times a day. 0 Active omeprazole (PriLOSEC) 20 MG capsule Take 20 mg by mouth daily. 0 Active travoprost 0.004% (Travatan Z) 0.004 % SOLN ophthalmic solution Place 1 drop into both eyes every evening. 0 Active predniSONE (DELTASONE) tablet 20 mg Take 1 tablet (20 mg total) by mouth daily. 0 Active furosemide (LASIX) 40 MG tablet Take 1 tablet (40 mg total) by mouth daily. 0 Active vitamin D3 (cholecalciferol) 10 MCG (400 UNIT) tablet Take 1 tablet (10 mcg total) by mouth daily. 0 Active fluticasone (FLONASE) 50 MCG/ACT nasal spray spray/apply 1 spray in each nostril daily. 0 Active Tafamidis (Vyndamax) 61 MG CAPS Take by mouth. 0 Active sertraline (ZOLOFT) 50 MG tablet Take 1 tablet (50 mg total) by mouth daily. 0 Active apixaban (ELIQUIS) 2.5 MG TABS tablet Take 1 tablet (2.5 mg total) by mouth every 12 (twelve) hours. 0 Active vitamin B-12 (CYANOCOBALAMIN) 500 MCG tablet Take 1 tablet (500 mcg total) by mouth daily. 0 Active megestrol (MEGACE) suspension 40 mg/mL Take 20 mL (800 mg total) by mouth daily. 480 mL 1 06/30/2024 Active Active Problems Problem Noted Date Diagnosed Date Waldenstrom's macroglobulinemia 10/12/2023 Short-term memory loss 10/19/2020 Diastolic dysfunction with heart failure 020 Internal carotid artery stenosis, bilateral 07/01 Overview: Overview: Mild bilateral plaque on carotid duplex. H/O herpes encephalitis 05/31/2020 Vitamin B12 deficiency 11/18/2019 Osteoarthritis, knee 01/29/2013 Overview: Overview: Hx bilateral tibial osteotomies 1990- Erectile dysfunction 01/21/2012 Mixed hyperlipidemia 01/17/2010 Family History Medical History Relation Name Comments Cancer Brother Cancer Father Relation Name Status Comments Brother Father Social History Tobacco Use Types Packs/Day Years Used Date Smoking Tobacco: Never Smokeless Tobacco: Never Alcohol Use Standard Drinks/Week Comments No 0 (1 standard drink = 0.6 oz pur e alcohol) Sex and Gender Information Value Date Recorded Sex Assigned at Not on file Gender Identity Not on file Sexual Orientation Not on file Job Start Date Occupation Industry Not on file Not on file Not on file Last Filed Vital Signs Vital Sign Reading Time Taken Comments Blood Pressure 99/41 06/30/2024 2:54 PM EDT Pulse 49 06/30/2024 2:54 PM EDT Temperature 36.7 ??C (98.1 ??F) 06/30/2024 2:54 PM ED T Respiratory Rate - - Oxygen Saturation 99% 06/30/2024 3:42 PM EDT Inhaled Oxygen Concentration - - Weight 97.5 kg (215 lb) 06/30/2024 2:54 PM EDT Height 188 cm (6' 2 ) 10/19/2020 10:16 AM EST Body Mass Index 27.6 10/19/2020 10:16 AM EST Plan of Treatment Health Maintenance Due Date Last Done Comments Depression Screening 1953 BMI Counseling 1959 Preventative Health Evaluation 1959 Shingrix-Zoster Vaccine (1 of 2) 1960 Fall Risk Assessment 2006 RSV Adult > 60+ Yrs or (1 - 1-dose 75+ series) 2016 DTap / Tdap / Td (2 - Td or Tdap) 10/26/2020 10/26/2010 COVID-19 Vaccine ( season) 2024 12/12/2021, 12/02/2020, 11/11/2020 Influenza Vaccine (#1) 2024 3, 09/19/2022, 07/27/2021, Additional history exists Pneumococcal Vaccine Completed 01/17/2015, 03/09/20 08 Hepatitis B Vaccines Aged Out No long er eligible based on patient's age to complete this topic RSV Ped < 20 months Aged Out No longe r eligible based on patient's age to complete this topic Care Teams Supervisor Logging Relationship Specialty Start Date End Date Hosea Sky PA-C PCP - General Medical Services 10/11/23
[2024-11-02 17:15] LABS: Alanine Aminotransferase < 6 U/L (0-40); Albumin Level 3.3 g/dL (3.5-5.0); Alkaline Phosphatase 127 U/L (39-117); Anion Gap 13 (12-20); Aspartate Amino Transferase 15 U/L (5-37); Bilirubin Total 0.9 mg/dL (0.0-1.0); Blood Urea Nitrogen 14 mg/dL (9-16); Calcium 8.9 mg/dL (8.4-10.2); Carbon Dioxide 26 mmol/L (22-29); Chloride 107 mmol/L (96-108); Estimated Glomerular Filt Rate 59; Glucose Random 89 mg/dL (60-115); Potassium 4.5 mmol/L (3.3-5.1); Sodium 141 mmol/L (135-145); Total Protein 8.6 g/dL (6.5-8.0)
[2024-11-02 17:25] LABS: TSH reflex Free T4 4.25 uIU/mL (0.32-4.0)
[2024-11-02 17:35] LABS: Folate 4.2 ng/mL (> or = 4.0); Vitamin B12 1410 pg/mL (200-900)
[2024-11-02 19:38] LABS: Free T4 (Free Thyroxine) 1.06 ng/dL (0.71-1.85)
== END 2024-11-02 15:35 | disposition home or self-care (01) ==
LOC: HO.LAB 15:34
PROVIDERS: PCP Physician Assistant Medical; Visit Provider Registered Nurse
DX: G30.9 Alzheimer's disease, unspecified (principal)
CPT/HCPCS: 36415; 80053; 82607; 82746; 84439; 84443; 85025

== ENCOUNTER 2024-12-18 14:01 | Outpatient (REF) | payer MEDICARE, OTHER, SELFPAY ==
--- NOTE | ~2024-12-18 | CT_ITS ---
EXAMINATION: CT HEAD WITHOUT CONTRAST CLINICAL INFORMATION: Alzheimers disease COMPARISON: June 26, 2021. TECHNIQUE: Contiguous axial imaging was performed from the skull base to vertex without intravenous administration of contrast. This CT examination was performed using dose optimization techniques as appropriate, variously including the following: *Automated exposure control *Adjustment of mA and/or kV according to patient size (this includes techniques or standardized protocols for targeted exams where dose is matched to indication/reason for exam; i.e. extremities or head) *Use of iterative reconstruction technique DLP: 849 mGy-cm FINDINGS: Encephalomalacia anterior right temporal lobe. Prominence of the extra-axial CSF spaces cerebral sulci and ventricles. Bilateral subtle deep periventricular white matter patchy hypodensities. No acute intracranial hemorrhage, mass effect, midline shift, hydrocephalus or herniation. Calcified plaques in the cavernous supracavernous segments both ICAs. Sellar/suprasellar region demonstrated no gross masses or hemorrhage. Craniocervical junction is intact. Old traumatic deformities, nasal bones. No air-fluid levels in the paranasal sinuses. Tympanic cavities and mastoid cells are aerated. Degenerative changes in the temporomandibular joints. CT/CT head/brain wo IV con IMPRESSION: No acute brain abnormality. Encephalomalacia, anterior right temporal lobe. Stable brain. Electronically signed by: Shreyas Marie MD 12/18/2024 03:16 PM EDT
--- OUTSIDE RECORDS SUMMARY | 2024-12-18 16:23 | XMS_ITS ---
Author Organization [facility] Address [address] [place] [address] Care Team Providers Care Elevator Dispatcher Name Role Phone Hosea Galarza Primary Care Provider Unav ailable Tim Merrill Unavailable [phone] Areli Mejia Unavailable [phone] REASON FOR VISIT switching doctors Encounters Encounter Location Date Provider Diagnosis [address] [phone] 11/30/2024 Areli Mejia Plan Of Treatment Next Appt Details Provider Name:Tim Merrill , 03/02/2025 01:45:00 PM, [address] [place], [address], Progress Notes * Mckayla LOUISDOB: (84 yo M)Acc No.[id number]:11/30/2024 Patient:?Mckayla LOUIS :1940???Age:84 Y???Sex:Male Address:[place], [address] * * Date:?
--- OUTSIDE RECORDS SUMMARY | 2024-12-18 16:23 | XMS_ITS | Encounter Summary ---
Author Organization [facility] [place] [address] Care Team Providers Care Quantitative Consultant Name Role Phone Hosea Sky Primary Care Provider [phone] [phone] Encounter Details Date Type Department Care Team (Late st Contact Info) Description 06/30/2024 2:42 PM EDT Hospital Encounter TH HISTORIC ENCOUNTERS EASTERN CONVERSION ONLY Nereida Dooley PA [address] [place] [phone] Social History Tobacco Use Types Packs/Day Years Used Date Smoking Tobacco: Never Smokeless Tobacco: Never Alcohol Use Standard Drinks/Week Comments No 0 (1 standard drink = 0.6 oz pur e alcohol) Housing Instability Answer Date Recorde d Are you worried that in the next 2 months you may not have stable housing? No 11/06/2024 Food Access & Nutrition Answer Date Rec orded Do you have access to a vari ety of food including fruits and vegetables? Yes 11/06/2024 Access to Healthcare Answer Date Record ed Within the last 3 months, ho w many times did you visit the emergency department for your medical care? 0 11/06/2024 Health Literacy Answer Date Recorded How often do you need to hav e someone help you when you read instructions, pamphlets, or other written material from your doctor or pharmacy? Never 11/06/2024 Caregiver: How often do you need to have someone help you when you read instructions, pamphlets, or other written material from your doctor or pharmacy? Not on file 11/06/2024 Financial Risk Answer Date Recorded How hard is it for you to pa y for the very basics like food, housing, medical care, and air conditioning / heating? Not very hard 11/06/2024 Transportation Answer Date Recorded Has the lack of transportati on kept you from meetings, work, or from getting things needed for daily living? No Has the lack of transportati on kept you from medical appointments or from getting medications? No 11/06/2024 Social Isolation Answer Date Recorded How often do you feel lonely or isolated from th ose around you? Never 11/06/2024 Food Risk Answer Date Recorded Within the past 12 months we worried whether our food would run out before we got money to buy more. Never true 11/06/2024 Within the past 12 months th e food we bought just didn't last and we didn't have money to get more. Never true 11/06/2024 Dependent Care Answer Date Recorded Do you need help finding or paying for care for your loved ones. For example, child psychology teacher or elderly care for an older adult? No 11/06/2024 Education Answer Date Recorded Do you think completing more education or training, like finishing a GED, going to college, or learning a trade, would be helpful for you? No 11/06/2024 Employment and Income Answer Date Recor ded During the last four weeks, have you been actively looking for work? No 11/06/2024 Living Situation Answer Date Recorded What is your living situation? 0 11/06/2024 Sex and Gender Information Value Date Recorded Sex Assigned at Male 08/14/2024 1:57 PM EST Legal Sex Male 3:53 PM EST Gender Identity Male 08/14/2024 1:57 PM EST Sexual Orientation Not on file documented as of this [...] directed. He is followed by Pavan Jarquin, professor of environmental science in [place]. 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 He has 1 [...] recommendations reviewed with patient and his . Biostatistics Teacher consult with Sylwia pamella. Advised to contact his professor of environmental science office today for an appt KIMBERLY. If [...] Care Team (Late st Contact Info) Description 03/18/2025 2:30 PM EDT Office Visit [facility] Hematology Oncology [address] [place] [phone] Alex Be MD [address] [place] [phone] 05/12/2025 12:45 PM EDT Office Visit Adult Medicine [facility] [address] [place] [address] Hosea Sky PA [address] [place], [place] documented as of this encounter Visit Diagnoses Not on filedocumented in this encounter Care Teams Quantitative Consultant Relationship Specialty Start Date End Date Hosea Sky PA PCP - General Internal Medicine 11/28/20 07/30/24 documented as of this encounter
--- OUTSIDE RECORDS SUMMARY | 2024-12-18 16:23 | XMS_ITS | Clinical Summary ---
Author Organization [facility] Address [address] [place] [address] Care Team Providers Care Regional Administrative Assistant Name Role Phone Hosea Sky PA-C Primary [...] age to complete this topic Care Teams Regional Administrative Assistant Relationship Specialty Start Date End Date Hosea Sky PA-C PCP - General Medical Services 10/11/23
--- OUTSIDE RECORDS SUMMARY | 2024-12-18 16:23 | XMS_ITS | Encounter Summary ---
Author Organization [facility] [place] [address] Care Team Providers Care Radar Engineer Name Role Phone Hosea Sky Primary Care Provider [phone] Encounter Details Date Type Department Care Team (Late st Contact Info) Description 06/30/2024 2:30 PM EDT Hospital Encounter TH HISTORIC ENCOUNTERS EASTERN CONVERSION ONLY Nereida Dooley PA [address] [place] [id number] Social History Tobacco Use Types Packs/Day Years [...] care for your loved ones. For example, early childhood associate teacher or elderly care for an older [...] Description 03/18/2025 2:30 PM EDT Office Visit [facility] Hematology Oncology [address] [place] [address] Alex Be MD [address] [place] [id number] 05/12/2025 12:45 PM EDT Office Visit [address] [address] Hosea Sky PA [address] [place] [address] documented as of this encounter Visit Diagnoses Not on filedocumented in this encounter Care Teams Radar Engineer Relationship Specialty Start Date End Date Hosea Sky PA PCP - General Internal Medicine 11/28/20 07/30/24 documented as of this encounter
--- OUTSIDE RECORDS SUMMARY | 2024-12-18 16:23 | XMS_ITS ---
Author Organization [facility] madeline Hernandez Address [address] [facility] [place] [address] Care Team Providers Care Waterworks Supervisor Name Role Phone Hosea Galarza Primary Care Provider Unav ailable Tim Merrill Unavailable [phone] Mejia, Areli Unavailable [phone] Allergies Allergen (clinical drug ingredient) Drug/Non Drug Allergy documented on EMR Reaction Allergy Type Onset Date Status Substance with sulfonamide structure and antibacterial mechanism of action (substance) Sulfa Antibiotics hepatitis Drug Allergy Active REASON FOR VISIT At Risk Footcare, Painful Nail(s) aggravated by shoes and causing difficulty standing/walking. Medications Medication SIG (Take, Route, Frequency, Duration) Notes Start Date End Date Status Aspirin 81 MG 1 tablet Orally Once a day for 30 day(s) Active Donepezil HCl 10 MG Oral for 90 Not-Taking Ciclopirox Olamine 0.77 % 1 application to affected area Externally Twice a day to effected areas on feet for 30 days 03/29/2022 Active Furosemide 20 MG Oral for 90 PRN A ctive Travoprost eye drops Active Vyndamax 61 MG Oral for 30 Act ivonne Omeprazole 20 MG Oral for 90 N ot-Taking Keflex 500 MG 1 capsule Orally emiliano ry 12 hrs for 10 day(s) Not-Taking Vitamin B12 Active Metoprolol Tartrate 25 MG Oral for 90 Not-Taking Mirtazapine 7.5 MG as directed Orally Not-Taking Sertraline HCl 50 MG as directed Oral On ce a day Active Social History Tobacco Use: Social History Observation Description Date Details (start date - stop date) Never Smoker NA - NA Tobacco Use/Smoking Question Answer Notes Are you a: nonsmoker Additional Findings: Tobacco Non-User Current no n-smoker Alcohol Screen Question Answer Notes Did you have a drink containing alcohol in the p ast year? No Points 0 Interpretation Negative Tobacco use other than smoking: Question Answer Notes Are you an other tobacco user? No Problems Problem Type SNOMED Code ICD Code Onset Dates Problem Status W/U Status Risk Notes Problem Bilateral atherosclerosis of arteries of lower limbs ([id number] ) Atherosclerosis of [place] artery of both lower extremities, with unspecified presence of clinical manifestation (I70.203) Active confirmed Q7(A), Q8(2B), Q9(1B,2 C) Problem 47277318 Essential hypertension (I10) Active confirmed Vital Signs Height 6 ft 2 in in 09/10/2024 Weight 231 lbs 09/10/2024 BMI 29.66 kg/m2 09/10/2024 Blood pressure systolic 130 mm Hg 09/10/20 24 Blood pressure diastolic 60 mm Hg 024 Procedures Procedure Date Ordered Date Performed Result Body Sit e 33695-KDCPDIX NAIL, 6 OR MORE 09/10/2024 N/A 10783-QPFY SKIN LESIONS, 2 TO 4 09/10/2024 N/A Encounters Encounter Location Date Provider Diagnosis [facility] [address] [place] [address] 09/10/2024 Areli Mejia Atherosclerosis of [place] artery of both lower extremities, with unspecified presence of clinical manifestation I70.203 ; Tinea unguium B35.1 ; Pain in right toe(s) M79.674 and Pain in left toe(s) M79.675 Assessments Encounter Date Diagnosis (ICD Code) Assessment Notes Treatment Notes Treatment Clinical Notes Section Notes 09/10/2024 Atherosclerosis of [place] artery of both lower extremities, with unspecified presence of clinical manifestation (ICD-10 - I70.203) Q7(A), Q8(2B), Q9(1B,2C) 09/10/2024 Tinea unguium (ICD-10 - B35.1) 09/10/2024 Pain in right toe(s) (ICD-10 - M79.674) 09/10/2024 Pain in left toe(s) (ICD-10 - M79.675) Plan Of Treatment Pending Test Test Name Order Date 61831-QDWFWDH NAIL, 6 OR MORE 09/10/2024 82894-MGTS SKIN LESIONS, 2 TO 4 09/10/20 24 Next Appt Details Follow Up: prn, Reason: Provider Name:Tim Merrill , 03/02/2025 01:45:00 PM, [address] [place], [address], Procedure Notes * Category Sub-Category Detail Notes Debride Nail 6-10 Nail debridement Due to the cl inical pathology outlined in the exam findings, performance of this nail treatment is medically necessary as its management by an unskilled/untrained nonprofessional would put this patients foot and overall health at risk. Therefore, debridement to affected nail(s), as described in exam ( , TA, T1, T2, T3, T4, T5, T6, T7, T8, T9 ), was performed exclusively by the physician of record to reduce/remove overall nail length, girth, thickness, subungual debris, and necrotic tissue, by manual and/or electrical means through the use of a nail nipper and/or dremel-type grinder setup operator, to a more viable healthy nail plate or bed tissue 6-10 nails in total. Silver nitrate was used for any petechial bleeding as necessary. Definitive antifungal treatment options, both pharmaceutical and surgical, have been reviewed and discussed with the patient. The patient solely prefers the use of intermittent/as needed professional debridement services for their nail condition and understands the need for additional periodic treatments to maintain effectiveness in symptomatic relief - 21334 Keratoma Treatment Parring or Cutting o f Benign Hyperkeratotic Lesion(s) ..., (-56) 2-4 Lesions - Due to the at risk nature of the patients medical condition as documented in the exam findings, performance of this keratoderma treatment is medically necessary as its management by an unskilled/untrained nonprofessional would put this patients foot and overall health at risk. Therefore, the benign hyperkeratotic lesions, ( 2 ) in total, locations as stated and described in the exam ( plantar heels B/L), were pared, and/or cut utilizing a sterile 15 blade, tissue nippers, and/or power dremel instrumentation by the physician of record - 83422 Progress Notes * Lakshmi LOUIS: 1 (84 yo M)Acc No.[id number]:09/10/2024 Progress Note Patient:Mckayla GRIGGS Provider:?Areli Mejia DPM :1940???Age:84 Y???Sex:Male Riki e:09/10/2024 Address:[address] [place] [address] [facility] Pcp:KP Lopez Subjective: * Chief Complaints: * ???At Risk FootcarePainful N ail(s) aggravated by shoes and causing difficulty standing/walking. * HPI: ???At Risk footcare:?Pt States Last PCP Visit:?Date?01/03/2024 * ROS:?General/Constitutional:?Nausea?denies.?Vomiting?denies.?Hunger Thirst?denies.?Loss appetite?denies.?Chills?denies.?Fatigue?denies.?Fever?denies.?Night Sweats?denies.?Unexplained weight loss?denies.?Unexplained weight gain?denies.?HEENTM:?Dentures?denies.?Dizziness?denies.?Glasses/contacts?admits.?Retinopathy?de nies.?Blurred/double vision?denies.?TMJ?denies.?Discharge/drainage?denies.?Implants?denies.?Sore throat?denies.?Dental implants?denies.?Hard of hearing ?denies.?Difficulty chewing/swallowing/speaking?denies.?Nose bleeds?denies.?Sore mouth?denies.?Respiratory:?On Oxygen?denies.?Pneumonia/pleurisy?denies.?Bronchitis?denies.?Emphysema?denies.?C oughing?denies.?Cough blood?denies.?Shortness of breath?denies.?Wheezing?denies.?Cardiovascular:?Pacemaker?denies.?MVP?denies.?WPW?denies.?CHF?denies.?Heart attack?denies.?Septal defect?denies.?Rapid beat?denies.?Chest pain ?denies.?Atrial Fib.?denies.?Murmur/Palpitations?denies.?Gastrointestinal:?Hemorrhoids?denies.?Stomach/Abdominal pain?denies.?Dark blood stool?denies.?Irritable bowel ?denies.?Constipation?denies.?Diarrhea?denies.?Hematology:?Swelling?denies.?Clots?denies.?Varicose Veins?denies.?Bruising?denies.?Bleeding problem?denies.?Genitourinary:?Blood urine?denies.?Frequent/Painfu/urination/bladder control?denies.?Kidney stones?denies.?Infection (UTI)?denies.?Nephropathy?denies.?sex trans dis (STD)?denies.?Prostate?denies.?Musculoskeletal:?Hammertoes?denies.?Bunions?denies.?Back Pain?denies.?Muscle Cramps/ Resting?denies.?Muscle cramps / walking?denies.?Generalized aches and pains?admits.?Weakness?denies.?Integ.:?Christina?denies.?Scars?denies.?Corns/calluses?denies.?Ingrown nails?denies.?Painful nails?denies.?Open Sores?denies.?Rashes?denies.?Neurologic:?Difficulty sleeping?denies.?Brain disorder?denies.?Numbness?denies.?Balance trouble?denies.?Confusion?denies.?Fainting/blackouts?denies.?Tingling?denies.?Tr emors?denies.? * Medical History:? * Surgical History:?No Surgica l History documented. * Hospitalization/Major Diagno stic Procedure:?No Hospitalization History. * Family History:?Mother: dece ased, diagnosed with Family history of arthritis.?Father: , diagnosed with Other malignant neoplasm of unspecified site.?Siblings: foot problems, diagnosed with Unspecified cerebral artery occlusion with cerebral infarction.? * Social History:?Tobacco Use:?Tobacco Use/Smoking?Are you a:?nonsmoker ?Additional Findings: Tobacco Non-User?Current non-smoker ?Tobacco use other than smoking?Are you an other tobacco user??No ???Drugs/Alcohol:?Drugs?Have you used drugs other than those for medical reasons in the past 12 months??No ?Alcohol Screen?Did you have a drink containing alcohol in the past year??No ?Points?0 ?Interpretation?Negative ???Miscellaneous:?Caffeine: yes, frequency:, 1-2 cups per day. ?Children: yes. ?Exercise: no. ?Marital status: . ?Occupation: retired . * Medications:?TakingVitamin B 12 Travoprost , Notes to Pharmacist: eye dropsAspirin 81 MG Tablet Chewable 1 tablet Orally Once a day Ciclopirox Olamine 0.77 % Cream 1 application to affected area Externally Twice a day to effected areas on feet Furosemide 20 MG Tablet Oral , Notes to Pharmacist: PRNSertraline HCl 50 MG Tablet as directed Oral Once a day Vyndamax 61 MG Capsule Oral Taking Vitamin B12 Taking Travoprost , Notes to Pharmacist: eye dropsTaking Aspirin 81 MG Tablet Chewable 1 tablet Orally Once a day Taking Ciclopirox Olamine 0.77 % Cream 1 application to affected area Externally Twice a day to effected areas on feet Taking Furosemide 20 MG Tablet Oral , Notes to Pharmacist: PRNTaking Sertraline HCl 50 MG Tablet as directed Oral Once a day Taking Vyndamax 61 MG Capsule Oral Not- Taking/PRNDonepezil HCl 10 MG Tablet Oral Mirtazapine 7.5 MG Tablet as directed Orally Keflex 500 MG Capsule 1 capsule Orally every 12 hrs Omeprazole 20 MG Capsule Delayed Release Oral Metoprolol Tartrate 25 MG Tablet Oral Medication List reviewed and reconciled with the patientNot-Taking/PRN Donepezil HCl 10 MG Tablet Oral Not-Taking/PRN Mirtazapine 7.5 MG Tablet as directed Orally Not-Taking/PRN Keflex 500 MG Capsule 1 capsule Orally every 12 hrs Not-Taking/PRN Omeprazole 20 MG Capsule Delayed Release Oral Not-Taking/PRN Metoprolol Tartrate 25 MG Tablet Oral Medication List reviewed and reconciled with the patient * Allergies:?Sulfa Antibiotics : hepatitisyes[Allergies Verified] Objective: * Vitals:?Ht: 6 ft 2 in, Wt: 2 31, BMI: 29.66, Shoe size: 11.5D-12, BP: 130/60 mm Hg, Wt-k.78 kg. * Examination: ???Vascular: ?DP PULSES(B):? 0/4, B/L.?PT PULSES(B):? 0/4, B/L.?CAPILLARY FILL TIME:? delayed, all digits, B/L.?TROPHIC CONDITION-TEXTURE/ELASTICITY/TURGOR/HAIR GROWTH(B):? decreased, fragile, thin, shiny skin, with sparse to absent hair growth, B/L.?TEMPERTURE GRADIENT(C):? decreased, cool to cool, proximal to distal, B/L.?PIGMENTATION:?brawny, B/L.?EDEMA(C):?absent, B/L.?CLAUDICATION(C):?denies, B/L.?REST PAIN:?denies, B/L.?PARESTHESIA(C):?absent, B/L.?BURNING(C):?absent, B/L.?Nails: ?NAILS are:?Elongated, overgrown, dystrophic, lytic, greater than 3mm thick, discolored and friable with crumbly malodorous subungual debris, with pain on palpation, TA, T1, T2, T3, T4, T5, T6, T7, T8, T9.?Dermatologic: ?SKIN FINDINGS:?Skin exam reveals Keratotic lesion(s) located at plantar heels B/L.?Orthopedic: ?MUSCLE STRENGTH:?5/5 all groups in a symmetrical fashion, B/L.?Neurological: ?SENSORY:?Neurological exam reveals intact sensorium, pain sensation normal, vibration sensation intact, pinprick sensation is normal in the lower extremities, Pt denies, anesthesia, burning, paresthesia, tingling, B/L.?General Examination: ?GENERAL APPEARANCE:?Reveals a pleasant, alert, well nourished, well- developed, well hydrated individual, who demonstrates proper attention to hygiene/body habitus, and is in no acute distress, Pt serves as own historian for office visit today.?ORIENTED:?person, place, and time.? Assessment: * Assessment: 1.?Atherosclerosis of [place] artery of both lower extremities, with unspecified presence of clinical manifestation - I70.203 (Primary)???Notes :Q7(A), Q8(2B), Q9(1B,2C)???2.?Tinea unguium - B35.1???3.?Pain in right toe(s) - M79.674???4.?Pain in left toe(s) - M79.675??? Plan: * Treatment: 2.?Tinea unguium?Procedure: [id number]-[id number] NAIL, 6 OR MORE * Procedures:?Debride Nail 6-10:?Nail debridement?Due to the clinical pathology outlined in the exam findings, performance of this nail treatment is medically necessary as its management by an unskilled/untrained nonprofessional would put this patients foot and overall health at risk. Therefore, debridement to affected nail(s), as described in exam ( , TA, T1, T2, T3, T4, T5, T6, T7, T8, T9 ), was performed exclusively by the physician of record to reduce/remove overall nail length, girth, thickness, subungual debris, and necrotic tissue, by manual and/or electrical means through the use of a nail nipper and/or dremel-type grinder setup operator, to a more viable healthy nail plate or bed tissue 6- 10 nails in total. Silver nitrate was used for any petechial bleeding as necessary. Definitive antifungal treatment options, both pharmaceutical and surgical, have been reviewed and discussed with the patient. The patient solely prefers the use of intermittent/as needed professional debridement services for their nail condition and understands the need for additional periodic treatments to maintain effectiveness in symptomatic relief - 87799.?Keratoma Treatment:?Parring or Cutting of Benign Hyperkeratotic Lesion(s)?..., (-56) 2-4 Lesions - Due to the at risk nature of the patients medical condition as documented in the exam findings, performance of this keratoderma treatment is medically necessary as its management by an unskilled/untrained nonprofessional would put this patients foot and overall health at risk. Therefore, the benign hyperkeratotic lesions, ( 2 ) in total, locations as stated and described in the exam ( plantar heels B/L), were pared, and/or cut utilizing a sterile 15 blade, tissue nippers, and/or power dremel instrumentation by the physician of record - 40781.? * Procedure Codes:?63086 DEBRI DE NAIL, 6 OR MORE, Modifiers: XS 80846 TRIM SKIN LESIONS, 2 TO 4, Modifiers: XS * Follow Up:?prn * Images: * Sign off status: Completed true * Provider:?Areli Mejia DPM Date:?1 11/11/2023 Generated for Lexie vigil/Ramona/Joan on:?12/18/2024 04:23 PM EDT History and Physical Notes * HPI (History of Present Illness) Category Sub-Category Detail Notes Category Not es At Risk footcare Pt States Last PCP Visit: Date: 4 Examination Category Sub-Category Detail Notes Category Not es Neurological SENSORY: Neurological exa m reveals intact sensorium, pain sensation normal, vibration sensation intact, pinprick sensation is normal in the lower extremities, Pt denies, anesthesia, burning, paresthesia, tingling, B/L Dermatologic SKIN FINDINGS: Skin exam reveal s Keratotic lesion(s) located at plantar heels B/L Orthopedic MUSCLE STRENGTH: 5/5 all groups in a symmetrical fashion, B/L General Examination GENERAL APPEARANCE: Reveals a pleasant, alert, well nourished, well-developed, well hydrated individual, who demonstrates proper attention to hygiene/body habitus, and is in no acute distress, Pt serves as own historian for office visit today ORIENTED: person, place, and t sushma Vascular DP PULSES (B): 0/4, B/L PT PULSES (B): 0/4, B/L CAPILLARY FILL TIME: delayed, all digits , B/L TEMPERTURE GRADIENT (C): decreased, cool to cool, proximal to distal, B/L TROPHIC CONDITION-TEXTURE/ELASTICITY/TURGOR/HAIR GROWTH (B): decreased, fragile, thin, shiny skin, wi th sparse to absent hair growth, B/L EDEMA (C): absent, B/L CLAUDICATION (C): denies, B/L REST PAIN: denies, B/L PIGMENTATION: brawny, B/L PARESTHESIA (C): absent, B/L BURNING (C): absent, B/L Nails NAILS are: Elongated, overg rown, dystrophic, lytic, greater than 3mm thick, discolored and friable with crumbly malodorous subungual debris, with pain on palpation, TA, T1, T2, T3, T4, T5, T6, T7, T8, T9
--- OUTSIDE RECORDS SUMMARY | 2024-12-18 16:23 | XMS_ITS ---
Author Organization [facility] Care Team Providers Care Hair Dresser Name Role Phone Canelo Sheffield Unavailable Unavailable Lesvia Shin Unavailable Unavailable Allergies and adverse reactions Code CodeSystem Substance Reaction Severity StartDate Concern Status 67201 RXNORM Trimethoprim Unknown 06/29/2021 active 30941 RXNORM Sulfamethoxazole Unknown 06/29/2021 acti ve Care Team Name Role Address Phone Organization Dates Lesvia Shin PCP [address] [facility] [address], [place], [address], [place] States (Office): [facility] 06/29/2021 - 07/19/2021 Canelo Sheffield Attending Physician [address] [facility] [address], [place], [address], [facility] (Office): : [facility] 06/29/2021 - 07/19/2021 Immunizations Immunization Status Vaccine Details Vaccine Code CodeSystem Riki e Notes Influenza completed Influenza, split virus, trivalent, injectable, contains preservative lotNumber: [id number] expiry: 03/29/2022 Mfg: Geolo[employer]. Given 0.5 ml Left Deltoid orally 141 CVX created date: 07/11/2021 consent date: 07/11/2021 administered date: 07/11/2021 Mental Status Section Date Assessment Total Score Description 07/19/2021 BIMS 10 moderate cognit ivonne impairment CAM 0 No delirium ind icated PHQ-9 00 07/02/2021 BIMS 10 moderate cognit ivonne impairment CAM 0 No delirium ind icated PHQ-9 00 Problems Problem # Description Date of onset Resolved Date Code CodeSystem Concern Status 1 UNSPECIFIED PROTEIN-CALORIE MALNUTRITION 07/03/[address] active 2 ADULT FAILURE TO THRIVE 06/29/[address] active 3 DIZZINESS AND GIDDINESS 06/29/[address] active 4 ENCEPHALITIS AND ENCEPHALOMYELITIS , UNSPECIFIED 06/29/[address] active 5 ESSENTIAL (PRIMARY) HYPERTENSION 06/29/[address] active 6 GASTRO-ESOPHAGEAL REFLUX DISEASE WITHOUT ESOPHAGITIS 06/29/[address] active 7 HERPESVIRAL ENCEPHALITIS 06/29/[address] active 8 MAJOR DEPRESSIVE DISORDER, SINGLE EPISODE, UNSPECIFIED 06/29/[address] active 9 MUSCLE WASTING AND ATROPHY, NOT ELSEWHERE CLASSIFIED, RIGHT ANKLE AND FOOT 06/29/[address] active 10 OTHER SPECIFIED ARTHRITIS, UNSPECIFIED SITE 06/29/[address] active 11 PNEUMONIA, UNSPECIFIED ORGANISM 06/29/[address] active 12 UNSPECIFIED DEMENTIA WITH BEHAVIORAL DISTURBANCE 06/29/[address] active 13 UNSPECIFIED GLAUCOMA 06/29/[address] active 14 UNSTEADINESS ON FEET 06/29/[address] active Reason for Referral No Reasons for Referral Entered Social History Social History Observation Description Start Date End Date Code Code System Current Smoking Status Tobacco smoking consumption unknown 832125385 SNOMED CT Sex Assigned At Male 1940 [address]6833-9 [facility] Vital Signs Code Code System Vitals Name Values and Units Timing Information 8462-4 [facility] Blood Pressure-Diastolic Value=75 Un its=mmHg 07/19/2021 8480-6 [facility] Blood Pressure-Systolic Nvjhu=660 Un its=mmHg 07/19/2021 8867-4 [facility] Heart rate Value=70.0 Units=/min 9279-1 [facility] Respiratory Rate Value=18.0 Units=/m in 07/19/2021 8310-5 [facility] Body Temperature Value=97.3 Units=?? F 07/19/2021 19431-5 [facility] O2 % BldC Oximetry Value=98.0 Units= % 07/19/2021 25543-8 [facility] Pain Level Value=0.0 07/19/2021 15426-4 [facility] Weight Sflmf=197.0 Units=Lbs 8302-2 [facility] Height Value=74.4 Units=Inches 06/30/2021
--- OUTSIDE RECORDS SUMMARY | 2024-12-18 16:23 | XMS_ITS | Patient Health Record ---
Author Organization [facility] madeline [place] Address [address] [facility] [place] [address] Care Team Providers Care Title Inspector Name Role Phone Hosea Galarza Primary Care Provider Unav Tim Acevedo Unavailable [phone] Kirit Malloy Unavailable [phone] Areli Mejia Unavailable [phone] Allergies Allergen (clinical drug ingredient) Drug/Non Drug Allergy documented on EMR Reaction Allergy Type Onset Date Status Substance with sulfonamide structure and antibacterial mechanism of action (substance) Sulfa Antibiotics hepatitis Drug Allergy Active Reason For Referral No Information Medications Medication SIG (Take, Route, Frequency, Duration) Notes Start Date End Date Status Aspirin 81 MG 1 tablet Orally Once a day for 30 day(s) Active Donepezil HCl 10 MG Oral for 90 Not-Taking Ciclopirox Olamine 0.77 % 1 application to affected area Externally Twice a day to effected areas on feet for 30 days 03/29/2022 Active Mirtazapine 7.5 MG as directed Orally Not-Taking Furosemide 20 MG Oral for 90 PRN A ctive Vyndamax 61 MG Oral for 30 Act ivonne Sertraline HCl 50 MG as directed Oral On ce a day Active Omeprazole 20 MG Oral for 90 N ot-Taking Keflex 500 MG 1 capsule Orally emiliano ry 12 hrs for 10 day(s) Not-Taking Travoprost eye drops Active Vitamin B12 Active Metoprolol Tartrate 25 MG Oral for 90 Not-Taking Immunizations Vaccine Route Administration Date Status Comme nts COVID-19 Pfizer BioNTech Vaccine Unknown 12/07/2021 Administered 2020 Booster 12/07/21 Social History Tobacco Use: Social History Observation [...] Bilateral atherosclerosis of arteries of lower limbs ([id number] ) Atherosclerosis of [place] artery of both lower extremities, with unspecified presence of clinical manifestation (I70.203) Active confirmed Q7(A), Q8(2B), Q9(1B,2 C) Problem [id number] Essential hypertension (I10) Active confirmed Vital Signs Blood pressure diastolic 60 mm Hg 09/10/2024 Height 6 ft 2 in in 09/10/2024 Blood pressure systolic 130 mm Hg 09/10/2024 Weight 231 lbs 09/10/2024 BMI 29.66 kg/m2 09/10/2024 Procedures Procedure Date Ordered Date Performed Result Body Sit e 73021-OFCS SKIN LESIONS, 2 TO 4 06/04/2024 N/A 71586-FEKFPEJ NAIL, 6 OR MORE 09/10/2024 N/A 61856-MZFW SKIN LESIONS, 2 TO 4 09/10/2024 N/A Encounters Encounter Location Date Provider Diagnosis [facility] [address] [address] 02/17/2024 Kirit Malloy Tinea unguium B35.1 ; Pain in right toe(s) M79.674 ; Pain in left toe(s) M79.675 ; Skin disease L98.9 ; Ingrowing nail L60.0 ; Unspecified atherosclerosis of [place] arteries of extremities, bilateral legs I70.203 and Xerosis cutis L85.3 [facility] [address] [address] 06/04/2024 Kirit Malloy Tinea unguium B35.1 ; Pain in right toe(s) M79.674 ; Pain in left toe(s) M79.675 ; Skin disease L98.9 ; Ingrowing nail L60.0 ; Unspecified atherosclerosis of [place] arteries of extremities, bilateral legs I70.203 and Xerosis cutis L85.[address] [address] 09/10/2024 Areli eMjia Atherosclerosis of [place] artery of both lower extremities, with unspecified presence of clinical manifestation I70.203 ; Tinea unguium B35.1 ; Pain in right toe(s) M79.674 and Pain in left toe(s) M79.[address] [address] 11/30/2024 Areli Mejia [address] [address] 02/11/2024 Kirit Malloy Assessments Encounter Date Diagnosis (ICD Code) Assessment Notes Treatment Notes Treatment Clinical Notes Section Notes 02/17/2024 Tinea unguium (ICD-10 - B35.1) 02/17/2024 Pain in right toe(s) (ICD-10 - M79.674) 06/04/2024 Tinea unguium (ICD-10 - B35.1) 06/04/2024 Pain in right toe(s) (ICD-10 - M79.674) 09/10/2024 Atherosclerosis of [place] artery of both lower extremities, with unspecified presence of clinical manifestation (ICD-10 - I70.203) Q7(A), Q8(2B), Q9(1B,2C) 09/10/2024 Tinea unguium (ICD-10 - B35.1) 06/04/2024 Pain in left toe(s) (ICD-10 - M79.675) 02/17/2024 Pain in left toe(s) (ICD-10 - M79.675) 02/17/2024 Skin disease (ICD-10 - L98.9) 06/04/2024 Skin disease (ICD-10 - L98.9) 09/10/2024 Pain in right toe(s) (ICD-10 - M79.674) 09/10/2024 Pain in left toe(s) (ICD-10 - M79.675) 06/04/2024 Ingrowing nail (ICD-10 - L60.0) 02/17/2024 Ingrowing nail (ICD-10 - L60.0) 06/04/2024 Unspecified atherosclerosis of [place] arteries of extremities, bilateral legs (ICD-10 - I70.203) 02/17/2024 Unspecified atherosclerosis of [place] arteries of extremities, bilateral legs (ICD-10 - I70.203) 06/04/2024 Xerosis cutis (ICD-10 - L85.3) 02/17/2024 Xerosis cutis (ICD-10 - L85.3) Plan Of Treatment Pending Test Test Name Order Date [id number]-[id number] NAIL, 6 OR MORE 09/10/2024 29022-TFJS SKIN LESIONS, OVER 4 03/15/20 22 16801-ZFUJ SKIN LESIONS, 2 TO 4 06/28/20 22 93988-TMDS SKIN LESIONS, 2 TO 4 06/04/20 24 81021-ZDZX SKIN LESIONS, 2 TO 4 09/10/20 24 64955-ZCLDVMXT OF HEMATOMA/FLUID 022 Next Appt Details Provider Name:iTm Merrill , 03/02/2025 01:45:00 PM, [address] [place], [address], Insurance Providers Payer Name Payer Address Payer Phone Subscriber Number Group Number Insured Name Patient Relationship to Insured Coverage Start Date Coverage End Date Medicare [employer] [address] [place] [address] [id number] Mckayla Louis Self - patient is the insured for Life [address] [place] [phone] [id number] Mckayla Louis Self - patient is the insured Medical (General) History Medical History History ICD Code Arthritis Broken bones Cholesterol Cataracts Chicken pox Glaucoma Heart disease Measles Mumps Reflux ( GERD) white blood cell type of cancer Surgical History Surgery Date(Month/Year)
--- OUTSIDE RECORDS SUMMARY | 2024-12-18 16:24 | XMS_ITS | Clinical Summary ---
Author Organization [facility] Address [address] [place] [address] Phone Care Team Providers Care Form Block Maker Name Role Phone Hosea Sky Primary Care Provider [phone] Allergies Active Allergy Reactions Criticality Noted Date Comments Sulfa (Sulfonamide Antibiotics) Nausea And Vomiting 10/14/2020 Trimethoprim 06/29/2021 Medications fluticasone propionate (FLONASE) 50 mcg/actuation nasal spray [...] 0.004 % drops apply to the eye. Active cholecalciferol (VITAMIN D-3) 25 mcg (1,000 unit) tablet INSTILL 2 SPRAYS IN EACH NOSTRIL ONCE A DAY Active cyanocobalamin (VITAMIN B-12) 1,000 mcg tablet Take 1 tablet (1,000 mcg total) by mouth 1 (one) time each day. 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 Recent CT scan did not show any infiltrates but minimal consolidation in the left side that could be related to the hemidiaphragmatic elevation and could be mostly atelectasis. I explained to Mr. Daughter and his that there is no need for treatment at this point. He denies any dyspnea and is asymptomatic so no further testing for this elevation of the hemidiaphragm is needed at this point. Do not think that this is the cause of the weight loss. I advised him to come back to see me in a year both before if he develops symptoms like shortness of breath, cough, wheezing or chest pain. 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 Continue follow-up with Dr. Fritz. Bradycardia 11/29/2022 Amyloidosis 01/30/2022 Overview (11/06/2024): Last Assessment & Plan: Now on tafamidis, tolerating this well. He is due to follow-up with [facility] cardiology, his will call to get an appointment scheduled. NSVT (nonsustained ventricular tachycardia) 01/2022 Overview (11/06/2024): Last Assessment & Plan: Per hospital record short nonsustained VT, treated with BB. Will complete a 48- hour Holter monitor. 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 He is on 40 mg of Lasix daily. He admits to voiding large amounts. It does not sound like they are compliant with a low-salt diet. We did discuss this in great detail. We did discuss calling the office for weight gain of more than 3 pounds in 1 day or 5 pounds in 1 week. He will continue the current dose of diuretic for now as his is afraid increasing this will cause him to be in the bathroom more or have accidents. Unfortunately, his dementia is worsening. Internal carotid artery stenosis, bilateral 07/01 Overview (05/30/2024): Mild bilateral plaque on carotid duplex. Vitamin B12 deficiency 11/18/2019 Bilateral inguinal hernia 06/23/2014 Osteoarthritis, knee 01/29/2013 Overview (05/30/2024): Hx bilateral tibial osteotomies 1990- Erectile dysfunction 01/21/2012 Mixed hyperlipidemia 01/17/2010 Overview (05/30/2024): Last Assessment & Plan: Last lipid panel 07/20 total cholesterol 160, HDL 66, LDL 82. Atrial fibrillation 03/24/2006 Encounters Date Type Department Care Team Description 11/06/2024 12:45 PM EST Office Visit Adult Medicine [address] [address] Hosea Sky PA Dementia without behavioral disturbance (CMS/HCC) (Primary Dx); Internal carotid artery stenosis, bilateral; Diastolic heart failure, unspecified HF chronicity (CMS/HCC); Mixed hyperlipidemia; Vitamin B12 deficiency; Waldenstrom's macroglobulinemia; Longstanding persistent atrial fibrillation (CMS/HCC); Amyloid heart disease (CMS/HCC); Dementia with behavioral disturbance (CMS/HCC); Essential (primary) hypertension; Major depressive disorder with single episode, remission status unspecified; NSVT (nonsustained ventricular tachycardia) (CMS/HCC); Herpesviral encephalitis from Last 3 Months Immunizations Name Administration Dates Next Due Influenza trivalent, 0.5mL (Fluad) 65yo and olde r 11/06/2024 Surgical History Surgery Date Site/Laterality Comments COLONOSCOPY [...] care for your loved ones. For example, children's tutor or elderly care for an older adult? [...] PM EST Sexual Orientation Not on file Obstetrics History Last Filed Vital Signs Vital Sign Reading Time Taken Comments Blood Pressure 118/56 11/06/2024 12:55 PM EST Pulse 43 11/06/2024 12:55 PM EST Temperature 36.4 ??C (97.5 ??F) 11/06/2024 12:[address] Respiratory Rate 15 11/06/2024 12:55 PM EST Oxygen Saturation 100% 09/17/2024 2:26 PM EST Inhaled Oxygen Concentration - - Weight 94.2 kg (207 lb 9.6 oz) 11/06/2024 12:55 PM EST Height 188 cm (6' 2 ) 11/06/2024 12:55 PM EST Body Mass Index 26.65 11/06/2024 12:55 PM EST Plan of Treatment Upcoming Encounters Date Type Department Care Team (Late st Contact Info) Description 03/18/2025 2:30 PM EDT Office Visit [facility] Hematology Oncology [address] [place] [address] Alex Be MD [address] [place] [address] 05/12/2025 12:45 PM EDT Office Visit Adult Medicine [facility] [address] [place] [address] Hosea Sky PA [address] [place] [address] Health Maintenance Due Date Last Done Comments DTaP,Tdap,and Td Vaccines (3 - Td or Tdap) 10/26/2020 10/26/2010, 11/04/2001 Medicare Annual Wellness Visit 09/08/2022 COVID-19 Vaccine ( - season) 2024 12/12/2021, 12/02/2020, 11/11/2020 Zoster Vaccines (2 of 2) 07/17/2024 05/22/2024, 03/2010 Hypertension/CHF/CAD Annual BMP Blood Test 05/18/2025 05/18/2024 Depression Screening 11/06/2025 11/06/2024 Falls Risk Assessment 11/06/2025 11/06/2024 Social Influencers of Health Screening 11/06/2025 11/06/2024 Cholesterol Screening (Lipid Panel) 05/18/2029 05/18/2024 Pneumococcal Vaccine: 50+ Years Completed 01/17/2015, 03/09/2008 RSV Immunization Patients 60+ Years Old Completed 05/22/2024 Influenza Vaccine Completed 11/06/2024, , 09/19/2022, Additional history exists HIB Vaccines Aged Out No longer eligi [...] patient's age to complete this topic Meningococcal B Vacine Aged Out No lo nger eligible based on patient's age to complete this topic RSV Immunization Patients Under 20 months Aged Out No longer eligible based on patient's age to complete this topic Varicella Vaccines Aged Out No longer eligible based on patient's age to complete this topic Insurance [employer] Member Subscriber Plan / Payer (Ef fective 2023-Present) Name:Mckayla Louis Relation to Subscriber:Self Name:Mckayla Louis Payer ID:[id number] Group ID:Not on file Type:Not on file Address: [address] [address] MEDICARE Care Teams Form Block Maker Relationship Specialty Start Date End Date Hosea Sky PA [address] [place] [address] PCP - General Internal Medicine 07/31/24
--- OUTSIDE RECORDS SUMMARY | 2024-12-18 16:24 | XMS_ITS ---
Author Organization [facility] [place] Address [address] [facility] [address] [place] [address] Care Team Providers Care Yard Rigger Name Role Phone Hosea Galarza Primary Care Provider Unav ailable Desirae Tim Unavailable [phone] Kirit Malloy Unavailable [phone] Allergies Allergen (clinical drug ingredient) Drug/Non Drug Allergy documented on EMR Reaction Allergy Type Onset Date Status Substance with sulfonamide structure and antibacterial mechanism of action (substance) Sulfa Antibiotics hepatitis Drug Allergy Active REASON FOR VISIT Painful nail(s) aggrevated by shoes and causing difficulty standing/walking. Medications Medication SIG (Take, Route, Frequency, Duration) Notes Start Date End Date Status Furosemide 20 MG Oral for 90 PRN A ctive Mirtazapine 7.5 MG as directed Orally Active Donepezil HCl 10 MG Oral for 90 Active Sertraline HCl 100 MG as directed Oral O nce a day Active Vyndamax 61 MG Oral for 30 Act ivonne Ciclopirox Olamine 0.77 % 1 application to affected area Externally Twice a day to effected areas on feet for 30 days 03/29/2022 Active Omeprazole 20 MG Oral for 90 N ot-Taking Aspirin 81 MG 1 tablet Orally Once a day for 30 day(s) Active Metoprolol Tartrate 25 MG Oral for 90 Not-Taking Travoprost eye drops Active Keflex 500 MG 1 capsule Orally emiliano ry 12 hrs for 10 day(s) Not-Taking Social History Tobacco Use: Social History Observation [...] Are you an other tobacco user? No Vital Signs Height 6 ft 2 in in 06/04/2024 Weight 231 lbs 06/04/2024 BMI 29.66 kg/m2 06/04/2024 Blood pressure systolic 127 mm Hg 06/04/20 Blood pressure diastolic 57 mm Hg 024 Procedures Procedure Date Ordered Date Performed Result Body Sit e 01035-BYDY SKIN LESIONS, 2 TO 4 06/04/2024 N/A Encounters Encounter Location Date Provider Diagnosis [facility] [address] [address] 06/04/2024 KiritEstevez Tinea unguium B35.1 ; Pain in right toe(s) M79.674 ; Pain in left toe(s) M79.675 ; Skin disease L98.9 ; Ingrowing nail L60.0 ; Unspecified atherosclerosis of [place] arteries of extremities, bilateral legs I70.203 and Xerosis cutis L85.3 Assessments Encounter Date Diagnosis (ICD Code) Assessment Notes Treatment Notes Treatment Clinical Notes Section Notes 06/04/2024 Tinea unguium (ICD-10 - B35.1) 06/04/2024 Pain in right toe(s) (ICD-10 - M79.674) 06/04/2024 Pain in left toe(s) (ICD-10 - M79.675) 06/04/2024 Skin disease (ICD-10 - L98.9) 06/04/2024 Ingrowing nail (ICD-10 - L60.0) 06/04/2024 Unspecified atherosclerosis of [place] arteries of extremities, bilateral legs (ICD-10 - I70.203) 06/04/2024 Xerosis cutis (ICD-10 - L85.3) Plan Of Treatment Pending Test Test Name Order Date 00546-LQJY SKIN LESIONS, 2 TO 4 06/04/20 24 Next Appt Details Follow Up: 4 Months, Reason: Provider Name:Tim Merrill , 03/02/2025 01:45:00 PM, [address] [place] [address], [phone], Procedure Notes * Category Sub-Category Detail Notes Debride Nail 6-10 Nail debridement Nail debridem ent performed extensively to reduce/remove overall nail length and girth, subungual debris, and necrotic tissue, by manual and electrical means with use of a nail nipper and/or dremel, to more viable healthy nail plate or bed tissue 6-10. Silver nitrate used for any petechial bleeding as necessary. Patient chooses, no pharmaceutical tx (20090) Keratoma Treatment Parring or Cutting o f Benign Hyperkeratotic Lesion(s) 02053 (2-4 Lesions) - The Benign hyperkeratotic lesions, as described above were pared, and/or cut utilizing a sterile #15 blade, tissue nippers, and/or dremel, Q8 Progress Notes * Mckayla LOUISDOB: [birth year] (84 yo M)Acc No.[id number]:06/04/2024 Progress Note Patient:?Mckayla Louis Provider:?Kirit Malloy DPM :1940???Age:84 Y???Sex:Male Riki e:06/04/2024 Address:[address] [place], [place] [id number] Pcp:KP Lopez Subjective: * Chief Complaints: * ??? Painful nail(s) aggrevat ed by shoes and causing difficulty standing/walking. * HPI: ???Painful Nails:?Pt States Last PCP Visit:?Date:?01/03/2024 ?Misc:? is present today.? * ROS:?General/Constitutional:?Nausea?denies.?Vomiting?denies.?Hunger Thirst?denies.?Loss appetite?denies.?Chills?denies.?Fatigue?denies.?Fever?denies.?Night Sweats?denies.?Unexplained weight loss?denies.?Unexplained [...] trouble?denies.?Confusion?denies.?Fainting/blackouts?denies.?Tingling?denies.?Tr emors?denies.? * Medical History:? * Surgical History:?Denies Pas t Surgical History * Hospitalization/Major Diagno stic Procedure:?Denies Past Hospitalization * Family History:?Mother: dece ased, diagnosed with [...] frequency:, 1-2 cups per day. ?Children: yes. ?no Exercise. ?Marital status: . ?Occupation: retired . * Medications:?TakingTravopros t , Notes: eye dropsAspirin 81 MG Tablet Chewable 1 tablet Orally Once a dayCiclopirox Olamine 0.77 % Cream 1 application to affected area Externally Twice a day to effected areas on feetDonepezil HCl 10 MG Tablet Oral Furosemide 20 MG Tablet Oral , Notes: PRNMirtazapine 7.5 MG Tablet as directed Orally Sertraline HCl 100 MG Tablet as directed Oral Once a dayVyndamax 61 MG Capsule Oral Taking Travoprost , Notes: eye dropsTaking Aspirin 81 MG Tablet Chewable 1 tablet Orally Once a dayTaking Ciclopirox Olamine 0.77 % Cream 1 application to affected area Externally Twice a day to effected areas on feetTaking Donepezil HCl 10 MG Tablet Oral Taking Furosemide 20 MG Tablet Oral , Notes: PRNTaking Mirtazapine 7.5 MG Tablet as directed Orally Taking Sertraline HCl 100 MG Tablet as directed Oral Once a dayTaking Vyndamax 61 MG Capsule Oral Not-Taking/PRNKeflex 500 MG Capsule 1 capsule Orally every 12 hrsOmeprazole 20 MG Capsule Delayed Release Oral Metoprolol Tartrate 25 MG Tablet Oral Not-Taking/PRN Keflex 500 MG Capsule 1 capsule Orally every 12 hrsNot-Taking/PRN Omeprazole 20 MG Capsule Delayed Release Oral Not-Taking/PRN Metoprolol Tartrate 25 MG Tablet Oral * Allergies:?Sulfa Antibiotics : hepatitisyes[Allergies Verified] Objective: * Vitals:?Ht: 6 ft 2 in, Wt:23 1, BMI:29.66, Shoe size:11.5-12D, BP:127/57 mm Hg. * Examination: ???Nails: ?NAILS are:?elongated,overgrown,dystrophic,greater than 3mm thick,discolored and friable with crumbly malodorous subungual debris, with pain on palpation, 1-5 B/L.?General Examination: ?GENERAL APPEARANCE:?pleasant, alert, well nourished, well developed, well hydrated, with good attention to hygene/body habitus, and in no acute distress.?ORIENTED:? confused; his niece is present and acts as historian.?Neurological: ?SENSORY:?neurological exam reveals intact sensorium, pain sensation normal, vibration sensation intact, pinprick sensation is normal in the lower extremities, anesthesia, burning, tingling, B/L.?Vascular: ?DP PULSES:? 0/4, B/L.?PT PULSES:? 0/4, B/L.?EDEMA:? 2/4, B/L, Feet, Ankle(s), Leg(s).?Dermatologic: ?SKIN FINDINGS:? Skin exam reveals Keratotic lesion(s) located at, Plantar, T1, T2, T3, T6, T7, T8, Skin shows sign(s) of, dryness, scaling, in a stocking fashion, no fissure(s) present, B/L.?Orthopedic: ?MUSCLE STRENGTH:?5/5 all groups in a symmetrical fashion , B/L.? Assessment: * Assessment: 1.?Tinea unguium - B35.1 (Pr imary)?2.?Pain in right toe(s) - M79.674?3.?Pain in left toe(s) - M79.675?4.?Skin disease - L98.9?5.?Ingrowing nail - L60.0?6.?Unspecified atherosclerosis of [place] arteries of extremities, bilateral legs - I70.203 7.?Xerosis cutis - L85.3? Plan: * Treatment: * Procedures:?Debride Nail 6-10:?Nail debridement?Nail debridement performed extensively to reduce/remove overall nail length and girth, subungual debris, and necrotic tissue, by manual and electrical means with use of a nail nipper and/or dremel, to more viable healthy nail plate or bed tissue 6-10. Silver nitrate used for any petechial bleeding as necessary. Patient chooses, no pharmaceutical tx (41387).?Keratoma Treatment:?Parring or Cutting of Benign Hyperkeratotic Lesion(s)?73329 (2-4 Lesions) - The Benign hyperkeratotic lesions, as described above were pared, and/or cut utilizing a sterile #15 blade, tissue nippers, and/or dremel, Q8.? * Procedure Codes:?59900 DEBRI DE NAIL, 6 OR MORE, Modifiers: XS 68538 TRIM SKIN LESIONS, 2 TO 4, Modifiers: Q8 * Follow Up:?4 Months * Images: * Sign off status: Completed true * Provider:?Kirit Malloy DPM Date:? 024 Generated for Lexie vigil/Ramona/Joan on:?12/18/2024 04:23 PM EDT History and Physical Notes * HPI (History of Present Illness) Category Sub-Category Detail Notes Category Not es Painful Nails Misc: is present today Pt States Last PCP Visit: Date:: 01/03/2024 Examination Category Sub-Category Detail Notes Category Not es Neurological SENSORY: neurological exa m reveals intact sensorium, pain sensation normal, vibration sensation intact, pinprick sensation is normal in the lower extremities, anesthesia, burning, tingling, B/L Dermatologic SKIN FINDINGS: Skin exam reveal s Keratotic lesion(s) located at, Plantar, T1, T2, T3, T6, T7, T8, Skin shows sign(s) of, dryness, scaling, in a stocking fashion, no fissure(s) present, B/L Orthopedic MUSCLE STRENGTH: 5/5 all groups in a symmetrical fashion , B/L General Examination GENERAL APPEARANCE: pleasant , alert, well nourished, well developed, well hydrated, with good attention to hygene/body habitus, and in no acute distress ORIENTED: confused; his niece is present and acts as historian Vascular DP PULSES (B): 0/4, B/L PT PULSES (B): 0/4, B/L EDEMA (C): 2/4, B/L, Feet, Ankl e(s), Leg(s) Nails NAILS are: elongated,overgr own,dystrophic,greater than 3mm thick,discolored and friable with crumbly malodorous subungual debris, with pain on palpation, 1-5 B/L
== END 2024-12-18 14:02 | disposition home or self-care (01) ==
LOC: HO.CT 14:01
PROVIDERS: PCP Physician Assistant Medical; Visit Provider Registered Nurse
DX: G30.9 Alzheimer's disease, unspecified (principal)
CPT/HCPCS: 70450

== ENCOUNTER → 2024-12-18 14:19 | Outpatient (BNV) | payer MEDICARE, OTHER, SELFPAY | PROVIDERS: PCP Physician Assistant Medical; Visit Provider Radiology Diagnostic Radiology | DX: G93.89 Other specified disorders of brain (principal) | CPT/HCPCS: 70450 ==

== ENCOUNTER 2025-09-06 15:21 | Outpatient (AMB) | payer MEDICARE, OTHER, SELFPAY ==
--- OUTSIDE RECORDS SUMMARY | 2024-06-30 13:30 | XMS_ITS | Encounter Summary ---
Author Organization [facility] [place] [address] Care Team Providers Care Ticket Seller Name Role Phone Hosea Sky Primary Care Provider [phone] Encounter Details Date Type Department Care Team (Late st Contact Info) Description 06/30/2024 2:30 PM EDT Hospital Encounter TH HISTORIC ENCOUNTERS EASTERN CONVERSION ONLY Nereida Dooley PA [address] [place] [phone] Social History Tobacco Use Types Packs/Day Years Used Date Smoking Tobacco: Former Cigarettes Smokeless Tobacco: Never Alcohol Use Standard Drinks/Week Comments No 0 (1 standard drink = 0.6 oz pur e alcohol) Housing Instability Answer Date Recorde d Are you worried that in the next 2 months you may not have stable housing? No 02/16/2025 Food Access & Nutrition Answer Date Rec orded Do you have access to a vari ety of food including fruits and vegetables? Yes 02/16/2025 Access to Healthcare Answer Date Record ed Within the last 3 months, ho w many times did you visit the emergency department for your medical care? 1 02/16/2025 Health Literacy Answer Date Recorded How often do you need to hav e someone help you when you read instructions, pamphlets, or other written material from your doctor or pharmacy? Never 02/16/2025 Caregiver: How often do you need to have someone help you when you read instructions, pamphlets, or other written material from your doctor or pharmacy? Not on file 02/16/2025 Financial Risk Answer Date Recorded How hard is it for you to pa y for the very basics like food, housing, medical care, and air conditioning / heating? Not very hard 02/16/2025 Transportation Answer Date Recorded Has the lack of transportati on kept you from meetings, work, or from getting things needed for daily living? No Has the lack of transportati on kept you from medical appointments or from getting medications? No 02/16/2025 Social Isolation Answer Date Recorded How often do you feel lonely or isolated from th ose around you? Never 02/16/2025 Food Risk Answer Date Recorded Within the past 12 months we worried whether our food would run out before we got money to buy more. Never true 02/16/2025 Within the past 12 months th e food we bought just didn't last and we didn't have money to get more. Never true 02/16/2025 Dependent Care Answer Date Recorded Do you need help finding or paying for care for your loved ones. For example, child development assistant or elderly care for an older adult? No 02/16/2025 Education Answer Date Recorded Do you think completing more education or training, like finishing a GED, going to college, or learning a trade, would be helpful for you? No 02/16/2025 Employment and Income Answer Date Recor ded During the last four weeks, have you been actively looking for work? No 02/16/2025 Living Situation Answer Date Recorded What is your living situation? Unrecognized valu e 02/16/2025 Interpersonal Safety Answer Date Record ed Physical Abuse Unrecognized value 02/18/2025 Verbal Abuse Unrecognized value 02/18/2025 Sex and Gender Information Value Date Recorded Sex Assigned at Male 08/14/2024 1:57 PM EST Legal Sex Male 3:53 PM EST Gender Identity Male 08/14/2024 1:57 PM EST Sexual Orientation Choose not to disclose 2024 11:13 AM EDT documented as of this encounter Functional Status * Calculated C-SSRS Risk Score (Lifetime/Recent) Answer Date of Assessment Author No Risk Indicated 02/19/2025 2:00 AM EDT Evelin Witt RN * [place] Suicide Severity Rating Scale (Screener/Recent Self-Report) Question Answer Date of Assessment Author 1. Wish to be (Past 1 Month) No 025 2:00 AM EDT Evelin Witt RN 2. Non-Specific Active Suici helen Thoughts (Past 1 Month) No 02/19/2025 2:00 AM EDT Azeb Witt RN 6. Suicidal Behavior (Lifetime) No 2:00 AM EDT Evelin Witt RN documented as of this encounter Plan of Treatment Upcoming Encounters Date Type Department Care Team (Late st Contact Info) Description 09/24/2025 3:00 PM EST Office Visit [facility] Hematology Oncology [address] [place] [phone] Alex Be MD [address] [place] [phone] 11/19/2025 12:45 PM EST Office Visit Adult Medicine [address] [phone] Hosea Sky PA [address] [place] [phone] 03/30/2026 2:30 PM EDT Ancillary Procedure [facility] [address] [phone] documented as of this encounter Visit Diagnoses Not on filedocumented in this encounter Additional Health Concerns Infection Onset Date Last Indicated Resolved Time COVID-19 Comment:Added from external infection. Source: [facility]. 10/15/2022 02/16/2025 2:32 PM EDT documented as of this encounter Care Teams Ticket Seller Relationship Specialty Start Date End Date Hosea Sky PA PCP - General Internal Medicine 11/28/20 07/30/24 documented as of this encounter
--- OUTSIDE RECORDS SUMMARY | 2024-06-30 13:42 | XMS_ITS | Encounter Summary ---
Author Organization [facility] [place] [address] Care Team Providers Care Screen Printing Machine Operator Name Role Phone Hosea Sky Primary Care Provider [phone] Encounter Details Date Type Department Care Team (Late st Contact Info) Description 06/30/2024 2:42 PM EDT Hospital Encounter TH HISTORIC ENCOUNTERS EASTERN CONVERSION ONLY Nereida Dooley PA [address] [place] [phone] Social History Tobacco Use Types Packs/Day Years [...] care for your loved ones. For example, assistant child care teacher or elderly care for an older adult? [...] AM EDT documented as of this encounter Last Filed Vital Signs Vital Sign Reading Time Taken Comments Blood Pressure 99/41 06/30/2024 2:54 PM EDT Sit ting Left arm Pulse 49 06/30/2024 2:54 PM EDT Temperature - - Respiratory Rate - - Oxygen Saturation - - Inhaled Oxygen Concentration - - Weight 97.5 kg (215 lb) 06/30/2024 2:54 PM EDT Height 188 cm (6' 2 ) 10/19/2020 10:16 AM EST Body Mass Index 27.6 05/04/2024 11:21 AM EDT documented in this encounter Functional Status * Calculated C-SSRS Risk Score (Lifetime/Recent) Answer Date of Assessment Author No Risk Indicated 02/19/2025 2:00 AM EDT Evelin Witt RN * [place] Suicide Severity Rating Scale (Screener/Recent Self-Report) Question Answer Date of Assessment Author 1. Wish to be (Past 1 Month) No 025 2:00 AM JEAN-PIERRET Evelin Witt RN 2. Non-Specific Active Suici helen Thoughts (Past 1 Month) No 02/19/2025 2:00 AM EDT Azeb Witt RN 6. Suicidal Behavior (Lifetime) No 5 2:00 AM EDT Evelin Witt RN documented as of this encounter Progress Notes * KP Gutierrez - 06/30/2024 2:30 PM EDT This is my first time meeting this patient. He is accompanied by his . This is an acute evaluation for weight loss. He was last seen on 05/21 by and he has lost 9 pounds since. He has been eating very small portions such as 1 chicken wing, half scrambled egg, etc. Reports no appetite and denies any pain or difficulty with swallowing. No fever, chills, chest pain, SOB, N/V/D, abdominal pain. He has been experiencing left eye discomfort, such as dull pain and some blurry vision. He has short term memory loss so he can't define when this issue started and was unaware of it. He has chronic droopy left eyelid. He denies any sharp/severe pain, photophobia, eye drainage, double vision, headache, dizziness, facial droop, sudden confusion or unilateral weakness. He had cataract surgery over the summer, he has hx of glaucoma and has been applying eye drops as directed. He is followed by Pavan Jarquin, adult literacy teacher in [place]. 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 He is followed by Dr. Guardado for his history of cardiac amyloidosis. He remains on tafamidis. An echocardiogram on 02/20/2022 showed moderate to severe concentric left ventricular hypertrophy with normal regional wall motion and normal LVEF. There was grade 3 diastolic dysfunction. Global longitudinal strain was -17% with apical sparing, suggestive of amyloidosis. He denies cough, dyspnea on exertion, or leg edema. A serum kappa/lambda light chain ratio on 12/20/2021 was 0.03. A CBC on 08/26/2023 showed WBC 3.5 with ANC 1.9 and ALC 1.2, hemoglobin 15.8 with MCV 103, and platelet count 185,000. A CBC on 10/02/2023 showed WBC 4.5 with ANC 2.3 and ALC 1.5, hemoglobin 12.9 with MCV 103, and platelet count 177,000. A creatinine was 1.1. A calcium was 9.8. An IgG level was 892. An IgA level was 42. An IgM level was 3350. 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 An SPEP showed an M spike at 2.6. He underwent a bone marrow aspirate and biopsy 10/28/2023 and the pathology showed lymphoplasmacyticlymphoma, with [id number] B cells and OA244-eyhzrbua plasma cells. A flow cytometry study showedCD5-positive, lambda-restricted B- cell population without CD20 expression but with decreased intensity of CD19 and CD20. There was a population of lambda-restricted plasma cells with loss of CD19. Reticulin staining showed mild fibrosis. Congo red staining was negative. 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 A C/A/P CT with IV contrast and without oral contrast on 10/30/2023 showed no splenomegaly or lymphadenopathy and was otherwise unremarkable. A CBC on 01/10/2024 showed WBC 4.0, hemoglobin 13.0 with MCV 107, and platelet count 177,000. A creatinine was 1.5. A calcium was 9.2. An IgG level was 730. An IgA level was 40. An IgM level was 3200.A serum immunofixation showed an IgM lambda monoclonal band. An SPEP showed an M spike at 1.7. A serum kappa/lambda light chain ratio was 0.02. A CBC on 05/18/2024 showed WBC 4.0, hemoglobin 11.7 with MCV 109, and platelet count 131,000. A creatinine was 1.3. A calcium was 9.8. An IgG level was 710. An IgA level was 32. An IgM level was 2580.A serum immunofixation showed IgM lambda monoclonal band. An SPEP showed an M spike at 1.6. A serumkappa/lambda light chain ratio was 0.02. He reports persistent anorexia. His weight was stable over the last interval He denies headaches or visual changes. He denies cough, hemoptysis, or dyspnea on exertion. He denies nausea or abdominal pain. He denies unusual bone pain. Past medical history: Cardiac amyloidosis, history of diastolic heart failure, history of herpes encephalitis, B12 deficiency, osteoarthritis, hyperlipidemia. Current medications: Tafamidis, vitamin D3, Zoloft, Lasix, Flonase, aspirin 81 mg, travel processed. Allergies: Sulfa drugs. Family history: His father was diagnosed with an uncertain type of cancer and in his 50s from a cancer. His mother had a history of cancer. He has 3 sisters have no history of cancer. His half brother was diagnosed with throat cancer and in his 70s from the cancer. His son has no history of cancer. His grandchild has no history of cancer. 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 He is . He has 1 son and 1 grandchild. He is a never smoker. He denies alcohol use. Review of systems: The remainder of a 10 point review of systems was unremarkable. Physical examination: HEENT: Sclerae anicteric, left droopy eye (baseline) with mild conjunctival erythema, no drainage, normal oropharyngeal membrane. Neck: No lymphadenopathy. Lungs: Clear to auscultation. Heart: No murmurs. RRR Abdomen: Soft, nontender, no organomegaly or masses. Extremities: No edema. Skin: No rash. 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 The patient also has an established history of cardiac amyloidosis. He remains on tafamidis for thehistory of cardiac amyloidosis. He was initially symptomatic with anorexia and weight loss, but his weight was stable over the lastinterval. The IgM level was stable over the last interval. If the Waldenstr??m's progresses, we will consider a course of Rituxan. I discussed infusion reactions and immunosuppression associated with Rituxan. If there is a suboptimal response, we could consider Calquence therapy. Previous labs reviewed. Repeat labs today and address as needed. C/A/P CT scan ordered (last imaging studies were in September). Megace sent in. Stay hydrated. Dietary recommendations reviewed with patient and his . Wine Manager consult with Sylwia can. Advised to contact his adult literacy teacher office today for an appt KIMBERLY. If symptoms worsen, he shouldgo to the ER. I notified our nurse navigator, Kamar, and she will call the tomorrow to seeif they were able to book appt and to check on him. FOV in 3-4 weeks or sooner prn Case discussed with . documented in this encounter Plan of Treatment Upcoming Encounters Date Type Department Care Team (Late st Contact Info) Description 09/24/2025 3:00 PM EST Office Visit [facility] Hematology Oncology [address] [place] [phone] Alex Be MD [address] [place] [phone] 11/19/2025 12:45 PM EST Office Visit Adult Medicine [address] [phone] Hosea Sky PA [address] [place] [phone] 03/30/2026 2:30 PM EDT Ancillary Procedure [facility] [address] [facility] [address] [place] [phone] documented as of this encounter Visit Diagnoses Not on filedocumented in this encounter Additional Health Concerns Infection Onset Date Last Indicated Resolved Time COVID-19 Comment:Added from external infection. Source: [facility]. 10/15/2022 02/16/2025 2:32 PM EDT documented as of this encounter Care Teams Screen Printing Machine Operator Relationship Specialty Start Date End Date Hosea Sky PA PCP - General Internal Medicine 11/28/20 07/30/24 documented as of this encounter
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
--- OUTSIDE RECORDS SUMMARY | 2025-09-07 00:51 | XMS_ITS | Encounter Summary ---
Author Organization [facility] Address [address] [place] [address] Care Team Providers Care Plug Shaper Hand Name Role Phone Hosea Sky Primary Care Provider [phone] Encounter Details Date Type Department Care Team (Late st Contact Info) Description 03/10/2025 Lab Requisition [facility] - Main Lab [address] [place] [address] Ok Zuluaga MD [address] [place] [address] Other specified abnormal findings of blood chemistry; Heart failure, unspecified (CMS/HCC V24, CMS/HCC V28) Social History Tobacco Use Types Packs/Day Years [...] care for your loved ones. For example, childcare director or elderly care for an older adult? [...] as of this encounter Functional Status * Are you deaf or do you have serious difficulty hearing? Answer Date of Assessment Author No 02/16/2025 12:42 AM EDT Salvador Mckee RN * Are you blind or do you have serious difficulty seeing, even when wearing glasses? Answer Date of Assessment Author No 02/16/2025 12:42 AM EDT Salvador Mckee RN * Do you have serious difficulty walking or climbing stairs? Answer Date of Assessment Author Yes 02/16/2025 12:42 AM JEAN-PIERRET Salvador Mckee RN * Do you have serious difficulty dressing or bathing? Answer Date of Assessment Author Yes 02/16/2025 12:42 AM JEAN-PIERRET Salvador Mckee RN * Because of a physical, mental, or emotional condition, do you have serious difficulty doing errandsalone such as visiting the doctor? Answer Date of Assessment Author Yes 02/16/2025 12:42 AM JEAN-PIERRET Salvador Mckee RN documented as of this encounter Mental Status * Because of a physical, mental, or emotional condition, do you have serious difficulty concentrating, remembering, or making decisions? (5 years old or older) Answer Entry Date Author Yes 02/16/2025 12:42 AM Salvador Zhong RN documented in this encounter Plan of Treatment Upcoming Encounters Date Type Department Care Team (Late st Contact Info) Description 09/24/2025 3:00 PM EST Office Visit [facility] Hematology Oncology [address] [place] [phone] Alex Be MD [address] [place] [phone] 11/19/2025 12:45 PM EST Office Visit Adult [address] [phone] Hosea Sky PA [address] [place] [phone] 03/30/2026 2:30 PM EDT Ancillary Procedure [facility] [address] [facility] [address] [place] [address] documented as of this encounter Procedures Procedure Name Priority Date/Time Associated Diagnosis Comments BASIC METABOLIC PANEL Routine 03/11/2025 6:57 AM EDT Other specified abnormal findings of blood chemistry Heart failure, unspecified (CMS/[facility] V24, CMS/[facility] V28) documented in this encounter Results * (ABNORMAL) Basic metabolic panel (03/11/2025 6:57 AM EDT) Sodium 138 133 - 145 mmol/L LAB CHEMISTRY METHOD 03/11/2025 9:52 AM [facility] Potassium 4.1 3.5 - 5.5 mmol/L LAB CHEMISTRY METHOD 03/11/2025 9:52 AM [facility] Chloride 106 96 - 110 mmol/L LAB CHEMISTRY METHOD 03/11/2025 9:52 AM [facility] CO2 25 21 - 32 mmol/L LAB CHEMISTRY METHOD 03/11/2025 9:52 AM [facility] Anion Gap 7 3 - 11 LAB CHEMISTRY METHOD 03/11/2025 9:52 AM [facility] Glucose 88 70 - 100 mg/dL LAB CHEMISTRY METHOD 03/11/2025 9:52 AM [facility] BUN 34(H) 5 - 25 mg/dL LAB CHEMISTRY METHOD 03/11/2025 9:52 AM [facility] Creatinine 1.42(H) 0.70 - 1.30 mg/dL LAB CHEMISTRY METHOD 03/11/2025 9:52 AM [facility] eGFR 49(L) >=60 mL/min/1. 73m2 LAB CHEMISTRY METHOD 03/11/2025 9:52 AM [facility] Comment:Calculation based on the Chronic Kidney Disease Epidemiology Collaboration (CKD-EPI) equation refit without adjustment for race. BUN/Creatinine Ratio 23.9 LAB CHEMISTRY METHOD 03/11/2025 9:52 AM EDT [facility] Calcium 8.9 8.5 - 10.5 mg/dL LAB CHEMISTRY METHOD 03/11/2025 9:52 AM EDT [facility] Blood Venous blood specimen / Unknown Venipuncture / Unknown 03/11/2025 6:57 AM EDT 03/11/2025 8:36 AM EDT us Ok Zuluaga MD LAB BLOOD ORDERABLES Final Resul t [facility] [address] [place] [address], documented in this encounter Visit Diagnoses Diagnosis Other specified abnormal findings of blood chemistry Heart failure, unspecified (CMS/HCC V24, CMS/HCC V28) Heart failure, unspecified Encounter for adjustment or management of cardiac device documented in this encounter Additional Health Concerns Assessment Noted Time PHQ-9 Depression Total Score: 0 11/06/19 25 12:52 PM EST documented as of this encounter Care Teams Plug Shaper Hand Relationship Specialty Start Date End Date Hosea Sky PA [address] [place] [address] PCP - General Internal Medicine 07/31/24 documented as of this encounter
--- OUTSIDE RECORDS SUMMARY | 2025-09-07 00:51 | XMS_ITS | Encounter Summary ---
Author Organization [place] [address] Care Team Providers Care Boarding House Cook Name Role Phone Hosea Sky Primary Care Provider [phone] Encounter Details Date Type Department Care Team (Late st Contact Info) Description 03/15/2025 Lab Requisition [facility] - Main Lab [address] [facility] [place] [address] Ok Zuluaga MD [address] [place] [address] Abnormal finding of blood chemistry, unspecified Social History Tobacco Use Types Packs/Day Years [...] Record ed Within the last 3 months, asha osorio many times did you visit the emergency [...] for your loved ones. For example, child nutrition director or elderly care for an older [...] of Assessment Author Yes 02/16/2025 12:42 AM EDT Salvador Mckee RN * Do you have serious difficulty dressing or bathing? Answer Date of Assessment Author Yes 02/16/2025 12:42 AM EDT Salvador Mckee RN * Because of a physical, mental, or emotional condition, do you have serious difficulty doing errandsalone such as visiting the doctor? Answer Date of Assessment Author Yes 02/16/2025 12:42 AM EDT Salvador Mckee RN documented as of this encounter Mental Status * Because of a physical, mental, or emotional condition, do you have serious difficulty concentrating, remembering, or making decisions? (5 years old or older) Answer Entry Date Author Yes 02/16/2025 12:42 AM JEAN-PIERRET Salvador Mckee RN documented in this encounter Plan of Treatment Upcoming Encounters Date Type Department Care Team (Late st Contact Info) Description 09/24/2025 3:00 PM EST Office Visit [facility] Hematology Oncology [address] [place] [phone] Alex Be MD [address] [place] [phone] 11/19/2025 12:45 PM EST Office Visit [address] [phone] Hosea Sky PA [address] [place] [phone] 03/30/2026 2:30 PM EDT Ancillary Procedure [facility] - [address] [facility] [address] [place] [address] documented as of this encounter Procedures Procedure Name Priority Date/Time Associated Diagnosis Comments COMPLETE BLOOD COUNT Routine 03/16/2025 5:20 AM EDT Abnormal finding of blood chemistry, unspecified BASIC METABOLIC PANEL Routine 03/16/2025 5:20 AM EDT Abnormal finding of blood chemistry, unspecified documented in this encounter Results * (ABNORMAL) Basic metabolic panel (03/16/2025 5:20 AM EDT) Sodium 141 133 - 145 mmol/L LAB CHEMISTRY METHOD 03/16/2025 9:13 AM [facility] Potassium 4.2 3.5 - 5.5 mmol/L LAB CHEMISTRY METHOD 03/16/2025 9:13 AM [facility] Chloride 108 96 - 110 mmol/L LAB CHEMISTRY METHOD 03/16/2025 9:13 AM [facility] CO2 26 21 - 32 mmol/L LAB CHEMISTRY METHOD 03/16/2025 9:13 AM [facility] Anion Gap 7 3 - 11 LAB CHEMISTRY METHOD 03/16/2025 9:13 AM [facility] Glucose 84 70 - 100 mg/dL LAB CHEMISTRY METHOD 03/16/2025 9:13 AM [facility] BUN 31(H) 5 - 25 mg/dL LAB CHEMISTRY METHOD 03/16/2025 9:13 AM [facility] Creatinine 1.40(H) 0.70 - 1.30 mg/dL LAB CHEMISTRY METHOD 03/16/2025 9:13 AM [facility] eGFR 50(L) >=60 mL/min/1. 73m2 LAB CHEMISTRY METHOD 03/16/2025 9:13 AM [facility] Comment:Calculation based on the Chronic Kidney Disease Epidemiology Collaboration (CKD-EPI) equation refit without adjustment for race. BUN/Creatinine Ratio 22.1 LAB CHEMISTRY METHOD 03/16/2025 9:13 AM EDT [facility] Calcium 8.6 8.5 - 10.5 mg/dL LAB CHEMISTRY METHOD 03/16/2025 9:13 AM EDT [facility] Blood Venous blood specimen / Unknown Venipuncture / Unknown 03/16/2025 5:20 AM EDT 03/16/2025 8:38 AM EDT us Ok Zuluaga MD LAB BLOOD ORDERABLES Final Resul t [facility] [address] [place] [address], [place] [phone] * (ABNORMAL) Complete blood count (03/16/2025 5:20 AM EDT) WBC 5.1 4.8 - 10.8 K/mcL LAB HEMETOLOGY METHOD 03/16/2025 8:52 AM T [facility] RBC 2.30(L) 4.50 - 5.50 M/mcL LAB HEMETOLOGY METHOD 03/16/2025 8:52 AM [facility] Hemoglobin 7.8(L) 13.5 - 17.5 g/dL LAB HEMETOLOGY METHOD 03/16/2025 8:52 AM EDT [facility] Hematocrit 24.4(L) 42.0 - 54.0 % LAB HEMETOLOGY METHOD 03/16/2025 8:52 AM EDT [facility] MCV 106.1(H) 79.0 - 98.0 FL LAB [facility]OLOG[facility] MCH 33.9(H) 27.0 - 32.0 pcg LAB HEMETOLOGY METHOD 03/16/2025 8:52 AM EDT [facility] MCHC 32.0 32.0 - 37.0 g/dL LAB HEMETOLOGY METHOD 03/16/2025 8:52 AM EDT [facility] RDW 13.6 11.0 - 15.0 % LAB HEMETOLOGY METHOD 03/16/2025 8:52 AM EDT [facility] Platelets 167 130 - 400 K/mcL LAB HEMETOLOGY METHOD 03/16/2025 8:52 AM EDT [facility] MPV 11.2(H) 7.0 - 11.0 FL LAB HEMETOLOGY METHOD 03/16/2025 8:52 AM EDT [facility] NRBC 0.0 <1.0 % LAB HEMETOLOGY METHOD 03/16/2025 8:52 AM EDT [facility] NRBC Absolute 0.00 <0.10 K/mcL LAB HEMETOLOGY METHOD 03/16/2025 8:52 AM EDT [facility] Blood Venous blood specimen / Unknown Venipuncture / Unknown 03/16/2025 5:20 AM EDT 03/16/2025 8:38 AM EDT us Ok Zuluaga MD LAB BLOOD ORDERABLES Final Resul t [facility] [address] [place] [address], documented in this encounter Visit Diagnoses Diagnosis Abnormal finding of blood chemistry, unspecified Encounter for adjustment or management of cardiac device documented in this encounter Additional Health Concerns Assessment Noted Time PHQ-9 Depression Total Score: 0 11/06/19 25 12:52 PM EST documented as of this encounter Care Teams Boarding House Cook Relationship Specialty Start Date End Date Hosea Sky PA [address] [place] [address] PCP - General Internal Medicine 07/31/24 documented as of this encounter
--- OUTSIDE RECORDS SUMMARY | 2025-09-07 00:51 | XMS_ITS | Encounter Summary ---
Author Organization [facility] [place] [address] Care Team Providers Care Corporate Operations Compliance Manager Name Role Phone Hosea Sky Primary Care Provider [phone] [phone] Encounter Details Date Type Department Care Team (Late st Contact Info) Description 03/08/2025 Lab Requisition [facility] - Main Lab [address] [facility] [place] [address] Ok Zuluaga MD [address] [place] [address] Essential (primary) hypertension; Anemia, unspecified Social History Tobacco Use Types Packs/Day [...] for your loved ones. For example, child study team director or elderly care for an older [...] Description 09/24/2025 3:00 PM EST Office Visit [facility] Hematology Oncology [address] [place] [phone] Alex Be MD [address] [place] [phone] 11/19/2025 12:45 PM EST Office Visit Adult Medicine [address] [phone] Hosea Sky PA [address] [place] [phone] 03/30/2026 2:30 PM EDT Ancillary Procedure [facility] [address] [facility] [address] [place] [phone] documented as of this encounter Procedures Procedure Name Priority Date/Time Associated Diagnosis Comments COMPLETE BLOOD COUNT Routine 03/08/2025 5:40 AM EDT Essential (primary) hypertension Anemia, unspecified BASIC METABOLIC PANEL Routine 03/08/2025 5:40 AM EDT Essential (primary) hypertension Anemia, unspecified documented in this encounter Results * (ABNORMAL) Basic metabolic panel (03/08/2025 5:40 AM EDT) Sodium 141 133 - 145 mmol/L LAB CHEMISTRY METHOD 03/08/2025 12:43 PM [facility] Potassium 3.9 3.5 - 5.5 mmol/L LAB CHEMISTRY METHOD 03/08/2025 12:43 PM [facility] Chloride 106 96 - 110 mmol/L LAB CHEMISTRY METHOD 03/08/2025 12:43 PM [facility] CO2 25 21 - 32 mmol/L LAB CHEMISTRY METHOD 03/08/2025 12:43 PM [facility] Anion Gap 10 3 - 11 LAB CHEMISTRY METHOD 03/08/2025 12:43 PM [facility] Glucose 75 70 - 100 mg/dL LAB CHEMISTRY METHOD 03/08/2025 12:43 PM [facility] BUN 33(H) 5 - 25 mg/dL LAB CHEMISTRY METHOD 03/08/2025 12:43 PM [facility] Creatinine 1.57(H) 0.70 - 1.30 mg/dL LAB CHEMISTRY METHOD 03/08/2025 12:43 PM [facility] eGFR 43(L) >=60 mL/min/1. 73m2 LAB CHEMISTRY METHOD 03/08/2025 12:43 PM [facility] Comment:Calculation based on the Chronic Kidney Disease Epidemiology Collaboration (CKD-EPI) equation refit without adjustment for race. BUN/Creatinine Ratio 21.0 LAB CHEMISTRY METHOD 03/08/2025 12:43 PM EDT [facility] Calcium 8.7 8.5 - 10.5 mg/dL LAB CHEMISTRY METHOD 03/08/2025 12:43 PM EDT [facility] Blood Venous blood specimen / Unknown Venipuncture / Unknown 03/08/2025 5:40 AM EDT 03/08/2025 11:37 AM EDT us Ok Zuluaga MD LAB BLOOD ORDERABLES Final Resul t [facility] [address] [place] [address], [place] [phone] * (ABNORMAL) Complete blood count (03/08/2025 5:40 AM EDT) WBC 5.0 4.8 - 10.8 K/mcL LAB HEMETOLOGY METHOD 03/08/2025 2:30 PM EDT [facility] RBC 2.60(L) 4.50 - 5.50 M/mcL LAB HEM[facility] Hemoglobin 8.3(L) 13.5 - 17.5 g/dL LAB HEMETOLOGY METHOD 03/08/2025 2:30 PM EDT [facility] Hematocrit 27.5(L) 42.0 - 54.0 % LAB HEMETOLOGY METHOD 03/08/2025 2:30 PM EDT [facility] MCV 107.8(H) 79.0 - 98.0 FL LAB HEMETOLOGY METHOD [facility] MCH 32.5(H) 27.0 - 32.0 pcg LAB HEMETOLOGY METHOD 03/08/2025 2:30 PM EDT [facility] MCHC 30.2(L) 32.0 - 37.0 g/dL LAB HEMETOLOGY METHOD 03/08/2025 2:30 PM EDT [facility] RDW 13.7 11.0 - 15.0 % LAB HEMETOLOGY METHOD 03/08/2025 2:30 PM EDT [facility] Platelets 171 130 - 400 K/mcL LAB HEMETOLOGY METHOD 03/08/2025 2:30 PM EDT [facility] MPV 11.7(H) 7.0 - 11.0 FL LAB HEMETOLOGY METHOD 03/08/2025 2:30 PM EDT [facility] NRBC 0.0 <1.0 % LAB HEMETOLOGY METHOD 03/08/2025 2:30 PM EDT [facility] NRBC Absolute 0.00 <0.10 K/mcL LAB HEMETOLOGY METHOD 03/08/2025 2:30 PM EDT [facility] Blood Venous blood specimen / Unknown Venipuncture / Unknown 03/08/2025 5:40 AM EDT 03/08/2025 11:37 AM EDT us Ok Zuluaga MD LAB BLOOD ORDERABLES Final Resul t [facility] [address] [place] [address], documented in this encounter Visit Diagnoses Diagnosis Essential (primary) hypertension Unspecified essential hypertension Anemia, unspecified Encounter for adjustment or management of cardiac device documented in this encounter Additional Health Concerns Assessment Noted Time PHQ-9 Depression Total Score: 0 11/06/19 25 12:52 PM EST documented as of this encounter Care Teams Corporate Operations Compliance Manager Relationship Specialty Start Date End Date Hosea Sky PA [address] [place] [id number] PCP - General Internal Medicine 07/31/24 documented as of this encounter
--- OUTSIDE RECORDS SUMMARY | 2025-09-07 00:51 | XMS_ITS | Encounter Summary ---
Author Organization [facility] [place] [address] Care Team Providers Care Distribution Engineering Technologist Name Role Phone Hosea Sky Primary Care Provider [phone] Encounter Details Date Type Department Care Team (Late st Contact Info) Description 03/05/[address] [facility] - Main Lab [address] [facility] [place] [address] Ok Zuluaga MD [address] [place] [address] Urethral discharge, unspecified Social History Tobacco Use Types Packs/Day [...] care for your loved ones. For example, summer child caregiver or elderly care for an older adult? [...] Entry Date Author Yes 02/16/2025 12:42 AM EDT Salvador Mckee RN documented in this encounter Plan of Treatment Upcoming Encounters Date Type Department Care Team (Late st Contact Info) Description 09/24/2025 3:00 PM EST Office Visit [facility] Hematology Oncology [address] [place] [phone] Alex Be MD [address] [place] [phone] 11/19/2025 12:45 PM EST Office Visit [address] [phone] Hosea Sky PA [address] [place] [phone] 03/30/2026 2:30 PM EDT Ancillary Procedure [facility] [address] [facility] [address] [place] [address] documented as of this encounter Procedures Procedure Name Priority Date/Time Associated Diagnosis Comments URINALYSIS WITH REFLEX MICROSCOPIC Routine 03/04/2025 12:50 PM EDT Urethral discharge, unspecified URINALYSIS WITH REFLEX MICROSCOPIC Routine 03/04/2025 12:50 PM EDT Urethral discharge, unspecified CULTURE URINE Routine 03/04/2025 12:50 PM EDT Urethral discharge, unspecified documented in this encounter Results * Urinalysis with reflex microscopic (03/04/2025 12:50 PM EDT) Specific [place] Urine 1.009 1.003 - 1.030 LAB URINALYSIS - AUTOMATED METHOD 03/05/2025 10:17 AM [facility] pH, Urine 6.0 5.0 - 8.0 pH LAB URINALYSIS - AUTOMATED METHOD 03/05/2025 10:17 AM [facility] Leukocytes, Urine Negative Negative LAB URINALYSIS - AUTOMATED METHOD 03/05/2025 10:17 AM [facility] Nitrite, Urine Negative Negative LAB URINALYSIS - AUTOMATED METHOD 03/05/2025 10:17 AM [facility] Protein, Urine Negative <=Trace mg/dL LAB URINALYSIS - AUTOMATED METHOD 03/05/2025 10:17 AM [facility] Glucose, Urine Negative Negative mg/dL LAB URINALYSIS - AUTOMATED METHOD 03/05/2025 10:17 AM [facility] Ketones, Urine Negative Negative mg/dL LAB URINALYSIS - AUTOMATED METHOD 03/05/2025 10:17 AM [facility] Urobilinogen, Urine 1.0 0.2 - 1.0 mg/dL LAB URINALYSIS - AUTOMATED METHOD 03/05/2025 10:17 AM EDT [facility] Bilirubin, Urine Negative Negative LAB URINALYSIS - AUTOMATED METHOD 03/05/2025 10:17 AM EDT [facility] Blood, Urine Negative Negative LAB URINALYSIS - AUTOMATED METHOD 03/05/2025 10:17 AM EDT [facility] Urine Indwelling urinary catheter / Unknown Non-blood Collection / Unknown 03/04/2025 12:50 PM EDT 03/05/2025 9:27 AM EDT us Ok Zuluaga MD LAB URINE ORDERABLES Final Resul t [facility] [address] [place] [address], [place] [phone] * Culture urine (03/04/2025 12:50 PM EDT) Culture, Urine No growth 03/06/2025 9:50 AM EDT [facility] Urine Indwelling urinary catheter / Unknown Non-blood Collection / Unknown 03/04/2025 12:50 PM EDT 03/05/2025 9:27 AM EDT Ok Zuluaga MD LAB MICROBIOLOGY - GENERAL ORDER MARY Final Result Performing Organization Address City/[facility]/ZIP Co de Phone Number [facility] [address] [place] [address], [place] [phone] documented in this encounter Visit Diagnoses Diagnosis Urethral discharge, unspecified Encounter for adjustment or management of cardiac device documented in this encounter Additional Health Concerns Assessment Noted Time PHQ-9 Depression Total Score: 0 11/06/19 25 12:52 PM EST documented as of this encounter Care Teams Distribution Engineering Technologist Relationship Specialty Start Date End Date Hosea Sky PA [address] [place] [id number] PCP - General Internal Medicine 07/31/24 documented as of this encounter
--- OUTSIDE RECORDS SUMMARY | 2025-09-07 00:51 | XMS_ITS | Encounter Summary ---
Author Organization [facility] [place] [address] Care Team Providers Care Non Acoustic Operator Name Role Phone Hosea Sky Primary Care Provider [phone] [phone] Encounter Details Date Type Department Care Team (Late st Contact Info) Description 03/12/2025 Lab Requisition [facility] - Main Lab [address] [facility] [place] [address] Ok Zuluaga MD [address] [place] [address] Abnormal finding of blood chemistry, unspecified Social [...] care for your loved ones. For example, residential child care counselor or elderly care for an older adult? [...] Description 09/24/2025 3:00 PM EST Office Visit [facility] Hematology Oncology [address] [place] [phone] Alex Be MD [address] [place] [phone] 11/19/2025 12:45 PM EST Office Visit [address] [phone] Hosea Sky PA [address] [place] [phone] 03/30/2026 2:30 PM EDT Ancillary Procedure [facility] - [address] [facility] [address] [place] [address] documented as of this encounter Procedures Procedure Name Priority Date/Time Associated Diagnosis Comments BASIC METABOLIC PANEL Routine 03/15/2025 6:11 AM EDT Abnormal finding of blood chemistry, unspecified documented in this encounter Results * (ABNORMAL) Basic metabolic panel (03/15/2025 6:11 AM EDT) Sodium 138 133 - 145 mmol/L LAB CHEMISTRY METHOD 03/15/2025 2:09 PM [facility] Potassium 4.2 3.5 - 5.5 mmol/L LAB CHEMISTRY METHOD 03/15/2025 2:09 PM [facility] Chloride 108 96 - 110 mmol/L LAB CHEMISTRY METHOD 03/15/2025 2:09 PM [facility] CO2 21 21 - 32 mmol/L LAB CHEMISTRY METHOD 03/15/2025 2:09 PM [facility] Anion Gap 9 3 - 11 LAB CHEMISTRY METHOD 03/15/2025 2:09 PM [facility] Glucose 83 70 - 100 mg/dL LAB CHEMISTRY METHOD 03/15/2025 2:09 PM [facility] BUN 32(H) 5 - 25 mg/dL LAB CHEMISTRY METHOD 03/15/2025 2:09 PM [facility] Creatinine 1.48(H) 0.70 - 1.30 mg/dL LAB CHEMISTRY METHOD 03/15/2025 2:09 PM [facility] eGFR 47(L) >=60 mL/min/1. 73m2 LAB CHEMISTRY METHOD 03/15/2025 2:09 PM [facility] Comment:Calculation based on the Chronic Kidney Disease Epidemiology Collaboration (CKD-EPI) equation refit without adjustment for race. BUN/Creatinine Ratio 21.6 LAB CHEMISTRY METHOD 03/15/2025 2:09 PM EDT [facility] Calcium 8.9 8.5 - 10.5 mg/dL LAB CHEMISTRY METHOD 03/15/2025 2:09 PM EDT [facility] Blood Venous blood specimen / Unknown Venipuncture / Unknown 03/15/2025 6:11 AM EDT 03/15/2025 11:54 AM EDT us Ok Zuluaga MD LAB BLOOD ORDERABLES Final Resul t [facility] [address] [place] [address], [place] [phone] documented in this encounter Visit Diagnoses Diagnosis Abnormal finding of blood chemistry, unspecified Encounter for adjustment or management of cardiac device documented in this encounter Additional Health Concerns Assessment Noted Time PHQ-9 Depression Total Score: 0 11/06/19 25 12:52 PM EST documented as of this encounter Care Teams Non Acoustic Operator Relationship Specialty Start Date End Date Hosea Sky PA [address] [place] [address] PCP - General Internal Medicine 07/31/24 documented as of this encounter
--- OUTSIDE RECORDS SUMMARY | 2025-09-07 00:52 | XMS_ITS | Clinical Summary ---
Author Organization [facility] Prior to 02/27/25 Address [address] [place] [address] Care Team Providers Care Greenstone Polisher Operator Name Role Phone Hosea Sky PA-C Primary [...] 50 06/30/2024 2:54 PM EDT Temperature 36.7 C (98.1 F) 06/30/2024 2:54 PM EDT Respiratory Rate - - Oxygen Saturation 99% [...] Tdap) 10/26/2020 10/26/2010 COVID-19 Vaccine ( season) 2025 12/12/2021, 12/02/2020, 11/11/2020 Influenza Vaccine (#1) 2025 3, 09/19/2022, 07/27/2021, Additional history exists Pneumococcal Vaccine Completed 01/17/2015, 03/09/20 08 Hepatitis B Vaccines Aged Out No long er eligible based on patient's age to complete this topic RSV Ped < 20 months Aged Out No longe r eligible based on patient's age to complete this topic Care Teams Greenstone Polisher Operator Relationship Specialty Start Date End Date Hosea Sky, PAChelseaC PCP - General Medical Services 10/11/23
--- OUTSIDE RECORDS SUMMARY | 2025-09-07 00:52 | XMS_ITS | Clinical Summary ---
Author Organization [facility] Address [address] [place] [address] Phone Care Team Providers Care Chemical Operations Specialist Name Role Phone Hosea Sky Primary Care Provider [phone] Allergies Active Allergy Reactions Criticality Noted Date Comments Sulfa (Sulfonamide Antibiotics) Nausea And Vomiting 10/14/2020 Trimethoprim 06/29/2021 Medications fluticasone propionate (FLONASE) 50 mcg/actuation nasal spray spray/apply 1 spray in each nostril daily. Active tafamidis (Vyndamax) 61 mg capsule Active travoprost (TRAVATAN Z) 0.004 % drops apply to the eye. Active cholecalcifero l (VITAMIN D-3) 25 mcg (1,000 unit) tablet INSTILL 2 SPRAYS IN EACH NOSTRIL ONCE A DAY Active cyanocobalamin (VITAMIN B-12) 1,000 mcg tablet Take 1 tablet (1,000 mcg total) by mouth 1 (one) time each day. 90 each 1 5 10/09/19 26 Active megestroL (MEGACE) 400 mg/10 mL (40 mg/mL) suspension Take 20 mL (800 mg total) by mouth 1 (one) time each day. Shake well just before you measure a dose. Measure with a special dose-measuring spoon or medicine cup, not with a regular table spoon. If you do not have a dose-measuring device, ask your pharmacist for one. 480 mL 11 5 01/12/20 26 Active aspirin 81 mg chewable tablet Chew 1 tablet (81 mg total) 1 (one) time each day. Active torsemide (DEMADEX) 20 mg tablet Take 1 tablet (20 mg total) by mouth 1 (one) time each day. 90 each 3 5 Active midodrine (PROAMATINE) 10 mg tablet Take 1 tablet (10 mg total) by mouth 3 (three) times a day before meals. 90 tablet 5 Active midodrine (PROAMATINE) 10 mg tablet Take 1 tablet (10 mg total) by mouth 3 (three) times a day before meals. 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 He is due to follow-up with [facility] cardiology, his will call to get an [...] Encounters Date Type Department Care Team Description 06/25/2025 2:30 PM EDT Ancillary Procedure [facility] Cardiology [facility] [address] [place] [address] Encounter for adjustment or management of cardiac device 06/22/2025 11:00 AM EDT Ancillary Procedure [facility] [address] [place] [address] 06/22/2025 Telephone [facility] [address] [place] [address] Lesvia Lei PA 06/11/2025 Telephone Adult Medicine [address] [address] Hosea Sky PA from Last 3 Months Immunizations Immunization Administration Dates Next Due Influenza trivalent, 0.5mL ( Fluad) 65yo and older 11/06/2024 Influenza trivalent, 0.5mL ( Fluzone High-dose) 65yo and older 09/25/2023,07/27/2021,06/27/2020 Pneumococcal conjugate 13 va lent (Prevnar 13, PCV13) 2mo and older 01/17/2015 Pneumococcal polysaccharide 23 valent (Pneumovax 23) 2yo and older 03/09/2008 RSV, bivalent, protein subun it RSVpreF, 0.5mL, Preservative Free (ABRYSVO) 50yo and older or 32 through 36 wks of 05/22/2024 Zoster recombinant (Shingrix ) 19yo and older 05/22/2024 Surgical History Surgery Date Site/Laterality Comments COLONOSCOPY PROCEDURE:COLONOSCOPY VASECTOMY PROCEDURE:VASECTOMY ACHILLES TENDON SURGERY 1971 PROCEDURE:ACHILLES TENDON SURGERY ELBOW SURGERY Bilateral PROCEDURE:ELBOW SURGERY KNEE SURGERY Bilateral PROCEDURE:KNEE SURGERY Medical History Medical History Date Comments Unspecified glaucoma DX:Unspecif ied glaucoma Atrial fibrillation ([facility] V24, [facility] V28) DX:Atrial fibrillation (HCC) HLD (hyperlipidemia) DX:HLD (hyp erlipidemia) [...] Smoking Tobacco: Former Cigarettes Smokeless Tobacco: Never Tobacco Cessation:Counseling Given: Not Answered Alcohol Use Standard Drinks/Week Comments No 0 [...] for your loved ones. For example, child and family services worker or elderly care for an older adult? [...] not to disclose 2024 11:13 AM EDT Last Filed Vital Signs Vital Sign Reading Time Taken Comments Blood Pressure 105/54 05/27/2025 2:54 PM EDT Pulse 57 05/27/2025 2:54 PM EDT Temperature 37.3 C (99.1 F) 05/27/2025 2:54 PM EDT Respiratory Rate 17 05/12/2025 12:52 PM EDT Oxygen Saturation 100% 05/27/2025 2:54 PM EDT Inhaled Oxygen Concentration - - Weight 92.1 kg (203 lb) 05/27/2025 2:54 PM EDT Height 188 cm (6' 2 ) 05/12/2025 12:52 PM EDT Body Mass Index 26.06 05/12/2025 12:52 PM EDT Plan of Treatment Upcoming Encounters Date Type Department Care Team (Late st Contact Info) Description 09/24/2025 3:00 PM EST Office Visit [facility] Hematology Oncology [address] [place] [address] Alex Be MD [address] [place] [phone] 11/19/2025 12:45 PM EST Office Visit Adult Medicine [address] [address] Hosea Sky PA [address] [place] [phone] 03/30/2026 2:30 PM EDT Ancillary Procedure [facility] [address] [facility] [address] [place] [address] Health Maintenance Due Date Last Done Comments Medicare Annual Wellness Visit 09/08/2022 Zoster Vaccines (2 of 2) 07/17/2024 05/22/2024, 0403/2010 COVID-19 Vaccine ( season) 2025 01/22/2023, 05/29/2022, 12/12/2021, Additional history exists Influenza Vaccine (#1) 2025 , 09/25/2023, 09/19/2022, Additional history exists Social Influencers of Health Screening 02/16/2026 02/16/2025 Falls Risk Assessment 02/21/2026 02/21/2025, 025 Hypertension/CHF/CAD Annual BMP Blood Test 05/20/2026 05/20/2025, 03/29/2025, 03/16/2025, Additional history exists Cholesterol Screening (Lipid Panel) 03/29/2030 03/29/2025, 05/18/2024 DTaP,Tdap,and Td Vaccines Discontinued 10/26/2010, 01/2002 Pneumococcal Vaccine: 50+ Years Completed 01/17/2015, 03/09/2008 RSV Immunization Adult Patients Completed 05/22/2024 Depression Screening Completed 11/06/2024 HIB Vaccines Aged Out No longer eligi [...] age to complete this topic Meningococcal B Vaccine Aged Out No l onger eligible based on patient's age to complete this topic RSV Immunization Patients Under 20 months Aged Out No longer eligible based on patient's age to complete this topic Varicella Vaccines Aged Out No longer eligible based on patient's age to complete this topic Medical Devices Implanted Type Area Fly Fishing Guide Device Identifier Shelf Expiration Date Model / Serial / Lot Lead Pcmk Tendril Sts [id number] - [id number] - [id number] Implanted:Qty: 1 on 02/17/2025 by Mynor Thornton MD at [facility] Cardiac Lead N/A: Chest Wall [employer] [employer] [id number] 10/30/2027 2088TC/52 / [id number] / Lead Pcmk Tendril Sts [id number] - [id number] - [id number] Implanted:Qty: 1 on 02/17/2025 by Mynor Thornton MD at [facility] Cardiac Lead N/A: Chest Wall [employer] [facility] [employer] [id number] 11/28/2027 2088TC/58 / [id number] / Pcmkr Assurity Mri Dr-Rf Dual - [id number] - [id number] Implanted:Qty: 1 on 02/17/2025 by Mynor Thornton MD at [facility] Cardiac Pacemaker N/A: Chest Wall [employer] [facility] [employer] [id number] 02/27/2026 [id number] / [id number] / Abbt-Stju Assurity Mri [id number] Implanted:01/29 (Quantity not on file) Cardiac Pacemaker [facility] ASSURITY MRI 2272 / [id number] / Abbt-Stju 2272 Assurity Mri(Tm) [id number] Implanted:01/29 (Quantity not on file) Cardiac Pacemaker [facility] [employer] 2272 ASSURITY MRI(TM) / [id number] / Procedures Procedure Name Priority Date/Time Associated Diagnosis Comments CARDIAC DEVICE CHECK- IN CLINIC- MURJ Routine 06/25/2025 2:47 PM EDT Encounter for adjustment or management of cardiac device CARDIAC DEVICE CHECK- REMOTE- MURJ Routine 06/22/2025 10:58 AM EDT BASIC METABOLIC PANEL Routine 05/20/2025 12:26 PM EDT Essential (primary) hypertension LIPID PANEL WITH REFLEX TO DIRECT LDL Routine 03/29/2025 3:20 PM EDT Hospital discharge follow-up Bradycardia Anemia, unspecified type Amyloid heart disease (CMS/HCC V24, CMS/HCC V28) Diastolic heart failure, unspecified HF chronicity (CMS/HCC V24, CMS/HCC V28) from Last 3 Months or Most Recently Relevant to Health Maintenance Results * CARDIAC DEVICE CHECK- IN CLINIC- MURJ (06/25/2025 2:47 PM EDT) Date Time Interrogation Session [id number] CV DEVICE CHECK Implantable Pulse Generator Fly F[employer] Guide [employer] CV DEVICE CHECK Implantable Pulse Generator Type IPG CV DEVICE CHECK Implantable Pulse Generator Model Assurity MRI 2272 CV DEVICE CHECK Implantable Pulse Generator Serial Number [id number] CV DEVICE CHECK Implantable Pulse Generator Implant Date 20250217 CV DEVICE CHECK Battery Voltage 2.990 CV D EVICE CHECK Battery Status Middle of Service CV DEVICE CHECK Addi Statistic RA Percent Paced 75.00 CV DEVICE CHECK Addi Statistic RV Percent Paced 89.00 CV DEVICE CHECK Lead Channel Sensing Intrinsic Amplitude 2.400 CV DEVICE CHECK Lead Channel Impedance Value 413 CV DEVICE CHECK Lead Channel Pacing Threshold Amplitude 0.500 CV DEVICE CHECK Lead Channel Pacing Threshold Pulse Width 0.4 CV DEVICE CHECK Lead Channel RA Pacing Threshold Date 2025-06-25 CV DEVICE CHECK Lead Channel Setting Pacing Amplitude 1.500 CV DEVICE CHECK Lead Channel Setting Pacing Pulse Width 0.4 CV DEVICE CHECK Lead Channel Sensing Intrinsic Amplitude 12.000 CV DEVICE CHECK Lead Channel Impedance Value 388 CV DEVICE CHECK Lead Channel Pacing Threshold Amplitude 0.880 CV DEVICE CHECK Lead Channel Pacing Threshold Pulse Width 0.4 CV DEVICE CHECK Lead Channel RV Pacing Threshold Date 2025-06-25 CV DEVICE CHECK Lead Channel Setting Pacing Amplitude 1.130 CV DEVICE CHECK Lead Channel Setting Pacing Pulse Width 0.4 CV DEVICE CHECK Addi Setting Mode (NBG Code) DDDR CV DEVICE CHECK Addi Setting Lower Rate Limit 60 CV DEVICE CHECK Addi Setting AT Mode Switch Rate 180 CV DEVICE CHECK Addi Setting Maximum Tracking Rate 130 CV DEVICE CHECK Addi Setting Maximum Sensor Rate 130 CV DEVICE CHECK Addi Setting PAV Delay 200 CV DEVICE CHECK Addi Setting DONG Delay 150 CV DEVICE CHECK Date of Service 2026-03-30 CV DEVICE CHECK Anatomical Region Laterality Modality Device Interroga tion 06/25/2025 Impressions 06/29/2025 12:25 PM EDT Normal In-Office: No Events * Normal Device Function * AF alerts changed to 30 minutes today Narrative Procedure Note Mynor Thornton MD - 06/30/2025 IMPRESSION: Normal In-Office: No Events * Normal Device Function * AF alerts changed to 30 minutes today us Order Referral Cardiovascular CV IMPLANTABLE CAR DIAC DEVICE PROCEDURES Final Result * Cardiac device check - Remote- MURJ (06/22/2025 10:58 AM EDT) Date Time Interrogation Session [id number] CV DEVICE CHECK Type Interrogation Session Remote Scheduled CV DEVICE CHECK Implantable Pulse Generator Fly Fishing Guide [employer] CV DEVICE CHECK Implantable Pulse Generator Type IPG CV DEVICE CHECK Implantable Pulse Generator Model 2272 Assurity MRI(TM) CV DEVICE CHECK Implantable Pulse Generator Serial Number [id number] CV DEVICE CHECK Implantable Pulse Generator Implant Date 20250217 CV DEVICE CHECK Battery Remaining Percentage 95.50 CV DEVICE CHECK Battery Remaining Longevity 113.0 CV DEVICE CHECK Battery Voltage 2.990 CV D EVICE CHECK Battery NURSE AIDE Trigger 2.600 CV DEVICE CHECK Battery Status Middle of Service CV DEVICE CHECK Addi Statistic RA Percent Paced 68.00 CV DEVICE CHECK Addi Statistic RV Percent Paced 92.00 CV DEVICE CHECK Atrial Tachy Statistic AT/AF [place] Percent 1.00 CV DEVICE CHECK Lead Channel Sensing Intrinsic Amplitude 2.400 CV DEVICE CHECK Lead Channel Setting Sensing Sensitivity 0.30 CV DEVICE CHECK Lead Channel Impedance Value 390 CV DEVICE CHECK Lead Channel Pacing Threshold Amplitude 0.500 CV DEVICE CHECK Lead Channel Pacing Threshold Pulse Width 0.4 CV DEVICE CHECK Lead Channel RA Pacing Threshold Date 2025-06-20 CV DEVICE CHECK Lead Channel Setting Pacing Amplitude 1.500 CV DEVICE CHECK Lead Channel Setting Pacing Pulse Width 0.4 CV DEVICE CHECK Lead Channel Sensing Intrinsic Amplitude 5.200 CV DEVICE CHECK Lead Channel Setting Sensing Sensitivity 0.50 CV DEVICE CHECK Lead Channel Impedance Value 380 CV DEVICE CHECK Lead Channel Pacing Threshold Amplitude 0.875 CV DEVICE CHECK Lead Channel Pacing Threshold Pulse Width 0.4 CV DEVICE CHECK Lead Channel RV Pacing Threshold Date 2025-06-20 CV DEVICE CHECK Lead Channel Setting Pacing Amplitude 1.125 CV DEVICE CHECK Lead Channel Setting Pacing Pulse Width 0.4 CV DEVICE CHECK Addi Setting Mode (NBG Code) DDDR CV DEVICE CHECK Addi Setting Lower Rate Limit 60 CV DEVICE CHECK Addi Setting AT Mode Switch Rate 180 CV DEVICE CHECK Addi Setting Maximum Tracking Rate 130 CV DEVICE CHECK Addi Setting Maximum Sensor Rate 130 CV DEVICE CHECK Addi Setting PAV Delay 200 CV DEVICE CHECK Addi Setting DONG Delay 150 CV DEVICE CHECK Date of Service 2025-06-30 CV DEVICE CHECK Anatomical Region Laterality Modality Device Interroga tion 06/20/2025 2:00 AM EDT Impressions 06/22/2025 10:57 AM EDT Tachycardia: AF * Stored EGMs are consistent with or suggestive of Atrial Fibrillation * AT/AF [place]: 1% * Total number of events: 1 / rate controlled / No OAC / 50 minutes Narrative Procedure Note Lesvia Lei PA - 06/22/2025 IMPRESSION: Tachycardia: AF * Stored EGMs are consistent with or suggestive of Atrial Fibrillation * AT/AF [place]: 1% * Total number of events: 1 / rate controlled / No OAC / 50 minutes Lesvia GOODRICH CV IMPLANTABLE CARDIAC DEVICE AZ OCEDURES Final Result * (ABNORMAL) Basic metabolic panel (05/20/2025 12:26 PM EDT) Sodium 140 133 - 145 mmol/L LAB CHEMISTRY METHOD 05/20/2025 5:07 PM EDT [facility] Potassium 4.0 3.5 - 5.5 mmol/L LAB CHEMISTRY METHOD 05/20/2025 5:07 PM [facility] Chloride 105 96 - 110 mmol/L LAB CHEMISTRY METHOD 05/20/2025 5:07 PM [facility] CO2 28 21 - 32 mmol/L LAB CHEMISTRY METHOD 05/20/2025 5:07 PM [facility] Anion Gap 7 3 - 11 LAB CHEMISTRY METHOD 05/20/2025 5:07 PM [facility] Glucose 85 70 - 100 mg/dL LAB CHEMISTRY METHOD 05/20/2025 5:07 PM [facility] BUN 23 5 - 25 mg/dL LAB CHEMISTRY METHOD 05/20/2025 5:07 PM [facility] Creatinine 1.72(H) 0.70 - 1.30 mg/dL LAB CHEMISTRY METHOD 05/20/2025 5:07 PM [facility] eGFR 39(L) >=60 mL/min/1. 73m2 LAB CHEMISTRY METHOD 05/20/2025 5:07 PM [facility] Comment:Calculation based on the Chronic Kidney Disease Epidemiology Collaboration (CKD-EPI) equation refit without adjustment for race. BUN/Creatinine Ratio 13.4 LAB CHEMISTRY METHOD 05/20/2025 5:07 PM [facility] Calcium 9.6 8.5 - 10.5 mg/dL LAB CHEMISTRY METHOD 05/20/2025 5:07 PM [facility] Blood Venous blood specimen / Unknown Venipuncture / Unknown 05/20/2025 12:26 PM EDT 05/20/2025 12:37 PM EDT us Hosea GOODRICH LAB BLOOD ORDERABLES Polina l Result [facility] [address] [place] [address], * Lipid panel with reflex to direct LDL (03/29/2025 3:20 PM EDT) Cholesterol 90 0 - 200 mg/dL LAB CHEMISTRY METHOD 03/29/2025 5:36 PM EDT [facility] Triglycerides 40 0 - 150 mg/dL LAB CHEMISTRY METHOD 03/29/2025 5:36 PM EDT [facility] HDL 41 >=40 mg/dL LAB CHEMISTRY METHOD 03/29/2025 5:36 PM EDT [facility] LDL Calculated 41 0 - 100 mg/dL LAB CHEMISTRY METHOD 03/29/2025 5:36 PM EDT [facility] VLDL Cholesterol Jonathan 8 mg/dL LAB CHEMISTRY METHOD 03/29/2025 5:36 PM EDT [facility] Non HDL Chol. (LDL+VLDL) 49 <145 mg/dL LAB CHEMISTRY METHOD 03/29/2025 5:36 PM EDT [facility] Chol/HDL Ratio 2.2 0.0 - 4.4 LAB CHEMISTRY METHOD 03/29/2025 5:36 PM EDT [facility] Blood Venous blood specimen / Unknown Venipuncture / Unknown 03/29/2025 3:20 PM EDT 03/29/2025 3:20 PM EDT Hosea GOODRICH LAB BLOOD ORDERABLES Polina l Result [facility] [address] [place] [address], from Last 3 Months or Most Recently Relevant to Health Maintenance Insurance [facility] MEDICARE Advance Directives Documents on File Type Date Recorded Patient Non Profit Financial Controller Expl anation Power of Transit Mix Operator 03/16/2025 2:29 PM KWADWO D BY GWEN [place] MAY 01, 1018 Advance Directives and Living Will 02/18/2025 9:41 AM Gwen Louis Health Care Proxy * Full Code - Default (Latest Code Status on File) Date Activated Date Inactivated Comments 02/15/2025 9:46 PM 02/21/2025 6:14 PM This is orde r is used when code status has not been discussed with the patient, or code status is otherwise unknown/unconfirmed To update the patient's code status, place a code status order. Do not modify or discontinue any currently active code status orders. Healthcare Agents on File Name Relationship Healthcare Agent Relationshi p Communication Gwen Louis Spouse Health Care Agent Care Teams Chemical Operations Specialist Relationship Specialty Start Date End Date Hosea Sky PA [address] [place] [address] PCP - General Internal Medicine 07/31/24
--- OUTSIDE RECORDS SUMMARY | 2025-09-07 00:52 | XMS_ITS ---
[facility] Organization Unknown Care Team Organization Name Specialty Phone Email Start Date End [facility] 05/19/[address] [facility] Hosea Sky Primary Care 08/07/2022
--- OUTSIDE RECORDS SUMMARY | 2025-09-07 00:52 | XMS_ITS | Encounter Summary ---
Author Organization [facility] [place] [address] Care Team Providers Care Beam Saw Operator Name Role Phone Hosea Sky Primary Care Provider [phone] Encounter Details Date Type Department Care Team (Late st Contact Info) Description 03/01/2025 Lab Requisition [facility] - Main Lab [address] [facility] [place] [address] Ok Zuluaga MD [address] [place] [address] Essential (primary) hypertension Social History Tobacco Use Types Packs/Day Years [...] your loved ones. For example, child and adolescent psychologist or elderly care for an older adult? [...] Description 09/24/2025 3:00 PM EST Office Visit [facility] Hematology Oncology [address] [place] [phone] Alex Be MD [address] [place] [address] 11/19/2025 12:45 PM EST Office Visit [address] [phone] Hosea Sky PA [address] [place] [phone] 03/30/2026 2:30 PM EDT Ancillary Procedure [facility] - [address] [facility] [address] [place] [address] documented as of this encounter Procedures Procedure Name Priority Date/Time Associated Diagnosis Comments COMPLETE BLOOD COUNT Routine 03/01/2025 6:47 AM EDT Essential (primary) hypertension BASIC METABOLIC PANEL Routine 03/01/2025 6:47 AM EDT Essential (primary) hypertension documented in this encounter Results * (ABNORMAL) Basic metabolic panel (03/01/2025 6:47 AM EDT) Sodium 142 133 - 145 mmol/L LAB CHEMISTRY METHOD 03/01/2025 11:19 AM [facility] Potassium 4.1 3.5 - 5.5 mmol/L LAB CHEMISTRY METHOD 03/01/2025 11:19 AM [facility] Chloride 108 96 - 110 mmol/L LAB CHEMISTRY METHOD 03/01/2025 11:19 AM [facility] CO2 26 21 - 32 mmol/L LAB CHEMISTRY METHOD 03/01/2025 11:19 AM [facility] Anion Gap 8 3 - 11 LAB CHEMISTRY METHOD 03/01/2025 11:19 AM [facility] Glucose 95 70 - 100 mg/dL LAB CHEMISTRY METHOD 03/01/2025 11:19 AM [facility] BUN 28(H) 5 - 25 mg/dL LAB CHEMISTRY METHOD 03/01/2025 11:19 AM [facility] Creatinine 1.43(H) 0.70 - 1.30 mg/dL LAB CHEMISTRY METHOD 03/01/2025 11:19 AM [facility] eGFR 49(L) >=60 mL/min/1. 73m2 LAB CHEMISTRY METHOD 03/01/2025 11:19 AM [facility] Comment:Calculation based on the Chronic Kidney Disease Epidemiology Collaboration (CKD-EPI) equation refit without adjustment for race. BUN/Creatinine Ratio 19.6 LAB CHEMISTRY METHOD 03/01/2025 11:19 AM [facility] Calcium 8.5 8.5 - 10.5 mg/dL LAB CHEMISTRY METHOD 03/01/2025 11:19 AM [facility] Blood Venous blood specimen / Unknown Venipuncture / Unknown 03/01/2025 6:47 AM EDT 03/01/2025 10:03 AM EDT us Ok Zuluaga MD LAB BLOOD ORDERABLES Final Resul t [facility] [address] [place] [address], * (ABNORMAL) Complete blood count (03/01/2025 6:47 AM EDT) WBC 4.4(L) 4.8 - 10.8 K/mcL LAB HEMETOLOGY METHOD 03/01/2025 10:26 AM [facility] RBC 2.20(L) 4.50 - 5.50 M/mcL LAB HEMETOLOGY METHOD 03/01/2025 10:26 AM [facility] Hemoglobin 7.6(L) 13.5 - 17.5 g/dL LAB HEMETOLOGY METHOD 03/01/2025 10:26 AM [facility] Hematocrit 23.4(L) 42.0 - 54.0 % LAB HEMETOLOGY METHOD 03/01/2025 10:26 AM [facility] MCV 106.8(H) 79.0 - 98.0 FL LAB HEMETOLOGY METHOD 03/01/2025 10:26 AM [facility] MCH 34.7(H) 27.0 - 32.0 pcg LAB HEMETOLOGY METHOD 03/01/2025 10:26 AM [facility] MCHC 32.5 32.0 - 37.0 g/dL LAB HEMETOLOGY METHOD 03/01/2025 10:[address] [facility] RDW 13.2 11.0 - 15.0 % LAB HEMETOLOGY METHOD 03/01/2025 10:[address] [facility] Platelets 145 130 - 400 K/mcL LAB HEMETOLOGY METHOD 03/01/2025 10:[address] [facility] MPV 12.1(H) 7.0 - 11.0 FL LAB HEMETOLOGY METHOD 03/01/2025 10:[address] [facility] NRBC 0.0 <1.0 % LAB HEMETOLOGY METHOD 03/01/2025 10:[address] [facility] NRBC Absolute 0.00 <0.10 K/mcL LAB HEMETOLOGY METHOD 03/01/2025 10:[address] [facility] Blood Venous blood specimen / Unknown Venipuncture / Unknown 03/01/2025 6:47 AM EDT 03/01/2025 10:03 AM EDT Ok Zuluaga MD LAB BLOOD ORDERABLES Final Resul t [facility] [address] [place] [address], documented in this encounter Visit Diagnoses Diagnosis Essential (primary) hypertension Unspecified essential hypertension Encounter for adjustment or management of cardiac device documented in this encounter Additional Health Concerns Assessment Noted Time PHQ-9 Depression Total Score: 0 11/06/19 25 12:52 PM EST documented as of this encounter Care Teams Beam Saw Operator Relationship Specialty Start Date End Date Hosea Sky PA [address] [place] [id number] PCP - General Internal Medicine 07/31/24 documented as of this encounter
--- OUTSIDE RECORDS SUMMARY | 2025-09-07 00:52 | XMS_ITS | Encounter Summary ---
Author Organization [facility] [place] [address] Care Team Providers Care Audit Practice Intern Name Role Phone Hosea Sky Primary Care Provider [phone] Encounter Details Date Type Department Care Team (Late st Contact Info) Description 02/23/2025 Lab Requisition [facility] - Main Lab [address] [place] [address] Ok Zuluaga MD [address] [place], [place] [id number] Unspecified atrial fibrillation (CMS/HCC V24, CMS/HCC V28); Heart failure, unspecified (CMS/HCC V24, CMS/HCC V28) [...] your loved ones. For example, early childhood director or elderly care for an older [...] Description 09/24/2025 3:00 PM EST Office Visit [facility] Hematology Oncology [address] [place] [phone] Alex Be MD [address] [place] [phone] 11/19/2025 12:45 PM EST Office Visit Adult [address] [phone] Hosea Sky PA [address] [place] [phone] 03/30/2026 2:30 PM EDT Ancillary Procedure [facility] [address] [place] [address] documented as of this encounter Procedures Procedure Name Priority Date/Time Associated Diagnosis Comments COMPLETE BLOOD COUNT Routine 02/23/2025 7:01 AM EDT Unspecified atrial fibrillation (CMS/HCC V24, CMS/HCC V28) Heart failure, unspecified (CMS/HCC V24, CMS/HCC V28) COMPREHENSIVE METABOLIC PANEL Routine 02/23/2025 7:01 AM EDT Unspecified atrial fibrillation (CMS/HCC V24, CMS/HCC V28) Heart failure, unspecified (CMS/HCC V24, CMS/HCC V28) documented in this encounter Results * (ABNORMAL) Comprehensive metabolic panel (02/23/2025 7:01 AM EDT) Sodium 138 133 - 145 mmol/L LAB CHEMISTRY METHOD 02/23/2025 12:54 PM [facility] Potassium 3.8 3.5 - 5.5 mmol/L LAB CHEMISTRY METHOD 02/23/2025 12:54 PM [facility] Chloride 103 96 - 110 mmol/L LAB CHEMISTRY METHOD 02/23/2025 12:54 PM [facility] CO2 25 21 - 32 mmol/L LAB CHEMISTRY METHOD 02/23/2025 12:54 PM [facility] Anion Gap 10 3 - 11 LAB CHEMISTRY METHOD 02/23/2025 12:54 PM [facility] Glucose 89 70 - 100 mg/dL LAB CHEMISTRY METHOD 02/23/2025 12:54 PM [facility] BUN 25 5 - 25 mg/dL LAB CHEMISTRY METHOD 02/23/2025 12:54 PM [facility] Creatinine 1.39(H) 0.70 - 1.30 mg/dL LAB CHEMISTRY METHOD 02/23/2025 12:54 PM [facility] eGFR 50(L) >=60 mL/min/1. 73m2 LAB CHEMISTRY METHOD 02/23/2025 12:54 PM [facility] Comment:Calculation based on the Chronic Kidney Disease Epidemiology Collaboration (CKD-EPI) equation refit without adjustment for race. BUN/Creatinine Ratio 18.0 LAB CHEMISTRY METHOD 02/23/2025 12:54 PM [facility] Calcium 8.5 8.5 - 10.5 mg/dL LAB CHEMISTRY METHOD 02/23/2025 12:54 PM [facility] AST (SGOT) 8(L) 10 - 42 unit/L LAB CHEMISTRY METHOD 02/23/2025 12:54 PM [facility] ALT (SGPT) 9(L) 10 - 60 unit/L LAB CHEMISTRY METHOD 02/23/2025 12:54 PM [facility] Alkaline Phosphatase 105 42 - 121 unit/L LAB CHEMISTRY METHOD 02/23/2025 12:54 PM [facility] Total Protein 6.6 6.0 - 8.0 g/dL LAB CHEMISTRY METHOD 02/23/2025 12:54 PM [facility] Albumin 2.7(L) 3.2 - 5.0 g/dL LAB CHEMISTRY METHOD 02/23/2025 12:54 PM [facility] Total Bilirubin 0.7 0.0 - 1.4 mg/dL LAB CHEMISTRY METHOD 02/23/2025 12:54 PM [facility] Blood Venous blood specimen / Unknown Venipuncture / Unknown 02/23/2025 7:01 AM EDT 02/23/2025 10:23 AM EDT us Ok Zuluaga MD LAB BLOOD ORDERABLES Final Resul t [facility] [address] [place] [address], * (ABNORMAL) Complete blood count (02/23/2025 7:01 AM EDT) [facility] WBC 3.9(L) 4.8 - 10.8 K/mcL LAB HEMETOLOGY [facility] RBC 2.30(L) 4.50 - 5.50 M/mcL LAB HEMETOLOGY METHOD 02/23/2025 11:55 AM [facility] Hemoglobin 7.9(L) 13.5 - 17.5 g/dL LAB HEMETOLOGY METHOD 02/23/2025 11:55 AM [facility] Hematocrit 24.0(L) 42.0 - 54.0 % LAB HEMETOLOGY METHOD 02/23/2025 11:55 AM [facility] MCV 103.9(H) 79.0 - 98.0 FL LAB HEMETOLOGY METHOD 02/23/2025 11:55 AM [facility] MCH 34.2(H) 27.0 - 32.0 pcg LAB HEMETOLOGY METHOD 02/23/2025 11:55 AM [facility] MCHC 32.9 32.0 - 37.0 g/dL LAB HEMETOLOGY METHOD 02/23/2025 11:55 AM [facility] RDW 13.5 11.0 - 15.0 % LAB HEMETOLOGY METHOD 02/23/2025 11:55 AM [facility] Platelets 97(L) 130 - 400 K/mcL LAB HEMETOLOGY METHOD 02/23/2025 11:55 AM [facility] Comment:previously verified by slide MPV 13.0(H) 7.0 - 11.0 FL LAB HEMETOLOGY METHOD 02/23/2025 11:55 AM [facility] NRBC 0.0 <1.0 % LAB HEMETOLOGY METHOD 02/23/2025 11:55 AM EDT [facility] NRBC Absolute 0.00 <0.10 K/mcL LAB HEMETOLOGY METHOD 02/23/2025 11:55 AM EDT [facility] Blood Venous blood specimen / Unknown Venipuncture / Unknown 02/23/2025 7:01 AM EDT 02/23/2025 10:23 AM EDT us Ok Zuluaga MD LAB BLOOD ORDERABLES Final Resul t [facility] [address] [place] [address], documented in this encounter Visit Diagnoses Diagnosis Unspecified atrial fibrillation (CMS/HCC V24, CMS/HCC V28) Heart failure, unspecified (CMS/HCC V24, CMS/HCC V28) Heart failure, unspecified Encounter for adjustment or management of cardiac device documented in this encounter Additional Health Concerns Assessment Noted Time PHQ-9 Depression Total Score: 0 11/06/19 25 12:52 PM EST documented as of this encounter Care Teams Audit Practice Intern Relationship Specialty Start Date End Date Hosea Sky PA [address] [place] [address] PCP - General Internal Medicine 07/31/24 documented as of this encounter
--- OUTSIDE RECORDS SUMMARY | 2025-09-07 00:52 | XMS_ITS ---
Author Organization [facility] Address [address] [place] [address] Phone Care Team Providers Care Conveyor Monitor Name Role Phone Hosea Sky Primary Care Provider [phone] Active Problems Problem Noted Date Diagnosed Date [...] well. He is due to follow-up with [facility] cardiology, his will call to get [...] HDL 66, LDL 82. Atrial fibrillation 03/24/2006 Current Treatment and Therapy Plans No current plan information found. Past Treatment and Therapy Plans No past plan information found. Lifetime Dose Tracking * Chemical Lifetime Dose Automatic Entry Manual Entr y Radiation 60 mGy 0 mGy 60 mGy Fluoro Time 8.3 minutes 0 minutes 8.3 minutes
== END 2025-09-06 15:57 | disposition home or self-care (01) ==
LOC: HO.HSM 15:21
PROVIDERS: PCP Physician Assistant Medical; Visit Provider Registered Nurse
DX: G30.9 Alzheimer's disease, unspecified (principal); F02.80 Dementia in other diseases classified elsewhere, unspecified severity, without behavioral disturbance, psychotic disturbance, mood disturbance, and anxiety; G04.90 Encephalitis and encephalomyelitis, unspecified; R26.89 Other abnormalities of gait and mobility
CPT/HCPCS: 99213

== ENCOUNTER → 2025-09-06 15:21 | Outpatient (BNVA) | payer MEDICARE, OTHER, SELFPAY | PROVIDERS: PCP Physician Assistant Medical; Visit Provider Registered Nurse | DX: G30.9 Alzheimer's disease, unspecified (principal); F02.80 Dementia in other diseases classified elsewhere, unspecified severity, without behavioral disturbance, psychotic disturbance, mood disturbance, and anxiety; G04.90 Encephalitis and encephalomyelitis, unspecified; R26.89 Other abnormalities of gait and mobility | CPT/HCPCS: 99212 ==